=== PATIENT | male | born 1975 | race Caucasian/White ===

== ENCOUNTER 2021-08-25 18:43 | Inpatient (IN) | payer OTHER, SELFPAY ==
--- NOTE | ~2021-08-25 | CT_ITS ---
EXAMINATION: CT HEAD WITHOUT CONTRAST CLINICAL INFORMATION: Symptomatic hypertension COMPARISON: None TECHNIQUE: Contiguous axial imaging was performed from the skull base to vertex without intravenous administration of contrast. This CT examination was performed using dose optimization techniques as appropriate, variously including the following: *Automated exposure control *Adjustment of mA and/or kV according to patient size (this includes techniques or standardized protocols for targeted exams where dose is matched to indication/reason for exam; i.e. extremities or head) *Use of iterative reconstruction technique DLP: 726 mGy-cm FINDINGS: There is no evidence of an extra-axial collection. There is no evidence of intra-axial or extra-axial hemorrhage. The ventricles and extra-axial CSF spaces are appropriate. There is nonspecific periventricular white matter disease. This is somewhat out of proportion for the patient's age. There are bilateral basal ganglia lacunar infarcts. These are of indeterminate age. No mass or mass effect is seen. Review at bone windows is normal. No skull fracture is seen. Visualized paranasal sinuses, mastoid air cells and middle ears are clear. CT/CT head/brain wo con IMPRESSION: Nonspecific periventricular white matter disease somewhat out of proportion for the patient's age. Bilateral basal ganglia lacunar infarcts, indeterminate age.
--- NOTE | ~2021-08-25 | US_ITS ---
EXAMINATION: US ABDOMEN LIMITED CLINICAL INFORMATION: Transaminitis. COMPARISON: Chest CT from yesterday TECHNIQUE: Real-time imaging of the right upper quadrant abdominal viscera. FINDINGS: PANCREAS: Not well visualized due to bowel gas LIVER: Liver echotexture is increased. There is a hypoechoic area adjacent to the gallbladder, characteristic location of focal fatty sparing. There is a 1.2 x 1.4 cm slightly complex cyst in the right lobe of the liver with single thin septation. No other focal liver lesion is seen. There is no biliary duct dilatation. GALLBLADDER: Normal. The gallbladder is physiologically distended without evidence of stones, sludge, polyps, wall thickening or pericholecystic fluid. COMMON BILE DUCT: Normal in caliber measuring 0.4 cm in diameter. RIGHT KIDNEY: There is a 1.3 x 1.1 cm simple cyst in the lateral lower pole. There is a 3 mm echogenic focus in the lower pole questionable for a stone. No hydronephrosis. The kidney measures 10.4 cm in maximum dimension. FREE FLUID: None. US/US abdomen limited IMPRESSION: Echogenic liver probably representing fatty infiltration. 1.2 x 1.4 cm minimally complex cyst in the right lobe of the liver. Normal-appearing gallbladder. Small right renal cyst. Question small right renal stone. Limited visualization of the pancreas.
--- NOTE | ~2021-08-25 | NM_ITS ---
EXAMINATION: PULMONARY PERFUSION STUDY CLINICAL INFORMATION: Atypical chest pain, positive d-dimer, congestive heart failure. COMPARISON: No previous lung scan is available for comparison. A radiograph the chest dated 08/25/2021 is available for comparison. TECHNIQUE: Following the intravenous injection of 4.0 mCi Tc-99m MAA, an 8-view perfusion study was performed using a gamma scintillation camera. FINDINGS: No segmental perfusion defects are present. There is homogeneous distribution of activity bilaterally. There are no focal anatomic appearing perfusion defects present. The cardiomediastinal silhouette is moderately dilated. The chest radiograph dated 08/25/2021 shows dilatation the cardiac silhouette that is well matched to these images and pulmonary edema. NM/NM pul perfusion IMPRESSION: Very low probability of pulmonary embolism. Cardiomegaly.
--- NOTE | ~2021-08-25 | US_ITS ---
EXAMINATION: US VENOUS ULTRASOUND WITH DOPPLER LOWER EXTREMITY, BILATERAL CLINICAL INFORMATION: Elevated d-dimer COMPARISON: None TECHNIQUE: Ultrasound of the deep veins is performed from the hip to the calf with compression sonography and color and pulse Doppler assessment. Spectral analysis with color-flow imaging is performed. FINDINGS: RIGHT: There is normal venous compression and respiratory variation and augmented flow. The visualized common femoral vein, superficial femoral vein, profunda femoral vein, popliteal vein, and the trifurcation region shows no evidence of deep venous thrombosis. There is no significant popliteal fossa cyst. LEFT: There is normal venous compression and respiratory variation and augmented flow. The visualized common femoral vein, superficial femoral vein, profunda femoral vein, popliteal vein, and the trifurcation region shows no evidence of deep venous thrombosis. There is no significant popliteal fossa cyst. US/US venous duplex LE BI IMPRESSION: No DVT demonstrated in the bilateral lower extremity.
--- NOTE | ~2021-08-25 | XR_ITS ---
EXAMINATION: XR CHEST CLINICAL INFORMATION: Chest pain palpitations and tachycardia COMPARISON: None TECHNIQUE: Frontal view of the chest was obtained. FINDINGS: The cardiac silhouette is enlarged. There is pulmonary venous redistribution. There is mixed alveolar and interstitial disease. Findings are most suggestive of CHF/pulmonary edema. There is no pleural effusion or pneumothorax. Bony structures are unremarkable. XR/XR chest 1V IMPRESSION: Enlarged cardiac silhouette and pulmonary edema.
--- NOTE | ~2021-08-25 | US_ITS ---
EXAMINATION: ULTRASOUND RENAL DOPPLER CLINICAL INFORMATION: Rule out renal artery stenosis. COMPARISON: Previous abdominal ultrasound from earlier the same day. TECHNIQUE: Grayscale color and Doppler imaging of the renal arteries including waveform spectral analysis. FINDINGS: The kidneys are normal in contour and symmetric in size. Renal cortical thickness and echogenicity is normal. The right kidney measures 10.4 x 7.1 x 6.4 cm and the left kidney measures 10.7 x 5.4 x 0.4 cm. There is a 1.3 x 1.1 cm cyst in the lateral lower pole. There is a small echogenic density measuring 3 mm in the lower pole questionable for a stone. The left kidney is normal appearing.No renal mass or hydronephrosis. The visualized mid abdominal aorta is normal caliber. Systolic velocity measures 91 cm/s. Right renal artery is patent. Right renal artery peak systolic velocities measure 72, 79 and 57 cm/s proximally, in the midportion and distally. Right renal artery to aorta ratio is 0.9. Resistive indices in the right kidney are normal measuring 0.5-0.6. The right renal vein is patent. The left renal artery is patent. Left renal artery peak systolic velocities are normal measuring 67, 65 and 73 cm/s proximally, in the midportion and distally. Left renal artery to aorta ratio is normal measuring 0.8. Resistive indices in the left kidney are normal measuring 0.5. The left renal vein is patent. US/US renal doppler IMPRESSION: Normal renal Doppler exam. No evidence of renal artery stenosis.
--- NOTE | ~2021-08-25 | CT_ITS ---
EXAMINATION: CT CHEST WITHOUT CONTRAST CLINICAL INFORMATION: Shortness of breath COMPARISON: Chest x-ray from earlier today TECHNIQUE: Multidetector volumetric CT imaging of the chest was done. Axial MIP volume rendering provided. Sagittal and coronal reformatted images were obtained. This CT examination was performed using dose optimization techniques as appropriate, variously including the following: *Automated exposure control *Adjustment of mA and/or kV according to patient size (this includes techniques or standardized protocols for targeted exams where dose is matched to indication/reason for exam; i.e. extremities or head) *Use of iterative reconstruction technique DLP: 462 mGy-cm FINDINGS: LUNGS: There is nearly diffuse interlobular septal thickening bilaterally. There are numerous superimposed nodular foci bilaterally, right lung greater than left and measuring up to nearly 1 cm in size. Focal small region of mixed groundglass and consolidation is present in the anterior right upper lobe. MEDIASTINUM: Visualized thyroid gland is grossly unremarkable. There are multiple scattered prominent lymph nodes including in the paratracheal, prevascular, and subcarinal regions measuring up to 1.4 cm in short axis dimension. Cardiac size appears near the upper limits of normal. Trace pericardial fluid is noted. Coronary artery calcifications are present. PLEURA: Small pleural effusions. No pneumothorax. AXILLA: No lymphadenopathy. UPPER ABDOMEN: Subcentimeter hypodensity in the dome of the liver near the IVC is favored to represent a cyst. OSSEOUS STRUCTURES: Unremarkable. CT/CT chest wo con IMPRESSION: 1. Diffuse interlobular septal thickening bilaterally along with small pleural effusions, suspicious for interstitial pulmonary edema. However, numerous nodular foci are also present bilaterally, raising the possibility of superimposed abnormality such as lymphangitic carcinomatosis. Interval follow-up CT is recommended after improvement of symptoms, such as following diuresis, to assess for persistence of nodularity. 2. Several enlarged mediastinal lymph nodes which could be reactive in the setting of edema or potentially malignant in nature. Attention on follow-up recommended. 3. Coronary artery calcifications. Correlation with cardiac risk factors is recommended.
[2021-08-25 19:04] VITALS: BP 263/177; PULSE 144; RESP 30; TEMP 36.4; O2SAT 90; BMI 30.1
[2021-08-25 19:22] VITALS: BP 256/173; PULSE 141; RESP 22; O2SAT 94
--- NOTE | 2021-08-25 19:27 | ED_ITS ---
HPI - Chest Pain General Chief Complaint: Chest Pain Stated Complaint: chest pains/diff breathing Time Seen by Provider: 08/25/21 19:19 Source: patient and family Mode of arrival: ambulatory Limitations: no limitations History of Present Illness HPI narrative: 46-year-old male with a history of hypertension non compliant with his home medications in greater than 2 months here with reports of 1 week of increasing difficulty breathing, palpitations and high blood pressure at home with chest discomfort. Patient denies any cough, leg swelling, leg pain, fever, headache, vision changes or vomiting. Patient has not received a COVID vaccine Related Data Home Medications Medication Instructions Recorded Confirmed No Known Home Meds 08/25/21 08/25/21 Allergies Allergy/AdvReac Type Severity Reaction Status Date / Time No Known Allergies Allergy Verified 08/25/21 19:10 Review of Systems Review of Systems: Yes all other systems are reviewed and are negative Constitutional: Constitutional: Reports no additional constitutional complaints, Denies body ache(s), Denies chills, Denies fever(s), Denies headache(s) and Denies weakness Eyes: Eyes: Reports no additional eye complaints and Denies change in vision ENT: Reports system reviewed and no additional complaints, except as documented, Denies dizziness, Denies headache(s), Denies nasal congestion, Denies nasal discharge and Denies neck pain Cardiovascular: Cardiovascular: Reports no additional cardiovascular complaints, Reports chest pain, Denies leg edema, Reports palpitations and R eports dyspnea Respiratory: Respiratory: Reports no additional respiratory complaints, Denies cough and Reports dyspnea Gastrointestinal: Gastrointestinal: Reports no additional gastrointestinal complaints, Denies abdominal pain, Denies diarrhea, Denies nausea and Denies vomiting Genitourinary: Genitourinary: Denies urinary incontinence Musculoskeletal: Musculoskeletal: Reports no additional musculoskeletal complaints, Denies back pain, Denies arthralgias, Denies joint swelling, Denies neck pain, Denies numbness and Denies tingling Integumentary/Breasts: Skin/Breast: Reports system reviewed and no additional complaints, except as docu and Denies rash Neurologic: Reports system reviewed and no additional complaints, except as documented, Denies Abnormal speech present, Denies dizziness, Denies headache(s), Denies numbness, Denies tingling and Denies weakness Endocrine: Endocrine: Reports palpitations PMFSH Past Medical History Attestation statement: The following information was validated with the patient. Source: old records reviewed and nursing notes reviewed Medical History HTN (hypertension) Social History Social History Advance Directives: No Advance Directives Information Provided: No Physical Exam Vital Signs: Vital Signs: Last Vital Signs Temp 99.0 F 08/25/21 21:13 Pulse 107 H 08/25/21 21:13 Resp 22 H 08/25/21 21:46 BP 181/124 H 08/25/21 21:46 Pulse Ox 98 08/25/21 21:46 BMI result Body Mass Index 30.1 Const: Other: Tachypneic, mild respiratory distress Diaphoretic General: alert Orientation/consciousness: patient oriented x3 Limitations: no limitations HENMT: Head: Yes normal to inspection Ears: hearing grossly normal bilaterally and TM normal on the right General nose exam: Normal external nose present Face and sinus: Yes normal facial exam Mouth: Normal oral and palatal mucosa present Throat: Yes posterior oropharynx normal Eyes: General: appearance normal, both eyes and all related structures Pupils: Equal, round and reactive pupils present Neck: Neck: Yes normal visual inspection Chest: Chest palpation & inspection: normal inspection of the chest Resp: Other: Tachypnea with a rate of 28. Fine crackles throughout Cardio: Rate: tachycardic (140) Rhythm: regular rhythm Peripheral puls es: Peripheral pulses 2+ throughout GI: Inspection: Yes normal to inspection Palpation (GI): Soft to palpation and nontender Auscultation: normal bowel sounds Back/Spine/Pelvis: Thoracic/Lumbar Spine: thoracic and lumbar spine normal to inspection Skin: General skin exam: no rashes or lesions noted Neuro: General: patient oriented x3, no focal motor deficits and normal sensation to monofilament Cranial nerves: Yes Equal, round and reactive pupils present Cognition (Neuro): normal cognition Speech: No Abnormal speech present Gait exam (Neuro): Normal gait present Motor exam (neuro): 5/5 motor strength present throughout Extrem: General: Yes normal to inspection, Yes no pedal edema and Yes no calf tenderness Course Course Course Narrative: 46-year-old male with a history of hypertension, noncompliant with home medications here with reports of 1 week of progressive shortness of breath, palpitations, high blood pressure at home with chest discomfort. On arrival the patient is noted to be tachycardic with a rate of 140, hypertensive with initial blood pressure 256/173, tachypnea with a rate of 28, room air saturation 90% wit h crackles throughout the lung. Patient seen in conjunction with attending physician Dr. Potter. ?hypertensive crisis w/ new onset CHF Will check labs, EKG, chest x-ray, COVID screen. Patient will be given 20 mg of IV labetalol, 40 mg of IV Lasix and sublingual nitroglycerin. 2029-blood pressure now 192/130, heart rate down to 108, rr 24. Unfortunately the patient's labs hemolyzed and we are still waiting for his chemistries. His initial troponin is 2200. His chest pain is described as discomfort and he has had this throughout the week. Serial EKGs are unchanged in so sinus tachycardia with LVH with flipped T-waves in V6. BNP is elevated. Chest x-ray is consistent with fluid overload. D-dimer is elevated. Anticipate patient will need to be heparinized. Due to symptomatic hypertension will check CT head to rule out ICH prior to initiating heparin. Due to delay in obtaining labs will scan patient's head and defer CTA until labs are returned. 2099-labs show acute kidney injury. Unable to use IV contrast for CTA to renal function. Spoke to Cardiology Dr. Gale. Requesting tox screen. Recommended trending troponin. Likely secondary to uncontrolled hypertension and CHF and not from ACS. However if troponin continues to rise the patient may require heparin IV. Blood pressure 195/130. Will give additional dose of labetalol then re-assess. 2129-Discussed case with Dr Huang. BP now 176/124. Medicine is requesting we discussed the case with ICU due to elevated blood pressure and management of this on the floor. Will discuss with ICU. 2144-discussed patient with Dr. Mora (ICU). As patient has had significant improvement in blood pressure he does not recommend ICU admission and feels current blood pressure is satisfactory. Repeat troponin 1960. 2158-Additional 10mg labetalol IV, nitro paste applied. Dr Huang requesting CT chest w/o contrast d/t renal function. Heparin gtt ordered. Sign out to Dr Myers pending CT chest and admission. MDM - Chest Pain MDM Narrative Medical decision making narrative: hypertensive crisis, congestive heart failure, Nstemi, PE Medical Records Data Attestation: I reviewed the patient's medical records. Lab Data Attestation: I reviewed the patient's lab results. Result diagrams: 08/25/21 19:24 08/25/21 20:16 Labs: Lab Results 08/25/21 08/25/21 08/25/21 Range/Units 19:24 19:24 19:24 WBC 8.2 (4.8-10.8) X10*3/uL RBC 4.26 L (4.60-5.80) X10*6/uL Hgb 12.5 L (14.0-18.0) g/dl Hct 39.9 L (42.0-52.0) % MCV 93.7 (80.0-98.0) fL MCH 29.3 (27.0-33.0) pg MCHC 31.3 (31.0-36.0) g/dl RDW 13.8 (11.0-16.0) % Plt Count 253 (160-400) X10*3/uL MPV 9.5 (9.4-12.4) fL Immature Gran % (Auto) 0.6 H (0.0-0.4) % Neut % (Auto) 68.6 (45-73) % Lymph % (Auto) 18.6 L (20-40) % Nicollet % (Auto) 7.1 (2-11) % Eos % (Auto) 4.2 H (0-4) % Baso % (Auto) 0.9 (0-2) % Lymph # (Auto) 1.5 (1.2-4.9) X10*3/uL Nicollet # (Auto) 0.6 (0.1-1.2) X10*3/uL Eos # (Auto) 0.3 (0.0-0.4) X10*3/uL Baso # (Auto) 0.1 (0.0-0.2) X10*3/uL Abs Immat Gran (auto) 0.05 H (0.00-0.03) X10*3/uL Absolute Neuts (auto) 5.6 (2.0-8.3) x10*3/uL Absolute Nucleated RBC 0.000 (0.0-0.012) X10*3/uL Nucleated RBC % (auto) 0.0 (0.0-0.2) /100WBC D-Dimer High Sensitivty 1013 NG/ML Sodium (135-145) mmol/L Potassium (3.3-5.1) mmol/L Chloride (96-108) mmol/L Carbon Dioxide (22-29) mmol/L Anion Gap (12-20) BUN (9-16) mg/dL Creatinine (0.5-1.4) mg/dL Estim Creat Clear Calc Estimated GFR Random Glucose (60-115) mg/dL Calcium (8.4-10.2) mg/dL Total Bilirubin (0.0-1.0) mg/dL Direct Bilirubin (0.0-0.5) mg/dL AST (5-37) U/L ALT (0-40) U/L Alkaline Phosphatase (39-117) U/L Troponin I High Sens 2200.8 H* (<3.5-35.0) ng/L B-Natriuretic Peptide 1204 H (<100) pg/mL Total Protein (6.5-8.0) g/dL Albumin (3.5-5.0) g/dL Urine Opiates Screen (Not Detect) Urine Fentanyl Screen (Not Detect) Ur Barbiturates Screen (Not Detect) Ur Phencyclidine Scrn (Not Detect) Ur Amphetamines Screen (Not Detect) U Benzodiazepines Scrn (Not Detect) Urine Cocaine Screen (Not Detect) U Marijuana (THC) Screen (Not Detect) COVID-19 (TIMOTHY) (Negative) COVID-19 Clin Com 08/25/21 08/25/21 08/25/21 Range/Units 19:29 20:16 21:15 WBC (4.8-10.8) X10*3/uL RBC (4.60-5.80) X10*6/uL Hgb (14.0-18.0) g/dl Hct (42.0-52.0) % MCV (80.0-98.0) fL MCH (27.0-33.0) pg MCHC (31.0-36.0) g/dl RDW (11.0-16.0) % Plt Count (160-400) X10*3/uL MPV (9.4-12.4) fL Immature Gran % (Auto) (0.0-0.4) % Neut % (Auto) (45-73) % Lymph % (Auto) (20-40) % Nicollet % (Auto) (2-11) % Eos % (Auto) (0-4) % Baso % (Auto) (0-2) % Lymph # (Auto) (1.2-4.9) X10*3/uL Nicollet # (Auto) (0.1-1.2) X10*3/uL Eos # (Auto) (0.0-0.4) X10*3/uL Baso # (Auto) (0.0-0.2) X10*3/uL Abs Immat Gran (auto) (0.00-0.03) X10*3/uL Absolute Neuts (auto) (2.0-8.3) x10*3/uL Absolute Nucleated RBC (0.0-0.012) X10*3/uL Nucleated RBC % (auto) (0.0-0.2) /100WBC D-Dimer High Sensitivty NG/ML Sodium 139 (135-145) mmol/L Potassium 4.8 (3.3-5.1) mmol/L Chloride 108 (96-108) mmol/L Carbon Dioxide 20 L (22-29) mmol/L Anion Gap 16 (12-20) BUN 35 H (9-16) mg/dL Creatinine 2.22 H (0.5-1.4) mg/dL Estim Creat Clear Calc 47.1 Estimated GFR 32 Random Glucose 116 H (60-115) mg/dL Calcium 9.1 (8.4-10.2) mg/dL Total Bilirubin 0.4 (0.0-1.0) mg/dL Direct Bilirubin < 0.2 (0.0-0.5) mg/dL AST 261 H (5-37) U/L ALT 213 H (0-40) U/L Alkaline Phosphatase 151 H (39-117) U/L Troponin I High Sens (<3.5-35.0) ng/L B-Natriuretic Peptide (<100) pg/mL Total Protein 7.1 (6.5-8.0) g/dL Albumin 3.7 (3.5-5.0) g/dL Urine Opiates Screen Not Detected (Not Detect) Urine Fentanyl Screen Not Detected (Not Detect) Ur Barbiturates Screen Not Detected (Not Detect) Ur Phencyclidine Scrn Not Detected (Not Detect) Ur Amphetamines Screen Not Detected (Not Detect) U Benzodiazepines Scrn Not Detected (Not Detect) Urine Cocaine Screen Not Detected (Not Detect) U Marijuana (THC) Screen Not Detected (Not Detect) COVID-19 (TIMOTHY) Negative (Negative) COVID-19 Clin Com See Note 08/25/21 Range/Units 21:20 WBC (4.8-10.8) X10*3/uL RBC (4.60-5.80) X10*6/uL Hgb (14.0-18.0) g/dl Hct (42.0-52.0) % MCV (80.0-98.0) fL MCH (27.0-33.0) pg MCHC (31.0-36.0) g/dl RDW (11.0-16.0) % Plt Count (160-400) X10*3/uL MPV (9.4-12.4) fL Immature Gran % (Auto) (0.0-0.4) % Neut % (Auto) (45-73) % Lymph % (Auto) (20-40) % Nicollet % (Auto) (2-11) % Eos % (Auto) (0-4) % Baso % (Auto) (0-2) % Lymph # (Auto) (1.2-4.9) X10*3/uL Nicollet # (Auto) (0.1-1.2) X10*3/uL Eos # (Auto) (0.0-0.4) X10*3/uL Baso # (Auto) (0.0-0.2) X10*3/uL Abs Immat Gran (auto) (0.00-0.03) X10*3/uL Absolute Neuts (auto) (2.0-8.3) x10*3/uL Absolute Nucleated RBC (0.0-0.012) X10*3/uL Nucleated RBC % (auto) (0.0-0.2) /100WBC D-Dimer High Sensitivty NG/ML Sodium (135-145) mmol/L Potassium (3.3-5.1) mmol/L Chloride (96-108) mmol/L Carbon Dioxide (22-29) mmol/L Anion Gap (12-20) BUN (9-16) mg/dL Creatinine (0.5-1.4) mg/dL Estim Creat Clear Calc Estimated GFR Random Glucose (60-115) mg/dL Calcium (8.4-10.2) mg/dL Total Bilirubin (0.0-1.0) mg/dL Direct Bilirubin (0.0-0.5) mg/dL AST (5-37) U/L ALT (0-40) U/L Alkaline Phosphatase (39-117) U/L Troponin I High Sens 1961.9 H* (<3.5-35.0) ng/L B-Natriuretic Peptide (<100) pg/mL Total Protein (6.5-8.0) g/dL Albumin (3.5-5.0) g/dL Urine Opiates Screen (Not Detect) Urine Fentanyl Screen (Not Detect) Ur Barbiturates Screen (Not Detect) Ur Phencyclidine Scrn (Not Detect) Ur Amphetamines Screen (Not Detect) U Benzodiazepines Scrn (Not Detect) Urine Cocaine Screen (Not Detect) U Marijuana (THC) Screen (Not Detect) COVID-19 (TIMOTHY) (Negative) COVID-19 Clin Com Imaging Data Chest x-ray: Attestation: I personally reviewed and interpreted this imaging study as follows: Radiologist's impression: FINDINGS: The cardiac silhouette is enlarged. There is pulmonary venous redistribution. There is mixed alveolar and interstitial disease. Findings are most suggestive of CHF/pulmonary edema. There is no pleural effusion or pneumothorax. Bony structures are unremarkable. XR/XR chest 1V IMPRESSION: Enlarged cardiac silhouette and pulmonary edema. ? CT scan - head: Attestation: I personally reviewed and interpreted this imaging study as follows: Radiologist's impression: FINDINGS: There is no evidence of an extra-axial collection. There is no evidence of intra-axial or extra-axial hemorrhage. The ventricles and extra-axial CSF spaces are appropriate. There is nonspecific periventricular white matter disease. This is somewhat out of proportion for the patient's age. There are bilateral basal ganglia lacunar infarcts. These are of indeterminate age. No mass or mass effect is seen. Review at bone windows is normal. No skull fracture is seen. Visualized paranasal sinuses, mastoid air cells and middle ears are clear. ? CT/CT head/brain wo con IMPRESSION: Nonspecific periventricular white matter disease somewhat out of proportion for the patient's age. Bilateral basal ganglia lacunar infarcts, indeterminate age. ECG Data ECG #1: Attestation: I personally reviewed and interpreted this ECG as follows: ECG interpretation date: 08/25/21 ECG interpretation time: 19:09 Interpretation: Sinus tachycardia with a rate of 143, normal TN, normal QRS, QTC 546, LVH with depressions in V6 Repeat EKG at 20:08 shows sinus tachycardia with a rate of 109, normal TN, destiny l QRS, QTC 495, LVH with flipped T-waves in V6 Critical Care Time Critical Care Time Critical Care Time: Yes Total Critical Care Time: 120 Attestation: Multiple re-evaluations her blood pressure with IV antihypertensives required, discussion with ICU, discussion with medicine for admission. Discussions family at the bedside. Discharge Plan Discharge Clinical Impression: Atypical chest pain, Acute non-ST elevation myocardial infarction (NSTEMI), CHF (congestive heart failure), Hypertensive emergency Patient Disposition: Admitted As Inpatient
[2021-08-25] MEDS: Furosemide 40 MG/4 ML VIAL IVPUSH (19:29)
[2021-08-25 19:30] LABS: Basophils Absolute Auto 0.1 X10*3/uL (0.0-0.2); Basophils Percent Auto 0.9 % (0-2); Eosinophils Absolute Auto 0.3 X10*3/uL (0.0-0.4); Eosinophils Percent Auto 4.2 % (0-4); Hematocrit 39.9 % (42.0-52.0); Hemoglobin 12.5 g/dl (14.0-18.0); Imm Gran Abs Auto 0.05 X10*3/uL (0.00-0.03); Imm Gran Pct Auto 0.6 % (0.0-0.4); Lymphocytes Absolute Auto 1.5 X10*3/uL (1.2-4.9); Lymphocytes Percent Auto 18.6 % (20-40); MANUAL DIFF FLAG NO; Mean Corpuscular HGB Conc 31.3 g/dl (31.0-36.0); Mean Corpuscular Hemoglobin 29.3 pg (27.0-33.0); Mean Corpuscular Volume 93.7 fL (80.0-98.0); Mean Platelet Volume 9.5 fL (9.4-12.4); Monocytes Absolute Auto 0.6 X10*3/uL (0.1-1.2); Monocytes Percent Auto 7.1 % (2-11); Neutrophils Absolute Auto 5.6 x10*3/uL (2.0-8.3); Neutrophils Percent Auto 68.6 % (45-73); Platelet Count 253 X10*3/uL (160-400); Red Blood Count 4.26 X10*6/uL (4.60-5.80); Red Cell Distribution Width 13.8 % (11.0-16.0); White Blood Count 8.2 X10*3/uL (4.8-10.8)
[2021-08-25] MEDS: Nitroglycerin 0.4 MG TAB.SUBL SUBLINGUAL (19:30)
[2021-08-25] MEDS: Labetalol HCL 100 MG/20 ML VIAL 20 MG IVPUSH ×2 (19:33→21:21)
[2021-08-25 19:41] LABS: D Dimer High Sensitivity 1013 NG/ML
[2021-08-25 19:50] VITALS: BP 192/143; PULSE 108
[2021-08-25 19:57] LABS: COVID-19 Test Negative (Negative); IDNOW Serial# 55D5AD1C
--- NOTE | 2021-08-25 20:04 | ECG_ITS ---
Test Reason : CHEST PAIN/TACHY Blood Pressure : / mmHG Vent. Rate : 143 BPM Atrial Rate : 143 BPM P-R Int : 132 ms QRS Dur : 092 ms QT Int : 354 ms P-R-T Axes : 035 -27 101 degrees QTc Int : 546 ms Sinus tachycardia Possible Left atrial enlargement Left ventricular hypertrophy ( R in aVL , Neil product ) T wave abnormality, consider lateral ischemia Abnormal ECG No previous ECGs available Referred By: Jeannette Solitario Electronically Signed By:POONAM VILCHIS MD
[2021-08-25 20:13] LABS: B Type Natriuretic Peptide 1204 pg/mL (<100)
[2021-08-25] MEDS: Aspirin 81 MG TAB.CHEW 324 MG PO (20:51)
--- NOTE | 2021-08-25 20:55 | PHA.MEDREC ---
Pharmacy Consult ? Medication Reconciliation Pharmacy has completed the medication reconciliation.
[2021-08-25 21:01] LABS: Alanine Aminotransferase 213 U/L (0-40); Albumin Level 3.7 g/dL (3.5-5.0); Alkaline Phosphatase 151 U/L (39-117); Anion Gap 16 (12-20); Aspartate Amino Transferase 261 U/L (5-37); Bilirubin Direct < 0.2 mg/dL (0.0-0.5); Bilirubin Total 0.4 mg/dL (0.0-1.0); Blood Urea Nitrogen 35 mg/dL (9-16); Calcium 9.1 mg/dL (8.4-10.2); Carbon Dioxide 20 mmol/L (22-29); Chloride 108 mmol/L (96-108); Creatinine Clr Calc Pharmacy 47.1; Estimated Glomerular Filt Rate 32; Glucose Random 116 mg/dL (60-115); Potassium 4.8 mmol/L (3.3-5.1); Sodium 139 mmol/L (135-145); Total Protein 7.1 g/dL (6.5-8.0)
[2021-08-25 21:13] VITALS: BP 195/134; PULSE 107; RESP 25; TEMP 37.2; O2SAT 98
[2021-08-25 21:46] VITALS: BP 181/124; RESP 22; O2SAT 98
[2021-08-25 21:48] LABS: Troponin-I High Sensitivity 1961.9 ng/L (<3.5-35.0)
[2021-08-25 21:57] LABS: Amphetamine Screen Urine Not Detected (Not Detect); Barbiturates, Urine Not Detected (Not Detect); Benzodiazepines Screen Urine Not Detected (Not Detect); Cannabinoid Screen Urine Not Detected (Not Detect); Cocaine Screen Urine Not Detected (Not Detect); Fentanyl, urine Not Detected (Not Detect); Opiate Screen Urine Not Detected (Not Detect); Phencyclidine Screen Urine Not Detected (Not Detect)
[2021-08-25 21:59] LABS: INTERNATIONAL NORM RATIO 1.1 (0.9-1.1); Prothrombin Time 12.7 SEC (9.9-13.0)
[2021-08-25 22:02] LABS: Partial Thromboplastin Time 35.4 SEC (24.1-38.0)
[2021-08-25] MEDS: Labetalol HCL 100 MG/20 ML VIAL 10 MG IVPUSH (22:15)
[2021-08-25] MEDS: Heparin Sodium,Porcine 5,000 UNIT/ML VIAL 4000 UNIT IVPUSH (22:16)
[2021-08-25] MEDS: Nitroglycerin 2 % Oint 1 GM Packet 1 INCH TRANSDERMA (22:17)
[2021-08-25 22:48] LABS: Appearance Urine CLEAR; Color Urine STRAW; Glucose Urine UA NEG (NEG); Leukocyte Esterase Urine NEG (NEG); Nitrite Urine NEG (NEG); PH 5.5 (5.0-8.0); Specific Gravity - Urine 1.015 (1.005-1.025); Urine Blood NEG (NEG); Urine Ketones NEG (NEG); Urine Protein TRACE MG/DL (NEG-TRACE)
[2021-08-25 22:54] VITALS: BMI 31.5
--- NOTE | 2021-08-25 23:04 | PM.IMHP ---
History of Present Illness Date of Service: 08/25/21 Chief Complaint: Shortness of breath 46-year-old male with a past medical history of hypertension presented to the hospital with a chief complaint of shortness of breath. Patient reports that he has a history of hypertension and has not been taking his home blood pressure medications for past 2 months as he ran out of them. Mentions that since 1 week he has been having intermittent episodes of shortness of breath, orthopnea. Also complains of dyspnea on exertion and occasional chest discomfort. Denies any chest pain at the time of my interview. Reports today he had severe shortness of breath and subsequently his girlfriend brought him to the hospital for further evaluation. Patient mentioned that he recently went to [place], many of [place], everything by flight about 1-2 hours lights. Denies any long travel. Denies any leg pain. Denies any headaches, numbness tingling or focal weakness. Denies any GI symptoms. Review of all other systems is negative except mentioned above ER course: Per ER team patient on presentation noted to be acutely short of breath; chest x-ray showed possible congestion; on labs noted elevated proBNP, creatinine to 2.2, troponins elevated to 2200; EKG showed T-wave inversions in the lateral leads and LVH; likely strain pattern. Discussed with Dr. Gale from Cardiology-did not remark want any emergency intervention; patient was given heparin drip and admitted to the hospital for further management. ER team also mentioned that patient blood pressure was significantly elevated on presentation 263/177; CT head showed no acute findings; discussed with ICU Dr Mora-suggested admission to the medical floors; patient was given IV labetalol with improvement in blood pressure to 183/127. Also noted to have elevated D-dimer; unable to do CT scan given renal insufficiency. Patient was started on heparin drip. [facility] Medical History HTN (hypertension) Social History Advance Directives: No Advance Directives Information Provided: No Meds Allergies Allergy/AdvReac Type Severity Reaction Status Date / Time No Known Allergies Allergy Verified 08/25/21 19:10 Active Medications: Current Medications Heparin Sodium (Porcine) (Heparin Sodium,Porcine 5,000 Unit/Ml Vial) 4,000 unit 40 unit/kg (3800 unit) IVPUSH PROTOCOL BOLUS PRN PRN Reason: 40 unit/kg - Heparin Protocol Heparin Sodium (Porcine) (Heparin Sodium,Porcine 5,000 Unit/Ml Vial) 8,000 unit 80 unit/kg (7600 unit) IVPUSH PROTOCOL BOLUS PRN PRN Reason: 80 unit/kg - Heparin Protocol Heparin Sodium/Sodium Chloride () 25,000 unit in 250 mls @ 0 mls/hr IVCONT .Q0M SELINA; Protocol Pharmacy Consult (Consult Rx Perform Med Rec) 1 each MISCELLANE ONCE PRN PRN Reason: Consult order Home Medications Medication Instructions Recorded Confirmed Last Taken Type No Known Home Meds 08/25/21 08/25/21 Unknown History Physical Exam Vital Signs and Narrative: Vital Signs: Last Vital Signs Temp 99.0 F 08/25/21 21:13 Pulse 107 H 08/25/21 21:13 Resp 22 H 08/25/21 21:46 BP 181/124 H 08/25/21 21:46 Pulse Ox 98 08/25/21 21:46 BMI result Body Mass Index 31.5 Gen: Appears be in no acute distress. Speaking in full sentences on room air. HEENT: NCAT, Moist mucosa. Pulmonary: Bilateral crackles present CVS: Normal S1-S2 Abdomen: BS+, Soft, Nontender Extremities: Warm well perfused. No pedal edema Neuro: Alert and awake. Grossly nonfocal Results Labs CBC and Chem 7: 08/26/21 05:48 08/26/21 05:48 Labs: Laboratory Results - last 24 hr 08/25/21 08/25/21 08/25/21 19:24 19:24 19:24 MCV 93.7 MCH 29.3 MCHC 31.3 RDW 13.8 Plt Count 253 MPV 9.5 Immature Gran % (Auto) 0.6 H Neut % (Auto) 68.6 Lymph % (Auto) 18.6 L [place] % (Auto) 7.1 Eos % (Auto) 4.2 H Baso % (Auto) 0.9 Lymph # (Auto) 1.5 [place] # (Auto) 0.6 Eos # (Auto) 0.3 Baso # (Auto) 0.1 Abs Immat Gran (auto) 0.05 H Absolute Neuts (auto) 5.6 Absolute Nucleated RBC 0.000 Nucleated RBC % (auto) 0.0 PT 12.7 INR 1.1 APTT 35.4 D-Dimer High Sensitivty 1013 Anion Gap Estim Creat Clear Calc Estimated GFR Random Glucose Calcium Total Bilirubin Direct Bilirubin AST ALT Alkaline Phosphatase B-Natriuretic Peptide 1204 H Total Protein Albumin Urine Color Urine Appearance Urine pH Ur Specific Girard Urine Protein Urine Glucose (UA) Urine Ketones Urine Blood Urine Nitrite Ur Leukocyte Esterase Urine Opiates Screen Urine Fentanyl Screen Ur Barbiturates Screen Ur Phencyclidine Scrn Ur Amphetamines Screen U Benzodiazepines Scrn Urine Cocaine Screen U Marijuana (THC) Screen COVID-19 (TIMOTHY) COVID-19 [employer] 08/25/21 08/25/21 08/25/21 19:29 20:16 21:15 MCV MCH MCHC RDW Plt Count MPV Immature Gran % (Auto) Neut % (Auto) Lymph % (Auto) [place] % (Auto) Eos % (Auto) Baso % (Auto) Lymph # (Auto) [place] # (Auto) Eos # (Auto) Baso # (Auto) Abs Immat Gran (auto) Absolute Neuts (auto) Absolute Nucleated RBC Nucleated RBC % (auto) PT INR APTT D-Dimer High Sensitivty Anion Gap 16 Estim Creat Clear Calc 47.1 Estimated GFR 32 Random Glucose 116 H Calcium 9.1 Total Bilirubin 0.4 Direct Bilirubin < 0.2 AST 261 H ALT 213 H Alkaline Phosphatase 151 H B-Natriuretic Peptide Total Protein 7.1 Albumin 3.7 Urine Color Urine Appearance Urine pH Ur Specific Girard Urine Protein Urine Glucose (UA) Urine Ketones Urine Blood Urine Nitrite Ur Leukocyte Esterase Urine Opiates Screen Not Detected Urine Fentanyl Screen Not Detected Ur Barbiturates Screen Not Detected Ur Phencyclidine Scrn Not Detected Ur Amphetamines Screen Not Detected U Benzodiazepines Scrn Not Detected Urine Cocaine Screen Not Detected U Marijuana (THC) Screen Not Detected COVID-19 (TIMOTHY) Negative COVID-19 [employer] Com See Note 08/25/21 22:28 MCV MCH MCHC RDW Plt Count MPV Immature Gran % (Auto) Neut % (Auto) Lymph % (Auto) [place] % (Auto) Eos % (Auto) Baso % (Auto) Lymph # (Auto) [place] # (Auto) Eos # (Auto) Baso # (Auto) Abs Immat Gran (auto) Absolute Neuts (auto) Absolute Nucleated RBC Nucleated RBC % (auto) PT INR APTT D-Dimer High Sensitivty Anion Gap Estim Creat Clear Calc Estimated GFR Random Glucose Calcium Total Bilirubin Direct Bilirubin AST ALT Alkaline Phosphatase B-Natriuretic Peptide Total Protein Albumin Urine Color STRAW Urine Appearance CLEAR Urine pH 5.5 Ur Specific Girard 1.015 Urine Protein TRACE Urine Glucose (UA) NEG Urine Ketones NEG Urine Blood NEG Urine Nitrite NEG Ur Leukocyte Esterase NEG Urine Opiates Screen Urine Fentanyl Screen Ur Barbiturates Screen Ur Phencyclidine Scrn Ur Amphetamines Screen U Benzodiazepines Scrn Urine Cocaine Screen U Marijuana (THC) Screen COVID-19 (TIMOTHY) COVID-19 Clin Com Imaging Radiologist's Impressions: Impressions Chest X-Ray 08/25/21 19:38 IMPRESSION: Enlarged cardiac silhouette and pulmonary edema. Head CT 08/25/21 20:37 IMPRESSION: Nonspecific periventricular white matter disease somewhat out of proportion for the patient's age. Bilateral basal ganglia lacunar infarcts, indeterminate age. Assessment and Plan (1) Atypical chest pain: Status: Acute (2) Acute non-ST elevation myocardial infarction (NSTEMI): Status: Acute (3) CHF (congestive heart failure): Status: Acute (4) Hypertensive emergency: Status: Acute Plan 46-year-old male with a past medical history of hypertension presented to the hospital with a chief complaint of shortness of breath/dyspnea on exertion/orthopnea/chest discomfort-noted to have following Hypertensive emergency: CT head showed no evidence of hemorrhage. Patient blood pressure on presentation was 263/177-> currently 181/124. Received IV labetalol. Patient BP almost close to her goal for now. Will start the patient on carvedilol from tomorrow morning Labetalol p.r.n. blood pressure greater than 220/110 Patient reports he ran out of his home medications about 2 months ago and has not been taking any blood pressure medications. New onset CHF: Patient complained of orthopnea, shortness of breath, dyspnea on exertion. Noted to have elevated proBNP and congestion on chest x-ray. Will continue IV Lasix Daily weights and I's and O's Echocardiogram Cardiology was notified. NSTEMI: patient currently denies any chest pain. Troponin 2200 followed by 1900s; EKG showed T-wave inversions in the lateral leads-likely strain pattern. On heparin drip Positive D-dimer: Patient on heparin drip. Will obtain venous duplex and V/Q scan. No right heart strain noted on the bedside echo per ER team. Unable to do CT angio given renal insufficiency. ЕКАТЕРИНА: Patient creatinine on presentation was 2.2. Unknown baseline. Monitor renal function while diuresing. Avoid nephrotoxins. 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 Will obtain right upper quadrant ultrasound and acute hepatitis panel as well. 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 Will consult Oncology for further recommendations. Basal ganglion Lacunar Infarct: age indeterminate as noted on CT head. Grossly non focal exam. will obtain TSh, A1c, lipid profile. echo with Bubble study. Neurology follow up. Received ASA 325mg in ER-> will continue 81mg daily. s/w Lipitor 40mg DVT prophylaxis: Patient on heparin drip Code status: Full code Quality Stroke Does the patient have a stroke diagnosis?: No VTE Prior VTE?: No VTE Risk Level:: Medical - moderate - high VTE Device Contraindication: Treatment Not Indicated VTE Drug Contraindication: N/A - Med Ordered
[2021-08-25] MEDS: Heparin Sodium,Porcine/1/2NS 25,000 UNIT/250 ML IV.SOLN 10 UNIT IVCONT (23:31)
[2021-08-25] MEDS: 0.9 % Sodium Chloride Flush 3 ML SYRINGE IVFLUSH (23:34)
[2021-08-26] VITALS (10 sets, daily range): BP systolic 156–188; BP diastolic 96–131; PULSE 93–101; RESP 14–18; TEMP 37.1; O2SAT 98–100
--- NOTE | 2021-08-26 01:16 | PC.NURSE ---
Patient came in hypertensive, Sinus tachy 130-150's, tachypneic. Patient denies chest pain, and dizziness. Patient was desaturating on room air applied 3l nasal cannula came up to 93-94%. Patient ambulates independently, does not use oxygen at home. EKG, iv angio, labs, labatelol, 1 sl nitro, and iv lasix given. Patients troponin 2,200 MD aware. Heparin drip started dry weight 99.6kg. now tele: sinus rythym 90's. Will continue to monitor.
[2021-08-26 06:01] LABS: MANUAL DIFF FLAG NO
[2021-08-26 06:05] LABS: Basophils Absolute Auto 0.1 X10*3/uL (0.0-0.2); Basophils Percent Auto 0.9 % (0-2); Eosinophils Absolute Auto 0.4 X10*3/uL (0.0-0.4); Eosinophils Percent Auto 5.6 % (0-4); Hematocrit 36.5 % (42.0-52.0); Hemoglobin 11.8 g/dl (14.0-18.0); Imm Gran Abs Auto 0.02 X10*3/uL (0.00-0.03); Imm Gran Pct Auto 0.3 % (0.0-0.4); Lymphocytes Absolute Auto 1.5 X10*3/uL (1.2-4.9); Lymphocytes Percent Auto 22.5 % (20-40); Mean Corpuscular HGB Conc 32.3 g/dl (31.0-36.0); Mean Corpuscular Hemoglobin 30.3 pg (27.0-33.0); Mean Corpuscular Volume 93.8 fL (80.0-98.0); Mean Platelet Volume 9.6 fL (9.4-12.4); Monocytes Absolute Auto 0.6 X10*3/uL (0.1-1.2); Monocytes Percent Auto 8.8 % (2-11); Neutrophils Absolute Auto 4.1 x10*3/uL (2.0-8.3); Neutrophils Percent Auto 61.9 % (45-73); Platelet Count 243 X10*3/uL (160-400); Red Blood Count 3.89 X10*6/uL (4.60-5.80); Red Cell Distribution Width 13.7 % (11.0-16.0); White Blood Count 6.6 X10*3/uL (4.8-10.8)
[2021-08-26 06:13] LABS: PTT Heparin Drip 39.5 SEC (53-77.9)
[2021-08-26 06:20] LABS: Anion Gap 14 (12-20); Blood Urea Nitrogen 31 mg/dL (9-16); Calcium 9.2 mg/dL (8.4-10.2); Carbon Dioxide 22 mmol/L (22-29); Chloride 108 mmol/L (96-108); Creatinine Clr Calc Pharmacy 53.1; Estimated Glomerular Filt Rate 36; Glucose Random 103 mg/dL (60-115); Potassium 4.2 mmol/L (3.3-5.1); Sodium 140 mmol/L (135-145)
[2021-08-26] MEDS: Heparin Sodium,Porcine 5,000 UNIT/ML VIAL 4000 UNIT IVPUSH ×3 (06:26→20:51)
--- NOTE | 2021-08-26 06:33 | PC.NURSE ---
PTTHD 39.5, pt medicated with bolus, Heparin infusion increased by 2 units/kg/hr. PTTHD ordered for 1230. BP remains elevated, Hospitalist aware. Per hospitalist to medicate with Coreg and hold Labetolol.
[2021-08-26] MEDS: carvediloL 3.125 MG TABLET PO (06:37)
[2021-08-26 06:40] LABS: Alanine Aminotransferase 162 U/L (0-40); Albumin Level 3.5 g/dL (3.5-5.0); Alkaline Phosphatase 136 U/L (39-117); Aspartate Amino Transferase 108 U/L (5-37); Bilirubin Direct 0.2 mg/dL (0.0-0.5); Bilirubin Total 0.6 mg/dL (0.0-1.0); Magnesium 2.2 mg/dL (1.6-2.6); Total Protein 6.5 g/dL (6.5-8.0)
--- NOTE | 2021-08-26 07:43 | PC.NURSE ---
report given to earl peter
[2021-08-26 07:44] LABS: Estimated Average Glucose 91 mg/dL; Hemoglobin A1c % 4.8 %
[2021-08-26 07:45] LABS: Cholesterol 210 mg/dL; HDL Cholesterol 67 mg/dL; LDL Cholesterol Calculated 126 mg/dl; Triglycerides 85 mg/dL
[2021-08-26 07:48] LABS: HBc Num1 0.05 S/CO (0.00-0.79); Hepatitis B Core Antibody Nonreactive (Nonreactive); ~HepC Num1 0.08 S/CO (0.00-0.79); ~Hepatitis B Surface Antibody NONREACTIVE (Nonreactive); ~Hepatitis C Antibody Nonreactive (Nonreactive)
[2021-08-26] MEDS: Furosemide 40 MG/4 ML VIAL IVPUSH ×2 (07:49→17:07)
[2021-08-26 07:50] LABS: HBsAGNum1 0.15 S/CO (0.00-0.99); Hepatitis B Surface Antigen Negative (Negative)
--- NOTE | 2021-08-26 07:53 | PC.NURSE ---
pt is alert and oriented, skin pwd, respirations even and unlabored, ns on the monitor, denies pain at this time us at bedside getting bilaterally legs us performed pt report drinking alcohol daily anywhere from 3-4 drinks, never had seizures or go through withdrawals when not drinking
[2021-08-26 08:06] LABS: Thyroid Stimulating Hormone 1.04 uIU/mL (0.32-4.0)
--- NOTE | 2021-08-26 09:30 | CA_ITS ---
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 Mildly dilated left ventricle with severe left ventricular hypertrophy with severe LV systolic dysfunction with LVEF of 25 30% with severe diffuse hypokinesis but which regional wall motion abnormality in the inferior inferolateral wall. 2. Moderately dilated left atrium 3. Mild aortic and mild mitral regurgitation 4. Normal calculated RV systolic pressure 5. No pericardial effusion Findings Left Ventricle Mildly increased left ventricular cavity size. There is severely increased left ventricular wall thickness. The left ventricular systolic function is severely decreased. The visually estimated ejection fraction is between 25 30%. There is severe global hypokinesis. Spectral Doppler is indicative of a pseudonormal filling pattern. E/E prime ratio is between 8 and 15 consistent with indeterminate filling pressures. Wall Motion Rest Echo Findings The entire apex, anterior wall, anteroseptal wall, the mid anterolateral, and mid inferolateral segments are hypokinetic. The inferoseptal wall, the basal inferior, mid inferior, basal anterolateral, and basal inferolateral segments are akinetic. Right Ventricle Normal right ventricular cavity size and systolic function. Atria The left atrium is moderately dilated. There is no evidence of interatrial shunt. The right atrium is likely dilated. Aortic Valve Normal aortic valve structure and function. There is no aortic valve stenosis. There is mild aortic valve regurgitation. Mitral Valve There is mild anterior and posterior mitral leaflet thickening. There is mild mitral annular calcification. There is mild mitral valve regurgitation. There is no mitral valve stenosis. Pulmonic Valve The pulmonic valve was not well visualized. Tricuspid Valve Likely normal tricuspid valve structure and function. There is mild tricuspid valve regurgitation. The right ventricular systolic pressure is normal. There is no evidence of pulmonary hypertension. Great Vessels All visible segments of the aorta are normal in size. The pulmonary artery was not well visualized. Venous The inferior vena cava is normal in size and collapses greater than 50% with inspiration. Pericardium/Pleural There is no evidence of pericardial effusion. Prior Study Comparison No prior study available for comparison. Measurements 2D Linear Measurements IVSd: 1.82 0.6-0.9/0.6-1.0 cm LVIDd: 6.00 3.9-5.3/4.2-5.9 cm LVIDd Index: 2.76 2.4-3.2/2.2-3.1 cm/m2 LVIDs: 5.21 2.0-3.6 cm LVPWd: 1.89 0.7-1.1 cm LA Diam: 5.00 2.7-3.8/3.0-4.0 cm LAIDs Index: 2.30 1.5-2.3 cm/m2 LV Mass: 564.25 67-162/88-224 g LV Mass Index: 260.02 43-95/49-115 g/m2 LVOT Diam: 2.20 3.0+(-)1.3 cm 2D Systolic Function EF 4C: 27.20 >55% EF 2C: 30.00 >55% EF BiP: 29.00 >55% Mitral Valve MV Pk E: 0.81 MV PK A: 0.56 MV Decel Time: 171.00 E/A: 1.40 E'Lateral: 7.18 E'Medial: 7.07 E/E' Med: 11.40 E/E' Lat: 11.30 PHT: 50.00 MVA PHT: 4.40 Decel Fallon: 4.72 Aortic Valve AoV Pk Stevie: 1.24 AoV Mn Stevie: 0.99 AoV VTI: 0.21 AoV Pk Grad: 6.00 Aov Mn Grad: 4.00 RYLEY Cont.VTI: 3.09 LVOT LVOT Pk Stevie: 1.09 LVOT Mn Stevie: 0.72 LVOT VTI: 0.17 LVOT Pk Grad: 5.00 LVOT Mn Grad: 2.00 LVOT Diam: 2.20 LVOT Area: 3.80 Diastolic Function MV Pk E: 0.81 MV Pk A: 0.56 E/A: 1.40 E'Medial: 7.07 E/E' Med: 11.40 E' Laterial: 7.18 E/E' Lat: 11.30 Right Ventricle TAPSE (mm): 21.40 TVS' Stevie: 12.60 Tricuspid Valve TR Pk Stevie: 2.43 TR Pk Grad: 24.00 RA Press: 3.00 RVSP: 27.00 Great Vessels Aorta Sinus of Valsalva: 3.25 2.0-3.[address] [place]: 2.67 1.7-3.4 cm Ao Asc: 3.60 2.1-3.4 cm Ao Arch: 3.50 Updated in Other Vendor System with Status of Final Heber Goldberg MD electronically signed on 08/26/2021 2:54:42 PM with status of Final
[2021-08-26] MEDS: carvediloL 3.125 MG TABLET 6.25 MG PO ×2 (09:42→20:55)
[2021-08-26] MEDS: Aspirin Enteric Coated 81 MG TABLET.DR PO (09:42)
--- NOTE | 2021-08-26 09:56 | PC.NURSE ---
Pt A&Ox3, LCA, no complaints of pain at this time, HTN noted, medicated as per AUG orders w/HTN meds. NSR on monitor, ambulates independently, Heparin drip running as per AUG orders. Pt aware to notify us if any bleeding noted to gums or when moving bowels. Call kaiser within reach, will continue to monitor.
--- NOTE | 2021-08-26 10:06 | HO.PM.IMPN ---
Subjective Subjective Date of Service: 08/26/21 Interval History: Seen in f/u for accelerated HTN, pulmonary edema and NSTEMI--Presently without chest pain or SOB, he tells me that he has not taken his blood pressure medication since June. Troponin is markedly high, DDimer high but no PE on CT, CXR show pulmonary edema, with high BNP and Blood pressure has been consistently very high despite doses of IV labetalol Review of Systems SOLOMON leg edema, no chest pain Physical Exam Vital Signs: Vital Signs: Last Vital Signs Temp 99.0 F 08/25/21 21:13 Pulse 98 08/26/21 07:52 Resp 18 08/26/21 07:52 BP 188/127 H 08/26/21 07:52 Pulse Ox 100 08/26/21 06:22 BMI result Body Mass Index 31.5 Const: Other: General: AO X 3, no acute distress Resp: CTA bilateral CVS: S1,S2,RRR. 1+pitting edema GI: +BS, NT, no distention Skin: No rash Neuro: motor grossly intact Psych: appropriate affect Objective Data Active Medications Acetaminophen (Acetaminophen 325 Mg Tablet) 650 mg PO Q6H PRN PRN Reason: Pain, Mild (Pain Scale 1-3) Amlodipine Besylate (Amlodipine Besylate 5 Mg Tablet) 5 mg PO DAILY [facility]; Protocol Aspirin (Aspirin Enteric Coated 81 Mg Tablet.) 81 mg PO DAILY [facility] Last Admin: 08/26/21 09:42 Dose: 81 mg Documented by: ABIGAIL Atorvastatin Calcium (Atorvastatin Calcium 40 Mg Tablet) 40 mg PO BEDTIME [facility] Carvedilol (Carvedilol 3.125 Mg Tablet) 6.25 mg PO BID [facility]; Protocol Last Admin: 08/26/21 09:42 Dose: 6.25 mg Documented by: ABIGAIL Furosemide (Furosemide 40 Mg/4 Ml Vial) 40 mg IVPUSH BIDWM [facility]; Protocol Last Admin: 08/26/21 07:49 Dose: 40 mg Documented by: DARRIAN Heparin Sodium (Porcine) (Heparin Sodium,Porcine 5,000 Unit/Ml Vial) 4,000 unit 40 unit/kg (3800 unit) IVPUSH PROTOCOL BOLUS PRN PRN Reason: 40 unit/kg - Heparin Protocol Last Admin: 08/26/21 06:26 Dose: 4,000 unit Documented by: MARISELA Heparin Sodium (Porcine) (Heparin Sodium,Porcine 5,000 Unit/Ml Vial) 8,000 unit 80 unit/kg (7600 unit) IVPUSH PROTOCOL BOLUS PRN PRN Reason: 80 unit/kg - Heparin Protocol Hydralazine HCl (Hydralazine Hcl 20 Mg/Ml Vial) 10 mg IVPUSH Q6H PRN; Protocol PRN Reason: Sbp > 180 Hydralazine HCl (Hydralazine Hcl 25 Mg Tablet) 25 mg PO TID [facility]; Protocol Heparin Sodium/Sodium Chloride () 25,000 unit in 250 mls @ 0 mls/hr IVCONT .Q0M [facility]; Protocol Last Titration: 08/26/21 06:27 Dose: 12.04 units/kg/hr, 11.99 mls/hr Documented by: MARISELA Cosigned by: AMY Melatonin (Melatonin 3 Mg Tablet) 6 mg PO BEDTIME PRN PRN Reason: Insomnia Morphine Sulfate (Morphine Sulfate 4 Mg/Ml Cartridge) 1 mg IVPUSH Q4H PRN; Protocol PRN Reason: Pain, SOB Nitroglycerin (Nitroglycerin 0.4 Mg Tab.Subl) 0.4 mg SUBLINGUAL Q5M PRN PRN Reason: Chest Pain Nitroglycerin (Nitroglycerin 2 % Oint 1 Gm Packet) 0.5 inch TRANSDERMA RQ6H WHILE AWAKE [facility] Pharmacy Consult (Consult Rx Perform Med Rec) 1 each MISCELLANE ONCE PRN PRN Reason: Consult order Senna (Sennosides 8.6 Mg Tablet) 17.2 mg PO BEDTIME PRN PRN Reason: Constipation Sodium Chloride (0.9 % Sodium Chloride Flush 3 Ml Syringe) 3 ml IVFLUSH QSHIFT [facility] Last Admin: 08/26/21 09:42 Dose: Not Given Documented by: ABIGAIL Non-Admin Reason: IV Running Labs CBC & Chem 7: 08/26/21 05:48 08/26/21 05:48 Labs: Laboratory Results - last 24 hr 08/25/21 08/25/21 08/25/21 19:24 19:24 19:24 MCV 93.7 MCH 29.3 MCHC 31.3 RDW 13.8 Plt Count 253 MPV 9.5 Immature Gran % (Auto) 0.6 H Neut % (Auto) 68.6 Lymph % (Auto) 18.6 L [place] % (Auto) 7.1 Eos % (Auto) 4.2 H Baso % (Auto) 0.9 Lymph # (Auto) 1.5 [place] # (Auto) 0.6 Eos # (Auto) 0.3 Baso # (Auto) 0.1 Abs Immat Gran (auto) 0.05 H Absolute Neuts (auto) 5.6 Absolute Nucleated RBC 0.000 Nucleated RBC % (auto) 0.0 PT 12.7 INR 1.1 APTT 35.4 aPTT Heparin Protocol D-Dimer High Sensitivty 1013 Anion Gap Estim Creat Clear Calc Estimated GFR Random Glucose Estimat Average Glucose Hemoglobin A1c % Calcium Magnesium Total Bilirubin Direct Bilirubin AST ALT Alkaline Phosphatase B-Natriuretic Peptide 1204 H Total Protein Albumin Triglycerides Cholesterol LDL Cholesterol, Calc HDL Cholesterol TSH Urine Color Urine Appearance Urine pH Ur Specific [place] Urine Protein Urine Glucose (UA) Urine Ketones Urine Blood Urine Nitrite Ur Leukocyte Esterase Urine Opiates Screen Urine Fentanyl Screen Ur Barbiturates Screen Ur Phencyclidine Scrn Ur Amphetamines Screen U Benzodiazepines Scrn Urine Cocaine Screen U Marijuana (THC) Screen COVID-19 (TIMOTHY) COVID-19 Clin Com Hep Bs Antigen Hep Bs Antibody Hep B Core Total Ab Hepatitis C Ab (EIA) 08/25/21 08/25/21 08/25/21 19:29 20:16 21:15 MCV MCH MCHC RDW Plt Count MPV Immature Gran % (Auto) Neut % (Auto) Lymph % (Auto) [place] % (Auto) Eos % (Auto) Baso % (Auto) Lymph # (Auto) [place] # (Auto) Eos # (Auto) Baso # (Auto) Abs Immat Gran (auto) Absolute Neuts (auto) Absolute Nucleated RBC Nucleated RBC % (auto) PT INR APTT aPTT Heparin Protocol D-Dimer High Sensitivty Anion Gap 16 Estim Creat Clear Calc 47.1 Estimated GFR 32 Random Glucose 116 H Estimat Average Glucose Hemoglobin A1c % Calcium 9.1 Magnesium Total Bilirubin 0.4 Direct Bilirubin < 0.2 AST 261 H ALT 213 H Alkaline Phosphatase 151 H B-Natriuretic Peptide Total Protein 7.1 Albumin 3.7 Triglycerides Cholesterol LDL Cholesterol, Calc HDL Cholesterol TSH Urine Color Urine Appearance Urine pH Ur Specific [place] Urine Protein Urine Glucose (UA) Urine Ketones Urine Blood Urine Nitrite Ur Leukocyte Esterase Urine Opiates Screen Not Detected Urine Fentanyl Screen Not Detected Ur Barbiturates Screen Not Detected Ur Phencyclidine Scrn Not Detected Ur Amphetamines Screen Not Detected U Benzodiazepines Scrn Not Detected Urine Cocaine Screen Not Detected U Marijuana (THC) Screen Not Detected COVID-19 (TIMOTHY) Negative COVID-19 Clin Com See Note Hep Bs Antigen Hep Bs Antibody Hep B Core Total Ab Hepatitis C Ab (EIA) 08/25/21 08/26/21 08/26/21 22:28 05:48 05:48 MCV 93.8 MCH 30.3 MCHC 32.3 RDW 13.7 Plt Count 243 MPV 9.6 Immature Gran % (Auto) 0.3 Neut % (Auto) 61.9 Lymph % (Auto) 22.5 [place] % (Auto) 8.8 Eos % (Auto) 5.6 H Baso % (Auto) 0.9 Lymph # (Auto) 1.5 [place] # (Auto) 0.6 Eos # (Auto) 0.4 Baso # (Auto) 0.1 Abs Immat Gran (auto) 0.02 Absolute Neuts (auto) 4.1 Absolute Nucleated RBC 0.000 Nucleated RBC % (auto) 0.0 PT INR APTT aPTT Heparin Protocol 39.5 L D-Dimer High Sensitivty Anion Gap Estim Creat Clear Calc Estimated GFR Random Glucose Estimat Average Glucose Hemoglobin A1c % Calcium Magnesium Total Bilirubin Direct Bilirubin AST ALT Alkaline Phosphatase B-Natriuretic Peptide Total Protein Albumin Triglycerides Cholesterol LDL Cholesterol, Calc HDL Cholesterol TSH Urine Color STRAW Urine Appearance CLEAR Urine pH 5.5 Ur Specific [place] 1.015 Urine Protein TRACE Urine Glucose (UA) NEG Urine Ketones NEG Urine Blood NEG Urine Nitrite NEG Ur Leukocyte Esterase NEG Urine Opiates Screen Urine Fentanyl Screen Ur Barbiturates Screen Ur Phencyclidine Scrn Ur Amphetamines Screen U Benzodiazepines Scrn Urine Cocaine Screen U Marijuana (THC) Screen COVID-19 (TIMOTHY) COVID-19 Clin Com Hep Bs Antigen Hep Bs Antibody Hep B Core Total Ab Hepatitis C Ab (EIA) 08/26/21 08/26/21 08/26/21 05:48 05:48 05:48 MCV MCH MCHC RDW Plt Count MPV Immature Gran % (Auto) Neut % (Auto) Lymph % (Auto) [place] % (Auto) Eos % (Auto) Baso % (Auto) Lymph # (Auto) [place] # (Auto) Eos # (Auto) Baso # (Auto) Abs Immat Gran (auto) Absolute Neuts (auto) Absolute Nucleated RBC Nucleated RBC % (auto) PT INR APTT aPTT Heparin Protocol D-Dimer High Sensitivty Anion Gap 14 Estim Creat Clear Calc 53.1 Estimated GFR 36 Random Glucose 103 Estimat Average Glucose Hemoglobin A1c % Calcium 9.2 Magnesium 2.2 Total Bilirubin 0.6 Direct Bilirubin 0.2 AST 108 H ALT 162 H Alkaline Phosphatase 136 H B-Natriuretic Peptide Total Protein 6.5 Albumin 3.5 Triglycerides Cholesterol LDL Cholesterol, Calc HDL Cholesterol TSH Urine Color Urine Appearance Urine pH Ur Specific [place] Urine Protein Urine Glucose (UA) Urine Ketones Urine Blood Urine Nitrite Ur Leukocyte Esterase Urine Opiates Screen Urine Fentanyl Screen Ur Barbiturates Screen Ur Phencyclidine Scrn Ur Amphetamines Screen U Benzodiazepines Scrn Urine Cocaine Screen U Marijuana (THC) Screen COVID-19 (TIMOTHY) COVID-19 Clin Com Hep Bs Antigen Negative Hep Bs Antibody NONREACTIVE Hep B Core Total Ab Nonreactive Hepatitis C Ab (EIA) Nonreactive 08/26/21 08/26/21 05:48 05:48 MCV MCH MCHC RDW Plt Count MPV Immature Gran % (Auto) Neut % (Auto) Lymph % (Auto) [place] % (Auto) Eos % (Auto) Baso % (Auto) Lymph # (Auto) [place] # (Auto) Eos # (Auto) Baso # (Auto) Abs Immat Gran (auto) Absolute Neuts (auto) Absolute Nucleated RBC Nucleated RBC % (auto) PT INR APTT aPTT Heparin Protocol D-Dimer High Sensitivty Anion Gap Estim Creat Clear Calc Estimated GFR Random Glucose Estimat Average Glucose 91 Hemoglobin A1c % 4.8 Calcium Magnesium Total Bilirubin Direct Bilirubin AST ALT Alkaline Phosphatase B-Natriuretic Peptide Total Protein Albumin Triglycerides 85 Cholesterol 210 LDL Cholesterol, Calc 126 HDL Cholesterol 67 TSH 1.04 Urine Color Urine Appearance Urine pH Ur Specific [place] Urine Protein Urine Glucose (UA) Urine Ketones Urine Blood Urine Nitrite Ur Leukocyte Esterase Urine Opiates Screen Urine Fentanyl Screen Ur Barbiturates Screen Ur Phencyclidine Scrn Ur Amphetamines Screen U Benzodiazepines Scrn Urine Cocaine Screen U Marijuana (THC) Screen COVID-19 (TIMOTHY) COVID-19 Clin Com Hep Bs Antigen Hep Bs Antibody Hep B Core Total Ab Hepatitis C Ab (EIA) Assessment and Plan (1) Acute non-ST elevation myocardial infarction (NSTEMI): Status: Acute (2) CHF (congestive heart failure): Status: Acute (3) Atypical chest pain: Status: Acute (4) Hypertensive emergency: Status: Acute Plan 46-year-old male with a past medical history of hypertension and has not been taken meds since June here with SOLOMON, leg edema, orhtopnea and has marked elevated troponin, high BNP, pulmonoary edema on CXR, 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 This is likely cause of his problems. 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 Echo is crucial to established nature of heart failure and management. -IV Lasix, on Beta jalil, might AZIZA/ARB or Aldactone along the way -Cardiology is following NSTEMI: Troponin 2200 followed by 1900s; EKG showed T-wave inversions in the lateral leads-likely strain pattern. He never had chest pain. Again suspect that this is likely related to Hypertension emergency and less likely ischemia, but I could be wrong. For now continue Heparin, BB, ASA, Statin.. If echo shows WMA then might need cath. Positive D-dimer: Negative PE by CT and negative DVT by US ЕКАТЕРИНА: Patient creatinine on presentation was 2.2. Unknown baseline. Monitor renal function while diuresing. Avoid nephrotoxins. 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 Oncology consult Basal ganglion Lacunar Infarct:--Again related to high BP, age indeterminate as noted on CT head. Grossly non focal exam. will obtain TSh, A1c, lipid profile. echo with Bubble study. Neurology follow up. Received ASA 325mg in ER-> will continue 81mg daily. s/w Lipitor 40mg DVT prophylaxis: Patient on heparin drip Code status: Full code Quality Stroke Does the patient have a stroke diagnosis?: No VTE Prior VTE?: No VTE Risk Level:: Medical - moderate - high VTE Device Contraindication: Treatment Not Indicated VTE Drug Contraindication: N/A - Med Ordered
--- NOTE | 2021-08-26 10:14 | P.CONCA_ITS ---
History of Present Illness History of Present Illness Date of Service: 08/26/21 Requesting physician: [facility] Consult reason: congestive heart failure and troponin elevation Chief complaint: acute CHF Narrative: I was consulted to see Brandon in cardiology consultation today for management of acute hypertensive crisis as well as elevated troponins and congestive heart failure. He is a 46-year-old male, has had hypertension for 20 years but did not take it seriously. First time saw her primary care physician last May who then prescribed medications for about a month and was supposed to follow-up. However he did not follow-up and had ran out of his medicine in June. Says for the last 6 months he has been trying to modify his diet with low salt intake however his blood pressure has been elevated. The numbers are not known. However about last 8 days he has been getting gradually increasing shortness of breath including orthopnea. While walking his dog, he ran out of breath and had chest pressure. However yesterday got suddenly short of breath and came to the emergency room. Was noted to have hypertensive emergency with significantly elevated blood pressure which was treated and he was diuresed and noted to be in heart failure. His troponin is also elevated in 2000 range. However there is no clear delta. EKG shows LVH with strain pattern. He was initially evaluated ICU but by the time he was evaluated his symptoms had improved. Was felt that he could be treated on the medical floor. Currently says he is much better and wants to go home. However still appears short of breath with prolonged talking. Blood pressure is still markedly elevated. He is currently not having any chest pressure. No neurologic symptoms. Noted to have creatinine elevation up to 2. He is not aware of his prior creatinine. Denies palpitations, lightheadedness, syncope. No focal neurologic deficits. No leg edema, abdominal distension. Review of Systems Constitutional: Constitutional: Reports no additional constitutional complaints Eyes: Eyes: Reports no additional eye complaints ENT: Reports system reviewed and no additional complaints, except as documented Cardiovascular: Cardiovascular: Reports chest pain with activity, Denies leg edema, Denies lightheadedness, Denies Loss of Consciousness, Denies palpitations, Reports dyspnea on exertion, Reports orthopnea and Reports paroxysmal nocturnal dyspnea Respiratory: Respiratory: Reports no additional respiratory complaints and Reports dyspnea on exertion Gastrointestinal: Gastrointestinal: Reports no additional gastrointestinal complaints Genitourinary: Genitourinary: Reports no additional male genitourinary complaints Musculoskeletal: Musculoskeletal: Reports no additional musculoskeletal complaints Integumentary/Breasts: Skin/Breast: Reports system reviewed and no additional complaints, except as docu Neurologic: Reports system reviewed and no additional complaints, except as documented Psychiatric: Psychiatric: Reports no additional psychiatric complaints Endocrine: Endocrine: Reports no additional endocrine complaints and Denies palpitations Hematologic/Lymphatic: Hematologic/Lymphatic: Reports no additional hematologic/lymphatic complaints Allergic/Immunologic: Allergic/Immunologic: Reports no additional allergic/immunologic complaints [facility] [place] Past Medical History Medical History HTN (hypertension) Social History Social History Patient Tobacco Use Status: Never used Tobacco Use of substances other than those prescribed or required for medical reasons: Yes Substance Use Type: Marijuana Advance Directives: No Advance Directives Information Provided: No Meds Allergies Allergy/AdvReac Type Severity Reaction Status Date / Time No Known Allergies Allergy Verified 08/25/21 19:10 Active Medications: Current Medications Acetaminophen (Acetaminophen 325 Mg Tablet) 650 mg PO Q6H PRN PRN Reason: Pain, Mild (Pain Scale 1-3) Amlodipine Besylate (Amlodipine Besylate 5 Mg Tablet) 5 mg PO DAILY SELINA; Prot ocol Aspirin (Aspirin Enteric Coated 81 Mg Tablet.) 81 mg PO DAILY [facility] Last Admin: 08/26/21 09:42 Dose: 81 mg Documented by: Atorvastatin Calcium (Atorvastatin Calcium 40 Mg Tablet) 40 mg PO BEDTIME SELINA Carvedilol (Carvedilol 3.125 Mg Tablet) 6.25 mg PO BID [facility]; Protocol Last Admin: 08/26/21 09:42 Dose: 6.25 mg Documented by: Furosemide (Furosemide 40 Mg/4 Ml Vial) 40 mg IVPUSH BIDWM SELINA; Protocol Last Admin: 08/26/21 07:49 Dose: 40 mg Documented by: Heparin Sodium (Porcine) (Heparin Sodium,Porcine 5,000 Unit/Ml Vial) 4,000 unit 40 unit/kg (3800 unit) IVPUSH PROTOCOL BOLUS PRN PRN Reason: 40 unit/kg - Heparin Protocol Last Admin: 08/26/21 06:26 Dose: 4,000 unit Documented by: Heparin Sodium (Porcine) (Heparin Sodium,Porcine 5,000 Unit/Ml Vial) 8,000 unit 80 unit/kg (7600 unit) IVPUSH PROTOCOL BOLUS PRN PRN Reason: 80 unit/kg - Heparin Protocol Hydralazine HCl (Hydralazine Hcl 20 Mg/Ml Vial) 10 mg IVPUSH Q6H PRN; Protocol PRN Reason: Sbp > 180 Hydralazine HCl (Hydralazine Hcl 25 Mg Tablet) 25 mg PO TID [facility]; Protocol Heparin Sodium/Sodium Chloride () 25,000 unit in 250 mls @ 0 mls/hr IVCONT .Q0M [facility]; Protocol Last Titration: 08/26/21 06:27 Dose: 12.04 units/kg/hr, 11.99 mls/hr Documented by: Melatonin (Melatonin 3 Mg Tablet) 6 mg PO BEDTIME PRN PRN Reason: Insomnia Morphine Sulfate (Morphine Sulfate 4 Mg/Ml Cartridge) 1 mg IVPUSH Q4H PRN; Protocol PRN Reason: Pain, SOB Nitroglycerin (Nitroglycerin 0.4 Mg Tab.Subl) 0.4 mg SUBLINGUAL Q5M PRN PRN Reason: Chest Pain Nitroglycerin (Nitroglycerin 2 % Oint 1 Gm Packet) 0.5 inch TRANSDERMA RQ6H WHILE AWAKE [facility] Pharmacy Consult (Consult Rx Perform Med Rec) 1 each MISCELLANE ONCE PRN PRN Reason: Consult order Senna (Sennosides 8.6 Mg Tablet) 17.2 mg PO BEDTIME PRN PRN Reason: Constipation Sodium Chloride (0.9 % Sodium Chloride Flush 3 Ml Syringe) 3 ml IVFLUSH QSHIFT [facility] Last Admin: 08/26/21 09:42 Dose: Not Given Documented by: Home Medications Medication Instructions Recorded Confirmed Last Taken Type No Known Home Meds 08/25/21 08/25/21 Unknown History Physical Exam Vital Signs: Vital Signs: Last Vital Signs Temp 99.0 F 08/25/21 21:13 Pulse 98 08/26/21 07:52 Resp 18 08/26/21 07:52 BP 188/127 H 08/26/21 07:52 Pulse Ox 100 08/26/21 06:22 BMI result Body Mass Index 31.5 Const: General: cooperative, comfortable, alert, awake and in distress mild and respiratory Nutritional Appearance: overweight Orientation/consciousne ss: patient oriented x3 Limitations: no limitations HENMT: Head: Yes normocephalic and Yes atraumatic Neck: Neck: Yes trachea midline, Yes supple and Yes JVD Chest: Chest palpation & inspection: normal inspection of the chest Resp: Effort & Inspection: normal respiratory effort Auscultation: rales bilateral at the base Cardio: Jugular venous distension: JVD Palpation: abnormal PMI displaced PMI and heave Rate: regular rate Rhythm: regular rhythm Heart sounds: S1 normal heart sound present, S2 normal heart sound present, no click, no gallops, no murmurs and no rubs Peripheral pulses: Peripheral pulses 2+ throughout GI: Auscultation: normal bowel sounds Skin: General skin exam: no rashes or lesions noted Neuro: General: patient oriented x3 and no focal motor deficits Extrem: General: Yes no clubbing, cyanosis or edema Psych: Appearance: grossly normal Objective Labs and Meds Result diagrams: 08/26/21 05:48 08/26/21 05:48 Lab results: Laboratory Results - last 24 hr 08/25/21 08/25/21 08/25/21 19:24 19:24 19:24 WBC 8.2 RBC 4.26 L Hgb 12.5 L Hct 39.9 L MCV 93.7 MCH 29.3 MCHC 31.3 RDW 13.8 Plt Count 253 MPV 9.5 Immature Gran % (Auto) 0.6 H Neut % (Auto) 68.6 Lymph % (Auto) 18.6 L [place] % (Auto) 7.1 Eos % (Auto) 4.2 H Baso % (Auto) 0.9 Lymph # (Auto) 1.5 [place] # (Auto) 0.6 Eos # (Auto) 0.3 Baso # (Auto) 0.1 Abs Immat Gran (auto) 0.05 H Absolute Neuts (auto) 5.6 Absolute Nucleated RBC 0.000 Nucleated RBC % (auto) 0.0 PT 12.7 INR 1.1 APTT 35.4 aPTT Heparin Protocol D-Dimer High Sensitivty 1013 Sodium Potassium Chloride Carbon Dioxide Anion Gap BUN Creatinine Estim Creat Clear Calc Estimated GFR Random Glucose Estimat Average Glucose Hemoglobin A1c % Calcium Magnesium Total Bilirubin Direct Bilirubin AST ALT Alkaline Phosphatase Troponin I High Sens 2200.8 H* B-Natriuretic Peptide 1204 H Total Protein Albumin Triglycerides Cholesterol LDL Cholesterol, Calc HDL Cholesterol TSH Urine Color Urine Appearance Urine pH Ur Specific [place] Urine Protein Urine Glucose (UA) Urine Ketones Urine Blood Urine Nitrite Ur Leukocyte Esterase Urine Opiates Screen Urine Fentanyl Screen Ur Barbiturates Screen Ur Phencyclidine Scrn Ur Amphetamines Screen U Benzodiazepines Scrn Urine Cocaine Screen U Marijuana (THC) Screen COVID-19 (TIMOTHY) COVID-19 Clin Com Hep Bs Antigen Hep Bs Antibody Hep B Core Total Ab Hepatitis C Ab (EIA) 08/25/21 08/25/21 08/25/21 19:29 20:16 21:15 WBC RBC Hgb Hct MCV MCH MCHC RDW Plt Count MPV Immature Gran % (Auto) Neut % (Auto) Lymph % (Auto) [place] % (Auto) Eos % (Auto) Baso % (Auto) Lymph # (Auto) [place] # (Auto) Eos # (Auto) Baso # (Auto) Abs Immat Gran (auto) Absolute Neuts (auto) Absolute Nucleated RBC Nucleated RBC % (auto) PT INR APTT aPTT Heparin Protocol D-Dimer High Sensitivty Sodium 139 Potassium 4.8 Chloride 108 Carbon Dioxide 20 L Anion Gap 16 BUN 35 H Creatinine 2.22 H Estim Creat Clear Calc 47.1 Estimated GFR 32 Random Glucose 116 H Estimat Average Glucose Hemoglobin A1c % Calcium 9.1 Magnesium Total Bilirubin 0.4 Direct Bilirubin < 0.2 AST 261 H ALT 213 H Alkaline Phosphatase 151 H Troponin I High Sens B-Natriuretic Peptide Total Protein 7.1 Albumin 3.7 Triglycerides Cholesterol LDL Cholesterol, Calc HDL Cholesterol TSH Urine Color Urine Appearance Urine pH Ur Specific [place] Urine Protein Urine Glucose (UA) Urine Ketones Urine Blood Urine Nitrite Ur Leukocyte Esterase Urine Opiates Screen Not Detected Urine Fentanyl Screen Not Detected Ur Barbiturates Screen Not Detected Ur Phencyclidine Scrn Not Detected Ur Amphetamines Screen Not Detected U Benzodiazepines Scrn Not Detected Urine Cocaine Screen Not Detected U Marijuana (THC) Screen Not Detected COVID-19 (TIMOTHY) Negative COVID-19 Clin Com See Note Hep Bs Antigen Hep Bs Antibody Hep B Core Total Ab Hepatitis C Ab (EIA) 08/25/21 08/25/21 08/26/21 21:20 22:28 05:48 WBC RBC Hgb Hct MCV MCH MCHC RDW Plt Count MPV Immature Gran % (Auto) Neut % (Auto) Lymph % (Auto) [place] % (Auto) Eos % (Auto) Baso % (Auto) Lymph # (Auto) [place] # (Auto) Eos # (Auto) Baso # (Auto) Abs Immat Gran (auto) Absolute Neuts (auto) Absolute Nucleated RBC Nucleated RBC % (auto) PT INR APTT aPTT Heparin Protocol 39.5 L D-Dimer High Sensitivty Sodium Potassium Chloride Carbon Dioxide Anion Gap BUN Creatinine Estim Creat Clear Calc Estimated GFR Random Glucose Estimat Average Glucose Hemoglobin A1c % Calcium Magnesium Total Bilirubin Direct Bilirubin AST ALT Alkaline Phosphatase Troponin I High Sens 1961.9 H* B-Natriuretic Peptide Total Protein Albumin Triglycerides Cholesterol LDL Cholesterol, Calc HDL Cholesterol TSH Urine Color STRAW Urine Appearance CLEAR Urine pH 5.5 Ur Specific [place] 1.015 Urine Protein TRACE Urine Glucose (UA) NEG Urine Ketones NEG Urine Blood NEG Urine Nitrite NEG Ur Leukocyte Esterase NEG Urine Opiates Screen Urine Fentanyl Screen Ur Barbiturates Screen Ur Phencyclidine Scrn Ur Amphetamines Screen U Benzodiazepines Scrn Urine Cocaine Screen U Marijuana (THC) Screen COVID-19 (TIMOTHY) COVID-19 Clin Com Hep Bs Antigen Hep Bs Antibody Hep B Core Total Ab Hepatitis C Ab (EIA) 08/26/21 08/26/21 08/26/21 05:48 05:48 05:48 WBC 6.6 RBC 3.89 L Hgb 11.8 L Hct 36.5 L MCV 93.8 MCH 30.3 MCHC 32.3 RDW 13.7 Plt Count 243 MPV 9.6 Immature Gran % (Auto) 0.3 Neut % (Auto) 61.9 Lymph % (Auto) 22.5 [place] % (Auto) 8.8 Eos % (Auto) 5.6 H Baso % (Auto) 0.9 Lymph # (Auto) 1.5 [place] # (Auto) 0.6 Eos # (Auto) 0.4 Baso # (Auto) 0.1 Abs Immat Gran (auto) 0.02 Absolute Neuts (auto) 4.1 Absolute Nucleated RBC 0.000 Nucleated RBC % (auto) 0.0 PT INR APTT aPTT Heparin Protocol D-Dimer High Sensitivty Sodium 140 Potassium 4.2 Chloride 108 Carbon Dioxide 22 Anion Gap 14 BUN 31 H Creatinine 2.01 H Estim Creat Clear Calc 53.1 Estimated GFR 36 Random Glucose 103 Estimat Average Glucose Hemoglobin A1c % Calcium 9.2 Magnesium 2.2 Total Bilirubin 0.6 Direct Bilirubin 0.2 AST 108 H ALT 162 H Alkaline Phosphatase 136 H Troponin I High Sens B-Natriuretic Peptide Total Protein 6.5 Albumin 3.5 Triglycerides Cholesterol LDL Cholesterol, Calc HDL Cholesterol TSH Urine Color Urine Appearance Urine pH Ur Specific [place] Urine Protein Urine Glucose (UA) Urine Ketones Urine Blood Urine Nitrite Ur Leukocyte Esterase Urine Opiates Screen Urine Fentanyl Screen Ur Barbiturates Screen Ur Phencyclidine Scrn Ur Amphetamines Screen U Benzodiazepines Scrn Urine Cocaine Screen U Marijuana (THC) Screen COVID-19 (TIMOTHY) COVID-19 Clin Com Hep Bs Antigen Hep Bs Antibody Hep B Core Total Ab Hepatitis C Ab (EIA) 08/26/21 08/26/21 08/26/21 05:48 05:48 05:48 WBC RBC Hgb Hct MCV MCH MCHC RDW Plt Count MPV Immature Gran % (Auto) Neut % (Auto) Lymph % (Auto) [place] % (Auto) Eos % (Auto) Baso % (Auto) Lymph # (Auto) [place] # (Auto) Eos # (Auto) Baso # (Auto) Abs Immat Gran (auto) Absolute Neuts (auto) Absolute Nucleated RBC Nucleated RBC % (auto) PT INR APTT aPTT Heparin Protocol D-Dimer High Sensitivty Sodium Potassium Chloride Carbon Dioxide Anion Gap BUN Creatinine Estim Creat Clear Calc Estimated GFR Random Glucose Estimat Average Glucose 91 Hemoglobin A1c % 4.8 Calcium Magnesium Total Bilirubin Direct Bilirubin AST ALT Alkaline Phosphatase Troponin I High Sens 2045.0 H* B-Natriuretic Peptide Total Protein Albumin Triglycerides Cholesterol LDL Cholesterol, Calc HDL Cholesterol TSH Urine Color Urine Appearance Urine pH Ur Specific [place] Urine Protein Urine Glucose (UA) Urine Ketones Urine Blood Urine Nitrite Ur Leukocyte Esterase Urine Opiates Screen Urine Fentanyl Screen Ur Barbiturates Screen Ur Phencyclidine Scrn Ur Amphetamines Screen U Benzodiazepines Scrn Urine Cocaine Screen U Marijuana (THC) Screen COVID-19 (TIMOTHY) COVID-19 Clin Com Hep Bs Antigen Negative Hep Bs Antibody NONREACTIVE Hep B Core Total Ab Nonreactive Hepatitis C Ab (EIA) Nonreactive 08/26/21 05:48 WBC RBC Hgb Hct MCV MCH MCHC RDW Plt Count MPV Immature Gran % (Auto) Neut % (Auto) Lymph % (Auto) [place] % (Auto) Eos % (Auto) Baso % (Auto) Lymph # (Auto) [place] # (Auto) Eos # (Auto) Baso # (Auto) Abs Immat Gran (auto) Absolute Neuts (auto) Absolute Nucleated RBC Nucleated RBC % (auto) PT INR APTT aPTT Heparin Protocol D-Dimer High Sensitivty Sodium Potassium Chloride Carbon Dioxide Anion Gap BUN Creatinine Estim Creat Clear Calc Estimated GFR Random Glucose Estimat Average Glucose Hemoglobin A1c % Calcium Magnesium Total Bilirubin Direct Bilirubin AST ALT Alkaline Phosphatase Troponin I High Sens B-Natriuretic Peptide Total Protein Albumin Triglycerides 85 Cholesterol 210 LDL Cholesterol, Calc 126 HDL Cholesterol 67 TSH 1.04 Urine Color Urine Appearance Urine pH Ur Specific [place] Urine Protein Urine Glucose (UA) Urine Ketones Urine Blood Urine Nitrite Ur Leukocyte Esterase Urine Opiates Screen Urine Fentanyl Screen Ur Barbiturates Screen Ur Phencyclidine Scrn Ur Amphetamines Screen U Benzodiazepines Scrn Urine Cocaine Screen U Marijuana (THC) Screen COVID-19 (TIMOTHY) COVID-19 Clin Com Hep Bs Antigen Hep Bs Antibody Hep B Core Total Ab Hepatitis C Ab (EIA) Imaging Radiologist's impression: Impressions Chest X-Ray 08/25/21 19:38 IMPRESSION: Enlarged cardiac silhouette and pulmonary edema. Head CT 08/25/21 20:37 IMPRESSION: Nonspecific periventricular white matter disease somewhat out of proportion for the patient's age. Bilateral basal ganglia lacunar infarcts, indeterminate age. Chest CT 08/25/21 23:33 IMPRESSION: 1. Diffuse interlobular septal thickening bilaterally along with small pleural effusions, suspicious for interstitial pulmonary edema. However, numerous nodular foci are also present bilaterally, raising the possibility of superimposed abnormality such as lymphangitic carcinomatosis. Interval follow-up CT is recommended after improvement of symptoms, such as following diuresis, to assess for persistence of nodularity. 2. Several enlarged mediastinal lymph nodes which could be reactive in the setting of edema or potentially malignant in nature. Attention on follow-up recommended. 3. Coronary artery calcifications. Correlation with cardiac risk factors is recommended. Abdomen Ultrasound 08/26/21 07:38 IMPRESSION: Echogenic liver probably representing fatty infiltration. 1.2 x 1.4 cm minimally complex cyst in the right lobe of the liver. Normal-appearing gallbladder. Small right renal cyst. Question small right renal stone. Limited visualization of the pancreas. Venous Duplex 08/26/21 07:55 IMPRESSION: No DVT demonstrated in the bilateral lower extremity. Assessment and Plan (1) CHF (congestive heart failure): Status: Acute Patient with acute shortness of breath related to congestive heart failure with significantly elevated blood pressure. His congestive heart failure appears to be sudden-onset due to subendocardial strain from marked hypertension leading to pulmonary edema. However presence of underlying severe LV systolic dysfunction cannot be ruled out. Needs an echocardiogram to assess LV systolic and diastoli c function to evaluate for left ventricular hypertrophy which highly likely given longstanding history of hypertension. Discussed with him the presence of end-organ damage and poor prognosis associated with poor control blood pressure in the future. He understands agrees. Continue diuresis with Lasix. Strict intake and output chart needs to be pursued. Heart failure education to be provided. Aggressive control of blood pressure is recommended. Echocardiogram should be done soon. (2) Hypertensive emergency: Status: Acute Patient presents with marked hypertension hypertensive emergency leading to elevated troponins as well as pulmonary edema/heart failure. Clinically doing much better. Needs aggressive control blood pressure. Would recommend starting on nitro paste 1 in q.6 hours, hydralazine 50 mg b.i.d. and Norvasc 5 mg daily. Once his heart failure syndrome has been controlled, will start him on carvedilol therapy. Given his creatinine avoid renin angiotensin aldosterone antagonist for now. Continue to monitor blood pressure closely. Importance of good blood pressure control was discussed. Hypertension management education should be provided to the patient as well. Will obtain echocardiogram. (3) Acute non-ST elevation myocardial infarction (NSTEMI): Status: Acute I do not think patient is having non ST-elevation myocardial infarction as as no clear rise and fall in troponin. Her troponin was significantly elevated again related to subendocardial ischemia related to marked hypertension. Probably has underlying significant hypertensive heart disease either with systolic dysfunction or significant LVH. Echocardiogram to be obtained. However he has noted coronary calcification on the CT scan and underlying coronary artery disease cannot be entirely ruled out. Would require inpatient myocardial perfusion imaging and/or cardiac catheterization based on the echocardiographic finding. Aspirin and statin therapy should be prescribed. IV heparin can be discontinued. Will follow with him closely. Thank you for allowing me to partake in his care Procedures Date of Service Date of Service: 08/26/21
[2021-08-26] MEDS: amLODIPine Besylate 5 MG TABLET PO ×2 (11:57→22:41)
[2021-08-26] MEDS: hydrALAZINE HCl 25 MG TABLET PO ×3 (11:58→20:55)
[2021-08-26 13:07] LABS: PTT Heparin Drip 38.9 SEC (53-77.9)
--- NOTE | 2021-08-26 14:31 | CONS_ITS ---
DATE OF SERVICE: 08/26/2021 REASON FOR CONSULTATION: I was asked to see patient to assist in evaluation and management of patient's hypertensive emergency with renal dysfunction and shortness of breath. HISTORY OF PRESENT ILLNESS: In summary, patient is a 46-year-old white gentleman with a history of hypertension that probably goes back over 20 years, although he has not been on any blood pressure medications up until this past May. He states that he saw a primary care doctor, was placed on 2 blood pressure medications, but stopped them a month ago when they ran out. He has a home blood pressure cuff at home, but he does not check his blood pressure readings. He states he has been feeling unwell with dyspnea on exertion for the past several days. So, we came to the emergency room, was noted to be in pulmonary edema and severe hypertension with systolic blood pressure over 215 diastolic over 140. He states that he started feeling better after they put the oxygen on him and gave him some Lasix. He is being evaluated by Cardiology as his troponins are markedly elevated. The patient is unaware of having had kidney problems in the past other than some kidney stones many years ago, which he says went away after he stopped drinking a lot of Coca-Cola and milk. He is not aware of having chronic kidney disease and on admission his creatinine was just over 2 or 2.2 and now is 2.0 this morning. His chest pain has resolved and his breathing is improved as mentioned. He denies any palpitations, tremors, or flushing episodes. He denies any chronic headaches. He has a family history of hypertension. PAST MEDICAL HISTORY: As mentioned, is notable for a remote history of kidney stones along with hypertension. He is currently on no medications as he stopped them 2 months ago. ALLERGIES: HE HAS NO KNOWN DRUG ALLERGIES. CURRENT MEDICATIONS: Since he came into the hospital, he has been given some IV labetalol. He has been started on Coreg 6.25 twice a day and now he has been started on both Norvasc and hydralazine. He did receive some Lasix as 1 time dose. He has also been on IV heparin. SOCIAL HISTORY: He is a nonsmoker. No cocaine or illicit drug use other than occasional marijuana. FAMILY HISTORY: Notable for hypertension. REVIEW OF SYSTEMS: As noted above. PHYSICAL EXAMINATION: VITAL SIGNS: Blood pressure most recently 188/127. As mentioned, when he first came in, it was 260/170. HEAD: Atraumatic, normocephalic. NECK: Supple. Mucous membranes are moist. LUNGS: Demonstrate decreased breath sounds at the bases. CARDIAC: Regular rate and rhythm without rub. ABDOMEN: Soft, nontender. Good bowel sounds. No abdominal bruits. EXTREMITIES: Show no edema. He had a chest CT, which showed some diffuse septal thickening along with small pleural effusion thought to be consistent with pulmonary edema. He also mentions some mediastinal lymph nodes requiring followup and coronary calcifications were noted. He had abdominal ultrasound, which showed echogenic liver and right renal cyst and a question of a small renal stone. The right kidney was 10.4 cm in size. I do not see mention made the left kidney was looked at. Labs show hemoglobin 11.8, hematocrit 36.5, white blood cell count 6.6, platelet count 243. Sodium 140, potassium 4.2, chloride 108, bicarb 22, BUN 31, creatinine 2.01. There is a previous creatinine from yesterday of 2.2. Troponin was 2045. AST and ALT were 108 and 162 respectively. Urine studies, UA was negative. IMPRESSION: 46-year-old admitted with hypertensive emergency with severe hypertension, renal dysfunction, and what appears to be pulmonary edema and elevated troponins. 1. Hypertensive emergency. This is most likely due to the fact he came off his medications and had a rebound of his blood pressure. Secondary cause for his hypertension such as renal artery stenosis as well as endocrine causes such as a pheochromocytoma and primary hyperaldosteronism need to rule out. He denies taking stimulants, which can sometimes precipitate hypertensive crisis. a. His blood pressure seems to be responding to oral agents and he is overall feeling better with improved breathing and hopefully can be controlled just with oral agents. 2. Severe hypertension, question of secondary cause of hypertension. As mentioned, we will need to do a workup to rule out secondary causes of hypertension. 3. Renal insufficiency. Unclear whether he has a component of chronic kidney disease or whether or not his increased creatinine is simply related to the hypertensive crisis with acute kidney injury. We have no previous creatinines to review. 4. Elevated troponin. Re-evaluated by Cardiology. a. I reviewed with him the fact that he has evidence of target organ damage from his severe hypertension with abnormal chest CT as well as the increased serum creatinine. SUGGESTIONS: At this time include, agree with ongoing increase in blood pressure medications with a goal systolic blood pressure in the 140 to 160 range and diastolic in the 90 to 100 range. Need to check blood pressure in both arms. Given the CT scan did not show any evidence of dissection, it is unlikely this is an issue, but nonetheless we should check blood pressures in both arms. A Doppler of renal arteries to rule out renal artery stenosis. Avoid nephrotoxins. We will check catecholamines and renin and norma ratio as we evaluated for 2nd cause of hypertension. I stressed to the patient on the close followup as an outpatient to control his blood pressure given the severity of his blood pressure on presentation. MD HAIM Bustos/AVELINA / [id number]
[2021-08-26] MEDS: Nitroglycerin 2 % Oint 1 GM Packet 0.5 INCH TRANSDERMA ×2 (14:42→20:53)
--- NOTE | 2021-08-26 14:48 | PM.NEUROCN ---
History of Present Illness Data of Consult Service Date: 08/26/21 Primary Care Provider: Nonstaff Physician STONEY Reason for consult: Stroke 46 years old man who came to hospital with main symptom of shortness of breath. He had underlying hypertension. His initial systolic blood pressure was 265. He was noted to have some cardiac and pulmonary pathology head CT was also done that revealed some findings prompting this consultation. He denied that he had any neurological symptom on admission. Now he was feeling better. Review of Systems Review of Systems: Shortness of breath on admission but no cold or flu-like illness PMFSH Past Medical History Medical History HTN (hypertension) Social History Social History Patient Tobacco Use Status: Never used Tobacco Use of substances other than those prescribed or required for medical reasons: Yes Substance Use Type: Marijuana Advance Directives: No Advance Directives Information Provided: No Meds Allergies Allergy/AdvReac Type Severity Reaction Status Date / Time No Known Allergies Allergy Verified 08/25/21 19:10 Active Medications: Current Medications Acetaminophen (Acetaminophen 325 Mg Tablet) 650 mg PO Q6H PRN PRN Reason: Pain, Mild (Pain Scale 1-3) Amlodipine Besylate (Amlodipine Besylate 5 Mg Tablet) 5 mg PO DAILY [facility]; Protocol Last Admin: 08/26/21 11:57 Dose: 5 mg Documented by: Aspirin (Aspirin Enteric Coated 81 Mg Tablet.) 81 mg PO DAILY [facility] Last Admin: 08/26/21 09:42 Dose: 81 mg Documented by: Atorvastatin Calcium (Atorvastatin Calcium 40 Mg Tablet) 40 mg PO BEDTIME [facility] Carvedilol (Carvedilol 3.125 Mg Tablet) 6.25 mg PO BID [facility]; Protocol Last Admin: 08/26/21 09:42 Dose: 6.25 mg Documented by: Furosemide (Furosemide 40 Mg/4 Ml Vial) 40 mg IVPUSH BIDWM [facility]; Protocol Last Admin: 08/26/21 07:49 Dose: 40 mg Documented by: Heparin Sodium (Porcine) (Heparin Sodium,Porcine 5,000 Unit/Ml Vial) 4,000 unit 40 unit/kg (3800 unit) IVPUSH PROTOCOL BOLUS PRN PRN Reason: 40 unit/kg - Heparin Protocol Last Admin: 08/26/21 13:26 Dose: 4,000 unit Documented by: Heparin Sodium (Porcine) (Heparin Sodium,Porcine 5,000 Unit/Ml Vial) 8,000 unit 80 unit/kg (7600 unit) IVPUSH PROTOCOL BOLUS PRN PRN Reason: 80 unit/kg - Heparin Protocol Hydralazine HCl (Hydralazine Hcl 20 Mg/Ml Vial) 10 mg IVPUSH Q6H PRN; Protocol PRN Reason: Sbp > 180 Hydralazine HCl (Hydralazine Hcl 25 Mg Tablet) 25 mg PO TID [facility]; Protocol Last Admin: 08/26/21 11:58 Dose: 25 mg Documented by: Heparin Sodium/Sodium Chloride () 25,000 unit in 250 mls @ 0 mls/hr IVCONT .Q0M [facility]; Protocol Last Titration: 08/26/21 13:26 Dose: 14.04 units/kg/hr, 13.98 mls/hr Documented by: Melatonin (Melatonin 3 Mg Tablet) 6 mg PO BEDTIME PRN PRN Reason: Insomnia Morphine Sulfate (Morphine Sulfate 4 Mg/Ml Cartridge) 1 mg IVPUSH Q4H PRN; Protocol PRN Reason: Pain, SOB Nitroglycerin (Nitroglycerin 0.4 Mg Tab.Subl) 0.4 mg SUBLINGUAL Q5M PRN PRN Reason: Chest Pain Nitroglycerin (Nitroglycerin 2 % Oint 1 Gm Packet) 0.5 inch TRANSDERMA RQ6H WHILE AWAKE [facility] Last Admin: 08/26/21 14:42 Dose: 0.5 inch Documented by: Pharmacy Consult (Consult Rx Perform Med Rec) 1 each MISCELLANE ONCE PRN PRN Reason: Consult order Senna (Sennosides 8.6 Mg Tablet) 17.2 mg PO BEDTIME PRN PRN Reason: Constipation Sodium Chloride (0.9 % Sodium Chloride Flush 3 Ml Syringe) 3 ml IVFLUSH QSHIFT [facility] Last Admin: 08/26/21 09:42 Dose: Not Given Documented by: Home Medications Medication Instructions Recorded Confirmed Last Taken Type No Known Home Meds 08/25/21 08/25/21 Unknown History Physical Exam Vital Signs: Vital Signs: Last Vital Signs Temp 99.0 F 08/25/21 21:13 Pulse 97 08/26/21 14:42 Resp 18 08/26/21 07:52 BP 185/128 H 08/26/21 14:42 Pulse Ox 100 08/26/21 06:22 BMI result Body Mass Index 31.5 Neuro: Other: Alert and awake with normal spontaneity of speech fluency comprehension and affect. Face was symmetrical. Deep tendon reflexes were trace to absent with flexor plantars. [id number] testing was okay. Speech was normal. Visual childress are full to confrontation. There was no sensory extinction Results Labs CBC & Chem 7: 08/26/21 05:48 08/26/21 05:48 Labs: Short CBC 08/25/21 08/26/21 Range/Units 19:24 05:48 WBC 8.2 6.6 (4.8-10.8) X10*3/uL Hgb 12.5 L 11.8 L (14.0-18.0) g/dl Hct 39.9 L 36.5 L (42.0-52.0) % Plt Count 253 243 (160-400) X10*3/uL BMP 08/25/21 08/26/21 20:16 05:48 Sodium 139 140 Potassium 4.8 4.2 Chloride 108 108 Carbon Dioxide 20 L 22 BUN 35 H 31 H Creatinine 2.22 H 2.01 H Calcium 9.1 9.2 Liver Function 08/25/21 08/26/21 Range/Units 20:16 05:48 Total Bilirubin 0.4 0.6 (0.0-1.0) mg/dL Direct Bilirubin < 0.2 0.2 (0.0-0.5) mg/dL AST 261 H 108 H (5-37) U/L ALT 213 H 162 H (0-40) U/L Alkaline Phosphatase 151 H 136 H (39-117) U/L Albumin 3.7 3.5 (3.5-5.0) g/dL Urine 08/25/21 Range/Units 22:28 Urine Color STRAW Urine Appearance CLEAR Urine pH 5.5 (5.0-8.0) Ur Specific [place] 1.015 (1.005-1.025) Urine Protein TRACE (NEG-TRACE) MG/DL Urine Glucose (UA) NEG (NEG) MG/DL Noncontrast head CT revealed patchy bilateral multi focal hypodense signal abnormalities in white matter. Assessment and Plan (1) Reversible cerebrovascular vasoconstriction syndrome: Status: Acute His head CT reveals significant abnormalities that could be explained based upon severe hypertension and associated usually reversible lesions. He could also have underlying chronic microvascular disease on top of that. I recommend a noncontrast MRI of brain to define it further. Otherwise mainstay of management is blood pressure control but at the same time avoiding hypotension, statin and anti-platelet agents. Procedures Date of Service Date of Service: 08/26/21
--- NOTE | 2021-08-26 15:07 | MHC.CM.PN ---
CM MET WITH PT AND HIS S/O WHO WAS AT BEDSIDE PT LIVES WITH HIS S/O AND STEP-DAUGHTER PT IS INDEPENDENT WITH CARE AND USES NO DME PT HAS NO HOME/COMMUNITY SERVICES THEY REPORT PTS PCP IS DIAMOND SORENSON PT COMPLETED A HCP TODAY NAMING HIS S/O HIS AGENT PT IS NOT VACCINATED AGAINST COVID-19 DCP HOME NO SERVICES W/O TO TRANSPORT
[2021-08-26] MEDS: 0.9 % Sodium Chloride Flush 3 ML SYRINGE IVFLUSH (17:07)
[2021-08-26 19:32] LABS: PTT Heparin Drip 51.9 SEC (53-77.9)
[2021-08-26] MEDS: Heparin Sodium,Porcine/1/2NS 25,000 UNIT/250 ML IV.SOLN 15.98 UNIT IVCONT (20:49)
[2021-08-26] MEDS: Atorvastatin Calcium 40 MG TABLET PO (20:55)
[2021-08-27 00:54] VITALS: PULSE 89; RESP 20
[2021-08-27 02:53] LABS: PTT Heparin Drip 68.5 SEC (53-77.9)
[2021-08-27 04:19] VITALS: BP 154/107; PULSE 92; RESP 18; O2SAT 98
--- NOTE | 2021-08-27 05:29 | PC.NURSE ---
This rn took over patient's care at 1900. Patient is alert and oriented x3, offers no complaints at this time, able to ambulate to bathroom, steady gait. Heparin drip running per emar/protocol. @ 2048, PTT came back 51.9 per protocol increased rate by 2units/kg/hr and a bolus given. Bag changed with secondary rn from ed. @ 0300 PTT 68.5, no change necessary at this time. Next PTT lab draw placed for 0900.
[2021-08-27 06:38] LABS: Anion Gap 13 (12-20); Blood Urea Nitrogen 27 mg/dL (9-16); Calcium 9.2 mg/dL (8.4-10.2); Carbon Dioxide 23 mmol/L (22-29); Chloride 105 mmol/L (96-108); Estimated Glomerular Filt Rate 37; Glucose Random 108 mg/dL (60-115); Potassium 4.1 mmol/L (3.3-5.1); Sodium 137 mmol/L (135-145)
[2021-08-27] MEDS: hydrALAZINE HCl 25 MG TABLET PO (08:11)
[2021-08-27] MEDS: Aspirin Enteric Coated 81 MG TABLET.DR PO (08:11)
[2021-08-27] MEDS: Furosemide 40 MG/4 ML VIAL IVPUSH (08:11)
[2021-08-27] MEDS: amLODIPine Besylate 10 MG TABLET PO (08:12)
[2021-08-27] MEDS: carvediloL 3.125 MG TABLET 6.25 MG PO (08:12)
[2021-08-27] MEDS: Nitroglycerin 2 % Oint 1 GM Packet 0.5 INCH TRANSDERMA (08:12)
[2021-08-27 08:26] VITALS: BP 169/108; PULSE 89; RESP 18; O2SAT 99
--- NOTE | 2021-08-27 09:11 | PM.PNCARD ---
Subjective Subjective Date of Service: 08/27/21 Principal diagnosis: Acute congestive heart failure, NSTEMI Interval history: Patient feeling less short of breath. No chest pain. Blood pressure still remains elevated. Echocardiogram shows severe LV systolic dysfunction with regional wall motion abnormality suggestive ischemic cardiomyopathy. Intake and output chart of poorly maintained. Patient has been getting multiple medications to control his blood pressure. Review of Systems Review of Systems Yes all other systems are reviewed and are negative Physical Exam Vital Signs: Last Vital Signs Temp 98.7 F 08/26/21 21:53 Pulse 89 08/27/21 08:26 Resp 18 08/27/21 08:26 BP 169/108 H 08/27/21 08:26 Pulse Ox 99 08/27/21 08:26 BMI result Body Mass Index 31.5 Const General: cooperative, comfortable, no acute distress, alert and awake Nutritional Appearance: obese Orientation/consciousness: patient oriented x3 Neck Neck: Yes trachea midline, Yes supple and Yes no JVD Resp Effort & Inspection: normal respiratory effort Auscultation: crackles on the left at the base Cardio Jugular venous distension: no JVD Palpation: abnormal PMI displaced PMI Rate: regular rate Rhythm: regular rhythm Heart sounds: S1 normal heart sound present, S2 normal heart sound present, no click, no gallops, no murmurs and no rubs GI Auscultation: normal bowel sounds Skin General skin exam: no rashes or lesions noted Neuro General: patient oriented x3 and no focal motor deficits Extrem General: Yes no clubbing, cyanosis or edema Objective Labs and Meds Result diagrams: 08/26/21 05:48 08/27/21 06:08 Lab results: Laboratory Results - last 24 hr 08/26/21 08/26/21 08/27/21 12:38 19:08 02:39 aPTT Heparin Protocol 38.9 L 51.9 L D 68.5 D Sodium Potassium Chloride Carbon Dioxide Anion Gap BUN Creatinine Estim Creat Clear Calc Estimated GFR Random Glucose Calcium 08/27/21 06:08 aPTT Heparin Protocol Sodium 137 Potassium 4.1 Chloride 105 Carbon Dioxide 23 Anion Gap 13 BUN 27 H Creatinine 1.94 H Estim Creat Clear Calc 55.0 Estimated GFR 37 Random Glucose 108 Calcium 9.2 Imaging Radiologist's impression: Impressions Pulmonary Perfusion Imaging 08/26/21 11:15 IMPRESSION: Very low probability of pulmonary embolism. Cardiomegaly. Renal Ultrasound 08/26/21 12:31 IMPRESSION: Normal renal Doppler exam. No evidence of renal artery stenosis. Progress Note: A&P Assessment and plan (1) Acute systolic heart failure: Status: Acute Assessment and Plan: Patient present with symptoms consistent with acute congestive heart failure/pulmonary edema with hypertensive emergency with elevated troponins. Echocardiogram showing severe LV systolic dysfunction with regional wall motion abnormality with suggestion of underlying significant coronary artery disease. Clinically currently doing much better. Intake and output have not been well maintained. Continue Lasix IV push. Strict intake and output chart needs to be pursued. Will continue to up titrate medications. Increase hydralazine to 50 mg t.i.d., nitro paste 1 in Q 6 hours, amlodipine to 10 mg daily and carvedilol to 12.5 mg b.i.d.. CHF education to be provided. (2) Acute non-ST elevation myocardial infarction (NSTEMI): Status: Acute Assessment and Plan: Acute troponin elevation with symptoms recently of chest pressure with exertion with marked hypertension, causing myocardial ischemia necrosis. Regional wall motion abnormality and echocardiogram is concerning for severe three-vessel coronary artery disease. Suggest an angiogram to further evaluate for the same. Discussed the risks, benefits, alternatives 2nd opinion procedure. Transfer to [facility] for the same. Concern is elevated creatinine with slightly high risk of contrast induced nephropathy. Recommend cardiac catheterization with hemodynamic evaluation. Aggressive control risk factors. Continue IV heparin as well as aspirin high-intensity statin therapy. Continue to aggressively manage elevated blood pressure as above. (3) Uncontrolled hypertension: Status: Acute Assessment and Plan: Treatment as above. Importance of compliance with medication was discussed. Patient be transferred to [facility]. Plan discussed with hospitalist team Fall Risk Details Current Medications: Current Medications Acetaminophen (Acetaminophen 325 Mg Tablet) 650 mg PO Q6H PRN PRN Reason: Pain, Mild (Pain Scale 1-3) Amlodipine Besylate (Amlodipine Besylate 10 Mg Tablet) 10 mg PO DAILY [facility]; Protocol Last Admin: 08/27/21 08:12 Dose: 10 mg Documented by: Aspirin (Aspirin Enteric Coated 81 Mg Tablet.) 81 mg PO DAILY [facility] Last Admin: 08/27/21 08:11 Dose: 81 mg Documented by: Atorvastatin Calcium (Atorvastatin Calcium 40 Mg Tablet) 40 mg PO BEDTIME [facility] Last Admin: 08/26/21 20:55 Dose: 40 mg Documented by: Carvedilol (Carvedilol 3.125 Mg Tablet) 6.25 mg PO BID [facility]; Protocol Last Admin: 08/27/21 08:12 Dose: 6.25 mg Documented by: Furosemide (Furosemide 40 Mg/4 Ml Vial) 40 mg IVPUSH BIDWM [facility]; Protocol Last Admin: 08/27/21 08:11 Dose: 40 mg Documented by: Heparin Sodium (Porcine) (Heparin Sodium,Porcine 5,000 Unit/Ml Vial) 4,000 unit 40 unit/kg (3800 unit) IVPUSH PROTOCOL BOLUS PRN PRN Reason: 40 unit/kg - Heparin Protocol Last Admin: 08/26/21 20:51 Dose: 4,000 unit Documented by: Heparin Sodium (Porcine) (Heparin Sodium,Porcine 5,000 Unit/Ml Vial) 8,000 unit 80 unit/kg (7600 unit) IVPUSH PROTOCOL BOLUS PRN PRN Reason: 80 unit/kg - Heparin Protocol Hydralazine HCl (Hydralazine Hcl 20 Mg/Ml Vial) 10 mg IVPUSH Q6H PRN; Protocol PRN Reason: Sbp > 180 Hydralazine HCl (Hydralazine Hcl 25 Mg Tablet) 25 mg PO TID [facility]; Protocol Last Admin: 08/27/21 08:11 Dose: 25 mg Documented by: Heparin Sodium/Sodium Chloride () 25,000 unit in 250 mls @ 0 mls/hr IVCONT .Q0M [facility]; Protocol Last Titration: 08/27/21 03:00 Dose: 16.04 units/kg/hr, 15.98 mls/hr Documented by: Melatonin (Melatonin 3 Mg Tablet) 6 mg PO BEDTIME PRN PRN Reason: Insomnia Morphine Sulfate (Morphine Sulfate 4 Mg/Ml Cartridge) 1 mg IVPUSH Q4H PRN; Protocol PRN Reason: Pain, SOB Nitroglycerin (Nitroglycerin 0.4 Mg Tab.Subl) 0.4 mg SUBLINGUAL Q5M PRN PRN Reason: Chest Pain Nitroglycerin (Nitroglycerin 2 % Oint 1 Gm Packet) 0.5 inch TRANSDERMA RQ6H WHILE AWAKE [facility] Last Admin: 08/27/21 08:12 Dose: 0.5 inch Documented by: Pharmacy Consult (Consult Rx Perform Med Rec) 1 each MISCELLANE ONCE PRN PRN Reason: Consult order Senna (Sennosides 8.6 Mg Tablet) 17.2 mg PO BEDTIME PRN PRN Reason: Constipation Sodium Chloride (0.9 % Sodium Chloride Flush 3 Ml Syringe) 3 ml IVFLUSH QSHIFT [facility] Last Admin: 08/27/21 08:00 Dose: Not Given Documented by: Time Spent With Patient Time: Total time spent is greater than 50% in coordination of care (as documented) at patient's floor/unit and/or counseling patient: Time with patient: 25 - 35 minutes Progress Note: Quality Stroke Does the patient have a stroke diagnosis?: No Procedures Date of Service Date of Service: 08/27/21
[2021-08-27 09:16] LABS: PTT Heparin Drip 62.8 SEC (53-77.9)
--- NOTE | 2021-08-27 09:18 | P.DS_ITS ---
DS: Providers Provider Date of Service: 08/27/21 Date of admission: 08/25/21 22:58 Primary care physician: Nonstaff Physician Consults: 08/25/21 22:58 Consult to Cardiology Routine Consulting Provider: Nick Gale Reason for consultation: NSTEMI; acute CHF 08/26/21 02:02 Consult to Hematology / Oncology Routine Consulting Provider: Silvestre Rodriguez Reason for consultation: Lymphangitic carcinomatosis. 08/26/21 06:38 Consult to Neurology Routine Consulting Provider: [facility] Reason for consultation: basal ganglion lacunar infarct; age indeterminate. 08/26/21 10:23 Consult to Nephrology Routine Consulting Provider: Chema Celeste Reason for consultation: Екатерина Has provider been notified: Yes DS: Diagnosis Discharge Diagnosis (1) Acute systolic heart failure: Status: Acute (2) Acute non-ST elevation myocardial infarction (NSTEMI): Status: Acute (3) Uncontrolled hypertension: Status: Acute DS: Summary Hospital Course Hospital Course: 46-year-old male with a past medical history of hypertension? and has not been taken meds? since June here with SOLOMON, leg edema,? 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 and maked high BP, clinical presentation consistent with Hypertension Emergency. Hospital course: Patient admitted for hypertension emergency, new onset CHF, NSTEMI: Started on IV heparin drip, also blood pressure medication adjusted and IV Lasix started subsequently patient seems to be slightly improving-going to [facility] for further workup. Uncontrolled htn: Started on Norvasc, Coreg, hydralazine- blood pressure is improving, still fluctuating [id number]/100-110 range what is it. Continue amlodipine, Coreg, hydralazine adjusted to 75 mg t.i.d., currently asymptomatic, may need further blood pressure medication adjustment if needed . ЕКАТЕРИНА: Creatinine on admission was 2.2 trending down to 1.94, consider nephrology evaluation in [facility]. Monitor renal function and electrolyte closely. Mild transaminitis: Thought to be related to congestive hepatopathy and us: Echogenic liver probably representing fatty infiltration. 1.2 x 1.4 cm minimally complex cyst in the right lobe of the liver.?: LFTs are slowly improving, monitor closely , consider GI evaluation. Basal ganglion Lacunar Infarct:?head CT reveals significant abnormalities that could be explained based upon severe hypertension and associated usually reversible lesions, seen by Neurology: Recommended to continue antiplatelet and statin, MRI can be done in [facility]. no neuro deficiets, Consider neurology follow-up . 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 CT chest showed findings conc erning for lymphangitic carcinomatosis. Consider Oncology consult in [facility].follow up with pulmonary outpatiently for further workup. Positive D-dimer:? Negative PE by CT and negative DVT by US. Above management discussed with the patient in detail length patient and his in detailed length-they understand and in agreement with the above plan, time spent 50 minutes and 50% time spent on counseling. Significant findings: As above. Procedures performed: None. Treatment and response: As above. Complications: None. Time Spent with Patient Time attestation: Total time spent providing and/or coordinating discharge services: Discharge coordination time: Greater than 30 minutes Quality: Stroke Does the patient have a stroke diagnosis?: Yes Reason for No Anti-thrombotic at DC: N/A - Med Ordered Reason for No Anticoagulant at DC: N/A - Med Ordered Reason Not Initiating IV-Tpa: N/A - Med Ordered Reason for No Anti-thrombotic by Day Two: N/A - Med Ordered Reason for No Statin at DC: N/A - Med Ordered Physical Exam Vital Signs: Vital Signs: Last Vital Signs Temp 98.7 F 08/26/21 21:53 Pulse 89 08/27/21 08:26 Resp 18 08/27/21 08:26 BP 169/108 H 08/27/21 08:26 Pulse Ox 99 08/27/21 08:26 BMI result Body Mass Index 31.5 General: AO X 3, no acute distress Resp:? CTA bilateral, no rales or wheezing CVS: S1,S2,RRR. 1+pitting edema GI: +BS, NT, no distention Skin: No rash, no edema or cyanosis. Neuro:?aox3, moves all ext , sensations intact. Psych: appropriate affect DS: Data Data Completed and Pending Labs on day of discharge: Laboratory Results - last 24 hr 08/26/21 08/26/21 08/27/21 12:38 19:08 02:39 aPTT Heparin Protocol 38.9 L 51.9 L D 68.5 D Sodium Potassium Chloride Carbon Dioxide Anion Gap BUN Creatinine Estim Creat Clear Calc Estimated GFR Random Glucose Calcium 08/27/21 08/27/21 06:08 08:49 aPTT Heparin Protocol 62.8 Sodium 137 Potassium 4.1 Chloride 105 Carbon Dioxide 23 Anion Gap 13 BUN 27 H Creatinine 1.94 H Estim Creat Clear Calc 55.0 Estimated GFR 37 Random Glucose 108 Calcium 9.2 Additional Comments Additional comments: US/US renal doppler IMPRESSION: Normal renal Doppler exam. No evidence of renal artery stenosis.? NM/NM pul perfusion IMPRESSION: Very low probability of pulmonary embolism. Cardiomegaly. US/US venous duplex LE BI IMPRESSION: No DVT demonstrated in the bilateral lower extremity. ?US/US abdomen limited IMPRESSION: Echogenic liver probably representing fatty infiltration. 1.2 x 1.4 cm minimally complex cyst in the right lobe of the liver. Normal-appearing gallbladder. Small right renal cyst. Question small right renal stone. Limited visualization of the pancreas. ?CT/CT chest wo con IMPRESSION: 1.? Diffuse interlobular septal thickening bilaterally along with small pleural effusions, suspicious for interstitial pulmonary edema. However, numerous nodular foci are also present bilaterally, raising the possibility of superimposed abnormality such as lymphangitic carcinomatosis. Interval follow-up CT is recommended after improvement of symptoms, such as following diuresis, to assess for persistence of nodularity. 2.? Several enlarged mediastinal lymph nodes which could be reactive in the setting of edema or potentially malignant in nature. Attention on follow-up recommended. 3.? Coronary artery calcifications. Correlation with cardiac risk factors is recommended. CT/CT head/brain wo con IMPRESSION: Nonspecific periventricular white matter disease somewhat out of proportion for the patient's age. Bilateral basal ganglia lacunar infarcts, indeterminate age. XR/XR chest 1V IMPRESSION: Enlarged cardiac silhouette and pulmonary edema. echo: Conclusions: - 1. Mildly dilated left ventricle with severe left ventricular? hypertrophy with severe LV systolic dysfunction with LVEF of 25? 30% with severe diffuse hypokinesis but which regional wall? ? ? motion abnormality in the inferior inferolateral wall. ? 2. Moderately dilated left atrium? 3. Mild aortic and mild mitral regurgitation ? 4. Normal calculated RV systolic pressure? 5.? No pericardial effusion? ? ? Discharge Plan Discharge Patient Disposition: Xfer Acute [facility] Discharge Diagnosis: Uncontrolled hypertension, pulmonary edema, chf Referrals: [facility] [Other] - 1 Week Chip Phoenix MD [Physician] - 1 Week (fu outpatient) Yash Almonte [Primary Care Provider] - 1 Week Silvestre Rodriguez MD [Physician] - 1 Week (fu ) Chema Celeste MD [Physician] - 1 Week Discharge Medications: New heparin(porcine) in 0.45% NaCl 25,000 unit/250 mL Parenteral Solution 25,000 unit continuous IV infusion .Q0M Qty: 250 0RF Rx Instructions: continue current rate , fu pt/ptt/inr atorvastatin 40 mg Tablet 40 mg PO BEDTIME Qty: 30 0RF hydralazine 25 mg Tablet 25 mg PO TID Qty: 1 0RF Protocol: Hold for SBP< HOLD for SBP < : 90 carvedilol 3.125 mg Tablet 6.25 mg PO BID Qty: 30 0RF Protocol: Hold for SBP/HR < HOLD for SBP < : 90 HOLD for HR < : 60 amlodipine 10 mg Tablet 10 mg PO DAILY Qty: 30 0RF Protocol: Hold for SBP< HOLD for SBP < : 90 nitroglycerin [Nitrostat] 0.4 mg Tablet, Sublingual 0.4 mg sublingual Q5M PRN (Reason: Chest Pain) Qty: 1 0RF Nitro-Bid 2 % Ointment 0.5 inch transdermal RQ6H WHILE AWAKE Qty: 30 0RF acetaminophen 325 mg Tablet 650 mg PO Q6H PRN (Reason: Pain, Mild (Pain Scale 1-3)) Qty: 10 0RF aspirin 81 mg Tablet,Delayed Release (Dr/Ec) 81 mg PO DAILY Qty: 1 0RF morphine 4 mg/mL Syringe 1 mg IVPUSH Q4H PRN (Reason: Pain, SOB) Qty: 1 0RF Protocol: Hold for RR < HOLD and contact provider for RR < (bpm): 12 furosemide 10 mg/mL Solution 40 mg IVPUSH BIDWM Qty: 40 0RF Protocol: Hold for SBP< HOLD for SBP < : 90 sennosides [Senna Lax] 8.6 mg Tablet 17.2 mg PO BEDTIME PRN (Reason: Constipation) Qty: 1 0RF melatonin 3 mg Tablet 6 mg PO BEDTIME PRN (Reason: Insomnia) Qty: 1 0RF hydralazine 25 mg Tablet 75 mg PO TID Qty: 1 0RF Protocol: Hold for SBP< HOLD for SBP < : 90 Discharge Orders: Discharge Order (Routine); Ordered 08/27/21 Ordered By: Adarsh Alvarenga Diet: advance to usual diet, low fat, low cholesterol and low salt diet Activity on Discharge: As tolerated Stand Alone Forms: Patient Portal Discharge page Care Plan Goals: Patient admitted for hypertension emergency, new onset CHF, NSTEMI: Started on IV heparin drip, also blood pressure medication adjusted and IV Lasix started subsequently patient seems to be slightly improving-going to [facility] for further workup. ЕКАТЕРИНА: Creatinine on admission was 2.2 trending down to 1.94, consider nephrology evaluation in [facility]. Monitor renal function and electrolyte closely. Mild transaminitis: Thought to be related to congestive hepatopathy and us: Echogenic liver probably representing fatty infiltration. 1.2 x 1.4 cm minimally complex cyst in the right lobe of the liver.?: LFTs are slowly improving, monitor closely , if needed consider GI evaluation. Basal ganglion Lacunar Infarct:?head CT reveals significant abnormalities that could be explained based upon severe hypertension and associated usually reversible lesions, seen by Neurology: Recommended to continue antiplatelet and statin, MRI can be done in [facility]. Consider neurology follow-up there. 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 CT chest showed findings concerning for lymphangitic carcinomatosis. Consider Oncology consult in [facility]. moniter cbc , bmp anf lft's as above. Health Concerns: As above. Plan of Treatment: As above. Assessment: As above.
--- NOTE | 2021-08-27 11:44 | PC.NURSE ---
Assumed care of pt at 0700, A&Ox3, no complaints of pain, NSR on monitor, remains HTN, is aware, medicated as per [facility] orders for HTN. Heparin drip running at 16.04u/kg/hr at this time, no change from 6 hours prior, now qday PTT's due to being in therapeutic range x 2. Plan for transfer to [facility] for cardiac cath at some point today or tomorrow AM. [facility] reach. Will continue to monito.
[2021-08-27 12:53] VITALS: BP 158/127; PULSE 96; RESP 19; O2SAT 99
[2021-08-27] MEDS: Heparin Sodium,Porcine/1/2NS 25,000 UNIT/250 ML IV.SOLN 15.98 UNIT IVCONT (13:16)
--- NOTE | 2021-08-27 13:34 | PC.NURSE ---
Heparin drip bag changed, no change to rate. Plan for transport to [facility], reached out to Lydia, case filler for update on this plan. Pt remains A&Ox3, no bleeding noted. Will continue to monitor.
--- NOTE | 2021-08-27 15:20 | PC.NURSE ---
pt accepted [facility] 7 room 7 nurse- nurse [phone]
[2021-08-27] MEDS: Nitroglycerin 2 % Oint 1 GM Packet 1 INCH TRANSDERMA (15:30)
[2021-08-27] MEDS: hydrALAZINE HCl 20 MG/ML VIAL 10 MG IVPUSH (15:31)
[2021-08-27 15:40] VITALS: BP 170/112; PULSE 98; RESP 18; O2SAT 98
--- NOTE | 2021-08-27 19:40 | PM.PNNEP ---
Subjective Subjective Date of Service: 08/27/21 Principal diagnosis: Acute congestive heart failure, NSTEMI Interval history: Seen and examined, events noted Physical Exam Vital Signs: Vital Signs: Last Vital Signs Temp 98.7 F 08/26/21 21:53 Pulse 98 08/27/21 15:40 Resp 18 08/27/21 15:40 BP 170/112 H 08/27/21 15:40 Pulse Ox 98 08/27/21 15:40 BMI result Body Mass Index 31.5 Objective Data Labs CBC & Chem 7: 08/26/21 05:48 08/27/21 06:08 Labs: Laboratory Results - last 24 hr 08/26/21 08/27/21 08/27/21 19:08 02:39 06:08 aPTT Heparin Protocol 51.9 L D 68.5 D Sodium 137 Potassium 4.1 Chloride 105 Carbon Dioxide 23 Anion Gap 13 BUN 27 H Creatinine 1.94 H Estim Creat Clear Calc 55.0 Estimated GFR 37 Random Glucose 108 Calcium 9.2 08/27/21 08:49 aPTT Heparin Protocol 62.8 Sodium Potassium Chloride Carbon Dioxide Anion Gap BUN Creatinine Estim Creat Clear Calc Estimated GFR Random Glucose Calcium Procedures Date of Service Date of Service: 08/27/21 Assessment & Plan Assessment and plan (1) Uncontrolled hypertension: Status: Acute (2) Hypertensive emergency: Status: Acute Plan 1. HTN emergency: evid ofTOD with CHF, Heart Strain and ЕКАТЕРИНА BP improving but remains elevated despite 3 BP meds TAS r/o by doppler; pheo and primary hyperaldo being r/o 2. CHF: resolved 3. ЕКАТЕРИНА on ? CKD: SCr slt decr and suspect compoent of acute severe HTN renal injury--remaijs to be seen to what extent he has CKD REC: incr BP meds and track renal func; 2ry causes for HTN w/u in progress Ok to go ahead with CCath with pre/post IVF Time Spent With Patient Time: Total time spent is greater than 50% in coordination of care (as documented) at patient's floor/unit and/or counseling patient: Progress Note: Quality Stroke Does the patient have a stroke diagnosis?: Yes Reason for No Anti-thrombotic by Day Two: N/A - Med Ordered
[2021-08-28 08:36] LABS: Hepatitis A Antibody IgM 0.19 Index (0-0.79); ~Hepatitis A Antibody IgM Nonreactive (Nonreactive)
[2021-09-03 15:31] LABS: Aldosterone/Renin Ratio 2.4 Ratio (0.9-28.9); Plasma Renin Activity 2.55 ng/mL/h (0.25-5.82)
[2021-09-06 13:51] LABS: Catecholamine Frac, Total 1065 pg/mL
== END 2021-08-27 18:00 | disposition short-term general hospital (02) | DRG 194 ==
LOC: HO.ED 20:51 → HO.EDOVER 23:22
PROVIDERS: Internal Medicine; Internal Medicine Nephrology; Nurse Practitioner Family; Admitting Provider Hospitalist; Emergency Provider Internal Medicine; PCP Internal Medicine; Visit Provider Internal Medicine
DX: I13.0 Hypertensive heart and chronic kidney disease with heart failure and stage 1 through stage 4 chronic kidney disease, or unspecified chronic kidney disease (principal); I21.4 Non-ST elevation (NSTEMI) myocardial infarction; C80.0 Disseminated malignant neoplasm, unspecified; I67.841 Reversible cerebrovascular vasoconstriction syndrome; I25.5 Ischemic cardiomyopathy; N18.9 Chronic kidney disease, unspecified; I50.21 Acute systolic (congestive) heart failure; I16.1 Hypertensive emergency; Z20.822 Contact with and (suspected) exposure to COVID-19; Z91.14 Patient's other noncompliance with medication regimen; Z79.82 Long term (current) use of aspirin; Z79.899 Other long term (current) drug therapy
CPT/HCPCS: 36415; 70450; 71045; 71250; 76705; 78580; 80048; 80061; 80076; 80307; 81003; 82088; 82384; 83036; 83735; 83880; 84443; 84484; 85025; 85379; 85610; 85730; 86704; 86706; 86709; 86803; 87340; 87635; 93005; 93306; 93970; 93975; 99285; A9540; J1940

== ENCOUNTER → 2021-09-17 14:58 | Outpatient (BNVA) | payer OTHER, SELFPAY | PROVIDERS: PCP Internal Medicine; Referring Provider Internal Medicine; Visit Provider Nurse Practitioner Family | DX: Z09 Encounter for follow-up examination after completed treatment for conditions other than malignant neoplasm (principal); I21.4 Non-ST elevation (NSTEMI) myocardial infarction; I13.0 Hypertensive heart and chronic kidney disease with heart failure and stage 1 through stage 4 chronic kidney disease, or unspecified chronic kidney disease; N18.9 Chronic kidney disease, unspecified; I50.9 Heart failure, unspecified; I42.9 Cardiomyopathy, unspecified; R77.8 Other specified abnormalities of plasma proteins | CPT/HCPCS: 99212 ==

== ENCOUNTER 2021-11-05 | Outpatient (REF) | payer OTHER, SELFPAY ==
--- NOTE | ~2021-11-05 | CT_ITS ---
EXAMINATION: CT CHEST WITHOUT CONTRAST CLINICAL INFORMATION: Localize enlarged lymph nodes. COMPARISON: 08/25/2021 TECHNIQUE: Multidetector volumetric CT imaging of the chest was done. Axial MIP volume rendering provided. Sagittal and coronal reformatted images were obtained. This CT examination was performed using dose optimization techniques as appropriate, variously including the following: *Automated exposure control *Adjustment of mA and/or kV according to patient size (this includes techniques or standardized protocols for targeted exams where dose is matched to indication/reason for exam; i.e. extremities or head) *Use of iterative reconstruction technique DLP: 506 mGy-cm FINDINGS: LUNGS: Central airways are patent. No confluent parenchymal disease. No significant bronchial wall thickening seen. No bronchiectasis. There has been resolution of previous interstitial and interlobular septal thickening, with nodular densities likely related to pulmonary edema. No confluent parenchymal disease identified. There are scattered bilateral sub-4 mm densities present. There are some scattered calcified granulomas seen. There is a 4 mm density seen within the right upper lobe on image 156 of 651 in series #5. Within the right lower lobe on image 329 of 651, there is a noncalcified subpleural density measuring 4 mm in diameter. MEDIASTINUM: Visualized thyroid gland appears unremarkable. Heart normal size. Coronary artery calcifications present. No pericardial effusion. The distal aortic arch measures 4 cm in diameter distal to the takeoff of the left subclavian artery. This tapers down to approximately 2.8 cm in diameter at the level of the main pulmonary artery bifurcation. No ascending thoracic aortic aneurysm is seen. There is improvement in the mediastinal lymphadenopathy that was present on prior study of August 25, 2021. No hilar lymphadenopathy detected. PLEURA: There has been resolution in the bilateral pleural effusions that were present on study of 08/25/2021. AXILLA: No lymphadenopathy. UPPER ABDOMEN: There is fatty infiltration of the liver. No hepatic mass or intrahepatic bile duct dilatation identified. No adrenal gland lesions. There are some renal low-density lesions likely related to cysts. OSSEOUS STRUCTURES: No suspicious destructive bony lesions identified. There is calcific tendinitis of the left shoulder. CT/CT chest wo con IMPRESSION: Resolution of previously noted interstitial and airspace disease, which was likely related to pulmonary edema. Resolution of bilateral pleural effusions. Improvement in mediastinal lymphadenopathy. Old granulomatous disease. Fatty infiltration of the liver. 4 mm densities within the right lung. According to the UPDATED 2017 Fleischner Society recommendations, the advised follow-up imaging for solid nodules < 6 mm is: LOW RISK PATIENT: No routine follow-up. HIGH RISK PATIENT: Optional CT at 12 months.
== END 2021-11-05 00:01 ==
LOC: HO.CT
PROVIDERS: PCP Internal Medicine; Visit Provider Internal Medicine
DX: R59.0 Localized enlarged lymph nodes (principal); I50.20 Unspecified systolic (congestive) heart failure
CPT/HCPCS: 71250

== ENCOUNTER 2022-01-11 08:55 | Outpatient (REF) | payer OTHER, SELFPAY ==
[2022-01-11 10:28] LABS: Creatinine Urine 218.04 mg/dL; Total Protein Urine Random 52 mg/dL (<12)
[2022-01-11 10:46] LABS: Anion Gap 11 (12-20); Blood Urea Nitrogen 24 mg/dL (9-16); Calcium 8.7 mg/dL (8.4-10.2); Carbon Dioxide 22 mmol/L (22-29); Chloride 108 mmol/L (96-108); Estimated Glomerular Filt Rate 42; Potassium 4.4 mmol/L (3.3-5.1); Sodium 137 mmol/L (135-145)
== END 2022-01-11 08:56 | disposition home or self-care (01) ==
LOC: HO.LAB 08:55
PROVIDERS: PCP Internal Medicine; Visit Provider Internal Medicine Nephrology
DX: I12.9 Hypertensive chronic kidney disease with stage 1 through stage 4 chronic kidney disease, or unspecified chronic kidney disease (principal); N18.32 Chronic kidney disease, stage 3b
CPT/HCPCS: 36415; 80051; 82310; 82565; 84156; 84520

== ENCOUNTER 2022-02-13 14:53 | Outpatient (REF) | payer OTHER, SELFPAY | END 2022-02-13 14:54 | disposition home or self-care (01) | LOC: HO.RESP 14:53 | PROVIDERS: PCP Internal Medicine; Visit Provider Internal Medicine | DX: Z13.89 Encounter for screening for other disorder (principal) ==

== ENCOUNTER → 2022-12-24 09:55 | Outpatient (BNVA) | payer OTHER, SELFPAY | PROVIDERS: Visit Provider Internal Medicine Cardiovascular Disease | DX: I11.0 Hypertensive heart disease with heart failure (principal); I50.20 Unspecified systolic (congestive) heart failure; I42.9 Cardiomyopathy, unspecified; I25.10 Atherosclerotic heart disease of native coronary artery without angina pectoris; I21.4 Non-ST elevation (NSTEMI) myocardial infarction; Z98.890 Other specified postprocedural states | CPT/HCPCS: 93005; 99212 ==

== ENCOUNTER 2023-01-13 09:09 | Outpatient (REF) | payer OTHER, SELFPAY ==
[2023-01-13 11:00] LABS: Anion Gap 10 (12-20); Blood Urea Nitrogen 26 mg/dL (9-16); Calcium 9.2 mg/dL (8.4-10.2); Carbon Dioxide 22 mmol/L (22-29); Chloride 110 mmol/L (96-108); Estimated Glomerular Filt Rate 40; Potassium 4.1 mmol/L (3.3-5.1); Sodium 138 mmol/L (135-145)
== END 2023-01-13 09:10 | disposition home or self-care (01) ==
LOC: HO.LAB 09:09
PROVIDERS: PCP Internal Medicine; Visit Provider Internal Medicine Nephrology
DX: I12.9 Hypertensive chronic kidney disease with stage 1 through stage 4 chronic kidney disease, or unspecified chronic kidney disease (principal); N18.32 Chronic kidney disease, stage 3b
CPT/HCPCS: 36415; 80051; 82310; 82565; 84520

== ENCOUNTER → 2023-01-27 09:25 | Outpatient (BNVA) | payer OTHER, SELFPAY | PROVIDERS: PCP Internal Medicine; Referring Provider Internal Medicine; Visit Provider Nurse Practitioner Family ==

== ENCOUNTER → 2023-02-03 07:51 | Outpatient (REF) | payer OTHER, SELFPAY ==
--- NOTE | 2023-02-03 07:54 | CA_ITS ---
Transthoracic Echocardiogram Patient (Last, First, Middle): Brandon Phillips M Gender: Male Date of : 1975 Age: 48 Procedure Date: 02/03/2023 Procedure Type: Transthoracic Echocardiogram Location: OP Height: 177.8 cm Weight: 90.72 kg BSA: 2.09 m2 Heart Rate: bpm BP: 180 / 110 mmHg Pbx Operator: TO Referring MD: Heber Goldberg MD Aircraft Delivery Checker: Heber Goldberg MD Symptoms: I50.20 - Unspecified systolic (congestive) heart failure Study Quality: Adequate ECG Rhythm: Sinus Conclusions: - 1. Low normal LV ejection fraction of 50-55% with diffuse and mildly increased LV wall thickness with moderately increased asymmetric septal hypertrophy. There is impaired relaxation filling pattern 2. Mildly dilated left atrium 3. Mild aortic regurgitation 4. Mildly dilated ascending aorta 5. No gross pericardial effusion Findings Left Ventricle Normal left ventricular cavity size. There is mildly increased left ventricular wall thickness. The left ventricular systolic function is low normal. The visually estimated ejection fraction is between 50-55%. Spectral Doppler is indicative of an impaired relaxation filling pattern. E/E prime ratio is between 8 and 15 consistent with indeterminate filling pressures. There is moderate septal asymmetric hypertrophy. Peak GLS is 13.3%, which is moderately reduced with relative apical sparing. Consider infiltrative disorder such as amyloidosis. Right Ventricle Normal right ventricular cavity size and systolic function. Atria The left atrium is mildly dilated. There is lipomatous hypertrophy of the interatrial septum. There is no evidence of interatrial shunt. The right atrium is normal in size. Aortic Valve There is mild calcification of the aortic valve. There is no aortic valve stenosis. There is mild aortic valve regurgitation. Mitral Valve There is mild anterior and posterior mitral leaflet thickening. There is trace mitral valve regurgitation. There is no mitral valve stenosis. Pulmonic Valve The pulmonic valve is likely normal. There is trace pulmonic valve regurgitation. Tricuspid Valve Normal tricuspid valve structure. There is trace tricuspid valve regurgitation. The right ventricular systolic pressure is normal. The right ventricular systolic pressure is 12 mmHg. Normal right atrial pressure. There is no evidence of pulmonary hypertension. Great Vessels The pulmonary artery was not well visualized. There is mild dilatation of the ascending aorta measuring 4.00 cm. Venous The inferior vena cava is normal in size and collapses greater than 50% with inspiration. Pericardium/Pleural There is no evidence of pericardial effusion. Measurements 2D Linear Measurements IVSd: 1.83 0.6-0.9/0.6-1.0 cm LVIDd: 5.25 3.9-5.3/4.2-5.9 cm LVIDd Index: 2.51 2.4-3.2/2.2-3.1 cm/m2 LVIDs: 3.89 2.0-3.6 cm LVPWd: 1.16 0.7-1.1 cm LA Diam: 4.00 2.7-3.8/3.0-4.0 cm LAIDs Index: 1.91 1.5-2.3 cm/m2 LV Mass: 431.36 67-162/88-224 g LV Mass Index: 206.39 43-95/49-115 g/m2 LVOT Diam: 2.40 3.0+(-)1.3 cm 2D Systolic Function EF 4C: 46.40 >55% EF 2C: 58.70 >55% EF BiP: 52.80 >55% Mitral Valve MV Pk E: 0.44 MV PK A: 0.50 MV Decel Time: 142.00 E/A: 0.90 E'Lateral: 7.94 E'Medial: 4.68 E/E' Med: 9.30 E/E' Lat: 5.50 PHT: 49.00 MVA PHT: 4.49 Decel [place]: 2.72 Aortic Valve AoV Pk Stevie: 1.52 AoV Mn Stevie: 1.05 AoV VTI: 0.28 AoV Pk Grad: 9.00 Aov Mn Grad: 5.00 RYLEY Cont.VTI: 3.54 LVOT LVOT Pk Stevie: 1.12 LVOT Mn Stevie: 0.70 LVOT VTI: 0.22 LVOT Pk Grad: 5.00 LVOT Mn Grad: 2.00 LVOT Diam: 2.40 LVOT Area: 4.52 Diastolic Function MV Pk E: 0.44 MV Pk A: 0.50 E/A: 0.90 E'Medial: 4.68 E/E' Med: 9.30 E' Laterial: 7.94 E/E' Lat: 5.50 Right Ventricle TAPSE (mm): 24.40 TVS' Stevie: 12.50 Tricuspid Valve TR Pk Stevie: 1.52 TR Pk Grad: 9.00 RA Press: 3.00 RVSP: 12.00 Great Vessels Aorta Sinus of Valsalva: 3.50 2.0-3.[address] [place]: 2.74 1.7-3.4 cm Ao Asc: 4.00 2.1-3.4 cm Ao Arch: 4.30 Updated in Other Vendor System with Status of Final Heber Goldberg MD electronically signed on 02/04/2023 2:26:35 PM with status of Final
== END ==
LOC: HO.CARD 07:51
PROVIDERS: PCP Internal Medicine; Visit Provider Internal Medicine Cardiovascular Disease
DX: I50.20 Unspecified systolic (congestive) heart failure (principal); I42.9 Cardiomyopathy, unspecified
CPT/HCPCS: 93306

== ENCOUNTER → 2023-02-03 07:54 | Outpatient (BNV) | payer OTHER, SELFPAY | PROVIDERS: PCP Internal Medicine; Visit Provider Internal Medicine Cardiovascular Disease | DX: I35.1 Nonrheumatic aortic (valve) insufficiency (principal) | CPT/HCPCS: 93306 ==

== ENCOUNTER → 2023-02-18 10:25 | Outpatient (REF) | payer OTHER, SELFPAY ==
--- NOTE | ~2023-02-18 | NM_ITS ---
EXAMINATION: TC-PYP CARDIAC STUDY CLINICAL INFORMATION: Evaluation for cardiac amyloidosis. 48 years old Male with diastolic heart failure COMPARISON None available. TECHNIQUE: 25 mCi of Tc-99m pyrophosphate was injected intravenously. Planar images of the chest were obtained in the anterior and left lateral views at 3 [address] SPECT-CT images of the chest were also obtained. Total DLP 77 mGy-cm. FINDINGS: 1. Image Quality: Adequate 2. Semi-quantitative visual scoring of the cardiac uptake is performed as follows: 0 = absent cardiac uptake and intense bone uptake 3. H-CL Ratio if Applicable: 1.01 4. Ancillary Finds: Coronary calcification noted NM/NM TC PYP cardiac amyloidosis IMPRESSION: 1. No uptake in the myocardium suggestive of absence of ATTR type cardiac amyloidosis 2. Please note that the Tc-99m PYP is more sensitive in detecting transthyretin-related cardiac amyloidosis than that of light-chain cardiac amyloidosis.
== END ==
LOC: HO.NUCMED 10:25
PROVIDERS: PCP Internal Medicine; Visit Provider Internal Medicine Cardiovascular Disease
DX: I50.30 Unspecified diastolic (congestive) heart failure (principal); I42.9 Cardiomyopathy, unspecified
CPT/HCPCS: 78803; A9538

== ENCOUNTER → 2023-02-18 10:26 | Outpatient (BNV) | payer OTHER, SELFPAY | PROVIDERS: PCP Internal Medicine; Visit Provider Internal Medicine Cardiovascular Disease | DX: I50.20 Unspecified systolic (congestive) heart failure (principal) | CPT/HCPCS: 78803 ==

== ENCOUNTER 2023-03-02 09:33 | Outpatient (AMB) | payer OTHER, SELFPAY ==
[2023-03-02 09:36] VITALS: BP 142/102; PULSE 87; BMI 28.5
--- NOTE | 2023-03-02 09:36 | MHC.OFFVIS ---
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 Accompanied by: Spouse Allergies No Known Allergies Allergy (Verified 03/02/23 09:41) Medication List - Last Reconciled 03/02/23 by DELMY Sequeira acetaminophen 650 mg (2 x 325 mg) PO Q6H PRN aspirin 81 mg PO DAILY 90 days atorvastatin 80 mg PO DAILY carvedilol 25 mg PO BID 90 days hydralazine 75 mg See Protocol PO BID isosorbide mononitrate ER 90 mg (3 x 30 mg) PO DAILY 90 days multivitamin 1 tab PO DAILY nitroglycerin (Nitrostat) 0.4 mg sublingual Q5M PRN 3 months HPI f/up echo HPI Details Brandon is a 48-year-old male with past medical history of hypertension, alcohol use, chronic kidney disease, heart failure with reduced EF, who was admitted August 2021 with heart failure. He was then seen in cardiology follow-up 09/17/2021 and did not present again for follow-up until 12/24/2022. His prior known EF was 25-30%. An echocardiogram was ordered and he now presents for follow-up. Today he presents with his significant other. She tells me that right along he has not been taking his medications as directed. She lays them out for him but he does not take any of the morning medications. He only has been taking meds in the evening. He tells me that he just forgets. This has been going on for many months. He says when he was taking all the meds he was scheduled to he was having issues with low blood pressures and feeling lightheaded. At the moment he is taking carvedilol 50 mg once a day and hydralazine 75 mg once a day. He is not taking isosorbide, aspirin, atorvastatin. He says he generally feels okay. No chest discomfort at rest or with activity. He denies shortness of breath with normal ADLs. He does no routine exercise. No PND, orthopnea or edema. No presyncope, syncope, falls. PFSH Medical History (Updated 03/02/23 @ 13:06 by Annie Munoz NP-C) CAD (coronary artery disease) Elevated troponin Uncontrolled hypertension Acute systolic heart failure CHF (congestive heart failure) Acute non-ST elevation myocardial infarction (NSTEMI) HTN (hypertension) Surgical History S/P cardiac catheterization Social History Patient Tobacco Use Status: Never used Tobacco Substance Use Type: Marijuana service: No Current occupational status: employed Review of Systems Const All systems reviewed & are unremarkable except as noted in HPI and below ENT Denies dizziness Card Denies chest pain, Denies chest pain at rest, Denies chest pain with activity, Denies rapid heart rate, Denies pedal edema, Denies edema, Denies leg edema, Denies lightheadedness, Denies palpitations, Denies dyspnea, Denies dyspnea on exertion and Denies orthopnea Resp Denies cough, Denies dyspnea and Denies dyspnea on exertion GI Denies hematochezia and Denies change in stool character Musc Denies abnormal gait, Denies limited range of motion, Denies muscle cramps, Denies muscle weakness, Denies numbness, Denies radiating pain into limb, Denies stiffness and Denies tingling Neuro Denies abnormal gait, Denies dizziness, Denies numbness and Denies tingling Endo Denies palpitations Physical Exam Vital Signs: Last Vital Signs Pulse 87 03/02/23 09:36 BP 142/102 H 03/02/23 09:36 BMI result Body Mass Index 28.5 Const General: cooperative, healthy appearing, comfortable and no acute distress Orientation/consciousness: patient oriented x3 Neck Neck: Yes normal visual inspection Resp Effort & Inspection: normal respiratory effort Auscultation: clear to auscultation bilaterally, no crackles, no rales, no rhonchi and no wheezes Cardio Jugular venous distension: no JVD Rate: regular rate Rhythm: regular rhythm Heart sounds: S1 normal heart sound present, S2 normal heart sound present, no gallops, no murmurs and no rubs Neuro General: patient oriented x3 Extrem General: Yes normal to inspection, No no pedal edema and No calf tenderness Psych Appearance: grossly normal Mental Status: mental status grossly normal Speech and movement: Normal speech and movement present Assessment & Plan Assessment & Plan (1) Cardiomyopathy: Code(s): I42.9 - Cardiomyopathy, unspecified Qualifiers: Cardiomyopathy type: other Qualified Code(s): I42.8 - Other cardiomyopathies Plan: History of uncontrolled hypertension. [facility] [place] 08/2021 hypertensive emergency. Noted to have elevated troponins, elevated creatinine, elevated BNP. Chest x-ray showed enlarged heart, pulmonary edema. Echocardiogram showed EF 25-30%, diffuse hypokinesis, wall motion abnormality in the inferior lateral wall. His blood pressure was managed medically with addition of antihypertensives. He was treated for acute systolic heart failure. He was treated for possible NSTEMI with heparin drip and transferred to [facility] for cardiac catheterization. His cardiomyopathy was felt to be related to uncontrolled hypertension. His antihypertensives included amlodipine, carvedilol, hydralazine, isosorbide. He did not present for follow up between 09/17/21 - 12/23/22. An echocardiogram was ordered on last visit for re-evaluation of EF. Echocardiogram done 02/03/2023 showed EF 50-55%, moderate asymmetric septal hypertrophy, mild MR. Today he presents with his significant other who tells me that he does not take his medications as directed. At this moment he is only taking carvedilol and hydralazine once daily. He is not taking amlodipine, isosorbide, aspirin, atorvastatin. Blood pressure is somewhat elevated today at 142/102. Spoke with him about med compliance and reviewed recent echo results. Will have him restart on b.i.d. med use. Will change carvedilol to 25 mg b.i.d., hydralazine to 50 mg b.i.d., isosorbide to 60 mg b.i.d.. Routine home blood pressure checks will be done and he has been instructed to call if systolic reading is less than 100. Signs and symptoms of heart failure reviewed. The importance of good blood pressure control reviewed with him. He has evidence of organ damage which is most likely related to uncontrolled hypertension. Discuss this with him. Reviewed low-salt diet, activity as tolerated. Will plan to call him for check of home blood pressures in 2 weeks. Cardiology office visit in 3 months, sooner if needed. (2) Heart failure with reduced ejection fraction: Code(s): I50.20 - Unspecified systolic (congestive) heart failure Plan: On examination today as no clinical signs of decompensated heart failure. EF has improved to low normal. Strict med compliance reviewed. Will continue use of carvedilol, hydralazine and isosorbide for neurohormonal modulation. He is not on alison/arbs due to chronic kidney disease (3) CKD (chronic kidney disease): Code(s): N18.9 - Chronic kidney disease, unspecified Qualifiers: Chronic kidney disease stage: unspecified stage Qualified Code(s): N18.9 - Chronic kidney disease, unspecified Plan: To be followed by Nephrology (4) HTN (hypertension): Code(s): I10 - Essential (primary) hypertension Qualifiers: Hypertension type: primary hypertension Qualified Code(s): I10 - Essential (primary) hypertension Plan: As above (5) Acute non-ST elevation myocardial infarction (NSTEMI): Code(s): I21.4 - Non-ST elevation (NSTEMI) myocardial infarction Plan: During spring 2021 hospital admission. No reports of anginal sounding symptoms. Will have him restart on aspirin and atorvastatin which he has not been taking in several months. (6) S/P cardiac catheterization: Comment: 08/28/2021, left main mild distal disease, LAD 1st diagonal proximal 80% stenosis, LLUVIA 3 flow noted, large caliber LAD with no obstructive plaque left circumflex 2nd OM 65% stenosis, RCA large caliber minimal luminal irregularities, ramus mild diffuse disease. This degree of stenosis does not explain his cardiomyopathy. Code(s): Z98.890 - Other specified postprocedural states Coding Level of Care Code Est Pt Level 4 (11163) Diagnoses Other cardiomyopathy I42.8 Cardiomyopathy type: other Heart failure with reduced ejection fraction I50.20 Chronic kidney disease, unspecified CKD stage N18.9 Chronic kidney disease stage: unspecified stage Primary hypertension I10 Hypertension type: primary hypertension Acute non-ST elevation myocardial infarction (NSTEMI) I21.4 S/P cardiac catheterization Z98.890 Time Spent (min) 26
== END 2023-03-02 10:09 | disposition home or self-care (01) ==
PROVIDERS: PCP Internal Medicine; Visit Provider Nurse Practitioner Family
DX: I42.8 Other cardiomyopathies (principal); I13.0 Hypertensive heart and chronic kidney disease with heart failure and stage 1 through stage 4 chronic kidney disease, or unspecified chronic kidney disease; I50.20 Unspecified systolic (congestive) heart failure; N18.9 Chronic kidney disease, unspecified; I21.4 Non-ST elevation (NSTEMI) myocardial infarction
CPT/HCPCS: 99214

== ENCOUNTER → 2023-03-02 09:33 | Outpatient (BNVA) | payer OTHER, SELFPAY | PROVIDERS: PCP Internal Medicine; Visit Provider Nurse Practitioner Family | DX: I42.8 Other cardiomyopathies (principal); I13.0 Hypertensive heart and chronic kidney disease with heart failure and stage 1 through stage 4 chronic kidney disease, or unspecified chronic kidney disease; N18.9 Chronic kidney disease, unspecified; I50.20 Unspecified systolic (congestive) heart failure; I25.2 Old myocardial infarction; Z79.899 Other long term (current) drug therapy | CPT/HCPCS: 99212 ==

== ENCOUNTER → 2023-04-06 09:55 | Outpatient (BNVA) | payer OTHER, SELFPAY | PROVIDERS: PCP Internal Medicine; Visit Provider Nurse Practitioner Family | DX: Z01.30 Encounter for examination of blood pressure without abnormal findings (principal) | CPT/HCPCS: 99211 ==

== ENCOUNTER → 2023-05-08 09:55 | Outpatient (BNVA) | payer OTHER, SELFPAY | PROVIDERS: PCP Internal Medicine; Visit Provider Nurse Practitioner Family | DX: Z01.30 Encounter for examination of blood pressure without abnormal findings (principal) | CPT/HCPCS: 99211 ==

== ENCOUNTER 2023-05-13 10:23 | Outpatient (AMB) | payer OTHER, SELFPAY ==
--- NOTE | 2023-05-13 10:30 | HO.NEPHOV ---
HPI HPI Comments History of Present Illness Details Brandon was seen in the office in follow-up of his chronic kidney disease and hypertension. He has a baseline serum creatinine between 1.8 to 1.9. His blood pressure control has been suboptimal and his medications has been adjusted by his Cardiology physicians. He occasionally forgets to take them. He is currently on isosorbide 60 mg daily, carvedilol as well as hydralazine. He had been forgetting to take some of his medications in the past but lately had been extremely compliant with. He is trying to be compliant with low-sodium diet. He does not have any chest pain, shortness for, pedal edema, proximal nocturnal dyspnea, orthopnea or urinary symptoms. His weight has been stable. He does not have any headache, visual disturbances or orthostatic symptoms. He is concerned about his labile blood pressure. He avoids nonsteroidal anti-inflammatory medications. He is going through personal life stressors. [facility] Medical History (Updated 05/15/23 @ 20:25 by Bunny Godoy MD) Uncontrolled hypertension CAD (coronary artery disease) Elevated troponin Acute systolic heart failure CHF (congestive heart failure) Acute non-ST elevation myocardial infarction (NSTEMI) HTN (hypertension) Surgical History S/P cardiac catheterization Patient Tobacco Use Status: Never used Tobacco Substance Use Type: Marijuana service: No Current occupational status: employed Vital Signs 05/13/23 10:31 Height 5 ft 10 in Weight 196 lb 8 oz BMI 28.2 BP 160/110 H Blood Pressure Location Lt brachial Position Sitting Pulse 87 Pulse Source Pulse Oximeter Pulse Oximetry (%) 98 Oxygen Delivery Method Room Air Physical Exam Vital Signs: Last Vital Signs Pulse 87 05/13/23 10:31 BP 160/110 H 05/13/23 10:31 Pulse Ox 98 05/13/23 10:31 Oxygen Delivery Method Room Air 05/13/23 10:31 BMI result Body Mass Index 28.2 Const General: comfortable and no acute distress Orientation/consciousness: patient oriented x3 HEENT Head: Yes normocephalic Mouth: Normal oral and palatal mucosa present Eyes EOM: EOMs intact bilaterally Neck Neck: Yes supple Resp Auscultation: clear to auscultation bilaterally Cardio Jugular venous distension: no JVD Rate: regular rate GI Palpation (GI): Soft to palpation Auscultation: normal bowel sounds General: Yes no CVA tenderness Back/Spine/Pelvis Back: no CVA tenderness Skin General skin exam: no rashes or lesions noted Neuro General: patient oriented x3 and moves all extremities Extrem General: Yes no pedal edema Assessment & Plan Assessment & Plan (1) Uncontrolled hypertension: Code(s): I10 - Essential (primary) hypertension (2) CKD (chronic kidney disease) stage 3, GFR 30-59 ml/min: Code(s): N18.30 - Chronic kidney disease, stage 3 unspecified Qualifiers: Chronic kidney disease stage 3 subtype: stage 3a (GFR 45-59) Qualified Code(s): N18.31 - Chronic kidney disease, stage 3a Plan Mr Phillips answered CKD stage 3 with baseline serum creatinine between 1.8 to 1.9. His CKD is most likely due to vascular disease. He has history of from coronary artery disease and cardiomyopathy. His volume status is optimal. His blood pressure control is suboptimal. I have increased his hydralazine to 75 mg twice daily. I have asked him to closely monitor his blood pressure at home. I am going to increase isosorbide to 60 mg twice daily and hydralazine to 100 mg twice daily at the next visit. He should continue to be on a low-sodium diet. He should avoid nonsteroidal anti-inflammatory medications. At the next visit I plan to do a Doppler of his renal arteries. He will be a candidate for [facility]. All questions were answered. Follow-up of blood work was ordered and follow-up appointment was given. Time spent for retrieval of data, patient encounter and documentation 27 minutes. Orders: Orders Electrolytes 05/13/23 I10 - Essential (primary) hypertension, N18.30 - Chronic kidney disease, stage 3 unspecified Blood Urea Nitrogen 05/13/23 I10 - Essential (primary) hypertension, N18.30 - Chronic kidney disease, stage 3 unspecified Creatinine 05/13/23 I10 - Essential (primary) hypertension, N18.30 - Chronic kidney disease, stage 3 unspecified Calcium 05/13/23 I10 - Essential (primary) hypertension, N18.30 - Chronic kidney disease, stage 3 unspecified Protein Creatinine Ratio, Ur 05/13/23 I10 - Essential (primary) hypertension, N18.30 - Chronic kidney disease, stage 3 unspecified Coding Level of Care Code Est Pt Level 4 (72813) Diagnoses Uncontrolled hypertension I10 Stage 3a chronic kidney disease N18.31 Chronic kidney disease stage 3 subtype: stage 3a (GFR 45-59)
[2023-05-13 10:31] VITALS: BP 160/110; PULSE 87; O2SAT 98; BMI 28.2
== END 2023-05-13 11:26 | disposition home or self-care (01) ==
PROVIDERS: PCP Internal Medicine; Visit Provider Internal Medicine Nephrology
DX: I12.9 Hypertensive chronic kidney disease with stage 1 through stage 4 chronic kidney disease, or unspecified chronic kidney disease (principal); N18.31 Chronic kidney disease, stage 3a
CPT/HCPCS: 99214

== ENCOUNTER → 2023-05-13 10:23 | Outpatient (BNVA) | payer OTHER, SELFPAY | PROVIDERS: PCP Internal Medicine; Visit Provider Internal Medicine Nephrology | DX: I13.0 Hypertensive heart and chronic kidney disease with heart failure and stage 1 through stage 4 chronic kidney disease, or unspecified chronic kidney disease (principal); I50.21 Acute systolic (congestive) heart failure; I25.10 Atherosclerotic heart disease of native coronary artery without angina pectoris; I42.9 Cardiomyopathy, unspecified; N18.31 Chronic kidney disease, stage 3a | CPT/HCPCS: 99212 ==

== ENCOUNTER 2023-05-25 10:38 | Outpatient (REF) | payer OTHER, SELFPAY ==
[2023-05-25 12:11] LABS: Anion Gap 15 (12-20); Blood Urea Nitrogen 35 mg/dL (9-16); Calcium 8.8 mg/dL (8.4-10.2); Carbon Dioxide 19 mmol/L (22-29); Chloride 111 mmol/L (96-108); Estimated Glomerular Filt Rate 41; Potassium 3.7 mmol/L (3.3-5.1); Sodium 141 mmol/L (135-145)
[2023-05-25 13:10] LABS: Creatinine Urine 111.56 mg/dL; Protein/Creatinine Ratio, Ur 0.35 (<0.2); Total Protein Urine Random 39 mg/dL (<12)
== END 2023-05-25 10:39 | disposition home or self-care (01) ==
LOC: HO.LAB 10:38
PROVIDERS: PCP Internal Medicine; Visit Provider Internal Medicine Nephrology
DX: I12.9 Hypertensive chronic kidney disease with stage 1 through stage 4 chronic kidney disease, or unspecified chronic kidney disease (principal); N18.30 Chronic kidney disease, stage 3 unspecified
CPT/HCPCS: 36415; 80051; 82310; 82565; 82570; 84156; 84520

== ENCOUNTER 2023-05-29 10:11 | Outpatient (AMB) | payer OTHER, SELFPAY ==
[2023-05-29 10:21] VITALS: BP 100/70; PULSE 93; BMI 29.0
--- NOTE | 2023-05-29 10:21 | HO.NEPHOV ---
HPI HPI Comments History of Present Illness Details Brandon was seen in the office in follow-up of his chronic kidney disease and hypertension. He has a baseline serum creatinine between 1.8 to 1.9. His blood pressure control is better now after adjustment of medications. He occasionally forgets to take them. He is currently on isosorbide 60 mg daily, carvedilol as well as hydralazine. He is trying to be compliant with low-sodium diet. He does not have any chest pain, shortness for, pedal edema, proximal nocturnal dyspnea, orthopnea or urinary symptoms. His weight has been stable. He does not have any headache, visual disturbances or orthostatic symptoms. He avoids nonsteroidal anti-inflammatory medications. He is going through personal life stressors [facility] Medical History Uncontrolled hypertension CAD (coronary artery disease) Elevated troponin Acute systolic heart failure CHF (congestive heart failure) Acute non-ST elevation myocardial infarction (NSTEMI) HTN (hypertension) Surgical History S/P cardiac catheterization Social History Patient Tobacco Use Status: Never used Tobacco Substance Use Type: Marijuana service: No Current occupational status: employed Vital Signs 05/29/23 10:21 Height 5 ft 10 in Weight 202 lb BMI 29.0 BP 100/70 Blood Pressure Location Rt brachial Position Sitting Pulse 93 Pulse Source Pulse Oximeter Physical Exam Vital Signs: Last Vital Signs Pulse 93 05/29/23 10:21 BP 100/70 05/29/23 10:21 BMI result Body Mass Index 29.0 Const General: comfortable and no acute distress Orientation/consciousness: patient oriented x3 HEENT Head: Yes normocephalic Mouth: Normal oral and palatal mucosa present Eyes EOM: EOMs intact bilaterally Neck Neck: Yes supple Resp Auscultation: clear to auscultation bilaterally Cardio Jugular venous distension: no JVD Rate: regular rate GI Palpation (GI): Soft to palpation Auscultation: normal bowel sounds General: Yes no CVA tenderness Back/Spine/Pelvis Back: no CVA tenderness Skin General skin exam: no rashes or lesions noted Neuro General: patient oriented x3 and moves all extremities Extrem General: Yes no pedal edema Assessment & Plan Assessment & Plan (1) CKD (chronic kidney disease) stage 3, GFR 30-59 ml/min: Code(s): N18.30 - Chronic kidney disease, stage 3 unspecified Qualifiers: Chronic kidney disease stage 3 subtype: stage 3a (GFR 45-59) Qualified Code(s): N18.31 - Chronic kidney disease, stage 3a (2) HTN (hypertension): Code(s): I10 - Essential (primary) hypertension Qualifiers: Hypertension type: primary hypertension Qualified Code(s): I10 - Essential (primary) hypertension Plan Mr Phillips answered CKD stage 3 with baseline serum creatinine between 1.8 to 1.9. His CKD is most likely due to vascular disease. He has history of from coronary artery disease and cardiomyopathy. His volume status is optimal. His blood pressure control is better controlled on current medications. I have asked him to closely monitor his blood pressure at home. He should continue to be on a low-sodium diet. He should avoid nonsteroidal anti-inflammatory medications. At the next visit I plan to do a Doppler of his renal arteries. He will be a candidate for [facility]. All questions were answered. Follow-up of blood work was ordered and follow-up appointment was given. Orders: Orders Creatinine 05/29/23 N18.30 - Chronic kidney disease, stage 3 unspecified Blood Urea Nitrogen 05/29/23 N18.30 - Chronic kidney disease, stage 3 unspecified Electrolytes 05/29/23 N18.30 - Chronic kidney disease, stage 3 unspecified Medications: Changed From hydralazine 75 mg (1.5 x 50 mg) PO BID 90 days 270 tabs 3RF To hydralazine 100 mg PO BID 180 tabs 3RF 90 days From carvedilol 25 mg PO BID 90 days 180 tabs 3RF To carvedilol 37.5 mg (1.5 x 25 mg) PO BID 270 tabs 3RF 90 days Coding Level of Care Code Est Pt Level 3 (79509) Diagnoses Stage 3a chronic kidney disease N18.31 Chronic kidney disease stage 3 subtype: stage 3a (GFR 45-59) Primary hypertension I10 Hypertension type: primary hypertension Results Reviewed Nephrology Results: Sodium 141 mmol/L (135-145) 05/25/23 Potassium 3.7 mmol/L (3.3-5.1) 05/25/23 Chloride 111 mmol/L (96-108) H 05/25/23 Carbon Dioxide 19 mmol/L (22-29) L 05/25/23 BUN 35 mg/dL (9-16) H 05/25/23 Creatinine 1.78 mg/dL (0.5-1.4) H 05/25/23 Calcium 8.8 mg/dL (8.4-10.2) 05/25/23 Urine Creatinine 111.56 mg/dL 05/25/23 Protein/Creatinin Ratio 0.35 (<0.2) H 05/25/23
== END 2023-05-29 10:52 | disposition home or self-care (01) ==
PROVIDERS: PCP Internal Medicine; Referring Provider Internal Medicine; Visit Provider Internal Medicine Nephrology
DX: N18.31 Chronic kidney disease, stage 3a (principal); I10 Essential (primary) hypertension
CPT/HCPCS: 99213

== ENCOUNTER → 2023-05-29 10:11 | Outpatient (BNVA) | payer OTHER, SELFPAY | PROVIDERS: PCP Internal Medicine; Visit Provider Internal Medicine Nephrology | DX: I12.9 Hypertensive chronic kidney disease with stage 1 through stage 4 chronic kidney disease, or unspecified chronic kidney disease (principal); N18.31 Chronic kidney disease, stage 3a | CPT/HCPCS: 99212 ==

== ENCOUNTER 2023-06-04 08:58 | Outpatient (AMB) | payer OTHER, SELFPAY ==
[2023-06-04 09:00] VITALS: BP 120/82; PULSE 80; BMI 29.4
--- NOTE | 2023-06-04 09:00 | MHC.OFFVIS ---
Intake Vital Signs 06/04/23 09:00 Height 5 ft 10 in Weight 204 lb 9.423 oz BMI 29.4 BP 120/82 Blood Pressure Location Lt brachial Position Sitting Pulse 80 Pulse Source Pulse Oximeter Intake Visit Reasons: 3 month fu Allergies No Known Allergies Allergy (Verified 06/04/23 09:02) Medication List - Last Reconciled 06/04/23 by Annie Munoz NP-C acetaminophen 650 mg (2 x 325 mg) PO Q6H PRN aspirin 81 mg PO DAILY 90 days atorvastatin 80 mg PO DAILY carvedilol 37.5 mg (1.5 x 25 mg) PO BID 90 days finasteride 5 mg PO DAILY hydralazine 100 mg PO BID 90 days isosorbide mononitrate ER 60 mg PO DAILY multivitamin 1 tab PO DAILY nitroglycerin (Nitrostat) 0.4 mg sublingual Q5M PRN 3 months omega 6-xho-hyp-fish oil 1,000 mg (120 mg-180 mg) (Fish Oil) 1 cap PO DAILY HPI 3 month fu HPI Details Brandon is a 48-year-old male with past medical history of hypertension, alcohol use, chronic kidney disease, heart failure with reduced EF, who was admitted August 2021 with heart failure, EF 25-30%. He was then seen in cardiology follow-up 09/17/2021 and did not present again for follow-up until 12/24/2022. On last visit he did report med noncompliance, only taking meds once daily. His medications were adjusted and need for strict compliance reviewed. He has since followed with Nephrology and now presents for follow-up. Today he reports he has been doing much better overall. He is taking his medications as directed. He is feeling well with no concerning symptoms. No chest pains, shortness of breath, palpitations, edema. He has good activity tolerance. is present. [facility] Medical History Uncontrolled hypertension CAD (coronary artery disease) Elevated troponin Acute systolic heart failure CHF (congestive heart failure) Acute non-ST elevation myocardial infarction (NSTEMI) HTN (hypertension) Surgical History S/P cardiac catheterization Social History Patient Tobacco Use Status: Never used Tobacco Substance Use Type: Marijuana service: No Current occupational status: employed Review of Systems Const All systems reviewed & are unremarkable except as noted in HPI and below ENT Denies dizziness Card Denies chest pain, Denies chest pain at rest, Denies chest pain with activity, Denies rapid heart rate, Denies pedal edema, Denies edema, Denies leg edema, Denies lightheadedness, Denies palpitations, Denies dyspnea, Denies dyspnea on exertion and Denies orthopnea Resp Denies cough, Denies dyspnea and Denies dyspnea on exertion GI Denies hematochezia and Denies change in stool character Musc Denies abnormal gait, Denies limited range of motion, Denies muscle cramps, Denies muscle weakness, Denies numbness, Denies radiating pain into limb, Denies stiffness and Denies tingling Neuro Denies abnormal gait, Denies dizziness, Denies numbness and Denies tingling Endo Denies palpitations Physical Exam Vital Signs: Last Vital Signs Pulse 80 06/04/23 09:00 BP 120/82 06/04/23 09:00 BMI result Body Mass Index 29.4 Const General: cooperative, healthy appearing, comfortable and no acute distress Orientation/consciousness: patient oriented x3 Neck Neck: Yes normal visual inspection Resp Effort & Inspection: normal respiratory effort Auscultation: clear to auscultation bilaterally, no crackles, no rales, no rhonchi and no wheezes Cardio Jugular venous distension: no JVD Rate: regular rate Rhythm: regular rhythm Heart sounds: S1 normal heart sound present, S2 normal heart sound present, no murmurs and no rubs Neuro General: patient oriented x3 Extrem General: Yes normal to inspection, No no pedal edema and No calf tenderness Psych Appearance: grossly normal Mental Status: mental status grossly normal Speech and movement: Normal speech and movement present Assessment & Plan Assessment & Plan (1) Cardiomyopathy: Code(s): I42.9 - Cardiomyopathy, unspecified Qualifiers: Cardiomyopathy type: other Qualified Code(s): I42.8 - Other cardiomyopathies Plan: History of uncontrolled hypertension. [facility] [place] admission 08/2021 hypertensive emergency. Noted to have elevated troponins, elevated creatinine, elevated BNP. Chest x-ray showed enlarged heart, pulmonary edema. Echocardiogram showed EF 25-30%, diffuse hypokinesis, wall motion abnormality in the inferior lateral wall. His blood pressure was managed medically with addition of antihypertensives. He was treated for acute systolic heart failure. He was treated for possible NSTEMI with heparin drip and transferred to [facility] for cardiac catheterization showing nonobstructive disease. His cardiomyopathy was felt to be related to uncontrolled hypertension. He did not present for follow up between 09/17/21 - 12/23/22. Echocardiogram done 02/03/2023 showed EF 50-55%, moderate asymmetric septal hypertrophy, mild MR. On last visit he reported taking meds only once daily. His medicine regimen was adjusted and strict compliance a b.i.d. med taking was reviewed. He is following with Nephrology as well for his hypertension. Since last visit here his med doses have been increased. Today he reports feeling very well with no concerning symptoms. His blood pressure is well controlled. Signs and symptoms of heart failure reviewed. The need for ongoing good blood pressure control reviewed with him. Continue carvedilol, hydralazine, isosorbide. He is not on Benjamin or Arb due to chronic kidney disease. He does follow with Nephrology still. Reviewed low-salt diet, activity as tolerated. Will check limited echo prior to his next visit. Cardiology follow-up in 6 months, sooner if needed. (2) Heart failure with reduced ejection fraction: Code(s): I50.20 - Unspecified systolic (congestive) heart failure Plan: On examination today as no clinical signs of decompensated heart failure. EF has improved to low normal. Strict med compliance reviewed. Will continue use of carvedilol, hydralazine and isosorbide for neurohormonal modulation. He is not on benjamin/arbs due to chronic kidney disease (3) CKD (chronic kidney disease): Code(s): N18.9 - Chronic kidney disease, unspecified Qualifiers: Chronic kidney disease stage: unspecified stage Qualified Code(s): N18.9 - Chronic kidney disease, unspecified Plan: To be followed by Nephrology (4) HTN (hypertension): Code(s): I10 - Essential (primary) hypertension Qualifiers: Hypertension type: primary hypertension Qualified Code(s): I10 - Essential (primary) hypertension Plan: As above (5) Acute non-ST elevation myocardial infarction (NSTEMI): Code(s): I21.4 - Non-ST elevation (NSTEMI) myocardial infarction Plan: During spring 2021 hospital admission. Cardiac catheterization with moderate branch vessel CAD. No reports of anginal sounding symptoms. Continue on aspirin and atorvastatin with ideal LDL goal less than 70. (6) S/P cardiac catheterization: Comment: 08/28/2021, left main mild distal disease, LAD 1st diagonal proximal 80% stenosis, LLUVIA 3 flow noted, large caliber LAD with no obstructive plaque left circumflex 2nd OM 65% stenosis, RCA large caliber minimal luminal irregularities, ramus mild diffuse disease. This degree of stenosis does not explain his cardiomyopathy. Code(s): Z98.890 - Other specified postprocedural states Plan Time spent with chart review, documentation, interview and assessment Orders: Orders CA echo limited 11/23/23 I42.9 - Cardiomyopathy, unspecified Coding Level of Care Code Est Pt Level 4 (00475) Diagnoses Other cardiomyopathy I42.8 Cardiomyopathy type: other Heart failure with reduced ejection fraction I50.20 Chronic kidney disease, unspecified CKD stage N18.9 Chronic kidney disease stage: unspecified stage Primary hypertension I10 Hypertension type: primary hypertension Acute non-ST elevation myocardial infarction (NSTEMI) I21.4 S/P cardiac catheterization Z98.890 Time Spent (min) 28
== END 2023-06-04 09:18 | disposition home or self-care (01) ==
PROVIDERS: PCP Internal Medicine; Visit Provider Nurse Practitioner Family
DX: I42.8 Other cardiomyopathies (principal); I50.20 Unspecified systolic (congestive) heart failure; I12.9 Hypertensive chronic kidney disease with stage 1 through stage 4 chronic kidney disease, or unspecified chronic kidney disease; N18.9 Chronic kidney disease, unspecified; I21.4 Non-ST elevation (NSTEMI) myocardial infarction; Z98.890 Other specified postprocedural states
CPT/HCPCS: 99214

== ENCOUNTER → 2023-06-04 08:58 | Outpatient (BNVA) | payer OTHER, SELFPAY | PROVIDERS: PCP Internal Medicine; Visit Provider Nurse Practitioner Family | DX: I42.8 Other cardiomyopathies (principal); I13.0 Hypertensive heart and chronic kidney disease with heart failure and stage 1 through stage 4 chronic kidney disease, or unspecified chronic kidney disease; N18.9 Chronic kidney disease, unspecified; I50.20 Unspecified systolic (congestive) heart failure; I25.2 Old myocardial infarction; Z98.890 Other specified postprocedural states | CPT/HCPCS: 99212 ==

== ENCOUNTER 2023-08-27 11:02 | Outpatient (REF) | payer OTHER, SELFPAY ==
[2023-08-27 12:32] LABS: Anion Gap 15 (12-20); Blood Urea Nitrogen 28 mg/dL (9-16); Carbon Dioxide 24 mmol/L (22-29); Chloride 107 mmol/L (96-108); Estimated Glomerular Filt Rate 46; Potassium 4.1 mmol/L (3.3-5.1); Sodium 142 mmol/L (135-145)
== END 2023-08-27 11:03 | disposition home or self-care (01) ==
LOC: HO.LAB 11:02
PROVIDERS: PCP Internal Medicine; Visit Provider Internal Medicine Nephrology
DX: N18.30 Chronic kidney disease, stage 3 unspecified (principal)
CPT/HCPCS: 36415; 80051; 82565; 84520

== ENCOUNTER 2023-09-02 10:21 | Outpatient (AMB) | payer OTHER, SELFPAY ==
[2023-09-02 10:28] VITALS: BP 104/72; PULSE 90; O2SAT 96; BMI 30.5
--- NOTE | 2023-09-02 10:28 | HO.NEPHOV ---
HPI HPI Comments History of Present Illness Details Brandon was seen in the office in follow-up of his chronic kidney disease and hypertension. He has a baseline serum creatinine between 1.8 to 1.9. His blood pressure control is better now after adjustment of medications. He occasionally forgets to take them. He is currently on isosorbide 60 mg daily, carvedilol as well as hydralazine. He is trying to be compliant with low-sodium diet. He does not have any chest pain, shortness for, pedal edema, proximal nocturnal dyspnea, orthopnea or urinary symptoms. His weight has been stable. He does not have any headache, visual disturbances or orthostatic symptoms. He avoids nonsteroidal anti-inflammatory medications. [facility] Medical History Uncontrolled hypertension CAD (coronary artery disease) Elevated troponin Acute systolic heart failure CHF (congestive heart failure) Acute non-ST elevation myocardial infarction (NSTEMI) HTN (hypertension) Surgical History S/P cardiac catheterization Social History Patient Tobacco Use Status: Never used Tobacco Substance Use Type: Marijuana service: No Current occupational status: employed Vital Signs 09/02/23 10:28 Height 5 ft 10 in Weight 212 lb 8 oz BMI 30.5 BP 104/72 Blood Pressure Location Lt brachial Position Sitting Pulse 90 Pulse Source Pulse Oximeter Pulse Oximetry (%) 96 Oxygen Delivery Method Room Air Physical Exam Vital Signs: Last Vital Signs Pulse 90 09/02/23 10:28 BP 104/72 09/02/23 10:28 Pulse Ox 96 09/02/23 10:28 Oxygen Delivery Method Room Air 09/02/23 10:28 BMI result Body Mass Index 30.5 Const General: comfortable and no acute distress Orientation/consciousness: patient oriented x3 HEENT Head: Yes normocephalic Mouth: Normal oral and palatal mucosa present Eyes EOM: EOMs intact bilaterally Neck Neck: Yes supple Resp Auscultation: clear to auscultation bilaterally Cardio Jugular venous distension: no JVD Rate: regular rate GI Palpation (GI): Soft to palpation Auscultation: normal bowel sounds General: Yes no CVA tenderness Back/Spine/Pelvis Back: no CVA tenderness Skin General skin exam: no rashes or lesions noted Neuro General: patient oriented x3 and moves all extremities Extrem General: Yes no pedal edema Assessment & Plan Assessment & Plan (1) CKD (chronic kidney disease) stage 3, GFR 30-59 ml/min: Code(s): N18.30 - Chronic kidney disease, stage 3 unspecified Qualifiers: Chronic kidney disease stage 3 subtype: stage 3a (GFR 45-59) Qualified Code(s): N18.31 - Chronic kidney disease, stage 3a (2) HTN (hypertension): Code(s): I10 - Essential (primary) hypertension Qualifiers: Hypertension type: primary hypertension Qualified Code(s): I10 - Essential (primary) hypertension Plan Mr Phillips answered CKD stage 3 with baseline serum creatinine between 1.8 to 1.9. His CKD is most likely due to vascular disease. He has history of from coronary artery disease and cardiomyopathy. His volume status is optimal. His blood pressure control is better controlled on current medications. I have asked him to closely monitor his blood pressure at home. He should continue to be on a low-sodium diet. He should avoid nonsteroidal anti-inflammatory medications. He will be a candidate for [facility]. All questions were answered. Follow-up of blood work was ordered and follow-up appointment was given. Orders: Orders Electrolytes Today I10 - Essential (primary) hypertension, N18.30 - Chronic kidney disease, stage 3 unspecified Creatinine Today I10 - Essential (primary) hypertension, N18.30 - Chronic kidney disease, stage 3 unspecified Blood Urea Nitrogen Today I10 - Essential (primary) hypertension, N18.30 - Chronic kidney disease, stage 3 unspecified Calcium Today I10 - Essential (primary) hypertension, N18.30 - Chronic kidney disease, stage 3 unspecified Coding Level of Care Code Est Pt Level 4 (13446) Diagnoses Stage 3a chronic kidney disease N18.31 Chronic kidney disease stage 3 subtype: stage 3a (GFR 45-59) Primary hypertension I10 Hypertension type: primary hypertension Results Reviewed Nephrology Results: Sodium 142 mmol/L (135-145) 08/27/23 Potassium 4.1 mmol/L (3.3-5.1) 08/27/23 Chloride 107 mmol/L (96-108) 08/27/23 Carbon Dioxide 24 mmol/L (22-29) 08/27/23 BUN 28 mg/dL (9-16) H 08/27/23 Creatinine 1.61 mg/dL (0.5-1.4) H 08/27/23 Calcium 8.8 mg/dL (8.4-10.2) 05/25/23 Urine Creatinine 111.56 mg/dL 05/25/23 Protein/Creatinin Ratio 0.35 (<0.2) H 05/25/23
== END 2023-09-02 10:54 | disposition home or self-care (01) ==
PROVIDERS: PCP Internal Medicine; Visit Provider Internal Medicine Nephrology
DX: N18.31 Chronic kidney disease, stage 3a (principal); I10 Essential (primary) hypertension
CPT/HCPCS: 99214

== ENCOUNTER → 2023-09-02 10:21 | Outpatient (BNVA) | payer OTHER, SELFPAY | PROVIDERS: PCP Internal Medicine; Visit Provider Internal Medicine Nephrology | DX: I12.9 Hypertensive chronic kidney disease with stage 1 through stage 4 chronic kidney disease, or unspecified chronic kidney disease (principal); N18.31 Chronic kidney disease, stage 3a; Z79.899 Other long term (current) drug therapy | CPT/HCPCS: 99212 ==

== ENCOUNTER → 2023-11-17 08:45 | Outpatient (REF) | payer OTHER, SELFPAY ==
--- NOTE | 2023-11-17 08:48 | CA_ITS ---
Transthoracic Echocardiogram Patient (Last, First, Middle): Brandon Phillips M Gender: Male Date of : 1975 Age: 48 Procedure Date: 11/17/2023 Procedure Type: Transthoracic Echocardiogram Location: OP Height: 177.8 cm Weight: 96.16 kg BSA: 2.14 m2 Heart Rate: 72 bpm BP: 128 / 82 mmHg Rest Room Attendant: SB Referring MD: Annie Munoz STONE BELT SANDERIngrid Symptoms: I42.9 - Cardiomyopathy, unspecified Study Quality: Adequate/limited ordered to eval LVEF ECG Rhythm: Sinus Conclusions: - The left ventricular systolic function is normal. The calculated ejection fraction is 70% by biplane method. - There is severe septal asymmetric hypertrophy(1.9cm). - The basal inferolateral segment is hypokinetic. Findings Left Ventricle Normal left ventricular cavity size. There is mildly increased left ventricular wall thickness. The left ventricular systolic function is normal. The calculated ejection fraction is 70% by biplane method. There is severe septal asymmetric hypertrophy. Diminished peak GLS at -10%. Wall Motion Rest Echo Findings The basal inferolateral segment is hypokinetic. Right Ventricle Moderately increased right ventricular cavity size. There is normal right ventricular systolic function. Venous The inferior vena cava is normal in size. Prior Study Comparison No significant change compared to prior study dated: 02/03/2023. (images reviewed). Measurements 2D Linear Measurements IVSd: 1.92 0.6-0.9/0.6-1.0 cm LVIDd: 4.58 3.9-5.3/4.2-5.9 cm LVIDd Index: 2.14 2.4-3.2/2.2-3.1 cm/m2 LVIDs: 3.38 2.0-3.6 cm LVPWd: 1.67 0.7-1.1 cm LV Mass: 467.24 67-162/88-224 g LV Mass Index: 218.34 43-95/49-115 g/m2 LVOT Diam: 2.40 3.0+(-)1.3 cm 2D Systolic Function EF 4C: 67.30 >55% EF 2C: 72.70 >55% EF BiP: 70.20 >55% Mitral Valve MV Pk E: 0.50 MV PK A: 0.62 MV Decel Time: 279.00 E/A: 0.80 E'Lateral: 5.66 E'Medial: 3.81 E/E' Med: 13.10 E/E' Lat: 8.90 PHT: 82.00 MVA PHT: 2.68 Decel Wise: 1.79 LVOT LVOT Pk Stevie: 1.13 LVOT Mn Stevie: 0.80 LVOT VTI: 0.23 LVOT Pk Grad: 5.00 LVOT Mn Grad: 3.00 LVOT Diam: 2.40 LVOT Area: 4.52 Diastolic Function MV Pk E: 0.50 MV Pk A: 0.62 E/A: 0.80 E'Medial: 3.81 E/E' Med: 13.10 E' Laterial: 5.66 E/E' Lat: 8.90 Tricuspid Valve RA Press: 3.00 Updated in Other Vendor System with Status of Final Duane Doty MD electronically signed on 11/17/2023 12:35:25 PM with status of Final
== END ==
LOC: HO.CARD 08:45
PROVIDERS: PCP Internal Medicine; Visit Provider Nurse Practitioner Family
DX: I42.9 Cardiomyopathy, unspecified (principal)
CPT/HCPCS: 93308; 93356

== ENCOUNTER → 2023-11-17 08:48 | Outpatient (BNV) | payer OTHER, SELFPAY | PROVIDERS: PCP Internal Medicine; Visit Provider Internal Medicine | DX: I42.2 Other hypertrophic cardiomyopathy (principal) | CPT/HCPCS: 93308; 93356 ==

== ENCOUNTER 2023-12-04 08:54 | Outpatient (AMB) | payer OTHER, SELFPAY ==
[2023-12-04 08:55] VITALS: BP 140/78; PULSE 79; BMI 29.7
--- NOTE | 2023-12-04 08:55 | MHC.OFFVIS ---
Vital Signs 12/04/23 08:55 Height 5 ft 10 in Weight 207 lb 3.752 oz BMI 29.7 BP 140/78 H Blood Pressure Location Lt brachial Position Sitting Pulse 79 Pulse Source Monitor Intake Visit Reasons: 6 month follow up Allergies No Known Allergies Allergy (Verified 09/02/23 10:30) Medication List - Last Reconciled 12/07/23 by Annie Munoz PIPING SUPERVISOR-C acetaminophen 650 mg (2 x 325 mg) PO Q6H PRN amlodipine 5 mg PO DAILY aspirin 81 mg PO DAILY 90 days atorvastatin 80 mg PO DAILY carvedilol 37.5 mg (1.5 x 25 mg) PO BID 90 days empagliflozin (Jardiance) 10 mg PO DAILY finasteride 5 mg PO DAILY hydralazine 100 mg PO BID 90 days isosorbide mononitrate ER 60 mg PO DAILY multivitamin 1 tab PO DAILY nitroglycerin (Nitrostat) 0.4 mg sublingual Q5M PRN 3 months omega 1-jtu-yma-fish oil 1,000 mg (120 mg-180 mg) (Fish Oil) 1 cap PO DAILY HPI HPI 6 month follow up: Details: Brandon is a 48-year-old male with past medical history of hypertension, alcohol use, chronic kidney disease, heart failure with reduced EF, who was admitted August 2021 with heart failure, EF 25-30%. He was then seen in cardiology follow-up 09/17/2021 and did not present again for follow-up until 12/24/2022. On follow up he did report med noncompliance, only taking meds once daily. His medications were adjusted and need for strict compliance reviewed. He has since followed with Nephrology and now presents for follow-up. Today he reports he has been doing generally well since his last visit in May. He denies any concerning symptoms. No chest discomfort at rest or with activity, no shortness of breath, PND, orthopnea or edema. No palpitations, lightheadedness, presyncope, syncope, falls. Taking meds as directed. is present. [facility] Medical History Uncontrolled hypertension CAD (coronary artery disease) Elevated troponin Acute systolic heart failure CHF (congestive heart failure) Acute non-ST elevation myocardial infarction (NSTEMI) HTN (hypertension) Surgical History S/P cardiac catheterization Social History Patient Tobacco Use Status: Never used Tobacco Substance Use Type: Marijuana service: No Current occupational status: employed Review of Systems Const All systems reviewed & are unremarkable except as noted in HPI and below Denies weakness ENT Denies dizziness Card Denies chest pain, Denies chest pain with activity, Denies syncope, Denies rapid heart rate, Denies pedal edema, Denies edema, Denies leg edema, Denies lightheadedness, Denies palpitations, Denies dyspnea, Denies dyspnea on exertion and Denies orthopnea Resp Denies cough, Denies dyspnea and Denies dyspnea on exertion GI Denies hematochezia and Denies change in stool character Musc Denies abnormal gait, Denies muscle cramps, Denies muscle weakness, Denies numbness, Denies radiating pain into limb and Denies tingling Neuro Denies abnormal gait, Denies dizziness, Denies syncope, Denies numbness, Denies tingling and Denies weakness Endo Denies palpitations Physical Exam Vital Signs: Last Vital Signs Pulse 79 12/04/23 08:55 BP 140/78 H 12/04/23 08:55 BMI result Body Mass Index 29.7 Const General: cooperative, healthy appearing, comfortable and no acute distress Orientation/consciousness: patient oriented x3 Neck Neck: Yes normal visual inspection Resp Effort & Inspection: normal respiratory effort Auscultation: clear to auscultation bilaterally, no crackles, no rales, no rhonchi and no wheezes Cardio Jugular venous distension: no JVD Rate: regular rate Rhythm: regular rhythm Heart sounds: S1 normal heart sound present, S2 normal heart sound present, no murmurs and no rubs Neuro General: patient oriented x3 Extrem General: Yes normal to inspection, No no pedal edema and No calf tenderness Psych Appearance: grossly normal Mental Status: mental status grossly normal Speech and movement: Normal speech and movement present Office Procedures EKG Details: Today, read by me, normal sinus rhythm, left axis deviation, moderate voltage criteria for LVH, nonspecific T-wave abnormality, rate 79. [id number], Complete Assessment & Plan Assessment & Plan (1) Cardiomyopathy: Code(s): I42.9 - Cardiomyopathy, unspecified Category: Medical Qualifiers: Cardiomyopathy type: other Qualified Code(s): I42.8 - Other cardiomyopathies Plan: History of uncontrolled hypertension. [facility] [place] 08/2021 hypertensive emergency. Noted to have elevated troponins, elevated creatinine, elevated BNP. Chest x-ray showed enlarged heart, pulmonary edema. Echocardiogram showed EF 25-30%, diffuse hypokinesis, wall motion abnormality in the inferior lateral wall. His blood pressure was managed medically with addition of antihypertensives. He was treated for acute systolic heart failure. He was treated for possible NSTEMI with heparin drip and transferred to [facility] for cardiac catheterization showing nonobstructive disease. His cardiomyopathy was felt to be related to uncontrolled hypertension. He did not present for follow up between 09/17/21 - 12/23/22. Echocardiogram done 02/03/2023 showed EF 50-55%, moderate asymmetric septal hypertrophy, mild MR. On follow-up he reported taking meds only once daily. His medicine regimen was adjusted and strict compliance with b.i.d. med taking was reviewed. He has been following with Nephrology as well for his hypertension. Today he reports feeling very well with no concerning symptoms. His blood pressure is mildly elevated. Limited echocardiogram done 11/17/2023 shows EF 70%, severe septal asymmetric hypertrophy, basal inferior segments hypokinetic. Will add amlodipine 5 mg daily to further assist with blood pressure control. Signs and symptoms of heart failure reviewed. The need for ongoing good blood pressure control reviewed with him. Continue carvedilol, hydralazine, isosorbide. He is not on Benjamin or Arb due to chronic kidney disease. Reviewed low-salt diet, activity as tolerated. Cardiology follow-up in 6 months, sooner if needed. (2) Heart failure with reduced ejection fraction: Code(s): I50.20 - Unspecified systolic (congestive) heart failure Category: Medical Plan: On examination today as no clinical signs of decompensated heart failure. EF has improved to normal. Strict med compliance reviewed. Will continue use of carvedilol, hydralazine and isosorbide for neurohormonal modulation. He is not on benjamin/arbs due to chronic kidney disease (3) CKD (chronic kidney disease): Code(s): N18.9 - Chronic kidney disease, unspecified Category: Medical Qualifiers: Chronic kidney disease stage: unspecified stage Qualified Code(s): N18.9 - Chronic kidney disease, unspecified Plan: To be followed by Nephrology (4) HTN (hypertension): Code(s): I10 - Essential (primary) hypertension Category: Medical Qualifiers: Hypertension type: primary hypertension Qualified Code(s): I10 - Essential (primary) hypertension Plan: As above (5) Acute non-ST elevation myocardial infarction (NSTEMI): Code(s): I21.4 - Non-ST elevation (NSTEMI) myocardial infarction Category: Medical Plan: During spring 2021 hospital admission. Cardiac catheterization with moderate branch vessel CAD. No reports of anginal sounding symptoms. Continue on aspirin and atorvastatin with ideal LDL goal less than 70. (6) S/P cardiac catheterization: Comment: 08/28/2021, left main mild distal disease, LAD 1st diagonal proximal 80% stenosis, LLUVIA 3 flow noted, large caliber LAD with no obstructive plaque left circumflex 2nd OM 65% stenosis, RCA large caliber minimal luminal irregularities, ramus mild diffuse disease. This degree of stenosis does not explain his cardiomyopathy. Code(s): Z98.890 - Other specified postprocedural states Category: Surgical Plan Time spent with chart review, documentation, interview and assessment Medications: New amlodipine 5 mg PO DAILY 30 tabs 5RF Coding Level of Care Code Est Pt Level 4 (63047) Diagnoses Other cardiomyopathy I42.8 Cardiomyopathy type: other Heart failure with reduced ejection fraction I50.20 Chronic kidney disease, unspecified CKD stage N18.9 Chronic kidney disease stage: unspecified stage Primary hypertension I10 Hypertension type: primary hypertension Acute non-ST elevation myocardial infarction (NSTEMI) I21.4 S/P cardiac catheterization Z98.890 CPT Codes EKG - CPT: [id number], Complete ([id number]) Time Spent (min) 28
== END 2023-12-04 09:56 | disposition home or self-care (01) ==
PROVIDERS: PCP Internal Medicine; Referring Provider Internal Medicine; Visit Provider Nurse Practitioner Family
DX: I42.9 Cardiomyopathy, unspecified (principal)
CPT/HCPCS: 93010; 99214

== ENCOUNTER → 2023-12-04 08:54 | Outpatient (BNVA) | payer OTHER, SELFPAY | PROVIDERS: PCP Internal Medicine; Visit Provider Nurse Practitioner Family | DX: I42.8 Other cardiomyopathies (principal); I13.0 Hypertensive heart and chronic kidney disease with heart failure and stage 1 through stage 4 chronic kidney disease, or unspecified chronic kidney disease; I50.20 Unspecified systolic (congestive) heart failure; N18.9 Chronic kidney disease, unspecified; I25.2 Old myocardial infarction; Z79.82 Long term (current) use of aspirin | CPT/HCPCS: 93005; 99212 ==

== ENCOUNTER 2024-01-05 10:09 | Outpatient (REF) | payer OTHER, SELFPAY ==
[2024-01-05 11:31] LABS: Anion Gap 12 (12-20); Blood Urea Nitrogen 24 mg/dL (9-16); Calcium 9.3 mg/dL (8.4-10.2); Carbon Dioxide 21 mmol/L (22-29); Chloride 111 mmol/L (96-108); Estimated Glomerular Filt Rate 42; Potassium 3.9 mmol/L (3.3-5.1); Sodium 140 mmol/L (135-145)
== END 2024-01-05 10:10 | disposition home or self-care (01) ==
LOC: HO.LAB 10:09
PROVIDERS: PCP Internal Medicine; Visit Provider Internal Medicine Nephrology
DX: I12.9 Hypertensive chronic kidney disease with stage 1 through stage 4 chronic kidney disease, or unspecified chronic kidney disease (principal); N18.30 Chronic kidney disease, stage 3 unspecified
CPT/HCPCS: 36415; 80051; 82310; 82565; 84520

== ENCOUNTER 2024-01-06 15:17 | Outpatient (AMB) | payer OTHER, SELFPAY ==
[2024-01-06 15:21] VITALS: BP 140/100; PULSE 92; O2SAT 95
--- NOTE | 2024-01-06 15:21 | HO.NEPHOV ---
Vital Signs 01/06/24 15:21 Height 5 ft 10 in Weight 209 lb BMI 30.0 BP 140/100 H Blood Pressure Location Lt brachial Position Sitting Pulse 92 Pulse Source Pulse Oximeter Pulse Oximetry (%) 95 Oxygen Delivery Method Room Air Intake Visit Reasons: CKD/ 4 MO FU/ Conf Instrumentation Supervisor Required: No Accompanied by: Spouse Allergies No Known Allergies Allergy (Verified 01/06/24 15:23) HPI Comments Details: Brandon was seen in the office in follow-up of his chronic kidney disease and hypertension. He has a baseline serum creatinine between 1.8 to 1.9. His blood pressure control is better now after adjustment of medications. He occasionally forgets to take them ( has not taken today). He is currently on isosorbide 60 mg daily, carvedilol as well as hydralazine. He is trying to be compliant with low-sodium diet. He does not have any chest pain, shortness for, pedal edema, proximal nocturnal dyspnea, orthopnea or urinary symptoms. His weight has been stable. He does not have any headache, visual disturbances or orthostatic symptoms. He avoids nonsteroidal anti-inflammatory medications. [facility] Medical History Uncontrolled hypertension CAD (coronary artery disease) Elevated troponin Acute systolic heart failure CHF (congestive heart failure) Acute non-ST elevation myocardial infarction (NSTEMI) HTN (hypertension) Surgical History S/P cardiac catheterization Social History Patient Tobacco Use Status: Never used Tobacco Substance Use Type: Marijuana service: No Current occupational status: employed Physical Exam Vital Signs: Last Vital Signs Pulse 92 01/06/24 15:21 BP 148/110 H 01/06/24 15:21 Pulse Ox 95 01/06/24 15:21 Oxygen Delivery Method Room Air 01/06/24 15:21 BMI result Body Mass Index 30.0 Const General: comfortable and no acute distress Orientation/consciousness: patient oriented x3 HEENT Head: Yes normocephalic Mouth: Normal oral and palatal mucosa present Eyes EOM: EOMs intact bilaterally Neck Neck: Yes supple Resp Auscultation: clear to auscultation bilaterally Cardio Jugular venous distension: no JVD Rate: regular rate GI Palpation (GI): Soft to palpation Auscultation: normal bowel sounds General: Yes no CVA tenderness Back/Spine/Pelvis Back: no CVA tenderness Skin General skin exam: no rashes or lesions noted Neuro General: patient oriented x3 and moves all extremities Extrem General: Yes no pedal edema Results Reviewed Nephrology Results: Sodium 140 mmol/L (135-145) 01/05/24 Potassium 3.9 mmol/L (3.3-5.1) 01/05/24 Chloride 111 mmol/L (96-108) H 01/05/24 Carbon Dioxide 21 mmol/L (22-29) L 01/05/24 BUN 24 mg/dL (9-16) H 01/05/24 Creatinine 1.72 mg/dL (0.5-1.4) H 01/05/24 Calcium 9.3 mg/dL (8.4-10.2) 01/05/24 Urine Creatinine 111.56 mg/dL 05/25/23 Protein/Creatinin Ratio 0.35 (<0.2) H 05/25/23 Assessment & Plan Assessment & Plan (1) CKD (chronic kidney disease) stage 3, GFR 30-59 ml/min: Code(s): N18.30 - Chronic kidney disease, stage 3 unspecified Category: Medical Qualifiers: Chronic kidney disease stage 3 subtype: stage 3a (GFR 45-59) Qualified Code(s): N18.31 - Chronic kidney disease, stage 3a (2) Uncontrolled hypertension: Code(s): I10 - Essential (primary) hypertension Category: Medical Plan Mr Phillips answered CKD stage 3 with baseline serum creatinine between 1.8 to 1.9. His CKD is most likely due to vascular disease. He has history of from coronary artery disease and cardiomyopathy. His volume status is optimal. His blood pressure control is better controlled on current medications ( at home). I have asked him to closely monitor his blood pressure at home. He should continue to be on a low-sodium diet. He should avoid nonsteroidal anti-inflammatory medications. He is on Jardiance now. All questions were answered. Follow-up of blood work was ordered and follow-up appointment was given. Orders: Orders Blood Urea Nitrogen Today I10 - Essential (primary) hypertension, N18.31 - Chronic kidney disease, stage 3a Creatinine Today I10 - Essential (primary) hypertension, N18.31 - Chronic kidney disease, stage 3a Electrolytes Today I10 - Essential (primary) hypertension, N18.31 - Chronic kidney disease, stage 3a Coding Level of Care Code Est Pt Level 4 (29963) Diagnoses Stage 3a chronic kidney disease N18.31 Chronic kidney disease stage 3 subtype: stage 3a (GFR 45-59) Uncontrolled hypertension I10
== END 2024-01-06 15:46 | disposition home or self-care (01) ==
PROVIDERS: PCP Internal Medicine; Referring Provider Internal Medicine; Visit Provider Internal Medicine Nephrology
DX: N18.31 Chronic kidney disease, stage 3a (principal); I10 Essential (primary) hypertension
CPT/HCPCS: 99214

== ENCOUNTER → 2024-01-06 15:17 | Outpatient (BNVA) | payer OTHER, SELFPAY | PROVIDERS: PCP Internal Medicine; Visit Provider Internal Medicine Nephrology | DX: I12.9 Hypertensive chronic kidney disease with stage 1 through stage 4 chronic kidney disease, or unspecified chronic kidney disease (principal); N18.31 Chronic kidney disease, stage 3a; Z79.899 Other long term (current) drug therapy | CPT/HCPCS: 99212 ==

== ENCOUNTER 2024-02-11 19:13 | Emergency (ER) | payer OTHER, SELFPAY ==
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
[2024-02-11 19:21] VITALS: BP 161/111; PULSE 98; RESP 18; TEMP 36.6; O2SAT 97; BMI 30.1
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
--- NOTE | 2024-02-11 19:35 | ECG_ITS ---
Test Reason : RT LEG PAIN TRAUMA FALL Blood Pressure : / mmHG Vent. Rate : 090 BPM Atrial Rate : 090 BPM P-R Int : 182 ms QRS Dur : 104 ms QT Int : 378 ms P-R-T Axes : 021 -44 084 degrees QTc Int : 462 ms Normal sinus rhythm Left axis deviation Moderate voltage criteria for LVH, may be normal variant ( R in aVL , Neil product ) Septal infarct , age undetermined Abnormal ECG When compared with ECG of 25-AUG-2021 19:09, Vent. rate has decreased BY 53 BPM T wave inversion less evident in Lateral leads QRS axis Shifted left Referred By: Lorri Chinchilla Electronically Signed By:JOHN BURGER
[2024-02-11 21:17] VITALS: BP 175/109; PULSE 93; RESP 18; TEMP 36.8; O2SAT 98
[2024-02-11] MEDS: oxyCODONE HCl Immed Release 5 MG TABLET PO (21:27)
--- NOTE | 2024-02-11 21:29 | PC.NURSE ---
Pt medicated for pain with Oxycodone. Pt awaiting plan of care. Pt requesting PM medications including: Atorvastatin 80 mg Hydralazine 100 mg Carvedilol 37.5 mg Finasteride 5 mg Amlodipine 5 mg VS at this time, awaiting XRay results.
[2024-02-11 22:39] VITALS: BP 160/100
[2024-02-11] MEDS: amLODIPine Besylate 5 MG TABLET PO (22:39)
[2024-02-11 22:40] VITALS: BP 160/100; PULSE 87
[2024-02-11] MEDS: Atorvastatin Calcium 80 MG TABLET PO (22:40)
[2024-02-11] MEDS: carvediloL 12.5 MG TABLET 37.5 MG PO (22:40)
[2024-02-11] MEDS: hydrALAZINE HCl 50 MG TABLET 100 MG PO (22:40)
[2024-02-11] MEDS: Diphth,Pertus(ACell),Tet Adult 0.5 ML SYRINGE IM (23:38)
[2024-02-12 00:21] VITALS: BP 0/0; BP 157/98; PULSE 0; PULSE 87; RESP 0; RESP 18; TEMP -17.7; TEMP 0; O2SAT 0; O2SAT 97
--- NOTE | 2024-02-12 00:27 | PC.NURSE ---
Knee immobilizer and crutches applied by certified neurodiagnostic technologist after wound cleansing.
[2024-02-12] MEDS: Ondansetron ODT 4 MG TAB.RAPDIS TRANSLINGU (01:25)
[2024-02-12] MEDS: Amoxicillin/Potassium Clav 875 MG TABLET PO (01:25)
--- OUTSIDE RECORDS SUMMARY | 2024-02-14 00:02 | XMS_ITS | Continuity of Care Document ---
Author Organization [facility] Address [address] [place] [address]- Care Team Providers Care Gameplay Engineer Name Role Phone Kalia EDGAR, Mario Mott Primary Care Physician [place] [facility] [place]/22 [facility] [address] [place] [id number]- Allergies, Adverse Reactions, Alerts No Known Medication Allergies Medications aspirin 81 mg oral delayed release tablet 81 mg, By Mouth, Daily, # 30 tablet, Refills 0, Tot. Refills 0, Maintenance, 08/29/21 12:09:00 EST,Route to Pharmacy Electronically, [facility], Partial fill upon patient request if the prescription is for a schedule II opioid drug., 17... Start Date: 08/29/21 Status: Ordered atorvastatin 80 mg oral tablet 1 tablet = 80 mg, By Mouth, Daily, # 30 tablet, 0 Refills, Maintenance, 08/29/21 12:09:00 EST, Tablet, [facility] 3, Partial fill upon patient request if the prescription is for a schedule II opioid drug., 178, cm, 08/29/21 3:11:00 EST, He... Start Date: 08/29/21 Status: Ordered carvedilol 25 mg oral tablet 50 mg, 2, tablet, By Mouth, 2 times a day, # 360 tablet, Refills 3, Tot. Refills 3, Maintenance, 07/11/22 14:10:00 EST, [id number] Partial fill upon patientrequest if the prescription is for a schedule II op... Start Date: 07/11/22 Status: Ordered Centrum Men's 1 tablet, By Mouth, Daily, 0 Refills, Maintenance, 05/27/22 11:31:00 EST, Partial fill upon patientrequest if the prescription is for a schedule II opioid drug. Start Date: 05/27/22 Status: Ordered folic acid 1 mg oral tablet 1, tablet, By Mouth, Daily, # 90 tablet, Refills 0, Tot. Refills 0, Maintenance, 06/17/22 16:41:00 EST, Route to Pharmacy Electronically, [facility]/pharmacy #[id number], 178, cm, 05/28/22 14:57:00 EST, Height, 90.9, kg, 05/27/22 18:12:00 EST, Dry Weight Start Date: 06/17/22 Status: Ordered hydrALAZINE 25 mg oral tablet See Instructions, TAKE 3 TABLETS BY MOUTH 2 TIMES A DAY, # 810 tablet, Refills 1, Maintenance, 07/03/22 15:04:00 EST, Instructions Replace Required Details, Route to Pharmacy Electronically, [id number], 178, cm, 05/28/22 14:57:00 EST, Height, 90.... Start Date: 07/03/22 Status: Ordered isosorbide mononitrate 30 mg oral tablet, extended release 90 mg, 3, tablet, By Mouth, Daily, # 270 tablet, Refills 3, Tot. Refills 3, Maintenance, 10/22/21 8:48:00 EDT, Route to Pharmacy Electronically, [facility]/pharmacy #[id number], Partial fill upon patient request if the prescription is for a schedule II opioid drug... Start Date: 10/22/21 Status: Ordered Nitrostat 0.4 mg sublingual tablet 1 tablet = 0.4 mg, Sublingual, Every 5 minutes, PRN Chest Pain, not to exceed 3 doses/15 min--if pain persists, seek medical attention, 0 Refills, Maintenance, 05/27/22 11:31:00 EST, Partial fill upon patient request if the prescription is for a sched... Start Date: 05/27/22 Status: Ordered Vitamin B1 100 mg oral tablet 100 mg, 1, tablet, By Mouth, Daily, # 30 tablet, Refills 0, Tot. Refills 0, Maintenance, 06/17/22 16:41:00 EST, Route to Pharmacy Electronically, [facility]/pharmacy #[id number], Partial fill upon patient requestif the prescription is for a schedule II opioid nahum... 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 HFrEF (heart failure with reduced ejection fraction) Confirmed Active Hypertension Confirmed Active Ischemic cardiomyopathy Confirmed Active Elevated LFTs Confirmed Active NSTEMI (non-ST elevated myocardial infarction) Confirmed Active Pain of finger of left hand Confirmed Active Proteinuria Confirmed Active Scrotal mass Confirmed Active Fatty liver Confirmed Active Vertigo Confirmed Active 1Problem added by Discern Expert Social History Social History Type Response Smoking Status Never (less than 100 in lifetime); Other: chewing tabacco quit 8.5 years ago; entered on: 09/27/21 Sex Patient Care team information Care Team Personnel Name: Kalia EDGAR, Mario Mott Position: [facility] Primary Care Physician Member Role: PCP Address: Address: [address] [place] [address] [address] [place] [address]- Name: Magalie Jesus RN Position: [facility] OB RN Member Role: Primary Care Nurse Name: Tanmay Iraheta MD Position: [facility] Renal MD Member Role: Lifetime Consulting Physician Address: Address: [address] [place] [address] [address] [facility] [place] [address]- Care Team Related Persons Name: ROSALIO SANTOS Address: home [address] [place] [address]
--- OUTSIDE RECORDS SUMMARY | 2024-02-14 00:02 | XMS_ITS | Continuity of Care Document ---
Author Organization [facility] ter Address [address] [place] [id number]- Care Team Providers Care Patient Access Registrar Name Role Phone Kalia EDGAR, Mario Mott Primary Care Physician Encounter [facility] [place] Date(s): 07/16/22 - 07/17/[address] [address]- Discharge Disposition: A-D/C AMA Attending Physician: Callie Glaser MD Admitting Physician: Anjel Moon MD Referring Physician: Not on Staff, Referring MD Allergies, Adverse Reactions, Alerts No Known Medication Allergies Medications aspirin 81 mg oral delayed release tablet 81 mg, By Mouth, Daily, # 30 tablet, Refills 0, Tot. Refills 0, Maintenance, 08/29/21 12:09:00 EST,Route to Pharmacy Electronically, [facility] 3, Partial fill upon patient request if the prescription is for a schedule II opioid drug., 17... Start Date: 08/29/21 Status: Ordered atorvastatin 80 mg oral tablet 1 tablet = 80 mg, By Mouth, Daily, # 30 tablet, 0 Refills, Maintenance, 08/29/21 12:09:00 EST, Tablet, [facility], Partial fill upon patient request if the prescription is for a schedule II opioid drug., 178, cm, 08/29/21 3:11:00 EST, He... Start Date: 08/29/21 Status: Ordered carvedilol 25 mg oral tablet 50 mg, 2, tablet, By Mouth, 2 times a day, # 360 tablet, Refills 3, Tot. Refills 3, Maintenance, 07/11/22 14:10:00 EST, Route to Pharmacy Electronically, [facility]/pharmacy #[id number], Partial fill upon patientrequest if the prescription is for a schedule II op... Start Date: 07/11/22 Status: Ordered carvedilol 25 mg oral tablet 50 mg, Tablet, By Mouth, 07/17/22 9:00:00 EST Start Date: 07/17/22 Stop Date: 07/17/22 Status: Completed Centrum Men's 1 tablet, By Mouth, Daily, 0 Refills, Maintenance, 05/27/22 11:31:00 EST, Partial fill upon patientrequest if the prescription is for a schedule II opioid drug. Start Date: 05/27/22 Status: Ordered folic acid 1 mg oral tablet 1, tablet, By Mouth, Daily, # 90 tablet, Refills 0, Tot. Refills 0, Maintenance, 06/17/22 16:41:00 EST, Route to Pharmacy Electronically, [facility]/pharmacy #[id number], 178, cm, 05/28/22 14:57:00 EST, Height, 90.9, kg, 05/27/22 18:12:00 EST, Dry Weight Start Date: 06/17/22 Status: Ordered hydrALAZINE 25 mg oral tablet 75 mg, Tablet, By Mouth, 07/17/22 9:00:00 EST Start Date: 07/17/22 Stop Date: 07/17/22 Status: Completed hydrALAZINE 25 mg oral tablet See Instructions, TAKE 3 TABLETS BY MOUTH 2 TIMES A DAY, # 810 tablet, Refills 1, Maintenance, 07/03/22 15:04:00 EST, Instructions Replace Required Details, Route to Pharmacy Electronically, [id number], 178, cm, 05/28/22 14:57:00 EST, Height, 90.... Start Date: 07/03/22 Status: Ordered isosorbide mononitrate 30 mg oral tablet, extended release 90 mg, 3, tablet, By Mouth, Daily, # 270 tablet, Refills 3, Tot. Refills 3, Maintenance, 10/22/21 8:48:00 EDT, Route to Pharmacy Electronically, [facility]/pharmacy #[id number], Partial fill upon patient [...] 06/17/22 16:41:00 EST, Route to Pharmacy Electronically, [facility]/pharmacy #[id number], Partial fill upon patient requestif the prescription [...] Confirmed Active 1Problem added by Discern Expert Vital Signs Most recent to oldest [Reference Range]: 1 2 3 Height 179 cm (07/17/22 9:30 AM) 179 cm (07/16/22 11:41 AM) 179 cm (07/16/22 11:41 AM) Oxygen Saturation [94-100 %] 100 % (07/17/22 7:44 AM) 100 % (07/17/22 5:53 AM) 98 % (07/17/22 3:29 AM) Pulse Rate [55-90 bpm] 85 bpm (07/17/22 8:04 AM) 96 bpm *H* (07/17/22 7:44 AM) 81 bpm (07/17/22 5:53 AM) Blood Pressure [90-138/55-84 mm Hg] 185/114mm Hg *H* (07/17/22 8:04 AM) 185/114mm Hg *H* (07/17/22 8:04 AM) 179/120mm Hg *H* (07/17/22 7:44 AM) Respiratory Rate [16-30 br/min] 23 br/min (07/17/22 7:44 AM) 20 br/min (07/17/22 5:53 AM) 20 br/min (07/17/22 3:29 AM) Temperature [96.8-100.4 DegF] 99.1 DegF (07/17/22 7:44 AM) 98.5 DegF (07/17/22 5:53 AM) 98.7 DegF (07/16/22 11:22 PM) Mode of Delivery (Oxygen) Room air (07/17/22 7:44 AM) Room air (07/17/22 5:53 AM) Room air (07/17/22 3:29 AM) Blood pressure sites Arm, right (07/17/22 7:44 AM) Arm, right (07/17/22 5:53 AM) Arm, right (07/17/22 3:29 AM) Temperature Route Oral (07/17/22 7:44 AM) Oral (07/17/22 5:53 AM) Oral (07/16/22 11:22 PM) Dry Weight 91 kg (07/17/22 9:30 AM) 91 kg (07/16/22 11:41 AM) 91 kg (07/16/22 11:41 AM) Dry Weight Obtained Via Patient/family s tated (07/16/22 9:51 AM) Social History Social History Type Response Smoking Status Never (less than 100 in lifetime); Other: chewing tabacco quit 8.5 years ago; entered on: 09/27/21 Sex Admission evaluation note * Leandro Mandujano: PERFORM Event Display: Admission Note Authored Date: [id number] Patient: ??DIANA ANDREWS ? Age:??47 Years?Sex:??Male?:??1975?? Chief Complaint/Reason for Consultation Epistaxis History of Present Illness 47-year-old male with history of hypertension, CAD,??past AR x2,??alcohol use??presents with??epistaxis.?? He tells me about a week ago??he started having intermittent??mild nosebleeds.?? He denies any trauma.?? 3 days ago??the bleeding became more severe.?? He finally presented to the urgent care today.?? He was treated with a nasal packing??in the left nare.?? He was found to be hypertensive??200/100??so he was sent to the emergency department.?? The packing was removed and the bleeding??did not recur.?? He admitted??to missing doses of his hype antihypertensives.?? His antihypertensives were resumed??with good effect.?? His hemoglobin was found to be 7.8, baseline??14. ??He complained of some??dizziness??upon standing.?? A blood transfusion was ordered. ??And he was admitted for further management.?? Of note,??he also has been drinking??more heavily??with the recent ??of his father.?? He does not endorse any withdrawal symptoms currently. Review of Systems CONSTITUTIONAL: ??Denies any fever, chills, changes to weight or fatigue. EYES: Denies any changes to vision, burning or diplopia. HEENT: See HPI CV: Denies any CP, orthopnea, PND, edema, palpitations. PULM: Denies any SOB, wheezing, cough or production of phlegm. ABD: Denies any abdominal pain, N/V/D, heartburn, PRBPR, melena, or changes to bowel habits. : Denies any changes to frequency. ??Denies dysuria, urgency, straining, hematuria, incontinence.? MS: Denies any joint or muscle pain, falls or changes to gait. NEURO: Denies any weakness, numbness, changes to speech confusion or memory loss. SKIN: Denies any rashes or lesions. ?? PSYCH: Denies any depression or anxiety. SIGECAPS negative. FUNCTIONAL: At baseline the patient is able to??ambulate independently Objective Vital Signs?? Temperature: 98.2 DegF (07/16/22 12:41:00) Temperature Route: Oral (07/16/22 11:41:00) Pulse Rate:??94 bpm??High (07/16/22 14:10:00) Respiratory Rate: 18 br/min (07/16/22 14:10:00) Systolic Blood Pressure: 131 mm Hg (07/16/22 14:10:00) Diastolic Blood Pressure: 74 mm Hg (07/16/22 14:10:00) Blood pressure sites: Arm, left (07/16/22 11:41:00) Blood pressure sites: Arm, right (07/16/22 11:41:00) Mean Arterial Pressure: 142 mm Hg (07/16/22 11:41:00) Mean Arterial Pressure: 144 mm Hg (07/16/22 11:41:00) Pulse Pressure: 69 mm Hg (07/16/22 11:41:00) Pulse Pressure: 67 mm Hg (07/16/22 11:41:00) Oxygen Saturation: 100 % (07/16/22 14:10:00) Mode of Delivery (Oxygen): Room air (07/16/22 14:10:00) Early Warning Score: 0 (07/16/22 14:40:48) ? Physical Exam General:??47 year old??male??lies in bed comfortably in no acute distress HEENT: No active bleeding noted from the left nare Card: RRR no murmur, non displaced PMI, no JVD, 2+ radial pulse B/L Resp: CTA B/L, no wheezing, rales, ronchi Abdomen: soft and non tender, bowel sounds WNL Extremities: no pitted edema B/L lower extremities Skin: Without rashes or lesions, good turgor Hem/Lymph: without bruising or lymphadenopathy Psych: appropriate affect Neuro: A&OX3, no focal motor deficits Assessment/Plan 47-year-old male with history of hypertension, CAD,??past AR x2,??alcohol use??presents with??epistaxis.? Epistaxis (R04.0):??A nasal packing was placed at urgent care.??It was removed from his left nares in the emergency department??and bleeding??has not recurred.??Hemoglobin was found to be 7.8, baseline 14.??He was dizzy upon standing, thus??a unit of blood has been ordered for symptomatic anemia ?? Plan Use Afrin??and apply pressure??as needed for nosebleed Transfuse 1 unit Repeat??CBC ?? Hypertensive urgency (I16.0):??Systolic was in the 200s on presentation.??He has been missing doses??of his antihypertensives. His medications were resumed with good effect ?? Plan Continue hydralazine, carvedilol, isosorbide ?? Alcohol use (Z72.89):??He has been drinking more??since his father??recently . He is not in active withdrawal??and has no history of withdrawals. ?? Plan Social work consult Thiamine, folate, multivitamin, pyridoxine ?? CAD (coronary artery disease) (I25.10):??Per patient he has a history of 2 MIs in the past.??No chest pain currently.?Troponin elevated, likely in the setting of??severe anemia ?? Plan Hold aspirin in setting of bleed Continue carvedilol, isosorbide, atorvastatin ?? VTE Prophylaxis:??Pneumoboots, holding chemoprophylaxis in setting of bleed ?VTE Prophylaxis Assessment:??VTE Prophylaxis Ordered ?? Code Status:??Full code ?Order Code Status:??Code Status Ordered ?? Ongoing Medical Necessity:??Symptomatic anemia ?? Discharge Planning:??Home when ready ? Histories Allergies Allergies ?(Active and Proposed Allergies Only) No Known Medication Allergies? (Severity: Unknown severity, Onset: Unknown) ? 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 Past Surgical History No surgery history documented. ? Social History Alcohol Details:??Use: Current. ??Frequency: Daily. ??Type: Vodka. Employment/School Details:??Status: Unemployed. Exercise Details:??Self assessment: Good condition. Home/Environment Details:??Living situation: Home/Independent. ??Lives with: Children, Significant other. Nutrition/Health Details:??Diet: Regular. Sexual Details:??Sexually involved in last 6 months: Yes. Substance Abuse Details:??Use: Current. ??Type: Marijuana. ??Other: Daily, Blunts [place]lty (Cigar Mixture). Tobacco Details:??Use: Never (less than 100 in lifetime). ??Other: chewing tabacco quit 8.5 years ago. Electronic Cigarette/Vaping Details:??Electronic Cigarette Use: Never. ? Family History Father: Diabetes mellitus type 2; Stroke Sister: Stroke ? Medications Home Medications Aspirin (aspirin 81 mg oral delayed release tablet)?81?Milligram?By Mouth?Daily Atorvastatin (atorvastatin 80 mg oral tablet)?1?tab(s)?80?Milligram?By Mouth?Daily Carvedilol (carvedilol 25 mg oral tablet)?50?Milligram?2?tablet?By Mouth?2 times a day Folic Acid (folic acid 1 mg oral tablet)?1?tablet?By Mouth?Daily hydrALAZINE (hydrALAZINE 25 mg oral tablet)?See Instructions?TAKE 3 TABLETS BY MOUTH 2 TIMES A DAY Isosorbide Mononitrate (isosorbide mononitrate 30 mg oral tablet, extended release)?90?Milligram?3?tablet?By Mouth?Daily Multivitamin With Minerals (Centrum Men's)?1?tab(s)?By Mouth?Daily Nitroglycerin (Nitrostat 0.4 mg sublingual tablet)?1?tab(s)?0.4?Milligram?Sublingual?Every 5 minutes?as needed?Chest Pain?not to exceed 3 doses/15 min--if pain persists, seek medical attention Thiamine (Vitamin B1 100 mg oral tablet)?100?Milligram?1?tablet?By Mouth?Daily ? Results Recent Labs BLOOD BANK Blood Type A Positive ()?? 07/16/2022 13:17 Antibody Screen Negative ()?? 07/16/2022 13:17 RBC Unit ID [id number] ()?? 07/16/2022 14:55 RBC Available XM ()?? 07/16/2022 14:55 ?? BLOOD COUNT & DIFF WBC 7.3 k/mm3 ()?? 07/16/2022 10:54 RBC 2.54 m/mm3 (Low)?? 07/16/2022 10:54 Hgb 7.8 Gm/dL (Low)?? 07/16/2022 10:54 Hct 24.0 % (Low)?? 07/16/2022 10:54 MCV 94.5 femtoliters (High)?? 07/16/2022 10:54 MCH 30.7 pg ()?? 07/16/2022 10:54 MCHC 32.5 g/dL (Low)?? 07/16/2022 10:54 Platelet Count 239 k/mm3 ()?? 07/16/2022 10:54 RDW-SD 48.0 femtoliters (High)?? 07/16/2022 10:54 MPV 9.5 femtoliters ()?? 07/16/2022 10:54 Nucleated RBC (Automated) 0.0 #/100 WBC'S ()?? 07/16/2022 10:54 Abs. NRBC 0.0 k/mm3 ()?? 07/16/2022 10:54 Abs. Neut 5.0 k/mm3 ()?? 07/16/2022 10:54 Abs. Lymph 1.2 k/mm3 ()?? 07/16/2022 10:54 Abs. Sequoyah 0.9 k/mm3 ()?? 07/16/2022 10:54 Abs. Eo 0.1 k/mm3 ()?? 07/16/2022 10:54 Abs. Baso 0.1 k/mm3 ()?? 07/16/2022 10:54 Neut % 68.6 % ()?? 07/16/2022 10:54 Lymph % 15.7 % ()?? 07/16/2022 10:54 Sequoyah % 12.3 % (High)?? 07/16/2022 10:54 Eos % 1.9 % ()?? 07/16/2022 10:54 Baso % 1.2 % ()?? 07/16/2022 10:54 Imm Gran 0.3 % ()?? 07/16/2022 10:54 Abs. Imm Gran 0.0 k/mm3 ()?? 07/16/2022 10:54 ?? CARDIAC High Sensitivity Troponin (HSTnT) 157 ng/L (Critical)?? 07/16/2022 10:54 ?? CHEM GENERAL Sodium 140 mmol/L ()?? 07/16/2022 10:54 Potassium 4.5 mmol/L ()?? 07/16/2022 10:54 Chloride 107 mmol/L ()?? 07/16/2022 10:54 Bicarbonate Level 23 mmol/L ()?? 07/16/2022 10:54 Anion Gap 10 ()?? 07/16/2022 10:54 Glucose Level 119 mg/dL (High)?? 07/16/2022 10:54 BUN 48 mg/dL (High)?? 07/16/2022 10:54 Creatinine-Blood 1.7 mg/dL (High)?? 07/16/2022 10:54 Estimated GFR Creatinine 51 ML/MIN/1.73 M2 ()?? 07/16/2022 10:54 Calcium 8.9 mg/dL ()?? 07/16/2022 10:54 Alkaline Phosphatase 54 units/L ()?? 07/16/2022 10:54 Lipase 38 units/L ()?? 07/16/2022 10:54 AST (SGOT) 32 units/L ()?? 07/16/2022 10:54 ALT (SGPT) 28 units/L ()?? 07/16/2022 10:54 Bilirubin, Total 0.6 mg/dL ()?? 07/16/2022 10:54 ?? HEME OTHER Hold Blue Top SPECIMEN DISCARDED AFTER 4 HOURS. ()?? 07/16/2022 10:54 ? Hospital Progress note * Elio Dhaliwal: PERFORM Event Display: Progress Note Hospital Authored Date: Patient: ??DIANA ANDREWS ? Age:??47 Years?Sex:??Male?:??1975?? paged by nursing at 0150 that pt is having another episode of epistaxis pouring bright red blood. assessed patient at bedside, patient is sitting upright in bed w head tilted forward and nose clampon. removed nose clamp, mild dripping of bright red blood. had patient blow nose to dislodge clots,2 sprays of oxymetazoline in b/l nares, placed clamp back on and had pt keep head tilted forward. will reassess in 30 minutes * Elio Dhaliwal: PERFORM Event Display: Progress Note Hospital Authored Date: removed clamp at 0250, no sign of active epistaxis at this time. informed pt to avoid irritating orblowing his nose. if there is another episode of perfuse active bleeding, will place rhino rocket. Note * Alfredito EDGAR, Callie Alvarado: PERFORM Event Display: Discharge/Transfer Note Hospital Authored Date: Patient: ??DIANA ANDREWS ? Age:??47 Years?Sex:??Male?:??1975?? Patient Information Discharge Location: [facility] Primary Care Physician: Kalia EDGAR, Mario Mott Admit Date/Time: 07/16/22 13:21 Discharge Date:??07/17/2022 17:42 Discharge Disposition Discharge Disposition:?AMA Discharge Diagnosis Alcohol use (Z72.89) CAD (coronary artery disease) (I25.10) Epistaxis (R04.0) Hypertensive urgency (I16.0) Symptomatic anemia (D64.9) ?? Hospital Course 47-year-old male with history of hypertension, CAD, past AR x2, alcohol use presents with epistaxis. ?? Epistaxis (R04.0): A nasal packing was placed at urgent care. It was removed from his left nares inthe emergency department and bleeding has not recurred. Hemoglobin was found to be 7.8, baseline 14. He was dizzy upon standing, thus a unit of blood has been ordered for symptomatic anemia ??Use Afrin and apply pressure as needed for nosebleed ??Transfuse 1 unit ??Repeat CBC ? Hypertensive urgency (I16.0): Systolic was in the 200s on presentation. He has been missing doses of his antihypertensives. His medications were resumed with good effect ??Continue hydralazine, carvedilol, isosorbide ? Alcohol use (Z72.89): He has been drinking more since his father recently . He is not in activewithdrawal and has no history of withdrawals. ??Social work consult ??Thiamine, folate, multivitamin, pyridoxine ? CAD (coronary artery disease) (I25.10): Per patient he has a history of 2 MIs in the past. No chestpain currently. Troponin elevated, likely in the setting of severe anemia ??Hold aspirin in setting of bleed ??Continue carvedilol, isosorbide, atorvastatin ?? PATIENT LEFT AMA ?? Home Health Face to Face ^[facility] Results Discharge Labs BLOOD BANK Blood Type A Positive ()?? 07/16/2022 13:17 Antibody Screen Negative ()?? 07/16/2022 13:17 RBC Unit ID [id number] ()?? 07/16/2022 14:55 RBC Available PT ()?? 07/16/2022 14:55 ?? BLOOD COUNT & DIFF WBC 6.2 k/mm3 ()?? 07/17/2022 05:23 RBC 2.47 m/mm3 (Low)?? 07/17/2022 05:23 Hgb 7.4 Gm/dL (Low)?? 07/17/2022 05:23 Hct 22.5 % (Low)?? 07/17/2022 05:23 MCV 91.1 femtoliters ()?? 07/17/2022 05:23 MCH 30.0 pg ()?? 07/17/2022 05:23 MCHC 32.9 g/dL (Low)?? 07/17/2022 05:23 Platelet Count 205 k/mm3 ()?? 07/17/2022 05:23 RDW-SD 49.1 femtoliters (High)?? 07/17/2022 05:23 MPV 10.0 femtoliters ()?? 07/17/2022 05:23 Nucleated RBC (Automated) 0.0 #/100 WBC'S ()?? 07/17/2022 05:23 Abs. NRBC 0.0 k/mm3 ()?? 07/17/2022 05:23 Abs. Neut 5.0 k/mm3 ()?? 07/16/2022 10:54 Abs. Lymph 1.2 k/mm3 ()?? 07/16/2022 10:54 Abs. Sequoyah 0.9 k/mm3 ()?? 07/16/2022 10:54 Abs. Eo 0.1 k/mm3 ()?? 07/16/2022 10:54 Abs. Baso 0.1 k/mm3 ()?? 07/16/2022 10:54 Neut % 68.6 % ()?? 07/16/2022 10:54 Lymph % 15.7 % ()?? 07/16/2022 10:54 Sequoyah % 12.3 % (High)?? 07/16/2022 10:54 Eos % 1.9 % ()?? 07/16/2022 10:54 Baso % 1.2 % ()?? 07/16/2022 10:54 Imm Gran 0.3 % ()?? 07/16/2022 10:54 Abs. Imm Gran 0.0 k/mm3 ()?? 07/16/2022 10:54 ?? CARDIAC High Sensitivity Troponin (HSTnT) 151 ng/L (Critical)?? 07/16/2022 20:12 ? CHEM GENERAL Sodium 139 mmol/L ()?? 07/17/2022 05:23 Potassium 4.1 mmol/L ()?? 07/17/2022 05:23 Chloride 109 mmol/L (High)?? 07/17/2022 05:23 Bicarbonate Level 19 mmol/L (Low)?? 07/17/2022 05:23 Anion Gap 11 ()?? 07/17/2022 05:23 Glucose Level 119 mg/dL (High)?? 07/16/2022 10:54 BUN 41 mg/dL (High)?? 07/17/2022 05:23 Creatinine-Blood 1.7 mg/dL (High)?? 07/17/2022 05:23 Estimated GFR Creatinine 50 ML/MIN/1.73 M2 ()?? 07/17/2022 05:23 Calcium 8.9 mg/dL ()?? 07/16/2022 10:54 Alkaline Phosphatase 54 units/L ()?? 07/16/2022 10:54 Lipase 38 units/L ()?? 07/16/2022 10:54 AST (SGOT) 32 units/L ()?? 07/16/2022 10:54 ALT (SGPT) 28 units/L ()?? 07/16/2022 10:54 Bilirubin, Total 0.6 mg/dL ()?? 07/16/2022 10:54 ? HEME OTHER Hold Blue Top SPECIMEN DISCARDED AFTER 4 HOURS. ()?? 07/16/2022 10:54 ? Test Name Test Result Date/TimeWBC 6.2 k/mm3 07/17/2022 05:23 EST Hgb 7.4 Gm/dL (Low) 07/17/2022 05:23 EST Hct 22.5 % (Low) 07/17/2022 05:23 EST Platelet Count 205 k/mm3 07/17/2022 05:23 EST Sodium 139 mmol/L 07/17/2022 05:23 EST Potassium 4.1 mmol/L 07/17/2022 05:23 EST Chloride 109 mmol/L (High) 07/17/2022 05:23 EST Bicarbonate Level 19 mmol/L (Low) 07/17/2022 05:23 EST Anion Gap 11 07/17/2022 05:23 EST BUN 41 mg/dL (High) 07/17/2022 05:23 EST Creatinine-Blood 1.7 mg/dL (High) 07/17/2022 05:23 EST Estimated GFR Creatinine 50 ML/MIN/1.73 M2 07/17/2022 05:23 EST _ minutes spent on discharge Patient Care team information Care Team Personnel Name: Kalia EDGAR, Mario Mott Position: [facility] Primary Care Physician Member Role: PCP Address: Address: [address] [place] [address]- [place] Name: Magalie Jesus RN Position: [facility] OB RN Member Role: Primary Care Nurse Name: Myrtle EDGAR, Tanmay Position: [facility] Renal MD Member Role: Lifetime Consulting Physician Address: Address: [address] [place] [address] [address] [facility] [place] [address]- [place] Name: Zelalem COREAS Attending Position: [facility] ED Medicine MD Name: Jada Navarro RN Position: [facility] ED RN W/OE and Tasks Member Role: Patient Care Provider Name: Sasha Bowden Position: [facility] ED TA [facility] Member Role: [employer] Care Team Related Persons Name: ROSALIO SANTOS Address: home [address] [place] [address]
--- OUTSIDE RECORDS SUMMARY | 2024-02-14 00:03 | XMS_ITS | Continuity of Care Document ---
Author Organization [facility] ter Address [address] [place] [id number]- Care Team Providers Care Charge Aide Name Role Phone Chery EDGAR, Osiel Veliz Primary Care Physician [phone] Encounter [facility] Date(s): 09/10/21 - 09/13/[address] [id number] Encounter Diagnosis Chest pain(Final) - 09/10/21 Hypertension(Discharge Diagnosis) - 09/10/21 Discharge Disposition: A-D/C Home Attending Physician: Lizette Moore MD Admitting Physician: Lawrence Alvarenga MD Referring Physician: Not on Staff, Referring MD Allergies, Adverse Reactions, Alerts No Known Medication Allergies Medications amLODIPine 5 mg oral tablet 5 mg, Tablet, By Mouth, 09/13/21 9:00:00 EDT Start Date: 09/13/21 Stop Date: 09/13/21 Status: Completed amLODIPine 5 mg oral tablet 5 mg, 1, tablet, By Mouth, Daily, # 30 tablet, Refills 0, Tot. Refills 0, Maintenance, 09/13/21 10:03:00 EDT, Route to Pharmacy Electronically, [facility], Partial fill upon patient request if the prescription is for a schedule II opioid... Start Date: 09/13/21 Status: Ordered aspirin 81 mg oral delayed release tablet 81 mg, By Mouth, Daily, # 30 tablet, Refills 0, Tot. Refills 0, Maintenance, 08/29/21 12:09:00 EST,Route to Pharmacy Electronically, [facility], Partial fill upon patient request if the prescription is for a schedule II opioid drug., 17... Start Date: 08/29/21 Status: Ordered atorvastatin 80 mg oral tablet 1 tablet = 80 mg, By Mouth, Daily, # 30 tablet, 0 Refills, Maintenance, 08/29/21 12:09:00 EST, Tablet, [facility], Partial fill upon patient request if the prescription is for a schedule II opioid drug., 178, cm, 08/29/21 3:11:00 EST, He... Start Date: 08/29/21 Status: Ordered carvedilol 25 mg oral tablet 25 mg, Tablet, By Mouth, 09/13/21 9:00:00 EDT Start Date: 09/13/21 Stop Date: 09/13/21 Status: Completed Coreg 25 mg oral tablet 25 mg, 1, tablet, By Mouth, 2 times a day, # 60 tablet, Refills 0, Tot. Refills 0, Maintenance, 09/04/21 12:25:00 EDT, [id number] Partial fill upon patient request if the prescription is for a schedule II opi... Start Date: 09/04/21 Status: Ordered folic acid 1 mg oral tablet 1 mg, 1, tablet, By Mouth, Daily, # 30 tablet, Refills 0, Tot. Refills 0, Maintenance, 08/29/21 12:10:00 EST, Route to Pharmacy Electronically, [facility], Partial fill upon patient request if the prescription is for a schedule II opioid... Start Date: 08/29/21 Status: Ordered hydrALAZINE 25 mg oral tablet 75 mg, Tablet, By Mouth, 09/13/21 9:00:00 EDT Start Date: 09/13/21 Stop Date: 09/13/21 Status: Completed hydrALAZINE 25 mg oral tablet 75 mg, 3, tablet, By Mouth, 3 times a day, # 270 tablet, Refills 0, Tot. Refills 0, Maintenance, 09/13/21 10:03:00 EDT, Route to Pharmacy Electronically, [facility], Partial fill upon patient request if the prescription is for a schedule... Start Date: 09/13/21 Status: Ordered isosorbide mononitrate 30 mg oral tablet, extended release 90 mg, 3, tablet, By Mouth, Daily, # 90 tablet, Refills 0, Tot. Refills 0, Maintenance, 09/13/21 10:03:00 EDT, Route to Pharmacy Electronically, [facility], Partial fill upon patient request if the prescription is for a schedule II opioi... Start Date: 09/13/21 Status: Ordered thiamine 100 mg oral tablet 100 mg, 1, tablet, By Mouth, Daily, Refills 0, Maintenance, 09/04/21 12:10:00 EDT, Partial fill upon patient request if the prescription is for a schedule II opioid drug. Start Date: 09/04/21 Status: Ordered Problem List Condition Effective Dates Status Health Status Inform ant Abnormal renal function(Confirmed) Active Alcoholism(Confirmed) Active Kidney disease, chronic, sta ge III (GFR 30-59 ml/min)(Confirmed) Active Hypertension(Confirmed) Active Ischemic cardiomyopathy(Confirmed) Active Elevated LFTs(Confirmed) Active NSTEMI (non-ST elevated myoc ardial infarction)(Confirmed) Active Obese class I(Confirmed) Active Pain of finger of left hand(Confirmed) Active Diagnosis Diagnosis Type Effective Dates Health Status Cl inical Service Informant Hypertension Discharge Diagnosis 09/10/21 Non-Specified Results Radiology Reports * Exam Date Time Procedure Performing Provider Status 09/10/21 7:28 AM Chest 2 Views Frontal and Lat Jose , Gloria; Auth (Verified) Notes: (Chest 2 Views Frontal and Lat) Reason For Exam: Chest Pain;Other: RESULT: Chest 2 Views Frontal and Lat Chest 2 Views Frontal and Lat Hx of Present Illness: Pt reporting woke up approximately 2 hours MEDICAL DIR increased SOB,: I had a a mld heart attack 2 weeks ago, this feels the same. Denies Fevers, chills n v d, denies anticoagulation; Reason: Other:; Chest Pain; Clinical Question(s): Other: COMPARISON: None. FINDINGS: LINES AND TUBES: None. LUNGS AND PLEURA: Diffuse interstitial prominence. No pleural effusion. No pneumothorax. HEART, MEDIASTINUM AND DEEDEE: Heart is normal in size. Normal upper mediastinal and hilar contour. BONES AND SOFT TISSUES: No acute abnormality. IMPRESSION: Suspected mild interstitial pulmonary edema. WSN: [id number] Ordering Physician: Earnest Laura Dictated By: Kristian Purcell MD Dictated Date/Time: 09/10/21 7:59 am Reviewed By: Kristian Purcell MD Signed By: Kristian Purcell MD Signed Date/Time: 09/10/21 7:59 am Transcribed By: ABEL Transcribed Date/Time: 09/10/21 7:55 am Vital Signs Most recent to oldest [Reference Range]: 1 2 3 4 5 Height 177.8 cm (09/13/21 8:23 AM) 177.8 cm (09/13/21 2:28 AM) 177.8 cm (09/12/21 7:55 PM) Weight 93.2 kg (09/13/21 6:39 AM) 92.7 kg (09/12/21 6:41 AM) 98.2 kg (09/10/21 5:39 PM) Oxygen Saturation [94-100 %] 94 % (09/13/21 12:00 PM) 95 % (09/13/21 8:23 AM) 96 % (09/13/21 2:28 AM) Pulse Rate [55-90 bpm] 88 bpm (09/13/21 12:00 PM) 88 bpm (09/13/21 8:23 AM) 88 bpm (09/13/21 8:15 AM) Body Mass Index [18.5-24.99] 31.06 *>HHI* (09/10/21 5:39 PM) Blood Pressure [90-138/55-84 mm Hg] 128/71mm Hg (09/13/21 12:00 PM) 146/108mm Hg *H* (09/13/21 8:23 AM) 146/108mm Hg *H* (09/13/21 8:15 AM) 146/108mm Hg *H* (09/13/21 8:15 AM) 146/108mm Hg *H* (09/13/21 8:15 AM) Respiratory Rate [16-30 br/min] 16 br/min (09/13/21 12:00 PM) 18 br/min (09/13/21 8:23 AM) 16 br/min (09/13/21 2:28 AM) Temperature [96.8-100.4 DegF] 97.9 DegF (09/13/21 12:00 PM) 98.4 DegF (09/13/21 8:23 AM) 99.1 DegF (09/13/21 2:28 AM) Mode of Delivery (Oxygen) Room air (09/13/21 12:00 PM) Room air (09/13/21 8:23 AM) Room air (09/13/21 2:28 AM) Blood pressure sites Arm, right (09/13/21 12:00 PM) Arm, left (09/13/21 8:23 AM) Arm, left (09/13/21 2:28 AM) Temperature Route Oral (09/13/21 12:00 PM) Oral (09/13/21 8:23 AM) Temporal (09/13/21 2:28 AM) Dry Weight 98.2 kg (09/10/21 5:39 PM) Weight Obtained Via Bed scale (09/13/21 6:39 AM) Bed scale (09/12/21 6:41 AM) Social History Social History Type Response Smoking Status Never (less than 100 in lifetime) entered on: 03/18/21 Sex
--- OUTSIDE RECORDS SUMMARY | 2024-02-14 00:03 | XMS_ITS | Continuity of Care Document ---
Author Organization [facility] an[facility] Care Address [address] [place] [address]- Care Team Providers Care Natural Resource Economist Name Role Phone Kalia EDGAR, Mario Mott Primary Care Physician [phone] En[place] [facility] [id number] Date(s): 10/10/22 - 11/09/22 [facility] [address] [place] [address] Attending Physician: Lesly Strauss Admitting Physician: Admtr, Lesly Referring Physician: Admtr, Ar8 Allergies, Adverse Reactions, Alerts No Known Medication Allergies Medications aspirin 81 mg oral delayed release tablet 81 mg, By Mouth, Daily, # 90 tablet, Refills 1, Tot. Refills 1, Maintenance, 09/22/22 11:13:00 EDT,Route to Pharmacy Electronically, [facility][id number], Partial fill upon patient request if the prescription is for a schedule II opioid drug., 178, cm,... Start Date: 09/22/22 Status: Ordered atorvastatin 80 mg oral tablet 1 tablet = 80 mg, By Mouth, Daily, # 30 tablet, 0 Refills, Maintenance, 08/29/21 12:09:00 EST, Tablet, [facility], Partial fill upon patient request if the prescription is for a schedule II opioid drug., 178, cm, 08/29/21 3:11:00 EST, He... Start Date: 08/29/21 Status: Ordered carvedilol 25 mg oral tablet 50 mg, 2, tablet, By Mouth, 2 times a day, # 360 tablet, Refills 3, Tot. Refills 3, Maintenance, 07/11/22 14:10:00 EST, Route to Pharmacy Electronically, [facility]/pharmacy #[id number], Partial fill upon patientrequest if the prescription [...] 06/17/22 16:41:00 EST, Route to Pharmacy Electronically, [facility]/pharmacy #[id number], 178, cm, 05/28/22 14:57:00 EST, Height, 90.9, kg, 05/27/22 18:12:00 EST, Dry Weight Start Date: 06/17/22 Status: Ordered hydrALAZINE 25 mg oral tablet See Instructions, TAKE 3 TABLETS BY MOUTH 2 TIMES A DAY, # 810 tablet, Refills 1, Maintenance, 07/03/22 15:04:00 EST, Instructions Replace Required Details, Route to Pharmacy Electronically, [id number], 178, cm, 05/28/22 14:57:00 EST, Height, 90.... Start Date: 07/03/22 Status: Ordered isosorbide mononitrate 30 mg oral tablet, extended release 90 mg, 3, tablet, By Mouth, Daily, # 270 tablet, Refills 3, Tot. Refills 3, Maintenance, 10/22/21 8:48:00 EDT, Route to Pharmacy Electronically, [facility] #[id number], Partial fill upon patient request if [...] 06/17/22 16:41:00 EST, Route to Pharmacy Electronically, [facility] #[id number], Partial fill upon patient requestif the prescription is for a schedule II opioid nahum... 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 HFrEF (heart failure with reduced ejection fraction) Confirmed Active Hypertension Confirmed Active Ischemic cardiomyopathy Confirmed Active Elevated LFTs Confirmed Active NSTEMI (non-ST elevated myocardial infarction) Confirmed Active Pain of finger of left hand Confirmed Active Priapism Confirmed Active Proteinuria Confirmed Active Scrotal mass Confirmed Active Fatty liver Confirmed Active Vertigo Confirmed Active 1Problem added by Discern Expert Social History Social History Type Response Smoking Status Never (less than 100 in lifetime); Other: chewing tabacco quit 8.5 years ago; entered on: 09/27/21 Sex Patient Care team information Care Team Personnel Name: Kalia EDGAR, Mario Mott Position: [facility] Primary Care Physician Member Role: PCP Address: Address: [address] [place] [address]- Name: Magalie Jesus RN Position: [facility] OB RN Member Role: Primary Care Nurse Name: Tanmay Iraheta MD Position: [facility] Renal MD Member Role: Lifetime Consulting Physician Address: Address: [address] [facility], [place] [address]- Care Team Related Persons Name: ROSALIO SANTOS Address: home [address] [place] [address]
--- OUTSIDE RECORDS SUMMARY | 2024-02-14 00:03 | XMS_ITS | Continuity of Care Document ---
Author Organization [facility] an[facility] Address [address] [place] [address]- Care Team Providers Care Manufacturing Millwright Name Role Phone Kalia EDGAR, Mario Mott Primary Care Physician [phone] Encounter [facility] Date(s): 10/10/22 - 01/24/23 [facility] [address] [place] [address] Discharge Disposition: A-D/C Home Attending Physician: Lashawn Marmolejo MD Admitting Physician: Lashawn Marmolejo MD Referring Physician: Mario Motta MD Allergies, Adverse Reactions, Alerts No Known Medication Allergies Medications aspirin 81 mg oral delayed release tablet 81 mg, By Mouth, Daily, # 90 tablet, Refills 1, Tot. Refills 1, Maintenance, 09/22/22 11:13:00 EDT,Route to Pharmacy Electronically, [facility] #[id number], Partial fill upon patient request if the prescription is for a schedule II opioid drug., 178, cm,... Start Date: 09/22/22 Status: Ordered atorvastatin 80 mg oral tablet 1 tablet = 80 mg, By Mouth, Daily, # 30 tablet, 0 Refills, Maintenance, 08/29/21 12:09:00 EST, Tablet, [facility], Partial fill upon patient request if the prescription is for a schedule II opioid drug., 178, cm, 08/29/21 3:11:00 EST, He... Start Date: 08/29/21 Status: Ordered carvedilol 25 mg oral tablet 50 mg, 2, tablet, By Mouth, 2 times a day, # 360 tablet, Refills 3, Tot. Refills 3, Maintenance, 07/11/22 14:10:00 EST, Route to Pharmacy Electronically, [facility][id number], Partial fill upon patientrequest if the [...] 06/17/22 16:41:00 EST, Route to Pharmacy Electronically, [facility][id number], 178, cm, 05/28/22 14:57:00 EST, Height, 90.9, kg, 05/27/22 18:12:00 EST, Dry Weight Start Date: 06/17/22 Status: Ordered hydrALAZINE 25 mg oral tablet See Instructions, TAKE 3 TABLETS BY MOUTH 2 TIMES A DAY, # 810 tablet, Refills 1, Maintenance, 07/03/22 15:04:00 EST, Instructions Replace Required Details, Route to Pharmacy Electronically, [id number], 178, cm, 05/28/22 14:57:00 EST, Height, 90.... Start Date: 07/03/22 Status: Ordered isosorbide mononitrate 30 mg oral tablet, extended release 90 mg, 3, tablet, By Mouth, Daily, # 270 tablet, Refills 3, Tot. Refills 3, Maintenance, 10/22/21 8:48:00 EDT, Route to Pharmacy Electronically, [facility]/pharmacy #[id number], Partial fill upon patient request if [...] 06/17/22 16:41:00 EST, Route to Pharmacy Electronically, [facility][id number], Partial fill upon patient requestif the prescription is for a schedule II opioid nahum... Start Date: 06/17/22 Status: Ordered Problem List Condition Confirmation Course Effective Dates Status H ealth Status Informant Abnormal renal function Confirmed Active Alcoholism Confirmed Active Anemia Confirmed Active Chronic kidney disease Confirmed Active Kidney disease, chronic, stage III (GFR 30-59 ml/min) Confirmed Active CAD in [place] artery Confirmed Active COVID-19 1 Confirmed 05/28/22 [...] Personnel Name: Kalia EDGAR, Mario Mott Position: [facility] Physician - Primary Care Member Role: PCP Address: Address: [address] [place] [address]- Name: Magalie Jesus RN Position: [facility] OB RN Member Role: Primary Care Nurse Name: Tanmay Iraheta MD Position: [facility] Renal MD Member Role: Lifetime Consulting Physician Address: Address: [address] [facility], [place] [address]- Care Team Related Persons Name: ROSALIO SANTOS Address: home [address] [place] [address]
--- OUTSIDE RECORDS SUMMARY | 2024-02-14 00:03 | XMS_ITS | Continuity of Care Document ---
Author Organization [facility] ter Address [address] [place] [address]- Care Team Providers Care Rand Butter Name Role Phone Chery EDGAR, Osiel Veliz Primary Care Physician Encounter [facility] Date(s): 08/27/21 - 08/29/[address] [address] Discharge Disposition: A-D/C Home Attending Physician: Charbel Garvin MD Admitting Physician: Lawrence Alvarenga MD Referring Physician: Lawrence Alvarenga MD Allergies, Adverse Reactions, Alerts No Known Medication Allergies Medications aspirin 81 mg oral delayed release tablet 81 mg, By Mouth, Daily, # 30 tablet, Refills 0, Tot. Refills 0, Maintenance, 08/29/21 12:09:00 EST,Route to Pharmacy Electronically, [facility], Partial fill upon patient request if the prescription is for a schedule II opioid drug., 17... Start Date: 08/29/21 Status: Ordered atorvastatin 80 mg oral tablet 1 tablet = 80 mg, By Mouth, Daily, # 30 tablet, 0 Refills, Maintenance, 08/29/21 12:09:00 EST, Tablet, [facility], Partial fill upon patient request if the prescription is for a schedule II opioid drug., 178, cm, 08/29/21 3:11:00 EST, He... Start Date: 08/29/21 Status: Ordered Coreg 12.5 mg oral tablet 12.5 mg, Tablet, By Mouth, 08/29/21 9:00:00 EST Start Date: 08/29/21 Stop Date: 08/29/21 Status: Completed Coreg 12.5 mg oral tablet 12.5 mg, 1, tablet, By Mouth, 2 times a day, # 60 tablet, Refills 0, Tot. Refills 0, Maintenance, 08/29/21 12:09:00 EST, Route to Pharmacy Electronically, [facility], Partial fill upon patient request if the prescription is for a schedul... Start Date: 08/29/21 Status: Ordered folic acid 1 mg oral tablet 1 mg, 1, tablet, By Mouth, Daily, # 30 tablet, Refills 0, Tot. Refills 0, Maintenance, 08/29/21 12:10:00 EST, Route to Pharmacy Electronically, [facility], Partial fill upon patient request if the prescription is for a schedule II opioid... Start Date: 08/29/21 Status: Ordered hydrALAZINE 25 mg oral tablet 50 mg, Tablet, By Mouth, 08/29/21 9:00:00 EST Start Date: 08/29/21 Stop Date: 08/29/21 Status: Completed hydrALAZINE 25 mg oral tablet 25 mg, 1, tablet, By Mouth, 3 times a day, # 90 tablet, Refills 0, Tot. Refills 0, Maintenance, 08/29/21 12:22:00 EST, Route to Pharmacy Electronically, [facility], Partial fill upon patient request if the prescription is for a schedule... Start Date: 08/29/21 Status: Ordered isosorbide mononitrate 30 mg oral tablet, extended release 1 tablet = 30 mg, By Mouth, Daily, # 30 tablet, 0 Refills, Maintenance, 08/29/21 12:10:00 EST, ER Tablet, [facility], Partial fill upon patient request if the prescription is for a schedule II opioid drug., 178, cm, 08/29/21 3:11:00 EST,... Start Date: 08/29/21 Status: Ordered thiamine 100 mg oral tablet 100 mg, 1, tablet, By Mouth, Daily, # 30 tablet, Refills 0, Tot. Refills 0, Acute 08/30/21 12:10:00EST, 08/29/21 12:10:00 EST, Route to Pharmacy Electronically, [facility], Partial fill upon patient request if the prescription is for a... Start Date: 08/29/21 Stop Date: 08/30/21 Status: Ordered Problem List Condition Effective Dates Status Health Status Inform ant Abnormal renal function(Confirmed) Active Alcoholism(Confirmed) Active Hypertension(Confirmed) Active Elevated LFTs(Confirmed) Active NSTEMI (non-ST elevated myoc ardial infarction)(Confirmed) Active Pain of finger of left hand(Confirmed) Active Vital Signs Most recent to oldest [Reference Range]: 1 2 3 Height 178 cm (08/29/21 3:11 AM) 178 cm (08/28/21 11:45 PM) 178 cm (08/28/21 8:24 PM) Weight 97.2 kg (08/27/21 10:54 PM) 97.2 kg (08/27/21 5:09 PM) Oxygen Saturation [94-100 %] 97 % (08/29/21 9:00 AM) 98 % (08/29/21 8:00 AM) 96 % (08/29/21 3:11 AM) Pulse Rate [55-90 bpm] 90 bpm (08/29/21 9:00 AM) 88 bpm (08/29/21 8:08 AM) 91 bpm *H* (08/29/21 3:11 AM) Blood Pressure [90-138/55-84 mm Hg] 141/91mm Hg *H* (08/29/21 9:00 AM) 153/118mm Hg *H* (08/29/21 8:08 AM) 153/118mm Hg *H* (08/29/21 8:07 AM) Respiratory Rate [16-30 br/min] 18 br/min (08/29/21 8:00 AM) 20 br/min (08/29/21 3:11 AM) 20 br/min (08/28/21 8:24 PM) Temperature [96.8-100.4 DegF] 98.1 DegF (08/29/21 8:00 AM) 97.8 DegF (08/29/21 3:11 AM) 97.8 DegF (08/28/21 8:24 PM) Mode of Delivery (Oxygen) Room air (08/29/21 9:00 AM) Room air (08/29/21 8:00 AM) Room air (08/29/21 3:11 AM) Blood pressure sites Arm, right (08/29/21 9:00 AM) Arm, right (08/29/21 8:00 AM) Arm, left (08/29/21 3:11 AM) Temperature Route Temporal (08/29/21 8:00 AM) Temporal (08/29/21 3:11 AM) Temporal (08/28/21 8:24 PM) Dry Weight 95.45 kg (08/27/21 5:09 PM) Weight Obtained Via Bed scale (08/27/21 5:09 PM) Dry Weight Obtained Via Patient/family s tated (08/27/21 5:09 PM) Social History Social History Type Response Smoking Status Never (less than 100 in lifetime) entered on: 03/18/21 Sex
--- OUTSIDE RECORDS SUMMARY | 2024-02-14 00:03 | XMS_ITS | Continuity of Care Document ---
Author Organization [facility] ter Address [address] [place] [id number]- Care Team Providers Care Pharmacy Customer Care Specialist Name Role Phone Kalia EDGAR, Mario Mott Primary Care Physician Encounter [facility] Date(s): 08/26/22 - 08/26/[address] [address]- Encounter Diagnosis Syncope(Final) - 08/26/22 Discharge Disposition: A-D/C Home Attending Physician: Sergei Fairchild MD Admitting Physician: Sergei Fairchild MD Referring Physician: Not on Staff, Referring MD Allergies, Adverse Reactions, Alerts No Known Medication Allergies Medications aspirin 81 mg oral delayed release tablet 81 mg, By Mouth, Daily, # 30 tablet, Refills 0, Tot. Refills 0, Maintenance, 08/29/21 12:09:00 EST,Route to Pharmacy Electronically, [facility], Partial fill upon patient request if the prescription is for a schedule II opioid drug., 17... Start Date: 08/29/21 Status: Ordered atorvastatin 80 mg oral tablet 1 tablet = 80 mg, By Mouth, Daily, # 30 tablet, 0 Refills, Maintenance, 08/29/21 12:09:00 EST, Tablet, [facility], Partial fill upon patient request if the prescription is for a schedule II opioid drug., 178, cm, 08/29/21 3:11:00 EST, He... Start Date: 08/29/21 Status: Ordered carvedilol 25 mg oral tablet 50 mg, 2, tablet, By Mouth, 2 times a day, # 360 tablet, Refills 3, Tot. Refills 3, Maintenance, 07/11/22 14:10:00 EST, Route to Pharmacy Electronically, [facility]/pharmacy #[id number], Partial fill upon patientrequest if the [...] 06/17/22 16:41:00 EST, Route to Pharmacy Electronically, [facility]/pharmacy #[id number], 178, cm, 05/28/22 14:57:00 EST, Height, 90.9, kg, 05/27/22 18:12:00 EST, Dry Weight Start Date: 06/17/22 Status: Ordered hydrALAZINE 25 mg oral tablet See Instructions, TAKE 3 TABLETS BY MOUTH 2 TIMES A DAY, # 810 tablet, Refills 1, Maintenance, 07/03/22 15:04:00 EST, Instructions Replace Required Details, Route to Pharmacy Electronically, [id number], 178, cm, 05/28/22 14:57:00 EST, Height, 90.... Start Date: 07/03/22 Status: Ordered isosorbide mononitrate 30 mg oral tablet, extended release 90 mg, 3, tablet, By Mouth, Daily, # 270 tablet, Refills 3, Tot. Refills 3, Maintenance, 10/22/21 8:48:00 EDT, Route to Pharmacy Electronically, [facility]/pharmacy #[id number], Partial fill upon patient request [...] 06/17/22 16:41:00 EST, Route to Pharmacy Electronically, [facility]/pharmacy #[id number], Partial fill upon patient requestif the prescription is for a schedule II opioid nahum... 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 HFrEF (heart failure with reduced ejection fraction) Confirmed Active Hypertension Confirmed Active Ischemic cardiomyopathy Confirmed Active Elevated LFTs Confirmed Active NSTEMI (non-ST elevated myocardial infarction) Confirmed Active Obese class I Confirmed Active Pain of finger of left hand Confirmed Active Priapism Confirmed Active Proteinuria Confirmed Active Scrotal mass Confirmed Active Fatty liver Confirmed Active Vertigo Confirmed Active 1Problem added by Discern Expert Vital Signs Most recent to oldest [Reference Range]: 1 2 3 Oxygen Saturation [94-100 %] 96 % (08/26/22 2:21 PM) 95 % (08/26/22 11:44 AM) 94 % (08/26/22 11:36 AM) Pulse Rate [55-90 bpm] 75 bpm (08/26/22 2:21 PM) 79 bpm (08/26/22 11:44 AM) 73 bpm (08/26/22 11:36 AM) Blood Pressure [90-138/55-84 mm Hg] 155/101mm Hg *H* (08/26/22 2:21 PM) 116/68mm Hg (08/26/22 11:44 AM) 111/56mm Hg (08/26/22 11:36 AM) Respiratory Rate [16-30 br/min] 20 br/min (08/26/22 2:21 PM) 21 br/min (08/26/22 11:44 AM) 19 br/min (08/26/22 11:36 AM) Temperature [96.8-100.4 DegF] 97.9 DegF (08/26/22 2:21 PM) 97.4 DegF (08/26/22 9:51 AM) Mode of Delivery (Oxygen) Room air (08/26/22 2:21 PM) Room air (08/26/22 11:44 AM) Room air (08/26/22 11:36 AM) Blood pressure sites Arm, left (08/26/22 2:21 PM) Arm, left (08/26/22 11:44 AM) Arm, left (08/26/22 9:51 AM) Temperature Route Oral (08/26/22 2:21 PM) Oral (08/26/22 9:51 AM) Social History Social History Type Response Smoking Status Never (less than 100 in lifetime); Other: chewing tabacco quit 8.5 years ago; entered on: 09/27/21 Sex EKG study * Event Display: ECG 12-Lead Authored Date: [id number] Please click on pdf link to open report * Event Display: ECG 12-Lead Authored Date: [id number] Ventricular Rate: 71 BPM Atrial Rate: 71 BPM P-R Interval: 146 ms QRS Duration: 90 ms Q-T Interval: 502 ms QTC Calculation(Bazett): 545 ms P Conyers: 40 degrees R Conyers: -29 degrees T Conyers: 19 degrees Normal sinus rhythm Moderate voltage criteria for LVH, may be normal variant ( R in aVL , [place] product ) Nonspecific ST abnormality Prolonged QT Abnormal ECG Confirmed by KIARRA ATWOOD ([id number]) on 08/26/2022 11:27:31 AM [place]: KIARRA ATWOOD Note * Cherelle EDGAR, Tenzin: PERFORM Event Display: Patient Education Leaflets Authored Date: [id number] Orthostatic Low Blood Pressure (Hypotension) ?? [id number] Orthostatic Low Blood Pressure (Hypotension) A blood pressure reading is made up of 2 numbers that are measured in millimeters of mercury (mmHg). There is a top number over a bottom number. The top number is the systolic pressure. The bottom number is the diastolic pressure. A normal blood pressure is a systolic pressure less than 120 mmHg over a diastolic pressure less than 80 mmHg.??Low blood pressure or hypotension is generally defined as a systolic blood pressure less than 90 mmHg. However, any drop in blood pressure greater than 40 mmHg from your normal baseline may be considered low blood pressure for you. Generally, the lower theblood pressure you have the better. However, it becomes a problem when it becomes too low and causes symptoms. Orthostatic hypotension??is a type of low blood pressure that occurs only when you change position from lying or sitting to standing. Any drop in systolic pressure of 20 mmHg or diastolic pressure of10 mm Hg when standing is significant. This drop in blood pressure can cause dizziness, lightheadedness, or fainting. Orthostatic hypotension is most commonly related to low blood volume or an abnormal neurological reflex. It's also more common as we age. However, it can be a sign of an underlying illness that may need further tests. Some medicines can cause orthostatic hypotension. These include: ??? High blood pressure medicines ??? Water pills (diuretics) ??? Some heart medicines ??? Some antidepressants ??? Pain, anxiety, sedative, and sleep medicines Other causes include: ??? Dehydration from vomiting, diarrhea, or not getting enough fluids ??? Severe infection ??? Highfever ??? Blood loss, such as bleeding from the stomach or intestines ??? Neurological diseases that affect the autonomic nervous system Treatment will depend on what is causing your low blood pressure. Home care Follow these guidelines when caring for yourself at home: ??? Rest until your symptoms get better. ??? Change positions slowly from lying to standing.??When getting out of bed, sit on the side of thebed with your legs down for at least 30 seconds before standing. This gives your body time to adjust to the position change. ??? Follow the treatment plan described by your healthcare provider. ?? Follow-up care Follow up with your healthcare provider, or as advised. ?? When to get medical advice Call your healthcare provider right away if any of these occur: ??? Mild dizziness or lightheadedness ??? Small amount of black or red color, or blood, in your stools or vomit ??? Diarrhea or vomiting that doesn???t go away ??? Not being able to eat or drink ??? Fever of 100.4??F (38??C) or higher, or as advised by your provider ??? Burning feeling when you pee??? Bad-smelling pee Call 911 Call 911, or get immediate medical care at the nearest emergency room if any of these occur: ??? Fainting; or severe dizziness or lightheadedness ??? Large amount of black or red color, or blood, in your stools or vomit ??? Abnormal chest pain or trouble breathing ?? Last Reviewed Date: 2021 ?? [employer]. All rights reserved. This information is not intended as a substitute for professional medical care. Always follow your healthcare professional's instructions. ?? * Tenzin Villarreal MD: PERFORM Event Display: Patient Education Leaflets Authored Date: [id number] Fainting: Vagal Reaction ?? [id number] Fainting: Vagal Reaction Fainting (syncope) is a temporary loss of consciousness. It???s also called passing out. It occurs when blood flow to the brain is reduced. Your healthcare provider believes that your fainting was because of a vagal reaction. This is usually not a sign of serious disease. A vagal reaction causes your pulse to slow down or the blood vessels to expand. This causes your blood pressure to fall. Less blood to your brain if you are standing or sitting. That results in dizziness, near-fainting, or fainting. Lying down and raising (elevating) your feet often stops the reaction. Fainting can occur during sudden fear, severe pain, emotional stress, overexertion, overheating. Hunger, nausea or vomiting, prolonged standing, or standing up after sitting or lying for a long time can also cause it. Home care Follow these steps when caring for yourself at home: ??? Get plenty of rest. Go back to your normalactivities as soon as you are feeling back to normal. ??? Stay hydrated and avoid skipping meals. ??? If you feel lightheaded or dizzy, lie down right away and elevate your legs. ?? Follow-up care Follow up with your healthcare provider, or as advised. Call 911 Call 911 if any of the following occur: ??? Another fainting spell that???s not explained by the common causes listed above ??? Pain in your chest, arm, neck, jaw, back, or abdomen ??? Shortness of breath ??? Severe headache or seizure ??? Your heart beats very rapidly, very slowly, or irregularly (palpitations) ?? Last Reviewed Date: 2021 ?? [employer]. All rights reserved. This information is not intended as a substitute for professional medical care. Always follow your healthcare professional's instructions. ?? Patient Care team information Care Team Personnel Name: Mario Motta MD Position: [facility] Primary Care Physician Member Role: PCP Address: Address: [address] [employer] [facility] [employer] [facility] [employer], [place] [address]- [place] Name: Magalie Jesus RN Position: [facility] OB RN Member Role: Primary Care Nurse Name: Tanmay Iraheta MD Position: [facility] Renal MD Member Role: [employer] Consulting Physician Address: Address: [address] [facility], [place] [address]- [place] Name: Tenzin Villarreal MD Position: [facility] Resident Member Role: ED Resident Address: Address: [address] [place] [address] [place] [address]- [place] Name: Jennifer Victoria Position: [facility] ED RN W/OE and Tasks Member Role: Patient Care Provider Name: Yana Kenny RN Position: [facility] ED RN W/OE and Tasks Member Role: Patient Care Provider Name: Marisel Galicia Position: [facility] ED TA [facility] Member Role: Air Crew Member Name: Sergei Fairchild MD Position: [facility] ED Medicine MD Member Role: Admitting Physician Address: Address: [address] [place] [address] [place] [address]- Care Team Related Persons Name: ROSALIO SANTOS Address: home [address] [place] [address]
--- OUTSIDE RECORDS SUMMARY | 2024-02-14 00:03 | XMS_ITS | Continuity of Care Document ---
Author Organization [facility] ter Address [address] [place] [address]- Care Team Providers Care Service Delivery Management Consultant Name Role Phone Kalia EDGAR, Mario Mott Primary Care Physician [phone] Encounter [facility] Date(s): 01/13/24 - 01/13/[address] [address] Discharge Disposition: A-D/C Home Attending Physician: Viry Benítez MD Admitting Physician: Viry Benítez MD Referring Physician: Viry Benítez MD Allergies, Adverse Reactions, Alerts No Known Allergies Immunizations Given and Recorded Vaccine Date Status Refusal Reason tetanus/diphtheria/pertussis, acel(Tdap) 03/02/23 Given pneumococcal 20-valent conjugate vaccine 03/02/23 Given Medications amLODIPine 5 mg oral tablet 5 mg, 1, tablet, By Mouth, Daily, Maintenance, 01/05/24 13:02:00 EDT Start Date: 01/05/24 Status: Ordered Aspirin Low Dose 81 mg oral delayed release tablet 1 tablet, By Mouth, Daily, # 90 tablet, 1 Refills, Maintenance, 09/22/23 19:39:00 EDT, [facility] STORE [id number], 177, cm, 06/26/23 9:16:00 EST, Height, 90, kg, 11/30/22 13:27:00 EDT, Dry Weight Start Date: 09/22/23 Status: Ordered atorvastatin 80 mg oral tablet 1 tablet = 80 mg, By Mouth, Daily, # 30 tablet, 0 Refills, Maintenance, 08/29/21 12:09:00 EST, Tablet, [facility], Partial fill upon patient request if the prescription is for a schedule II opioid drug., 178, cm, 08/29/21 3:11:00 EST, He... Start Date: 08/29/21 Status: Ordered carvedilol 25 mg oral tablet 1.5 tablets, By Mouth, 2 times a day, Refills 0, Maintenance, 06/26/23 9:15:00 EST Start Date: 06/26/23 Status: Ordered Centrum Men's 1 tablet, By Mouth, Daily, 0 Refills, Maintenance, 05/27/22 11:31:00 EST Start Date: 05/27/22 Status: Ordered finasteride 5 mg oral tablet 1 tablet = 5 mg, By Mouth, Daily, 0 Refills, Maintenance, 06/26/23 9:16:00 EST, Tablet Start Date: 06/26/23 Status: Ordered Fish Oil = 1,200 mg, By Mouth, Daily, 0 Refills, Maintenance, 06/26/23 9:15:00 EST Start Date: 06/26/23 Status: Ordered hydrALAZINE 100 mg oral tablet 1 tablet = 100 mg, By Mouth, 2 times a day, 0 Refills, Maintenance, 06/26/23 9:14:00 EST, Tablet Start Date: 06/26/23 Status: Ordered Jardiance 10 mg oral tablet 1 tablet = 10 mg, By Mouth, Daily in AM, # 30 tablet, 2 Refills, Maintenance, 10/23/23 16:36:00 EDT, Tablet, [facility]/pharmacy #[id number], Partial fill upon patient request if the prescription is for a schedule II opioid drug., 177, cm, 10/23/23 15:51:00 EDT, H... Start Date: 10/23/23 Status: Ordered Nitrostat 0.4 mg sublingual tablet 1 tablet = 0.4 mg, Sublingual, Every 5 minutes, PRN Chest Pain, not to exceed 3 doses/15 min--if pain persists, seek medical attention, 0 Refills, Maintenance, 05/27/22 11:31:00 EST Start Date: 05/27/22 Status: Ordered oxyCODONE 5 mg oral tablet 5 mg, 1, tablet, By Mouth, Every 6 hours, PRN, # 7 tablet, Refills 0, Tot. Refills 0, Acute 01/15/24 13:30:00 EDT, as needed for pain, 01/13/24 13:16:00 EDT, Route to Pharmacy Electronically, [facility]/pharmacy #[id number], Partial fill upon patient request if th... Start Date: 01/13/24 Stop Date: 01/15/24 Status: Ordered Problem List Condition Confirmation Course Effective Dates Status H ealth Status Informant Abnormal renal function Confirmed Active Alcoholism Confirmed Active Anemia Confirmed Active Chronic kidney disease Confirmed Active Kidney disease, chronic, stage III (GFR 30-59 ml/min) Confirmed Active CAD in [place] artery Confirmed Active COVID-19 1 Confirmed 05/28/22 [...] oldest [Reference Range]: 1 2 3 Height 177.8 cm (01/13/24 12:58 PM) 177.8 cm (01/05/24 1:27 PM) Weight 94.4 kg (01/13/24 12:58 PM) 95.4 kg (01/05/24 1:27 PM) Oxygen Saturation [94-100 %] 96 % (01/13/24 3:15 PM) 98 % (01/13/24 3:00 PM) 96 % (01/13/24 2:45 PM) Pulse Rate [55-90 bpm] 67 bpm (01/13/24 12:58 PM) Body Mass Index [18.5-24.99 kg/m2] 29.86 kg/m2 *H* (01/13/24 12:58 PM) 30.18 kg/m2 *>HHI* (01/05/24 1:27 PM) Blood Pressure [90-138/55-84 mm Hg] 169/122mm Hg *H* (01/13/24 3:15 PM) 156/108mm Hg *H* (01/13/24 3:00 PM) 154/111mm Hg *H* (01/13/24 2:45 PM) Respiratory Rate [16-30 br/min] 16 br/min (01/13/24 3:15 PM) 13 br/min *L* (01/13/24 3:00 PM) 17 br/min (01/13/24 2:45 PM) Temperature [96.8-100.4 DegF] 98 DegF (01/13/24 3:15 PM) 98.7 DegF (01/13/24 2:30 PM) 97.3 DegF (01/13/24 12:58 PM) Liters per Minute 5 L/min (01/13/24 2:30 PM) Mode of Delivery (Oxygen) Room air (01/13/24 3:15 PM) Room air (01/13/24 3:00 PM) Room air (01/13/24 3:00 PM) Blood pressure sites Arm, left (01/13/24 2:30 PM) Arm, left (01/13/24 12:58 PM) Temperature Route Temporal (01/13/24 3:15 PM) Temporal (01/13/24 2:30 PM) Temporal (01/13/24 12:58 PM) Dry Weight 94.4 kg (01/13/24 12:58 PM) 95.4 kg (01/05/24 1:27 PM) Weight Obtained Via Standing scale (01/13/24 12:58 PM) Patient/family stated (01/05/24 1:27 PM) Dry Weight Obtained Via Standing scale (01/13/24 12:58 PM) Patient/family stated (01/05/24 1:27 PM) Social History Social History Type Response Smoking Status Never (less than 100 in lifetime); Other: chewing tabacco quit 8.5 years ago; entered on: 09/27/21 Sex History and physical note * Viry Benítez MD: PERFORM Event Display: History and Physical Hospital Authored Date: [id number] CHIEF COMPLAINT: Right elbow soft tissue mass HISTORY OF PRESENT ILLNESS: The patient is a 48 year-old male with soft tissue mass over his right elbow. PAST MEDICAL HISTORY: HTN, cholesterol, anemia, kidney stones, [place] PAST SURGICAL HISTORY: None listed MEDICATIONS: See List. ALLERGIES: NKDA SOCIAL HISTORY: Denies tobacco use, reports marijuana use FAMILY HISTORY: Noncontributory. REVIEW OF SYSTEMS: Denies fevers, chills, unexplained weight loss or gain, night sweats, chest pain, shortness of breath, palpitations, nausea or vomiting. Has otherwise been healthy. PHYSICAL EXAMINATION: General: Pleasant, communicative and answering questions appropriately. HEENT: Head is normocephalic and atraumatic. Heart: Normal.RRR Chest: Lungs are normal. CTA Respirations were unlabored. Abdomen: Benign. Neurologic: Gait is normal. Extremities: per GROUND DEFENCE OFFICER evaluation: Full elbow range of motion, palpable and visible soft tissue mass ASSESSMENT: Elbow soft tissue mass indicated for excisional biopsy of mass PLAN: Surgical consents have been obtained reflecting discussion of risks, benefits and alternatives of the proposed procedures. Risks discussed include but are not limited to: infection, bleeding, damage to normal tissues, need for future surgeries. Benefits are found to outweigh the risks and appropriate preoperative consents have been obtained. The patient will be seen next on the date of surgery. * Event Display: History and Physical Hospital Authored Date: * Event Display: History and Physical Hospital Authored Date: [id number] Note * Elvi Ferraro RN: PERFORM Event Display: Discharge/Transfer Note Hospital Authored Date: [id number] Nursing Discharge Note Entered On: 01/13/2024 15:40 EDT Performed On: 01/13/2024 15:40 EDT by Elvi Ferraro RN Nursing Discharge Note 2 Discharge Time : 01/13/2024 15:37 EDT Discharge Level of Care at Discharge : Home/Senior Living/Foster Care Patient Left Unit Via : Wheelchair Patient Accompanied Off Unit with : Significant other DC Instructions Provided & Signed by Pt : Yes Patient Understands D/C Instructions : Yes Patient Instructions Discharge Signed : Yes Did Pt have Specialty Bed or Wound Vac : No Elvi Ferraro RN - 01/13/2024 15:40 EDT * Elvi Ferraro RN: PERFORM Event Display: Patient Education/Instruction Authored Date: [id number] Surgery Adult Discharge Instructions [address] [address] Name: DIANA ANDREWS : 1975?? Visit: 01/13/2024 11:01?? Current Date: 01/13/2024 15:18 ?? Account: [id number]?? Surgery Discharge Instructions We would like to thank you for allowing us to assist you with your healthcare needs. The following includes patient education materials and information regarding your injury/illness. Our entire staffstrives to provide an excellent experience for our patients and their families. PLEASE ENSURE YOU FOLLOW-UP PER THE INSTRUCTIONS BELOW! ?? YOUR OPINION IS IMPORTANT TO US! Please complete the survey you may receive by mail or email. Your feedback will be used to make improvements to the healthcare experiences of our patients and their families. Surveys are administered by [employer] ?? If further treatment with your primary care physician or another doctor is recommended, it is important for you to keep the appointment. Call your primary care physician or return to the Emergency Department immediately if your condition worsens, fails to improve, or new symptoms develop. If you need to find a doctor, you can call [facility] Link for a referral at [phone] or toll free at [phone] ([phone]) or log in to [email or web address] ?? [facility], in keeping with [facility] guidance, no longer requires face masks for staff, patientsor visitors in most situations. Similiar to time spent indoors at other locations, there is the chance that you were exposed to repiratory viruses during your time with us (such as flu or COVID-19). If you develop symptoms concerning for a viral respiratory infection, please seek testing (and treatment if indicated) from your medical provider or home test kit. ?? You can view and manage your care through the patient portal or by using a health care oneil of your choosing. [employer] is a website that allows you to securely view your medical information including your hospital discharge summary, office visit summaries, medications and follow-up visits. You can also request appointments, renew medications, and request access to your medical information using a health care oneil of your choosing, or just ask a question. You are entitled to know the individuals who participated in your treatment. This information is available within your medical record and will be provided upon your request. You can enroll at [email or web address] or register d uring your next office visit. You have been discharged from [facility], Patient Care Unit: [facility]??. If you have any questions regarding these instructions after you leave, please call us and we will be happy to assist you. [facility] Your Care Team Attending Physician Viry Benítez MD?? Discharging Providers Viry Benítez MD Reason for Admission MASS OF UPPER LIMB CSC DS Primary Care Provider Mario Motta MD? Advance Directive Health Care Proxy on File Yes - Health Care Proxy What to do next Instructions From Your Doctor ?? Orders?? evaluation by surgeon, ??01/13/24 13:18:00 EDT?? Prescriptions??, ??01/13/24 13:18:00 EDT?? Instructions from your Care Team FOLLOW POSTOP INSTRUCTIONS Scheduled Follow-Up Appointments Thursday 3:10 PM EDT ?? With: Mario Motta MD Where: [address] [address]- Status: Pending You Need to Schedule the Following Appointments Follow Up with??Viry Benítez When:??Within 1 to 2 weeks Where: [address] [place] [address] [address] [facility] [place] [address] [facility] (1) Follow Up with??Mario Motta When:??In 0 days Discharge Medications DIANA ANDREWS JR :1975 Visit Date:01/13/2024 Medications: Please continue your medications until treatment is completed or stopped by your provider. You may resume your daily prescription medications. Discuss any questions related to medications with your provider. What How Much When Instructions Next Dose New Oxycodone (oxyCODONE 5 mg oral tablet) 1 tab(s) Oral Every 6 hours as needed for as needed for pain Pickup at [facility]/pharmacy #[id number] Unchanged Amlodipine (amLODIPine 5 mg oral tablet) 1 tab(s) Oral Daily Unchanged Aspirin (Aspirin Low Dose 81 mg oral delayed release tablet) 1 tab(s) Oral Daily Unchanged Atorvastatin (atorvastatin 80 mg oral tablet) 1 tab(s) Oral Daily Unchanged Carvedilol (carvedilol 25 mg oral tablet) 1.5 tablets Oral Twice a day Unchanged empagliflozin (Jardiance 10 mg oral tablet) 1 tab(s) Oral Daily in the morning Unchanged Finasteride (finasteride 5 mg oral tablet) 1 tab(s) Oral Daily Unchanged hydrALAZINE (hydrALAZINE 100 mg oral tablet) 1 tab(s) Oral Twice a day Unchanged Multivitamin With Minerals (Centrum Men's) 1 tab(s) Oral Daily Unchanged Nitroglycerin (Nitrostat 0.4 mg sublingual tablet) 1 tab(s) Sublingual Every 5 minutes as needed for Chest Pain not to exceed 3 doses/ 15 min--if pain persists, seek medical attention ?? Unchanged [place]-3 Polyunsaturated Fatty Acids (Fish Oil) 1,200 Milligram Oral Daily Pharmacy Information [facility]/pharmacy #[id number]: [address] [place], [place] [id number] [phone] Allergies (NKA means No Known Allergies) NKA Education Materials Below is the list of Educational Leaflet Providered with your Discharge Instructions. [id number] Patient Education - Surgery Medical Daystay Surgical Overnight Discharge Instructions?? Valuables and Belongings I fully understand and agree that [facility] accepts no responsibility for all my personal property including clothing, toilet articles, radios, jewelry, dentures, hearing aids, rings, money, or any other property that is in my possession or is brought to me after admission. I understand certain valuables may be placed in a hospital safe for a short period of time. I understand that the hospital is not liable for loss or damage due to accident, fire, or other natural occurrence while said property is in the safe. I accept full responsibility for any personal property that I keep with me, and will not hold the hospital responsible in case of loss or disappearance. I acknowledge that i have been encouraged to send valuables and belongings home. ?? Disposition of Belongings: Other: under stretcher ?? Other Discharge Information ? Pulmonary Rehab Status?? Pulmonary Rehab Discharge Status?? Respiratory Rate:??13 br/min??Low ? Common Emergency Awareness Tips IS IT A STROKE? Act FAST and Check for these signs: FACE Does the face look uneven? ARM Does one arm drift down? SPEECH Does their speech sound strange? TIME Call at any sign of stroke ?? Heart Attack Signs Chest discomfort: Most heart attacks involve discomfort in the center of the chest and lasts more than a few minutes, or goes away and comes back. It can feel like uncomfortable pressure, squeezing, fullness or pain. Discomfort in upper body: Symptoms can include pain or discomfort in one or both arms, back, neck, jaw or stomach. Shortness of breath: With or without discomfort. Other signs: Breaking out in a cold sweat, nausea, or lightheaded. Remember, MINUTES DO MATTER. If you experience any of these heart attack warning signs, call to get immediate medical attention! ?? Smoking can increase your chances of developing chronic health problems and can cause harmful effects to other family members in your house. If you smoke, you are strongly encouraged to quit. Please call [facility] [email or web address] Link at [phone] or [phone] ([phone]) or log in to [email or web address] for referrals to smoking cessation programs. ?? The National Suicide Prevention Hotline is available 12/01 if you or someone you know needs to find a reason to keep living. By calling 2-111-833-[employer] (7406) you'll be connected to a skilled, trained counselor at a crisis center in your area. SURGERY DISCHARGE INSTRUCTIONS SIGNATURE PAGE DIANA ANDREWS JR Location:[facility] Registration Date and Time:01/13/2024 11:01 EDT Primary Care Physician: Kalia EDGAR, Mario Mott, Attending Physician: Viry Benítez MD, I DIANA ANDREWS JR, have received the above patient education materials/instructions and have verbalized understanding. If ambulance or transport services are being used I further acknowledge being given a choice of service. ?? If you need to contact me, please call me at this number: . Patient/Paperhanger Supervisor Name: Patient/Paperhanger Supervisor Signature: Relationship to Patient: Witness Name/Signature: Date: * Elvi Ferraro RN: PERFORM, SIGN, VERIFY Event Display: Patient Education Handout Authored Date: [id number] * Elvi Ferraro RN: PERFORM Event Display: Patient Education Leaflets Authored Date: [id number] Surgery Medical Daystay Surgical Overnight Discharge Instructions ?? 295 Medical Daystay/Surgical Overnight Discharge Instructions ? Since your coordination and judgment may be altered by medication and/or anesthesia, a responsible adult must drive you home from the hospital. ? If you have received medication for pain or sedation while under our care, you should not drive, operate machinery, drink alcohol, or sign any legal documents for 24 hours.?? You should have someone with you at home tonight. ? Remain at home the day of discharge.?? You may be up and about unless otherwise instructed by your physician. ? You may resume your daily prescription medication schedule.?? Any depressant medication should be avoided for 24 hours unless otherwise instructed by your surgeon or anesthesiologist. ? Call your physician for a follow-up appointment.? If you experience unusual or severe pain not relied by your pain medication, excessive bleedingor drainage, persistent nausea and vomiting, excessive swelling or redness, foul odor from incisionsite or fever over 100.6F, you need to call your physician. ? A follow-up phone call by a nurse will be made the day after your procedure.?? If you have stayed with us over night, you will not be receiving a follow-up phone call. ? Nausea and vomiting are a common side effect of prescription pain medication.?? We recommend that pills are not taken on an empty stomach.?? While taking any prescription pain medication you should not drive or drink alcohol. ? Patient Care team information Care Team Personnel Name: Kalia EDGAR, Mario Mott Position: [facility] Physician - Primary Care Member Role: PCP Address: Address: [address] [place] [address]- [place] Name: Magalie Jesus RN Position: [facility] OB RN Member Role: Primary Care Nurse Name: Tanmay Iraheta MD Position: [facility] Renal Member Role: Lifetime Consulting Physician Address: Address: [address] [facility] [place] [address]- [place] Care Team Related Persons Name: ROSALIO SANTOS Address: home [address] [place] [address]
--- OUTSIDE RECORDS SUMMARY | 2024-02-14 00:03 | XMS_ITS | Continuity of Care Document ---
Author Organization [facility] Adult Address [address] [place] [address]- Care Team Providers Care Bar Turner Name Role Phone Kalia EDGAR, Mario Mott Primary Care Physician [phone] Encounter [facility] Date(s): 06/25/22 - 07/25/22 [facility] [address] [place] [address]- Allergies, Adverse Reactions, Alerts No Known Medication Allergies Medications aspirin 81 mg oral delayed release tablet 81 mg, By Mouth, Daily, # 30 tablet, Refills 0, Tot. Refills 0, Maintenance, 08/29/21 12:09:00 EST,Route to Pharmacy Electronically, [facility] 3, Partial fill upon patient request if the prescription is for a schedule II opioid drug., 17... Start Date: 08/29/21 Status: Ordered atorvastatin 80 mg oral tablet 1 tablet = 80 mg, By Mouth, Daily, # 30 tablet, 0 Refills, Maintenance, 08/29/21 12:09:00 EST, Tablet, [facility] 3, Partial fill upon patient request if the prescription is for a schedule II opioid drug., 178, cm, 08/29/21 3:11:00 EST, He... Start Date: 08/29/21 Status: Ordered carvedilol 25 mg oral tablet 50 mg, 2, tablet, By Mouth, 2 times a day, # 360 tablet, Refills 3, Tot. Refills 3, Maintenance, 07/11/22 14:10:00 EST, [id number] Partial fill upon patientrequest if the prescription [...] 06/17/22 16:41:00 EST, Route to Pharmacy Electronically, [facility]/pharmacy #[id number], 178, cm, 05/28/22 14:57:00 EST, Height, 90.9, kg, 05/27/22 18:12:00 EST, Dry Weight Start Date: 06/17/22 Status: Ordered hydrALAZINE 25 mg oral tablet See Instructions, TAKE 3 TABLETS BY MOUTH 2 TIMES A DAY, # 810 tablet, Refills 1, Maintenance, 07/03/22 15:04:00 EST, Instructions Replace Required Details, Route to Pharmacy Electronically, [facility] STORE [id number], 178, cm, 05/28/22 14:57:00 EST, Height, 90.... Start Date: 07/03/22 Status: Ordered isosorbide mononitrate 30 mg oral tablet, extended release 90 mg, 3, tablet, By Mouth, Daily, # 270 tablet, Refills 3, Tot. Refills 3, Maintenance, 10/22/21 8:48:00 EDT, Route to Pharmacy Electronically, [facility]/pharmacy #[id number], Partial fill upon patient request [...] 06/17/22 16:41:00 EST, Route to Pharmacy Electronically, [facility]/pharmacy #[id number], Partial fill upon patient requestif the prescription is for a schedule II opioid nahum... Start Date: 06/17/22 Status: Ordered Problem List Condition Confirmation Course Effective Dates Status H ealth Status Informant Abnormal renal function Confirmed Active Alcoholism Confirmed Active Anemia Confirmed Active Chronic kidney disease Confirmed Active Kidney disease, chronic, stage III (GFR 30-59 ml/min) Confirmed Active CAD in [place] artery Confirmed Active COVID-19 1 Confirmed 05/28/22 [...] Personnel Name: Kalia EDGAR, Mario Mott Position: [facility] Primary Care Physician Member Role: PCP Address: Address: [address] [place] [address] [address] [place] [address]- Name: Magalie Jesus RN Position: [facility] OB RN Member Role: Primary Care Nurse Name: Tanmay Iraheta MD Position: [facility] Renal MD Member Role: Lifetime Consulting Physician Address: Address: [address] [place] [address] [address] [facility] [place] [address]- Care Team Related Persons Name: ROSALIO SANTOS Address: home [address] [place] [address]
--- OUTSIDE RECORDS SUMMARY | 2024-02-14 00:03 | XMS_ITS | Continuity of Care Document ---
Author Organization [facility] ter Address [address] [place] [id number] Care Team Providers Care Appointment Specialist Name Role Phone Kalia EDGAR, Mario Mott Primary Care Physician Encounter [facility] Date(s): 05/27/22 - 05/28/[address] [id number] Encounter Diagnosis Hypertension(Discharge Diagnosis) - 05/27/22 Discharge Disposition: A-D/C Home Attending Physician: Luigi Wilson MD Admitting Physician: Adan Penaloza MD Referring Physician: Not on Staff, Referring MD Allergies, Adverse Reactions, Alerts No Known Medication Allergies Medications aspirin 81 mg oral delayed release tablet 81 mg, By Mouth, Daily, # 30 tablet, Refills 0, Tot. Refills 0, Maintenance, 08/29/21 12:09:00 EST,Route to Pharmacy Electronically, [facility] 3, Partial fill upon patient request if the prescription is for a schedule II opioid drug., 17... Start Date: 08/29/21 Status: Ordered atorvastatin 80 mg oral tablet 1 tablet = 80 mg, By Mouth, Daily, # 30 tablet, 0 Refills, Maintenance, 08/29/21 12:09:00 EST, Tablet, [facility], Partial fill upon patient request if the prescription is for a schedule II opioid drug., 178, cm, 08/29/21 3:11:00 EST, He... Start Date: 08/29/21 Status: Ordered Centrum Men's 1 tablet, By Mouth, Daily, 0 Refills, Maintenance, 05/27/22 11:31:00 EST, Partial fill upon patientrequest if the prescription is for a schedule II opioid drug. Start Date: 05/27/22 Status: Ordered Coreg 12.5 mg oral tablet 37.5 mg, Tablet, By Mouth, 05/28/22 9:00:00 EST Start Date: 05/28/22 Stop Date: 05/28/22 Status: Completed Coreg 25 mg oral tablet 37.5 mg, 1.5, tablet, By Mouth, 2 times a day, new dose, # 270 tablet, Refills 3, Tot. Refills 3, Maintenance, 09/27/21 15:23:00 EDT, Route to Pharmacy Electronically, [facility]/pharmacy #[id number], Partial fill upon patient request if the prescription is for a... Start Date: 09/27/21 Status: Ordered folic acid 1 mg oral tablet 1, tablet, By Mouth, Daily, # 90 tablet, Refills 1, Tot. Refills 1, Maintenance, 04/20/22 22:37:00 EDT, Route to Pharmacy Electronically, [facility]/pharmacy #[id number], 177.5, cm, 03/28/22 15:52:00 EDT, Height,98.2, kg, 09/10/21 17:39:00 EDT, Dry Weight Start Date: 04/20/22 Status: Ordered hydrALAZINE 25 mg oral tablet 75 mg, Tablet, By Mouth, 05/28/22 15:00:00 EST Start Date: 05/28/22 Stop Date: 05/28/22 Status: Completed hydrALAZINE 25 mg oral tablet 75 mg, 3, tablet, By Mouth, 3 times a day, # 270 tablet, Refills 3, Tot. Refills 3, Maintenance, 10/22/21 8:48:00 EDT, Route to Pharmacy Electronically, [facility]/pharmacy #[id number], Partial fill upon patient request if the prescription is for a schedule II opi... Start Date: 10/22/21 Status: Ordered isosorbide mononitrate 30 mg oral tablet, extended release 90 mg, 3, tablet, By Mouth, Daily, # 270 tablet, Refills 3, Tot. Refills 3, Maintenance, 10/22/21 8:48:00 EDT, Route to Pharmacy Electronically, [facility]/pharmacy #[id number], Partial fill upon [...] tablet, By Mouth, Daily, Refills 0, Maintenance, 05/27/22 11:30:00 EST, Partial fill upon patient request if the prescription is for a schedule II opioid drug. Start Date: 05/27/22 Status: Ordered Zinc-220 220 mg oral capsule 1 capsule = 220 mg, By Mouth, Daily, 0 Refills, Maintenance, 05/27/22 11:31:00 EST, Partial fill upon patient request if the prescription is for a schedule II opioid drug. Start Date: 05/27/22 Status: Ordered Problem List Condition Confirmation Course Effective Dates Status H ealth Status Informant Abnormal renal function Confirmed Active Alcoholism Confirmed Active Anemia Confirmed Active Chronic kidney disease Confirmed Active Kidney disease, chronic, stage III (GFR 30-59 ml/min) Confirmed Active CAD in [place] artery Confirmed Active COVID-19 1 Confirmed 05/28/22 [...] mass Confirmed Active Fatty liver Confirmed Active 1Problem added by Discern Expert Diagnosis Diagnosis Type Effective Dates Health Status Cl inical Service Informant Hypertension Discharge Diagnosis 05/27/22 Non-Specified Results Radiology Reports * Exam Date Time Procedure Performing Provider Status 05/26/22 8:12 PM Chest 2 Views Frontal and Lat Neil Messina; Auth (Verified) Notes: (Chest 2 Views Frontal and Lat) Reason For Exam: Chest Pain;Other: RESULT: Chest 2 Views Frontal and Lat Chest 2 Views Frontal and Lat Hx of Present Illness: Pt sts last Thursday he was at a restaurant w partner and had an episode of syncope. Was transported to [facility] and found to be very hypotensive. When he felt better signed himself out. Has name serious health problems. Was told he had an elevated; Reason: Other:; Chest Pain; Clinical Question(s): Other: COMPARISON: 09/10/2021 FINDINGS: LINES AND TUBES: None. LUNGS AND PLEURA: Clear lungs. Normal pulmonary vascularity. No pleural effusion. No pneumothorax. HEART, MEDIASTINUM AND DEEDEE: Heart is normal in size. Normal mediastinal and hilar contour. BONES AND SOFT TISSUES: No acute abnormality. IMPRESSION: No acute abnormality. WSN: [id number] Ordering Physician: Dipesh Freedman Dictated By: Berry Ramirez MD Dictated Date/Time: 05/26/22 8:20 pm Reviewed By: Berry Ramirez MD Signed By: Berry Ramirez MD Signed Date/Time: 05/26/22 8:20 pm Transcribed By: ABEL Transcribed Date/Time: 05/26/22 8:20 pm Vital Signs Most recent to oldest [Reference Range]: 1 2 3 Height 178 cm (05/28/22 2:57 PM) 178 cm (05/28/22 8:26 AM) 178 cm (05/28/22 4:33 AM) Weight 90.9 kg (05/27/22 5:41 PM) Oxygen Saturation [94-100 %] 98 % (05/28/22 2:57 PM) 97 % (05/28/22 12:00 PM) 98 % (05/28/22 8:26 AM) Pulse Rate [55-90 bpm] 101 bpm *H* (05/28/22 2:57 PM) 93 bpm *H* (05/28/22 12:00 PM) 97 bpm *H* (05/28/22 9:46 AM) Body Mass Index [18.5-24.99 kg/m2] 28.69 kg/m2 *H* (05/27/22 5:41 PM) Blood Pressure [90-138/55-84 mm Hg] 129/85mm Hg (05/28/22 3:54 PM) 129/85mm Hg (05/28/22 2:57 PM) 133/90mm Hg (05/28/22 12:00 PM) Respiratory Rate [16-30 br/min] 19 br/min (05/28/22 2:57 PM) 17 br/min (05/28/22 12:00 PM) 19 br/min (05/28/22 8:26 AM) Temperature [96.8-100.4 DegF] 98.7 DegF (05/28/22 2:57 PM) 98.6 DegF (05/28/22 12:00 PM) 98.2 DegF (05/28/22 8:26 AM) Mode of Delivery (Oxygen) Room air (05/28/22 2:57 PM) Room air (05/28/22 12:00 PM) Room air (05/28/22 8:26 AM) Blood pressure sites Arm, right (05/28/22 2:57 PM) Arm, right (05/28/22 12:00 PM) Arm, left (05/28/22 8:26 AM) Temperature Route Oral (05/28/22 2:57 PM) Oral (05/28/22 12:00 PM) Oral (05/28/22 8:26 AM) Dry Weight 90.9 kg (05/27/22 5:41 PM) Weight Obtained Via UTO (05/26/22 7:12 PM) Dry Weight Obtained Via UTO (05/26/22 7:12 PM) Social History Social History Type Response Smoking Status Never (less than 100 in lifetime); Other: chewing tabacco quit 8.5 years ago; entered on: 09/27/21 Sex Admission evaluation note * Red EDGAR, Anjel Alas: PERFORM, MODIFY, MODIFY, MODIFY Event Display: Admission Note Authored Date: Patient: ??DIANA ANDREWS ? Age:??47 Years?Sex:??Male?:??1975?? Chief Complaint/Reason for Consultation Referred to the ED by his PCP for follow-up of an NSTEMI he suffered about a week prior. History of Present Illness 47-year-old gentleman with past medical history of coronary artery disease, hypertension,??alcoholism, priapism,??status post LA x2??who lives in the [place], [place]??and is had gone to the??holiday??in [place]??with his girlfriend??for holiday.?? About a week back??the patient states that he was??standing up from sitting position??as a??he was dizzy??and he??fell to the ground.?? He lost his consciousness??and the patient was brought to??hospital in [place] in [place].?? He was apparently??hypotensive??with??acute renal failure??and non-STEMI.?? The patient had??left??[facility] AGAINST MEDICAL ADVICE.?? He said that??he had??LA in August??2021.?? He denies having any chest pain or shortness of breath??or dizziness now.?? Blood pressures are very high??214/149??mmHg.?? Highly specific??troponins??were 91, 90.?? proBNP was??640.?? The patient is being admitted to [facility] for further evaluation and treatment. ? 1.? Acute coronary syndrome: Patient has history of coronary artery disease Patient had??2 MIs in the past And recently he went to [place]??for holiday with his girlfriend Patient said??that??while he was trying to stand up??from sitting position,??he felt dizzy Troponins??are elevated 91, 90 We will continue with aspirin ? 2.? Alcohol excess: Patient??has history of alcohol??excess I have counseled the patient regarding the potential??receiving side effects of??increased alcohol intake We will monitor the patient on CIWA scale Multivitamin, thiamine, folic acid I have ordered??social media job titles consult ? 3.? Hypertensive??urgency: Apparently patient had syncope?? Patient??states that he passed out??and had a fall Denies head injury Apparently blood pressure was very low??at that time ? 4.? DVT prophylaxis: Subcu heparin Diet:??Cardiac diet CODE STATUS: Full code ? I have discussed the above plan with the patient at bedside??and he is in agreement Objective ? Vital Signs?? Temperature: 98.8 DegF (05/27/22 08:57:00) Temperature Route: Oral (05/27/22 08:57:00) Pulse Rate:??103 bpm??High (05/27/22 08:57:00) Respiratory Rate: 18 br/min (05/27/22 08:57:00) Systolic Blood Pressure: 122 mm Hg (05/27/22 08:57:00) Diastolic Blood Pressure:??89 mm Hg??High (05/27/22 08:57:00) Blood pressure sites: Arm, left (05/27/22 08:57:00) Mean Arterial Pressure: 118 mm Hg (05/27/22 08:05:00) Pulse Pressure: 33 mm Hg (05/27/22 08:57:00) Oxygen Saturation: 97 % (05/27/22 08:57:00) Mode of Delivery (Oxygen): Room air (05/27/22 08:57:00) Early Warning Score: 1 (05/27/22 09:00:12) ? Intake/Output? No Data Available ?? Precautions No Precautions documented.? Mobility & Ambulation Level Mobility & Ambulation Level?? No qualifying data available. ? Physical Exam General: Alert Mental Status: Oriented to person, place and time. Head: Normocephalic. Neck: Supple Respiratory: Clear to auscultation and percussion. No wheezing, rales or rhonchi. Cardiovascular: Heart sounds normal. No thrills. Regular rate and rhythm, no murmurs, rubs or gallops. Gastrointestinal: Abdomen soft, non-tender, non-distended. Normal bowel sounds.?? Neurologic: Cranial nerves II-XII grossly intact. No focal neurological deficits. Sensation intact bilaterally. Skin: No rashes or lesions.?? Musculoskeletal: No cyanosis Assessment/Plan Diagnoses Accelerated hypertension ??(I10) Alcohol use disorder, severe, dependence ??(F10.20) HFrEF (heart failure with reduced ejection fraction) ??(I50.20) Hypertension ??(I10) ?? Assessment:??47-year-old gentleman with past medical history of coronary artery disease, hypertension, alcoholism, priapism, status post LA x2 who lives in the [place], [place] and is had gone to the holiday in [place] with his girlfriend for holiday. About a week back the patient states that he was standing up from sitting position as a he was dizzy and he fell to the ground. He lost his consciousness and the patient was brought to hospital in [place] in [place]. He was apparently hypotensive with acute renal failure and non- STEMI. The patient had left [facility] AGAINST MEDICAL ADVICE. He said that he had LA in August 2021. He denies having any chest pain or shortness of breath or dizziness now. Blood pressures are very high 214/149 mmHg. Highly specific troponins were 91,90. proBNP was 640. The patient is being admitted to [facility] for further evaluation and treatment. ? 1. Acute coronary syndrome: Patient has history of coronary artery disease Patient had 2 MIs in the past And recently he went to [place] for holiday with his girlfriend Patient said that while he was trying to stand up from sitting position, he felt dizzy Troponins are elevated 91, 90 We will continue with aspirin We will consult??cardiology team??for further evaluation ? 2. Alcohol excess: Patient has history of alcohol excess I have counseled the patient regarding the potential receiving side effects of increased alcohol intake We will monitor the patient on CIWA scale Multivitamin, thiamine, folic acid I have ordered social media job titles consult ? 3. Hypertensive urgency: Blood pressure was as high as 214/149 mmHg Apparently patient had syncope Patient states that he passed out and had a fall Denies head injury Apparently blood pressure was very low at that time ? 4.? DVT prophylaxis: Subcu heparin Diet: Cardiac diet CODE STATUS: Full code ? I have discussed the above plan with the patient at bedside and he is in agreement ?? Discharge Planning:? Histories Allergies Allergies ?(Active and Proposed Allergies Only) No Known Medication Allergies? (Severity: Unknown severity, Onset: Unknown) ? 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 Past Surgical History No surgery history [...] Electronic Cigarette/Vaping Details:??Electronic Cigarette Use: Never. ? Psychosocial History ? Family History Father: Diabetes mellitus type 2; Stroke Sister: Stroke ? Medications Home Medications Amlodipine (amLODIPine 5 mg oral tablet)?1?tab(s)?By Mouth?Daily Aspirin (aspirin 81 mg oral delayed release tablet)?81?Milligram?By Mouth?Daily Atorvastatin (atorvastatin 80 mg oral tablet)?1?tab(s)?80?Milligram?By Mouth?Daily Carvedilol (Coreg 25 mg oral tablet)?37.5?Milligram?1.5?tablet?By Mouth?2 times aday?new dose Folic Acid (folic acid 1 mg oral tablet)?1?tablet?By Mouth?Daily hydrALAZINE (hydrALAZINE 25 mg oral tablet)?75?Milligram?3?tablet?By Mouth?3 times a day Isosorbide Mononitrate (isosorbide mononitrate 30 mg oral tablet, extended release)?90?Milligram?3?tablet?By Mouth?Daily Multivitamin With Minerals (Centrum Men's)?1?tab(s)?By Mouth?Daily Nitroglycerin (Nitrostat 0.4 mg sublingual tablet)?1?tab(s)?0.4?Milligram?Sublingual?Every 5 minutes?as needed?Chest Pain?not to exceed 3 doses/15 min--if pain persists, seek medical attention Thiamine (Vitamin B1 100 mg oral tablet)?100?Milligram?1?tablet?By Mouth?Daily Zinc Sulfate (Zinc-220 220 mg oral capsule)?1?capsule?220?Milligram?By Mouth?Daily ? Inpatient Medications Medications (32) Active SCHEDULED: (13) Aspirin 81 mg EC Tablet (aspirin 81 mg oral delayed release tablet) ??81 mg, By Mouth, Daily Carvedilol 12.5 mg Tablet (Coreg 12.5 mg oral tablet) ??37.5 mg, By Mouth, 2 times a day Chlordiazepoxide 25 mg Capsule (Librium Capsule) ??50 mg, By Mouth, Every 6 hours Folic Acid 1 mg Tablet (folic acid 1 mg oral tablet) ??1 mg, By Mouth, Daily Heparin 5000 units/mL Inj (1 mL) (Heparin Inj) ??5,000 units 1 mL, Subcutaneous Injection, 3 times a day hydrALAZINE 25 mg Tablet (hydrALAZINE 25 mg oral tablet) ??75 mg, By Mouth, 3 times a day Isosorbide Mononitrate 30 mg ER Tablet (Imdur 30 mg oral tablet, extended release) ??90 mg, By Mouth, Daily Multivitamin Tablet ??1 tablet, By Mouth, Daily NaCl 0.9% Flush 3ml (NaCL 0.9% Flush) ??3 mL, IV Push, Every 8 hours NaCl 0.9% Flush 3ml (NaCL 0.9% Flush) ??3 mL, IV Push, Every 8 hours Pyridoxine 50 mg Tablet (Pyridoxine Tablet) ??50 mg, By Mouth, Daily Thiamine 100 mg Tablet (Thiamine Tablet) ??100 mg, By Mouth, 2 times a day Zinc Sulfate 220 mg Capsule (zinc sulfate 220 mg oral capsule) ??220 mg, By Mouth, Daily CONTINUOUS: (0) PRN: (19) Acetaminophen 325 mg Tablet (Acetaminophen Tablet) ??650 mg, By Mouth, Every 4 hours Dextromethorphan-Guaifenesin 20 mg-200 mg/10 mL Liqu UD (Robitussin DM Liquid) ??10 mL, By Mouth, Every 4 hours Dextromethorphan-Guaifenesin 20 mg-200 mg/10 mL Liqu UD (Robitussin DM Liquid) ??10 mL, By Mouth, Every 4 hours Lorazepam 1 mg Tablet (Ativan Tablet) ??1 mg, By Mouth, Every 2 hours Lorazepam 2 mg Inj Syringe (Ativan Inj) ??1 mg, IV Push Slowly, Every 2 hours Lorazepam 2 mg Inj Syringe (Ativan Inj) ??2 mg, IV Push Slowly, Every 2 hours Lorazepam 2 mg Inj Syringe (Ativan Inj) ??2 mg, IV Push Slowly, Every hour Lorazepam 2 mg Tablet (Ativan Tablet) ??2 mg, By Mouth, Every 2 hours Lorazepam 2 mg Tablet (Ativan Tablet) ??2 mg, By Mouth, Every hour Melatonin 3 mg Tablet (Melatonin Tablet) ??3 mg, By Mouth, Daily at bedtime NaCl 0.9% Flush 3ml (NaCL 0.9% Flush) ??3 mL, IV Push, Every 8 hours NaCl 0.9% Flush 3ml (NaCL 0.9% Flush) ??3 mL, IV Push, Every 8 hours Nitroglycerin 0.4 mg Sublingual Tablet (Nitroglycerin 0.4mg Sublingual Tablet) ??0.4 mg, Sublingual, Every 5 minutes Polyethylene Glycol 17 Gm Powder (MiraLax Powder) ??17 Gm 1 pack/packet, By Mouth, Daily Polyethylene Glycol 17 Gm Powder (MiraLax Powder) ??17 Gm 1 pack/packet, By Mouth, Daily Senna 8.6 mg / Docusate 50 mg tablet (Docusate/Senna Tablet) ??1 tablet, By Mouth, 2 times a day Senna 8.6 mg / Docusate 50 mg tablet (Docusate/Senna Tablet) ??1 tablet, By Mouth, 2 times a day Simethicone 80 mg Chewable Tablet (Simethicone Tablet) ??80 mg, Chew, 3 times a day Simethicone 80 mg Chewable Tablet (Simethicone Tablet) ??80 mg, Chew, 3 times a day ? Results Recent Labs BLOOD COUNT & DIFF WBC 6.6 k/mm3 ()?? 05/26/2022 20:01 RBC 4.71 m/mm3 ()?? 05/26/2022 20:01 Hgb 14.1 Gm/dL ()?? 05/26/2022 20:01 Hct 44.2 % ()?? 05/26/2022 20:01 MCV 93.8 femtoliters ()?? 05/26/2022 20:01 MCH 29.9 pg ()?? 05/26/2022 20:01 MCHC 31.9 g/dL (Low)?? 05/26/2022 20:01 Platelet Count 228 k/mm3 ()?? 05/26/2022 20:01 RDW-SD 46.7 femtoliters ()?? 05/26/2022 20:01 MPV 9.5 femtoliters ()?? 05/26/2022 20:01 Nucleated RBC (Automated) 0.0 #/100 WBC'S ()?? 05/26/2022 20:01 Abs. NRBC 0.0 k/mm3 ()?? 05/26/2022 20:01 Abs. Neut 4.6 k/mm3 ()?? 05/26/2022 20:01 Abs. Lymph 1.5 k/mm3 ()?? 05/26/2022 20:01 Abs. Carter 0.4 k/mm3 ()?? 05/26/2022 20:01 Abs. Eo 0.0 k/mm3 ()?? 05/26/2022 20:01 Abs. Baso 0.1 k/mm3 ()?? 05/26/2022 20:01 Neut % 69.6 % ()?? 05/26/2022 20:01 Lymph % 22.7 % ()?? 05/26/2022 20:01 Carter % 6.1 % ()?? 05/26/2022 20:01 Eos % 0.5 % ()?? 05/26/2022 20:01 Baso % 0.8 % ()?? 05/26/2022 20:01 Imm Gran 0.3 % ()?? 05/26/2022 20:01 Abs. Imm Gran 0.0 k/mm3 ()?? 05/26/2022 20:01 ?? CARDIAC Nt-Probnp 640 pg/mL (High)?? 05/26/2022 20:01 High Sensitivity Troponin (HSTnT) 90 ng/L (Critical)?? 05/26/2022 22:04 ?? CHEM GENERAL Sodium 137 mmol/L ()?? 05/26/2022 20:01 Potassium 4.4 mmol/L ()?? 05/26/2022 20:01 Chloride 100 mmol/L ()?? 05/26/2022 20:01 Bicarbonate Level 13 mmol/L (Low)?? 05/26/2022 20:01 Anion Gap 24 (High)?? 05/26/2022 20:01 Glucose Level 54 mg/dL (Low)?? 05/26/2022 20:01 BUN 28 mg/dL (High)?? 05/26/2022 20:01 Creatinine-Blood 2.0 mg/dL (High)?? 05/26/2022 20:01 Estimated GFR Creatinine 40 ML/MIN/1.73 M2 ()?? 05/26/2022 20:01 Calcium 9.9 mg/dL ()?? 05/26/2022 20:01 ?? HEME OTHER Hold Blue Top SPECIMEN DISCARDED AFTER 4 HOURS. ()?? 05/26/2022 20:01 ?? TOXICOLOGY/TDM Ethanol, Serum or Plasma NONE DETECTED mg/dL ()?? 05/27/2022 02:43 ?? VIROLOGY COVID-19 by RT-PCR POSITIVE (Abnormal)?? 05/27/2022 06:17 ? * Milena EDGAR, Christofer Alvarado: PERFORM Event Display: Admission Note Authored Date: Patient: ??DIANA ANDREWS ? Age:??47 Years?Sex:??Male?:??1975?? Chief Complaint/Reason for Consultation Referred to the ED by his PCP for follow-up of an NSTEMI he suffered about a week prior. History of Present Illness 47-year-old man with a history of alcohol use disorder and a longstanding history of uncontrolled hypertension, HFrEF (35-40%), NSTEMI x2 (in August 2021 and a week prior to this presentation) and cardiomyopathy presents to the emergency department from home at the recommendation of his PCP for follow-up of a suspected NSTEMI a week prior to this presentation. ?? Patient reports poor adherence to his antihypertensive medications and a week prior to this presentation was at [place] when he became suddenly poorly responsive.?? He was seen at [facility] in [place] where as per patient he was diagnosed with an NSTEMI.?? He denies having a cardiac catheterization or stress test but has since tried to be more compliant with his antihypertensivemedications.?? Prior to coming to the emergency department today he denies fever, chills, headache,dizziness, chest pain, shortness of breath, abdominal pain or diarrhea. ?? Review of his documentation in [facility] show that he has recently had a cardiac cath which showed nonobstructive coronary disease.?? His last echocardiogram was in August 2021 and revealed moderate MR, moderate global hypokinesis, and severe LVH.?? In the past, he has not been tolerant to Entresto and due to CKD stage III he was not started on AZIZA/ARB's but rather started on Imdur/hydralazine/Coreg. ?? On presenting to the emergency department, he was afebrile and tachycardic with a heart rate between 100-140 bpm.?? He also had a markedly elevated blood pressure of 203/135 and the remainder of his vitals were stable and within normal limits.?? His blood work revealed an elevated but flat troponin level of 91 = >90, an EGFR of 40 (at baseline) and an anion gap metabolic acidosis with a bicarb of 13 and an anion gap of 24.?? Patient was started back on his home dose of Imdur, hydralazine and Coreg and admitted to telemetry for further management. Review of Systems As per HPI, remainder of review of systems negative. Objective Vital Signs?? Temperature: 98.5 DegF (05/27/22 02:00:00) Temperature Route: Oral (05/27/22 02:00:00) Pulse Rate:??107 bpm??High (05/27/22 02:33:00) Respiratory Rate: 17 br/min (05/27/22 02:33:00) Systolic Blood Pressure:??214 mm Hg??High (05/27/22 02:33:00) Diastolic Blood Pressure:??149 mm Hg??High (05/27/22 02:33:00) Blood pressure sites: Arm, left (05/27/22 02:33:00) Mean Arterial Pressure: 171 mm Hg (05/27/22 02:33:00) Pulse Pressure: 65 mm Hg (05/27/22 02:33:00) Oxygen Saturation: 98 % (05/27/22 02:33:00) Mode of Delivery (Oxygen): Room air (05/27/22 02:33:00) ? Physical Exam GEN: comfortable, no distress, look as stated age HEENT: atraumatic, normocephalic, FROM, EOMI, moist mucous membranes, no palpable lymphadenopathy CVS: first and second heart sounds appreciated, no added murmurs, regular rhythm LUNGS: good air entry bilaterally, no crackles or wheezing appreciated ABDOMEN: soft, non tender, no palpable organomegaly, bowel sounds present and normoactive, non tender, ??no rebound or guarding EXTREMETIES: no weakness, no edema NEURO: alert and oriented x 3, speech clear and coherent, gait not assessed at this time, CN II - XII intact at this time. MOOD: appropriate for clinical encounter. Assessment/Plan Assessment:??47-year-old man with a history of alcohol use disorder and a longstanding history of uncontrolled hypertension, HFrEF (35-40%), NSTEMI x2 (in August 2021 and a week prior to this presentation) and cardiomyopathy presents to the emergency department from home at the recommendation of [facility] for follow-up of a suspected NSTEMI a week prior to this presentation. ?? Accelerated hypertension (I10):?? Likely due to poor medication adherence Continue home dose of Imdur, hydralazine and Coreg Intolerant to Entresto Low-sodium diet Consider??nephrology consult in the morning ?? Alcohol use disorder, severe, dependence (F10.20):?? 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 HFrEF (heart failure with reduced ejection fraction) (I50.20):?? Complicated by ischemic cardiomyopathy:? ??Alcoholic cardiomyopathy Obtain??records from??[facility] in [place] Presentation not suggestive of acute decompensation Continue home dose of??Coreg Consider cardiology evaluation in the morning ?? CKD stage IIIb Chronic condition Renal function currently at baseline Nephrology on board Avoid nephrotoxic agents Continue to monitor renal function ?? VTE Prophylaxis:??SCD boots ?VTE Prophylaxis Assessment:??VTE Prophylaxis Ordered ?? Code Status:??Full code ?Order Code Status:??Code Status Ordered ?? Tobacco Use Treatment:??Non-smoker ?? Discharge Planning:??Anticipated length of stay >2 midnights ? Histories Allergies Allergies ?(Active and Proposed Allergies Only) No Known Medication Allergies? (Severity: Unknown severity, Onset: Unknown) ? 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 Past Surgical History No surgery history [...] Stroke Sister: Stroke ? Medications Home Medications Amlodipine (amLODIPine 5 mg oral tablet)?1?tab(s)?By Mouth?Daily Aspirin (aspirin 81 mg oral delayed release tablet)?81?Milligram?By Mouth?Daily Atorvastatin (atorvastatin 80 mg oral tablet)?1?tab(s)?80?Milligram?By Mouth?Daily Carvedilol (Coreg 25 mg oral tablet)?37.5?Milligram?1.5?tablet?By Mouth?2 times aday?new dose Folic Acid (folic acid 1 mg oral tablet)?1?tablet?By Mouth?Daily hydrALAZINE (hydrALAZINE 25 mg oral tablet)?75?Milligram?3?tablet?By Mouth?3 times a day Isosorbide Mononitrate (isosorbide mononitrate 30 mg oral tablet, extended release)?90?Milligram?3?tablet?By Mouth?Daily ? Results Abnormal Labs ?? BLOOD COUNT & DIFF ??Abs. Imm Gran ??0.0 k/mm3 () ??05/26/2022 20:01 ??Abs. NRBC ??0.0 k/mm3 () ??05/26/2022 20:01 ??Imm Gran ??0.3 % () ??05/26/2022 20:01 ??MCHC ??31.9 g/dL (Low) ??05/26/2022 20:01 ??Nucleated RBC (Automated) ??0.0 #/100 WBC'S () ??05/26/2022 20:01 ??RDW-SD ??46.7 femtoliters () ??05/26/2022 20:01 ? CARDIAC ??High Sensitivity Troponin (HSTnT) ??90 ng/L (Critical) ??05/26/2022 22:04 ??Nt-Probnp ??640 pg/mL (High) ??05/26/2022 20:01 ? CHEM GENERAL ??Anion Gap ??24 (High) ??05/26/2022 20:01 ??BUN ??28 mg/dL (High) ??05/26/2022 20:01 ??Bicarbonate Level ??13 mmol/L (Low) ??05/26/2022 20:01 ??Creatinine-Blood ??2.0 mg/dL (High) ??05/26/2022 20:01 ??Estimated GFR Creatinine ??40 ML/MIN/1.73 M2 () ??05/26/2022 20:01 ??Glucose Level ??54 mg/dL (Low) ??05/26/2022 20:01 ? HEME OTHER ??Hold Blue Top ??SPECIMEN DISCARDED AFTER 4 HOURS. () ??05/26/2022 20:01 ? TOXICOLOGY/TDM ??Ethanol, Serum or Plasma ??NONE DETECTED mg/dL () ??05/27/2022 02:43 ? Note: Critical results are displayed in red. ? EKG study * Event Display: EKG Authored Date: * Event Display: ECG 12-Lead Authored Date: Please click on pdf link to open report * Event Display: ECG 12-Lead Authored Date: Ventricular Rate: 105 BPM Atrial Rate: 105 BPM P-R Interval: 148 ms QRS Duration: 94 ms Q-T Interval: 372 ms QTC Calculation(Bazett): 491 ms P [place]: 50 degrees R [place]: -35 degrees T [place]: 120 degrees Sinus tachycardia Left axis deviation Voltage criteria for left ventricular hypertrophy ST and T wave abnormality, consider lateral ischemia Abnormal ECG When compared with ECG of 06-MAY-2022 05:38, T wave inversion now evident in Lateral leads Confirmed by JAIRO MORNEO DO ([id number]) on 05/28/2022 3:12:36 PM Reading: JAIRO MORENO DO Note * Event Display: Cardiac Rhythm Strips Authored Date: * Erika Stein RN: PERFORM Event Display: Discharge/Transfer Note Hospital Authored Date: Nursing Discharge Note Entered On: 05/28/2022 17:43 EST Performed On: 05/28/2022 17:40 EST by Erika Stein RN Nursing Discharge Note 2 Discharge Time : 05/28/2022 17:40 EST Discharge Level of Care at Discharge : Home/Senior Care/Foster Care Patient Left Unit Via : Ambulatory Patient Accompanied Off Unit with : Other: Self DC Instructions Provided & Signed by Pt : Yes Patient Understands D/C Instructions : Yes Verbalized Understanding of D/C Plan By : Patient Patient Instructions Discharge Signed : Yes Did Pt have Specialty Bed or Wound Vac : No Erika Stein RN - 05/28/2022 17:42 EST * Viv Lerma DO: MODIFY, MODIFY, PERFORM Event Display: Discharge/Transfer Note Hospital Authored Date: Patient: ??DIANA ANDREWS ? Age:??47 Years?Sex:??Male?:??1975?? Patient Information Discharge Location: W4 Primary Care Physician: Mario Motta MD Admit Date/Time: 05/27/22 04:42 Discharge Disposition Discharge Disposition: Home: No Services Discharge Diagnosis Hypertensive urgency (I16.0) Hypertension (I10) Elevated troponin NSTEMI - type II Alcohol use disorder, severe, dependence (F10.20) COVID (U07.1) HFrEF (heart failure with reduced ejection fraction) (I50.20) ? _ Discharge Medications Aspirin (aspirin 81 mg oral delayed release tablet)?81?Milligram?By Mouth?Daily Atorvastatin (atorvastatin 80 mg oral tablet)?1?tab(s)?80?Milligram?By Mouth?Daily Carvedilol (Coreg 25 mg oral tablet)?37.5?Milligram?1.5?tablet?By Mouth?2 times aday?new dose Folic Acid (folic acid 1 mg oral tablet)?1?tablet?By Mouth?Daily hydrALAZINE (hydrALAZINE 25 mg oral tablet)?75?Milligram?3?tablet?By Mouth?3 times a day Isosorbide Mononitrate (isosorbide mononitrate 30 mg oral tablet, extended release)?90?Milligram?3?tablet?By Mouth?Daily Multivitamin With Minerals (Centrum Men's)?1?tab(s)?By Mouth?Daily Nitroglycerin (Nitrostat 0.4 mg sublingual tablet)?1?tab(s)?0.4?Milligram?Sublingual?Every 5 minutes?as needed?Chest Pain?not to exceed 3 doses/15 min--if pain persists, seek medical attention Thiamine (Vitamin B1 100 mg oral tablet)?100?Milligram?1?tablet?By Mouth?Daily Zinc Sulfate (Zinc-220 220 mg oral capsule)?1?capsule?220?Milligram?By Mouth?Daily ?? Medications Started None Medications Discontinued Amlodipine 5mg qd Doses Changed None PCP Follow-Up/Heads-Up Pt hospitalized and found to be hypertensive with SBPs into the 200s (pt had not been taking any ofhis BP meds after hypotensive episode on 05/19 in [place]) and troponins stable in the 90s with EKG non-ischemic. Blood pressure meds were resumed and BPs controlled after adjustments made above. Please f/u pt regarding BP control (which will also hopefully control his CKD). Future Appointments Thursday 1:30 PM EST ?? With: Kalia EDGAR, Mario Mott Where: [address] [place] [address]- Hospital Course 47-year-old man with a history of alcohol use disorder and a longstanding history of uncontrolled hypertension, HFrEF (35-40%), NSTEMI x2 (in August 2021 and a week prior to this presentation) and cardiomyopathy presents to the emergency department from home at the recommendation of his PCP for follow-up of a suspected NSTEMI a week prior to this presentation (had left AMA from a hospital in [place]). Pt was found to be hypertensive 203/135. His blood work revealed an elevated but flat troponin levelof 91 = >90, an EGFR of 40 (at baseline). Cardiology was consulted who believed this stable troponin, EKG with non-ischemic changes likely was secondary to hypertensive urgency. Pt was admitted for management of blood pressure, pt had been seen previously in [place] for hypotension/syncope likely dueto abruptly starting all of his anti- hypertensives. He was also incidentally tested positive for COVID on 05/27/22. On day of discharge, patient is hemodynamically stable and blood pressures controlled. ?? Hospital Course by Problem List Elevated troponin Hypertensive urgency Hx of CAD Patient reports he had passed out 05/19, swaying and girlfriend lowered him to the floor while in [place], found to have hypotension in the hospital. Pt had not been taking his anti-hypertensives and thenresumed all of them prior to this episode. Then after leaving AMA, stopped taking any anti-hypertensive. Represented to hospital at PCP recommendation, found to have Blood pressure was as high as 214/149 mmHg Troponins 91, 90, 93, 94, EKG non ischemic August/2021 admitted to [facility] for hypertensive emergency, elevated troponins, acute systolic heartfailure, ЕКАТЕРИНА underwent cardiac cath revealing nonobstructive disease w. branch vessel disease to medically manage. Echo 08/2021: LVEF moderately reduced, 35 to 40%. Moderate global hypokinesis left ventricle. Grade 2 moderate diastolic dysfunction. Left atrium severely dilated. Trace to mild aortic regurgitation. Mild to moderate mitral regurgitation. Cardiac meds: Aspirin 81 mg daily, Atorvastatin 80, Amlodipine 5 daily, carvedilol 37.5 twice daily, hydralazine 75 mg 3 times daily, Imdur 90 mg daily Has outpatient food and beverage controller: Dr. Pagan ?? Recommendations - Continue home aspirin, carvedilol 37.5 mg BID, hydralazine 75 mg TID, Imdur 90 qd - Stopped amlodipine 5 mg, can consider adding back on if still hypertensive outpatient. On day of discharge SBPs WNL. - Cards consulted: likely myocardial injury from HTN urgency (no CP, non- ischemic EKG, flat troponins). Presyncopal episode unlikely arrhytmogenic, [facility] due to abrupt initiation of anti-HTN regimen. - Risk factors: Pt reports tested for diabetes earlier this year and negative, Lipid panel within normal limits ? Alcohol use disorder Patient has history of alcohol excess Pt counseled the patient regarding the potential receiving side effects of increased alcohol intake ?? recommendations: - Encourage alcohol cessation - Continue home multivitamin, folate? COVID positive Positive 05/27, pt reports asymptomatic and unvaccinated Denies cough, fever, chills,??nasal congestion. No??O2 requirement ?? Recommendations: - Isolate for 5 days total ? CKD Cr baseline ~2 (variable throughout last year,1.8-2.3). On admission 2.0 Est GFR - 40 -> CKD3b Likely in setting of uncontrolled HTN Has outpatient food and beverage controller: Dr. Godoy ?? Recommendations: - Work to control blood pressure - F/U outpatient ? Objective Vital Signs?? Temperature: 98.2 DegF (05/28/22 08:26:00) Temperature Route: Oral (05/28/22 08:26:00) Pulse Rate:??97 bpm??High (05/28/22 09:46:00) Respiratory Rate: 19 br/min (05/28/22 08:26:00) Systolic Blood Pressure:??140 mm Hg??High (05/28/22 09:46:00) Systolic Blood Pressure:??140 mm Hg??High (05/28/22 09:46:00) Diastolic Blood Pressure:??95 mm Hg??High (05/28/22 09:46:00) Diastolic Blood Pressure:??95 mm Hg??High (05/28/22 09:46:00) Blood pressure sites: Arm, left (05/28/22 08:26:00) Mean Arterial Pressure: 116 mm Hg (05/28/22 08:26:00) Pulse Pressure: 31 mm Hg (05/28/22 08:26:00) Oxygen Saturation: 98 % (05/28/22 08:26:00) Mode of Delivery (Oxygen): Room air (05/28/22 08:26:00) Early Warning Score: 0 (05/28/22 09:47:54) ? . Physical Exam General: Appears well. In no??acute distress Neuro: CN II-XII grossly intact. No focal neurologic deficit appreciated. HEENT: normocephalic, non-traumatic, sclera non-injected, pupils equal and reactive to light.?? CV:?? Normal S1 & S2. No murmurs, rubs, or gallops. Pulm: Clear??to auscultation bilaterally??without wheezes, rales, or ronchi GI: Non-distended with normoactive bowel sounds in all 4 quadrants.??No masses, hepatomegaly or splenomegaly detected. No tenderness to palpation,??rebound, guarding or referred pain.?? Vasc: no edema, peripheral pulses 2+ bilaterally Psych: alert, orientedx4, normal affect, ??responds appropriately to questions Consultants Cardiology- Dr. Alvarenga & Dr. Doty Patient Education Titles Coronavirus Disease 2019 (COVID-19): Caring for Yourself or Others?? Coronavirus Disease 2019 (COVID-19): Overview?? Follow-Up Appointments Added Follow Up ?Time Frame ?Comments Kalia EDGAR, Mario Mott?2 months?Please follow-up with your PCP to have your blood pressure monitored and to discuss your recent hospitalizations. Patient Instructions You were hospitalized due to your high blood pressure and concern for a heart attack. Based on testing, it appears your heart was under stress due to your high blood pressures and it does not appear that you had a heart attack. You also incidentally tested positive for COVID. We made the following medication changes to your regimen: - Please STOP amlodipine 5mg daily. ?? Please continue w. home carvedilol?? 37.5 mg 2x/day, hydralazine 75 mg 3x/day, and Imdur 90 mg a day and follow up with your primary care to monitor your blood pressures. Results Discharge Labs BLOOD COUNT & DIFF WBC 6.6 k/mm3 ()?? 05/26/2022 20:01 RBC 4.71 m/mm3 ()?? 05/26/2022 20:01 Hgb 14.1 Gm/dL ()?? 05/26/2022 20:01 Hct 44.2 % ()?? 05/26/2022 20:01 MCV 93.8 femtoliters ()?? 05/26/2022 20:01 MCH 29.9 pg ()?? 05/26/2022 20:01 MCHC 31.9 g/dL (Low)?? 05/26/2022 20:01 Platelet Count 228 k/mm3 ()?? 05/26/2022 20:01 RDW-SD 46.7 femtoliters ()?? 05/26/2022 20:01 MPV 9.5 femtoliters ()?? 05/26/2022 20:01 Nucleated RBC (Automated) 0.0 #/100 WBC'S ()?? 05/26/2022 20:01 Abs. NRBC 0.0 k/mm3 ()?? 05/26/2022 20:01 Abs. Neut 4.6 k/mm3 ()?? 05/26/2022 20:01 Abs. Lymph 1.5 k/mm3 ()?? 05/26/2022 20:01 Abs. Carter 0.4 k/mm3 ()?? 05/26/2022 20:01 Abs. Eo 0.0 k/mm3 ()?? 05/26/2022 20:01 Abs. Baso 0.1 k/mm3 ()?? 05/26/2022 20:01 Neut % 69.6 % ()?? 05/26/2022 20:01 Lymph % 22.7 % ()?? 05/26/2022 20:01 Carter % 6.1 % ()?? 05/26/2022 20:01 Eos % 0.5 % ()?? 05/26/2022 20:01 Baso % 0.8 % ()?? 05/26/2022 20:01 Imm Gran 0.3 % ()?? 05/26/2022 20:01 Abs. Imm Gran 0.0 k/mm3 ()?? 05/26/2022 20:01 ?? CARDIAC Nt-Probnp 640 pg/mL (High)?? 05/26/2022 20:01 High Sensitivity Troponin (HSTnT) 94 ng/L (Critical)?? 05/27/2022 18:06 ?? CHEM GENERAL Sodium 137 mmol/L ()?? 05/26/2022 20:01 Potassium 4.4 mmol/L ()?? 05/26/2022 20:01 Chloride 100 mmol/L ()?? 05/26/2022 20:01 Bicarbonate Level 13 mmol/L (Low)?? 05/26/2022 20:01 Anion Gap 24 (High)?? 05/26/2022 20:01 Glucose Level 54 mg/dL (Low)?? 05/26/2022 20:01 BUN 28 mg/dL (High)?? 05/26/2022 20:01 Creatinine-Blood 2.0 mg/dL (High)?? 05/26/2022 20:01 Estimated GFR Creatinine 40 ML/MIN/1.73 M2 ()?? 05/26/2022 20:01 Calcium 9.9 mg/dL ()?? 05/26/2022 20:01 ?? HEME OTHER Hold Blue Top SPECIMEN DISCARDED AFTER 4 HOURS. ()?? 05/26/2022 20:01 ? LIPID STUDIES Cholesterol 153 mg/dL ()?? 05/28/2022 02:32 Triglycerides 131 mg/dL ()?? 05/28/2022 02:32 HDL Cholesterol 67 mg/dL ()?? 05/28/2022 02:32 LDL Cholesterol 60 mg/dL ()?? 05/28/2022 02:32 Non HDL Cholesterol 86 mg/dL ()?? 05/28/2022 02:32 ? TOXICOLOGY/TDM Ethanol, Serum or Plasma NONE DETECTED mg/dL ()?? 05/27/2022 02:43 ? VIROLOGY COVID-19 by RT-PCR POSITIVE (Abnormal)?? 05/27/2022 06:17 ? Imaging(s) ?Chest 2 Views Frontal and Lat ?? 05/26/2022 20:12??by Berry Ramirez MD ? No acute abnormality. ? 30??minutes spent on discharge ?? Pt seen??and discussed with attending physician??Dr. Wilson ?? Viv Lerma D.O. Internal medicine PGY2 #[id number] or [employer] ?? * Steve EDGAR, Luigi Mott: PERFORM Event Display: Discharge/Transfer Note Hospital Authored Date: Attending Attestation:??I have seen and evaluated this patient. ??I have discussed the case and itsmanagement with the resident and agree with the findings and plan as documented in the resident???snote. This patient was seen today by me at??1305. ?? This note reflects information of which I was aware up until 1700 today. ? Patient was feeling great. ??He completely assumes all responsibility??for what he calls his stupidactions??and skipping his medications and cutting back on his medications.?? He knows that he deliberately??led to??significant blood pressure elevations and feeling so lousy and actually??passing out. ?? He acknowledges these mistakes and plans to stick to the proper regimen??very closely and to follow-up closely with his primary care doctor. ?? COVID standpoint he is doing great and really has minimal if any symptoms. ?? From an alcohol standpoint he does plan to cut back substantially??is not interested in any services or follow-up at this time but will certainly take it up??with his primary care doctor over time asappropriate. ?? He is definitely feeling ready to go home today. ?? We had some initial concerns because there is been a lot of??variation in his??blood pressure medications of late.?? Yesterday??it appears that he got extra doses of his blood pressure medications but thankfully he has had no adverse outcome or effects. ??He has had no side effects he is had no sign ificant hypotension. ?? Its not entirely clear what exactly he will need to be on when he goes home thus we have pretty much continued everything he usually is on except we have held the amlodipine for the moment. ?? He will need close outpatient follow-up for the blood pressures and further discussions with his??primary care doctor about how to manage his blood pressure best going forward. ? Patient appeared well on exam no apparent distress awake alert oriented fully cooperative conversant.?? Vital signs are stable and is afebrile. Lungs clear to auscultation heart exam S1-S2 normal See other details above. ?? The only new laboratory studies today were cholesterol profile which was excellent. ?? Assessment plan: As noted this patient is doing great from a COVID standpoint.?? No hypoxia. ?? He has plans regarding the alcohol use disorder.?? His hypertensive urgency is resolved and his blood pressures are doing well.?? Follow-up as noted above.?? Therefore is stable and ready for discharge today. ?? Please see above for the rest of the details of our assessments and plans. * Delmi Roman: PERFORM Event Display: Patient Education/Instruction Authored Date: Inpatient Adult Discharge Instructions [address] [id number] Name: DIANA ANDREWS : 1975 Visit: 05/27/2022 04:42:00 Current Date: 05/28/2022 17:20 Account: [id number] Inpatient Adult Discharge Instructions We would like to thank [...] and their families. Surveys are administered by [employer] ?? If further treatment with your primary care physician or another doctor is recommended, it is important for you to keep the appointment. Call your primary care physician or return to the Emergency Department immediately if your condition worsens, fails to improve, or new symptoms develop. If you need to find a doctor, you can call [facility] [employer] for a referral at [phone] or toll free at [phone]) or log in to [email or web address] ?? You can view and manage your care through the patient portal or by using a health care oneil of your choosing. [employer] is a website that allows you to securely view your medical information including your hospital discharge summary, office visit summaries, medications and follow-up visits. You can also request appointments, renew medications, and request access to your medical information using a health care oneil of your choosing, or just ask a question. You can enroll at [email or web address] or register during your next office visit. You have been discharged from [facility], Patient Care Unit: W4. If you have any questions regarding these instructions after you leave, please call us and we will be happy to assist you. [facility] Your Care Team Attending Physician Steve EDGAR, Luigi Mott Consulting Providers Soren EDGAR, Duane Discharging Providers Viv Lerma DO Reason for Admission Referred to the ED by his PCP for follow-up of an NSTEMI he suffered about a week prior. Your Diagnosis Hypertension Accelerated hypertension Alcohol use disorder, severe, dependence HFrEF (heart failure with reduced ejection fraction) Hypertensive urgency Hypertensive urgency COVID Tests Performed Below is a partial list of the tests performed during your hospitalization. You may have had other tests and procedures not included in this list. Please discuss all test results with your provider. Alcohol Level B Type Natriuretic Peptide Basic Metabolic Panel CBC w/ Differential COVID-19 (Novel Coronavirus), Rapid PCR Hgb A1C (Monitoring) High??Sensitivity??Troponin T Hold Blue Top Tube Lipid Panel Troponin T, High Sensitivity XR Chest 2 Views Frontal and Lat Primary Care Provider Mario Motta MD Advance Directive Health Care Proxy on File Yes - Health Care Proxy No qualifying data available. Discharge Vitals Temperature: 98.7 DegF Height: 178 cm Pulse Rate:??101 bpm??High Weight: 90.9 kg Respiratory Rate: 19 br/min Body Mass Index:??28.69 kg/m2??High Systolic Blood Pressure: 129 mm Hg Body surface area: 2.12 Diastolic Blood Pressure:??85 mm Hg??High ?? Oxygen Saturation: 98 % ?? Studies Pending All tests and labs ordered during this hospital stay have been completed unless listed below. Please discuss all pending results with your provider listed above in these instructions. ?? No incomplete studies found What to do next Instructions From Your Doctor You were hospitalized due to your high blood pressure and concern for a heart attack. Based on testing, it appears your heart was under stress due to your high blood pressures and it does not appear that you had a heart attack. You also incidentally tested positive for COVID. We made the following medication changes to your regimen: - Please STOP amlodipine 5mg daily. ?? Please continue w. home carvedilol?? 37.5 mg 2x/day, hydralazine 75 mg 3x/day, and Imdur 90 mg a day and follow up with your primary care to monitor your blood pressures. Discharge Orders Scheduled Follow-Up Appointments Thursday 1:30 PM EST ?? With: Mario Motta MD Where: [place] [address] [address]- You Need to Schedule the Following Appointments Follow Up with??Mario Motta MD When??Within 2 months Why: Please follow-up with your PCP to have your blood pressure monitored and to discuss your recent hospitalizations. Where: ?? Discharge Medications DIANA ANDREWS :1975 Visit Date:05/27/2022 Medications: Please continue your medications until treatment is completed or stopped by your provider. Medications not listed below should be discontinued. Discuss any questions related to medications with your provider. What How Much When Why Instructions Next Dose Unchanged Aspirin (aspirin 81 mg oral delayed releasetablet) 81 Milligram Oral Daily 12/8 morning Unchanged Atorvastatin (atorvastatin 80 mg oral tablet) 1 tab(s) Oral Daily 12/8 morning Unchanged Carvedilol (Coreg 25 mg oral tablet) 1.5 tab(s) Oral Twice a day Hypertension new dose ?? 12 8pm Unchanged Folic Acid (folic acid 1 mg oral tablet) 1 tab(s) Oral Daily 12/8 morning Unchanged hydrALAZINE (hydrALAZINE 25 mg oral tablet) 3 tab(s) Oral 3 times a day 12 8pm Unchanged Isosorbide Mononitrate (isosorbide mononitrate 30 mg oral tablet, extended release) 3 tab(s) Oral Daily 12/8 morning Unchanged Multivitamin With Minerals (Centrum Men's) 1 tab(s) Oral Daily 12/8 morning Unchanged Nitroglycerin (Nitrostat 0.4 mg sublingual tablet) 1 tab(s) Sublingual Every 5 minutes as needed for Chest Pain not to exceed 3 doses/ 15 min--if pain persists, seek medical attention ?? Unchanged Thiamine (Vitamin B1 100 mg oral tablet) 1 tab(s) Oral Daily 12/8 morning Unchanged Zinc Sulfate (Zinc-220 220 mg oral capsule) 1 capsule Oral Daily 12/8 morning ?? What How Much When Comments Stop Taking Amlodipine (amLODIPine 5 mg oral tablet) 1 tab(s) Oral Daily Test Results Below is a partial list of the most recent Laboratory test results done prior to this discharge. You may have had other tests and procedures not included in this list. Please discuss all test resultswith your provider. Alcohol Level (05/27/2022) ???Ethanol, Serum or Plasma - NONE DETECTED B Type Natriuretic Peptide (05/26/2022) ???Nt-Probnp - 640 pg/mL Basic Metabolic Panel (05/26/2022) ???Sodium - 137 mmol/L???Potassium - 4.4 mmol/L???Chloride - 100 mmol/L???Bicarbonate Level - 13 mmol/L???Anion Gap - 24???Glucose Level - 54 mg/dL???BUN - 28 mg/dL???Creatinine-Blood - 2.0 mg/dL???Estimated GFR Creatinine - 40 ML/MIN/1.73 M2???Calcium - 9.9 mg/dL CBC w/ Differential (05/26/2022) ???WBC - 6.6 k/mm3???RBC - 4.71 m/mm3???Hgb - 14.1 Gm/dL???Hct - 44.2 %???MCV - 93.8 femtoliters???MCH - 29.9 pg???MCHC - 31.9 g/dL???Platelet Count - 228 k/mm3???RDW-SD - 46.7 femtoliters???MPV - 9.5 femtoliters???Nucleated RBC (Automated) - 0.0 #/100 WBC'S???Abs. NRBC - 0.0 k/mm3???Abs. Neut - 4.6 k/mm3???Abs. Lymph - 1.5 k/mm3???Abs. Carter - 0.4 k/mm3???Abs. Eo - 0.0 k/mm3???Abs. Baso - 0.1 k/mm3???Neut % - 69.6 %???Lymph % - 22.7 %???Carter % - 6.1 %???Eos % - 0.5 %???Baso % - 0.8 %???Imm Gran- 0.3 %???Abs. Imm Gran - 0.0 k/mm3 COVID-19 (Novel Coronavirus), Rapid PCR (05/27/2022) ???COVID-19 by RT-PCR - POSITIVE Hgb A1C (Monitoring) (05/28/2022) ???Hemoglobin A1C (Monitoring) - 5.2 % High??Sensitivity??Troponin T (05/26/2022) ???High Sensitivity Troponin (HSTnT) - 90 ng/L Hold Blue Top Tube (05/26/2022) ???Hold Blue Top - SPECIMEN DISCARDED AFTER 4 HOURS. Lipid Panel (05/28/2022) ???Cholesterol - 153 mg/dL???Triglycerides - 131 mg/dL???HDL Cholesterol - 67 mg/dL???LDL Cholesterol - 60 mg/dL???Non HDL Cholesterol - 86 mg/dL Troponin T, High Sensitivity (05/27/2022) ???High Sensitivity Troponin (HSTnT) - 94 ng/L Allergies (NKA means No Known Allergies) No Known Medication Allergies Problems Active Problems??(18) Abnormal renal function?? Alcoholism?? Anemia?? CAD in [place] artery?? Chronic kidney disease?? COVID-19?? Effusion of olecranon bursa?? Elevated LFTs?? Fatty liver?? HFrEF (heart failure with reduced ejection fraction)?? Hypertension?? Ischemic cardiomyopathy?? Kidney disease, chronic, stage III (GFR 30-59 ml/min)?? NSTEMI (non-ST elevated myocardial infarction)?? Pain of finger of left hand?? Proteinuria?? Scrotal mass?? 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 Education Materials Below is the list of Educational Leaflet Providered with your Discharge Instructions. How to Take Your Blood Pressure at Home?? Coronavirus Disease 2019 (COVID-19): Caring for Yourself or Others?? Coronavirus Disease 2019 (COVID-19): Overview?? Valuables and Belongings I fully understand and agree that [facility] accepts no responsibility for all my personal [...] to send valuables and belongings home. ?? Review of Valuable and Belonging List: With patient, With witness Date for Pt to Sign Valuables/Belongings: 05/27/22 18:09:00 ?? Other Discharge Information ? Pulmonary Rehab Status?? Pulmonary Rehab Discharge Status?? Respiratory Rate: 19 br/min ? Common Emergency Awareness Tips IS IT [...] are strongly encouraged to quit. Please call [facility] [employer] Link at [phone] or [phone] ([phone]) or log in to [email or web address] for referrals to smoking cessation programs. ?? The National Suicide Prevention Hotline is available 12/01 if you or someone you know needs to find a reason to keep living. By calling 4-445-267-Quaero (5483) you'll be connected to a skilled, trained counselor at a crisis center in your area. INPATIENT DISCHARGE INSTRUCTIONS SIGNATURE ROBERTO CARLOS DIANA ANDREWS Location:[facility] Registration Date and Time:05/27/2022 04:42 EST Primary Care Physician: Kalia EDGAR, Mario Mott, Elzbieta DIANA ANDREWS, have received the above patient education materials/instructions and have verbalized understanding. If ambulance or transport services are being used I further acknowledge being givena choice of service. ?? If you need to contact me, please call me at this number: . Patient/Harness Brusher Name: Patient/Harness Brusher Signature: Relationship to Patient: Witness Name/Signature: Date: * Viv Lerma DO: PERFORM Event Display: Patient Education Leaflets Authored Date: [id number] How to Take Your Blood Pressure at Home ?? How to Take Your Blood Pressure at Home - Video Watch this video to learn the Do's and Dont's of taking your blood pressure at home properly. To view the video go to this web address: [email or web address] Or, scan this QR code with your smart phone ?? [employer] ?? * Viv Lerma DO: PERFORM Event Display: Patient Education Leaflets Authored Date: [id number] Coronavirus Disease 2019 (COVID-19): Caring for Yourself or Others ?? [id number] Coronavirus Disease 2019 (COVID-19): Caring for Yourself or Others If you or a household member test positive for COVID-19 or have symptoms like fever, cough, fatigue, loss of taste or smell, follow these guidelines for preventing spread of the virus and managing symptoms. This is regardless of your vaccination status. If you have symptoms or have been diagnosed with COVID-19 If you have symptoms of COVID-19 or you test positive (even without symptoms): ??? Stay home at least 5 days and isolate in your home. Separate from others as much as possible. You are most likely infectious during these first 5 days. Day 0 is the first day you tested or first had symptoms. Day 1 is the first full day after your symptoms started or following your positive test. See the CDC's websi te for current, detailed information about staying home. Follow your local area's instructions on testing and staying home. ??? Stay away from work, school, and public places. Limit physical contact with family members. Limit visitors. Don't kiss anyone or share eating or drinking utensils. Clean surfaces you touch with disinfectant. This is to help prevent the virus from spreading. ??? Wear a high quality, well-fitting mask if you must be around others at home or in public. Don't go places where you are unable to wear a mask. ??? Don't travel. ??? Tell the healthcare staff about recent travel. This includes local travel on public transport. Staff may need to find other people you have beenin contact with. ??? Take steps to improve airflow at home. For example, open windows to improve airflow, change filters in your air conditioning unit, and turn your thermostat to on instead of auto to improve airflow and filtration. For more tips, see the CDC website. ??? Don't share personal items such as eating or drinking utensils and linens or food. ??? If you need to cough or sneeze, doit into a tissue. Then throw the tissue into the trash. If you don't have tissues, cough or sneeze into the bend of your elbow. ??? Wash your hands often. ??? Follow all instructions from your healthcare provider. Call your healthcare provider???s office before going. They can prepare and give you instructions. This will help prevent the virus from spreading. ??? If you need to go to a hospital or clinic, expect that the healthcare staff will wear protective equipment such as masks, gowns, gloves, and eye protection. You may be advised to wait in or enter through a separate area. This is to prevent the possible virus from spreading. ??? Follow all instructions the healthcare staff gives you. ?? Self-care at home?? Protection You can protect yourself and others from getting COVID-19 or from getting very sick from it if you: ??? Vaccinate. Several vaccines and booster shots are available to prevent COVID-19 or reduce its severity. These vaccines reduce how severe the illness will be if you get the virus. No vaccine is ever 100% effective in preventing any illness, but the COVID-19 vaccines work well and are safe. Vaccines and boosters are available for people as young as 6 months. Expert groups, including ACOG and CDC, advise or people to be vaccinated. Talk with your healthcare provider about which COVID-19 vaccine is best for you and your family. ??? Practice good handwashing. ??? Know your area's community transmission level and what to do if you've been exposed. Stay home if you have suspected or confirmed COVID-19. ??? Keep your distance when possible from a person who is sick or has tested positive for COVID-19. ??? Get tested if needed. ??? Wear a well-fitted mask as advised. See the CDC's mask website. ??? Improve airflow indoors and move indoor activities outside. ??? Call your healthcare provider for treatment if you have COVID-19 and are at high risk of getting very sick. Treatment Current treatment is mainly aimed at helping your body while it fights the virus. This is known as supportive care. If you have confirmed COVID-19, talk with your healthcare provider. You may qualifyfor certain medicines approved by the FDA to prevent severe COVID-19 infection. For severe COVID-19, you may need to stay in the hospital. Supportive care includes: ??? Getting rest. This helps your body fight the illness. ??? Staying hydrated. Drinking liquids isthe best way to prevent dehydration. Try to drink 6 to 8 glasses of liquids every day, or as advised by your provider. Also check with your provider about which fluids are best for you. Don't drink fluids that contain caffeine or alcohol. ??? Taking mrae-fjq-iqhikvt (OTC) pain medicine. These are used to help ease pain and reduce fever. Follow your healthcare provider's instructions for which OTCmedicine to use. If you've been treated for suspected or confirmed COVID-19, follow all of your healthcare team's instructions. You may also get instructions on position changes to help your breathing, such as lying on your belly (prone positioning). If you were treated at a hospital and discharged, you may be senthome with a pulse oximeter. This is a small electronic device that you clip on your fingertip. It measures the amount of oxygen in your body. Follow your healthcare team's instructions on its use, how they will be in touch with you, and let you know when to call them. If you test positive for COVID-19 and are more likely to get very sick, treatments are available that can reduce your chances of a hospital stay and . For example, if you are at higher risk of inflammation caused by the COVID-19 virus, your provider may prescribe steroids or other anti-inflammatory medicines. The FDA has approved certain antivirals and monoclonal antibodies to treat COVID-19. Antivirals stop the SARS-CoV-2 virus from spreading in the body. Monoclonal antibodies help the immune system fight the virus. These treatments are for people who are more likely to get very sick from COVID-19.Talk with your healthcare provider to learn more. Follow your provider's specific instructions. ?? Home care for a sick person? Follow all instructions from healthcare staff. ??? Wash your hands often. ??? Wear protective clothing as advised. Wear a mask when caring for someone with COVID-19.??? Make sure the sick person wears a mask. If they can't wear a mask, don't stay in the same room with the person. If you must be in the same room, wear a face mask. When wearing a mask, make sure that it covers both the nose and mouth. ??? Keep track of the sick person???s symptoms. ??? Clean home surfaces often with disinfectant. This includes phones, kitchen counters, fridge door handle, bathroom surfaces, and others. ??? Don???t let anyone share household items with the sick person. This includes eating and drinking tools, towels, sheets, or blankets. ??? Clean fabrics and laundry thoroughly. ??? Keep other people and pets away from the sick person. ?? When you can stop isolation You can end isolation based on how serious your COVID-19 symptoms were. If you had a positive COVID-19 test but had no symptoms, you can end isolation after day 5. Day 0 was the first day you tested.?? If you had COVID-19 symptoms, you may end isolation after day 5 if: ? You are fever-free for 24 hours without using fever-reducing medicines such as acetaminophen, and ??? Your symptoms such as cough or trouble breathing are better ?? If you have moderate or severe COVID-19, your instructions on when to stop isolation are different.Moderate COVID-19 means you had shortness of breath or difficulty breathing. Severe COVID-19 means you were in the hospital. If you have a weak immune system and COVID-19, you also will be advised toisolate longer. Some conditions and treatments can cause a weak immune system. These include cancertreatment, bone marrow or organ transplants, and conditions such as HIV or other immune system disorders. If you have moderate or severe COVID-19 or if you have a weak immune system and COVID-19, youwill need to isolate through day 10. Day 0 is the first day you tested or had symptoms. If you had s evere COVID-19 or have a weak immune system, talk with your provider before you end isolation. See the CDC's isolation guidance. CDC mask guidance after isolation Follow the CDC's guidance on when to remove your mask after having COVID-19. After you end isolation when you are feeling better, wear your mask: ??? Through day 10, or ??? Sooner with testing. If you have 2 negative COVID-19 antigen tests taken48 hours apart, you may remove your mask sooner than day 10. For COVID-19 prevention, follow the CDC's guidance and your local community's instructions on face masks. ??? Follow the CDC's guidance and your local community's instructions on face masks. Everyoneages 2 years and older should correctly wear a well-fitting mask indoors in public in areas where the COVID-19 Community Level is high, even if you are fully vaccinated. ??? Wear a mask with the bestfit, protection, and comfort for you. ??? You may choose to wear a mask that offers greater protection in certain situations, such as when you are with people at higher risk for severe illness, or ifyou are at higher risk for severe illness. ??? See the CDC's mask guidance. ?? When to call your healthcare provider Call your healthcare provider right away if a sick person has any of these: ??? Trouble breathing ??? Pain or pressure in chest If a sick person has any of these, call 911: ??? Trouble breathing that gets worse ??? Pain or pressure in chest that gets worse ??? Blue tint to lips or face ??? Fast or irregular heartbeat ??? Confusion or trouble waking ??? Fainting or loss of consciousness ??? Coughing up blood ?? Date last modified: 01/31/2022 ?? Last Reviewed Date: 2021 ?? [id number] The [employer]. All rights reserved. This information is not intended as a substitute for professional medical care. Always follow your healthcare professional's instructions. ?? * Viv Lerma DO: PERFORM Event Display: Patient Education Leaflets Authored Date: [id number] Coronavirus Disease 2019 (COVID-19): Overview ?? [id number] Coronavirus Disease 2019 (COVID-19): Overview Coronavirus disease 2019 (COVID-19) is an illness that infects the lungs. It's caused by a type of coronavirus. The virus is called SARS-CoV-2. There are many types of coronaviruses. They are a common cause of colds and bronchitis. They can cause a lung infection called pneumonia. Symptoms can range from mild to severe. Some people have no symptoms. These types of viruses are also found in some animals. Viruses change (mutate) all the time. The changes lead to different forms of a virus. These are called variants. COVID-19 variants may spread more easily from person to person. They may cause milder symptoms. Or they may cause more severe symptoms.?? The virus spreads and infects people easily. It can infect a person more easily if they are not immune to it. The virus most often spreads through droplets of fluid that a person coughs or sneezes into the air. In some cases, you can get it from touching a surface with the virus on it and then touching your eyes, nose, or mouth. To help prevent spreading the infection, wash your hands often, or use an alcohol-based hand agile test lead. To learn more For the latest from the CDC: ? Go to the [facility] website ??? Call 228-CCP-BTRL ([phone]) ? What are the symptoms of COVID-19? Some people have no symptoms. Some have mild symptoms. Others may have severe symptoms. This variesfrom person to person. Symptoms may start 2 to 14 days after contact with the virus. They can include: ??? Fever ??? Chills ??? Coughing ??? Trouble breathing or feeling short of breath ??? Sore throat ??? Stuffy or runny nose ??? Headache ??? Body aches ??? Tiredness ??? Nausea, vomiting, diarrhea, or belly pain ??? New loss of sense of smell or taste Check your symptoms with the [facility]???s Coronavirus Self-Income Tax Expert. ?? What are possible complications of COVID-19? The virus can cause an infection in the lungs. This is called pneumonia. This can lead to in some cases. Experts are still learning more about COVID-19 problems. Problems may include: ??? Low blood pressure ??? Kidney failure ??? Inflammation of the brain or heart ??? Rashes Some people are at higher risk for problems. This includes: ??? Older adults ??? People with heart or lung disease ??? People with diabetes or kidney disease ??? People with health conditions that limit the immune system ??? People who take medicines that limit the immune system Rarely, a child may have a severe complication. This is called multisystem inflammatory syndrome inchildren (MIS-C). MIS-C seems to be like Kawasaki disease. This is a rare illness. It causes swelling of blood vessels and body organs. MIS can also happen in adults. But this is less common. ? How is COVID-19 diagnosed? Your healthcare provider will ask: ??? What symptoms you have ??? Where you live ??? If you???ve traveled recently ??? If you???ve hadcontact with sick people ??? If you are vaccinated against COVID-19 ??? If you have had COVID-19 Know your testing options with the CDC's COVID-19 Viral Testing Tool. You may have 1 of these testsfor COVID-19: ??? Viral (molecular) test. You may also hear this called a PCR or RT-PCR test. Viral tests are very accurate. A viral test looks for the genetic material (RNA) of the SARS-CoV-2 virus. There are a few ways to do this. A swab may be wiped inside your nose or throat. Or a long swab may be put into your nose down to the back of your throat. Or a sample of your saliva may be taken. Your test results may be back in 45 minutes to a few hours. This depends on the type of test. Some tests must be sentto a lab. These can take several days for the results. You can now get test kits to use at home. Some of these need a prescription. Follow the instructions in the kit closely if you use a home kit. Some kits show results quickly at home. Others must be sent to a lab for the results. ??? Antigen test. This can find proteins from the SARS-CoV-2 virus. A swab may be wiped inside your nose or throat.Or a long swab may be put into your nose down to the back of your throat. Some results are back within 15 to 60 minutes. This depends on the type of test. Positive results are very accurate. But false positive results can happen. And the results can be negative even in people with COVID-19. Antigen tests are more likely to miss a COVID-19 infection than a viral (molecular) test. You may need to have a viral test if your antigen test is negative but you have symptoms of COVID-19. ??? Breath test. This rapid test is not widely available at this time. It finds SARS-CoV-2 infection in the breath.The test is done at providers' offices, hospitals, and mobile testing sites. You may have other tests if your provider thinks or confirms that you have COVID-19. These tests may include: ??? Antibody blood test. This type of test can show if you had the virus in the past. It shows antibodies for the virus in the blood. The accuracy of these tests varies. And they are not available everywhere. An antibody test may not show if you have an infection right now. This is because it can take up to a few weeks for your body to make antibodies. None of the antibody tests can yet be used to tell if a person is immune to the virus. ??? Sputum culture. If you have a wet cough, you may be asked to cough up a bit of mucus (sputum) from your lungs. This is tested for the virus. It may be tested for pneumonia. ??? Imaging tests. You may have a chest X-ray or CT scan. Can you get COVID-19 again? Yes, you can get COVID-19 more than once. You may not have immunity. You could have lost the immunity. Or you may get COVID-19 from a different strain (variant) of the virus that you are not immune to. But the COVID-19 vaccine helps lower the risk for COVID-19. ?? Vaccines for COVID-19 The FDA and CDC advise vaccines to help prevent COVID-19. The vaccines can also make the illness less severe. It can keep you from needing to go to the hospital.?? And it can prevent the spread of the virus to others. No vaccine is 100% effective at preventing an illness. But getting a vaccine is important. COVID-19 vaccines are available for people as young as 6 months old. or people can have the vaccine. Vaccines are given as a primary series.Boosters are given later tohelp with protection. The vaccines are given as a shot (injection) into the muscle. Ask your healthcare provider which vaccine is best for you and your family. There is a 1- dose vaccine from [employer] (J[employer]) for people ages 18 and older. Or a 2-dose vaccine from Novavax for people ages 12 and older. Two-dose Pfizer and Moderna vaccines are for people as young as 6 months old. They are given in se veral doses a few weeks apart. People with a weak immune system may have other advice. Talk with your healthcare provider about which vaccine is best for you and your family. COVID-19 vaccine booster shots People age 5 or older can get a COVID-19 booster shot. It's given a few months after their primary series. Boosters can help with protection against COVID-19 that may have decreased over time. Booster advice varies by vaccine, age, health, and COVID-19 variants. Talk with your provider aboutyour risk and when to get a booster. ?? How is COVID-19 treated? The best treatments right now are those to help your body while it fights the virus. This is calledsupportive care. It includes: ??? Rest.This helps your body fight the illness. ??? Fluids. Try to drink 6 to 8 glasses of fluids every day. Ask your provider which drinks are best for you. Don't have drinks with caffeine or alcohol. ??? Ldzd-lfi-xghaysh (OTC) medicine. These are used to help ease pain and reduce fever. Ask yourprovider which OTC medicine is safe for you to use. Talk with your provider if you have confirmed COVID-19. You may qualify for medicines approved by the FDA to prevent severe COVID-19 infection. You may need to stay in the hospital for severe illness. Your care may include: ??? IV fluids. These are given through a vein. This helps to replace fluids in your body. ??? Oxygen. You may be given extra oxygen. Or you may be put on a breathing machine (ventilator). This is done so you get enough oxygen in your body. ??? Prone positioning. Your healthcare team may regularly turn you on your stomach. This is called prone positioning. It helps increase the amount of oxygen you get to your lungs.Follow their instructions on position changes while you're in the hospital and at home. ??? Antivirals and monoclonal antibodies. The FDA has approved certain antivirals and monoclonal antibodies to treat COVID-19. These treatments are for people who are more likely to get very sick. These treatments are not available for everyone. Talk with your healthcare provider to learn more. o Antivirals stop the SARS-CoV-2 virus from spreading in the body. o Monoclonal antibodies help the immune system fight the virus. ? Steroids or other anti-inflammatory medicines. These are used to lessen the in flammation that some people with COVID-19 have. Inflammation can lead to more trouble breathing. Itcan cause other complications or . ??? COVID-19 convalescent plasma. Plasma is the liquid partof blood. People who had COVID-19 may be asked to donate plasma. This is called COVID-19 convalescent plasma. The plasma may have antibodies. These can help fight COVID-19 in people who are very ill with it. Check with your provider to see if this is an option in your area. ?? Are you at risk for COVID-19? You are at risk for COVID-19 if any of these apply to you: ??? You live in or traveled to an area with cases of COVID-19 ??? You had close contact (within 6 feet) with someone who had COVID-19 COVID-19 may be spread by people who don't show symptoms. Date last modified: 02/27/2022 ?? Last Reviewed Date: 2021 ?? [id number] The [employer]. All rights reserved. This information is not intended as a substitute for professional medical care. Always follow your healthcare professional's instructions. ?? * BHSPowerscribe , CIS S: TRANSCRIBE Berry Ramirez MD: VERIFY Event Display: Result: Authored Date: Chest 2 Views Frontal and Lat Hx of Present Illness: Pt sts last Thursday he was at a restaurant w partner and had an episode of syncope. Was transported to [facility] and found to be very hypotensive. When he felt better signed himself out. Has name serious health problems. Was told he had an elevated; Reason: Other:; Chest Pain; Clinical Question(s): Other: COMPARISON: 09/10/2021 FINDINGS: LINES AND TUBES: None. LUNGS AND PLEURA: Clear lungs. Normal pulmonary vascularity. No pleural effusion. No pneumothorax. HEART, MEDIASTINUM AND DEEDEE: Heart is normal in size. Normal mediastinal and hilar contour. BONES AND SOFT TISSUES: No acute abnormality. IMPRESSION: No acute abnormality. WSN: [id number] Ordering Physician: Dipesh Freedman Dictated By: Berry Ramirez MD Dictated Date/Time: 05/26/22 8:20 pm Reviewed By: Berry Ramirez MD Signed By: Berry Ramirez MD Signed Date/Time: 05/26/22 8:20 pm Transcribed By: ABEL Transcribed Date/Time: 05/26/22 8:20 pm Hospital Progress note * Jessica Washington RN: PERFORM, SIGN, VERIFY Event Display: Progress Note Hospital Authored Date: [id number] Patient: DIANA ANDREWS Age: 47 years Sex: Male : 1975 Associated Diagnoses: None Author: Jessica Washington RN Findings Problem Related to Alteration in Cardiac Function (new) : Alteration in Cardiac Function/new 05/28/2022 4:00 EST Alteration in Cardiac Status Related to ACS Goals & Outcomes, Cardiac Status Pt will resume/maintain adequate cardiac output, Pt will resume/maintain adequate hemodynamic status, Pt will resume/maintain adequate respiratory function, Pt will resume/maintain intact neuro function, Pt will maintain adequate GI/ function appropriate for pt, Pt will maintain adequate nutrition status, Pt/caregiver will state understanding of diagnosis, Pt/caregiver will state strategies to reduce risk factors Cardiac Interventions Implemented Assess/monitor cardiac status, Assess/monitor neuro status, Assess/monitor respiratory status, Assess for chest pain, document characteristics, Monitor for anxiety, shortness of breath, diaphoresis BH Goals/Interventions, Cardiac Yes Cardiac, Problem Start 05/27/2022 17:57 Reviewed Plan with, Cardiac Status Patient Patient Progression, Cardiac Status Patient progressing according to plan . Evaluation Care assumed at 1900. Pt A&Ox4. VSS. Pt denies any pain or discomfort. Pt denies chest pain, SOB, dizziness, n/v. Meds administered per orders. Pt on CIWA, scoring 0. Pt independent in room, tolerating activity well. Pt currently sleeping in bed with call kaiser within reach, safety measures in place. Please see CIS for full assessment . * Eloisa Pruett RN: PERFORM, SIGN, VERIFY Event Display: Progress Note Hospital Authored Date: Patient: DIANA ANDREWS Age: 47 years Sex: Male : 1975 Associated Diagnoses: None Author: Eloisa Pruett RN Findings Problem Related to Alteration in Cardiac Function (new) : Alteration in Cardiac Function/new 05/27/2022 17:00 EST Alteration in Cardiac Status Related to ACS Goals & Outcomes, Cardiac Status Pt will resume/maintain adequate cardiac output, Pt will resume/maintain adequate hemodynamic status, Pt will resume/maintain adequate respiratory function, Pt will resume/maintain intact neuro function, Pt will maintain adequate GI/ function appropriate for pt, Pt will maintain adequate nutrition status, Pt/caregiver will state understanding of diagnosis, Pt/caregiver will state strategies to reduce risk factors Cardiac Interventions Implemented Assess/monitor cardiac status, Assess/monitor neuro status, Assess/monitor respiratory status, Assess for tolerance of IV infusions; verify rate & dose, Call/Report variances in ECG to provider Goals/Interventions, Cardiac Yes Cardiac, Problem Start 05/27/2022 17:57 Reviewed Plan with, Cardiac Status Patient Patient Progression, Cardiac Status Plan Initiation . Evaluation Patient admitted to the unit from ED. Alert and oriented x4, independent with ambulation. No complaints of pain, SOB or discomfort. Continent of bowel and bladder. NSR on tele and no complaints of any chest pain or n/v at this time. He scored a 1 on CIWA, no visible signs of withdrawal. High sensitivity trop was critical at 93. Resting in bed, see CIS for full assessment.. Patient Care team information Care Team Personnel Name: Kalia EDGAR, Mario Mott Position: [facility] Primary Care Physician Member Role: PCP Address: Address: [address] [place] [address] [address] [place] [address]- [place] Name: Magalie Jesus RN Position: [facility] OB RN Member Role: Primary Care Nurse Name: Tanmay Iraheta MD Position: [facility] Renal MD Member Role: [employer] Consulting Physician Address: Address: [address] [place] [address] [address] [facility], [place] [address]- Name: *Zelalem BAEZ Attending Position: [facility] ED Medicine MD Name: Kiesha Glynn Position: [facility] ED TA [facility] Member Role: Intelligence Agent Name: Linda Rivas Position: [facility] ED RN W/OE and Tasks Member Role: Patient Care Provider Name: Tonie Brasher Position: [facility] ED RN W/OE and Tasks Member Role: Patient Care Provider Care Team Related Persons Name: ROSALIO SANTOS Address: [address] [address]
== END 2024-02-12 00:21 | disposition home or self-care (01) ==
PROVIDERS: Emergency Provider Emergency Medicine; PCP Internal Medicine
DX: S82.141A Displaced bicondylar fracture of right tibia, initial encounter for closed fracture (principal); S82.831A Other fracture of upper and lower end of right fibula, initial encounter for closed fracture; S50.311A Abrasion of right elbow, initial encounter; V86.56XA Driver of dirt bike or motor/cross bike injured in nontraffic accident, initial encounter; Y93.89 Activity, other specified; Y92.414 Local residential or business street as the place of occurrence of the external cause; Y99.9 Unspecified external cause status; Z23 Encounter for immunization
CPT/HCPCS: 73080; 73552; 73562; 73590; 90471; 90715; 93005; 99284

== ENCOUNTER 2024-02-15 10:29 | Outpatient (AMB) | payer OTHER, SELFPAY ==
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
== END 2024-02-15 11:52 | disposition home or self-care (01) ==
PROVIDERS: PCP Internal Medicine; Visit Provider Physician Assistant
DX: S82.141A Displaced bicondylar fracture of right tibia, initial encounter for closed fracture (principal); S50.311A Abrasion of right elbow, initial encounter
CPT/HCPCS: 99204

== ENCOUNTER → 2024-02-15 10:29 | Outpatient (BNVA) | payer OTHER, SELFPAY | PROVIDERS: PCP Internal Medicine; Visit Provider Physician Assistant | DX: S82.141A Displaced bicondylar fracture of right tibia, initial encounter for closed fracture (principal); S50.311A Abrasion of right elbow, initial encounter | CPT/HCPCS: 99202 ==

== ENCOUNTER 2024-02-16 16:40 | Outpatient (REF) | payer OTHER, SELFPAY ==
--- NOTE | ~2024-02-16 | CT_ITS ---
EXAMINATION: CT KNEE WITHOUT CONTRAST, RIGHT CLINICAL INFORMATION: Displaced bicondylar fracture right tibia. COMPARISON: X-ray 02/11/2024 TECHNIQUE: Axial imaging. Sagittal and coronal reconstructions. This CT examination was performed using dose optimization techniques as appropriate, variously including the following: *Automated exposure control *Adjustment of mA and/or kV according to patient size (this includes techniques or standardized protocols for targeted exams where dose is matched to indication/reason for exam; i.e. extremities or head) *Use of iterative reconstruction technique DLP: 158 mGy-cm FINDINGS: Acute, markedly comminuted fracture of the lateral tibial plateau, involving the epiphysis and metaphysis. There is a intra-articular extension. This is associated displacement, including prominent displaced osseous fragments laterally and posteriorly. Multiple comminuted fracture planes extend to the articular surface, with articular surface disruption, and articular surface bone depression. There is bony depression by approximately 1.2 cm. Comminuted fracture planes extend to the central tibia, with intra-articular extension into the region of the tibial spines. Acute, comminuted displaced intra-articular fracture of the proximal fibular head and neck. No acute fractures identified of the femur or patella. Moderate-large lipohemarthrosis. There is edema in the soft tissues and muscles around the fractures. The quadriceps and patellar tendon are grossly intact. Prominent subcutaneous edema and soft tissue swelling.. CT/CT knee RT wo IV con IMPRESSION: 1. Acute, markedly comminuted displaced, depressed intra-articular fracture of the lateral tibial plateau involving the epiphysis and metaphysis. Comminuted fracture planes extend into the central tibial and involve the tibial spines. 2. Acute, comminuted displaced intra-articular fracture of the proximal fibular head and neck. 3. Moderate-large lipohemarthrosis. Electronically signed by: Sheng Gilbert MD 02/16/2024 06:19 PM EDT RP
== END 2024-02-16 16:41 | disposition home or self-care (01) ==
LOC: HO.CT 16:40
PROVIDERS: PCP Internal Medicine; Visit Provider Physician Assistant
DX: S82.141A Displaced bicondylar fracture of right tibia, initial encounter for closed fracture (principal)
CPT/HCPCS: 73700

== ENCOUNTER 2024-02-23 13:13 | Day surgery (SDC) | payer OTHER, SELFPAY ==
--- NOTE | 2024-02-18 12:51 | HO.ANESPROP2 ---
Documented by User: Radha Samuels NP 02/18/24 12:54 HPI - Anesthesia Eval Consult details Narrative: 49yo M for Right Tibial [place] ORIF Cardiac optimized: Can proceed with low to intermediate cardiac risk. He has nonobstructive CAD. His last echo showed normalization of EF. His blood pressure is still not optimally controlled. Amlodipine added last visit, he did see Nephrology on 01/06/2024 and blood pressure at that visit 140/100. He had no med changes at that time. At this time I will increase his amlodipine up to 10 mg daily. He should continue his antihypertensives without interruption prior to his surgery. Jardiance should be held for 3 days prior to his surgery. Aspirin can be held as needed. Call/consult Cardiology if needed. Anesthesia Pre-Procedure Meds Is the patient on any of the following meds?: SGLT2 Inhib PMFSH Active Problems Active Problems: All Active Problems Tibial plateau fracture, right (Acute) Uncontrolled hypertension (Acute) CKD (chronic kidney disease) stage 3, GFR 30-59 ml/min (Acute) HTN (hypertension) (Acute) CAD (coronary artery disease) (Acute) Heart failure with reduced ejection fraction (Acute) Cardiomyopathy (Acute) Hospital discharge follow-up (Acute) CKD (chronic kidney disease) (Acute) Reversible cerebrovascular vasoconstriction syndrome (Acute) Atypical chest pain (Acute) Hypertensive emergency (Acute) Past Medical History Medical History Uncontrolled hypertension CAD (coronary artery disease) Elevated troponin Acute systolic heart failure CHF (congestive heart failure) Acute non-ST elevation myocardial infarction (NSTEMI) HTN (hypertension) Surgical History Surgical History Hx of removal of cyst S/P cardiac catheterization Social History Social History Are you a primary day care home provider to a significant other at home: No Do you presently have visiting nurse or other home services: No Patient Tobacco Use Status: Never used Tobacco Use of substances other than those prescribed or required for medical reasons: Yes Substance Use Type: Marijuana Substance Use Frequency: Daily Have you been hit, kicked, punched, or otherwise hurt by someone within the past year? 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 Allergies Allergy/AdvReac Type Severity Reaction Status Date / Time No Known Allergies Allergy Verified 02/23/24 07:44 Home Medications ?Medication ?Instructions ?Recorded ?Confirmed ?Last Taken ?Type multivitamin 1 tab PO DAILY 12/24/22 02/23/24 02/22/24 History finasteride 5 mg tablet 5 mg PO DAILY 05/13/23 02/23/24 02/22/24 History omega 9-crp-fij-fish oil 1,000 mg 1 cap PO DAILY 05/13/23 02/23/24 02/19/24 History (120 mg-180 mg) capsule (Fish Oil) empagliflozin 10 mg tablet 10 mg PO DAILY 12/04/23 02/23/24 02/19/24 History (Jardiance) Exam Pertinent Lab Results Pertinent Lab Results: Laboratory Tests 08/26/21 01/05/24 05:48 10:20 WBC 6.6 Hgb 11.8 L Hct 36.5 L Plt Count 243 Sodium 140 Potassium 3.9 Chloride 111 H Carbon Dioxide 21 L BUN 24 H Creatinine 1.72 H Narrative Narrative: EKG 01/2024 Vent. Rate : 090 BPM Atrial Rate : 090 BPM P-R Int : 182 ms QRS Dur : 104 ms QT Int : 378 ms P-R-T Axes : 021 -44 084 degrees QTc Int : 462 ms Normal sinus rhythm Left axis deviation Moderate voltage criteria for LVH, may be normal variant ( R in aVL , [place] product ) Septal infarct , age undetermined Abnormal ECG When compared with ECG of 25-AUG-2021 19:09, Vent. rate has decreased BY 53 BPM T wave inversion less evident in Lateral leads QRS axis Shifted left ECHO 10/2023 Conclusions: - The left ventricular systolic function is normal. The calculated ejection fraction is 70% by biplane method. - There is severe septal asymmetric hypertrophy(1.9cm). - The basal inferolateral segment is hypokinetic. Assessment and Plan Assessment Anesthesia Assessment: Chart Reviewed Documented by User: Stefany Forman MD 02/23/24 10:33 PMFSH Past Medical History Medical History Uncontrolled hypertension CAD (coronary artery disease) Elevated troponin Acute systolic heart failure CHF (congestive heart failure) Acute non-ST elevation myocardial infarction (NSTEMI) HTN (hypertension) Family History Family history of problems with anesthesia: No Surgical History Surgical History Hx of removal of cyst S/P cardiac catheterization History of Problems with Anesthesia: No Social History Social History Are you a primary day care home provider to a significant other at home: No Do you presently have visiting nurse or other home services: No Patient Tobacco Use Status: Never used Tobacco Use of substances other than those prescribed or required for medical reasons: Yes Substance Use Type: Marijuana Substance Use Frequency: Daily Have you been hit, kicked, punched, or otherwise hurt by someone within the past year? 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 Allergies Allergy/AdvReac Type Severity Reaction Status Date / Time No Known Allergies Allergy Verified 02/23/24 07:44 Home Medications ?Medication ?Instructions ?Recorded ?Confirmed ?Last Taken ?Type multivitamin 1 tab PO DAILY 12/24/22 02/23/24 02/22/24 History finasteride 5 mg tablet 5 mg PO DAILY 05/13/23 02/23/24 02/22/24 History omega 3-bpq-egg-fish oil 1,000 mg 1 cap PO DAILY 05/13/23 02/23/24 02/19/24 History (120 mg-180 mg) capsule (Fish Oil) empagliflozin 10 mg tablet 10 mg PO DAILY 12/04/23 02/23/24 02/19/24 History (Jardiance) Exam Airway Mallampati Class: III TM Dist: <=3cm Neck ROM: Limited Heart: rrr Lungs: cta Assessment and Plan Assessment Anesthesia Assessment: Anesthesia Plan Discussed Final Anesthetic Review Family History of Problems with Anesthesia: No History of Problems with Anesthesia: No NPO: Yes ASA Class: III Final Preanesthetic Review: No Changes in Pt Med Stat, Meds/Allgs Chart Reviewed, Consent Obtained/Reviewed and Anes Risks/Benef Reviewed Patient Risk: Intermediate Anesthetic Plan Anesthetic Plan: GA Disposition: Standard PACU
[2024-02-23] VITALS (13 sets, daily range): BP systolic 144–172; BP diastolic 70–113; PULSE 76–109; RESP 15–20; TEMP 36.3–37.3; O2SAT 92–98; BMI 31.7; BMI 34.5
[2024-02-23] MEDS: Lactated Ringers 1,000 ML 100 ML IVCONT ×2 (09:19→17:16)
--- NOTE | 2024-02-23 09:41 | MHC.SHP ---
Pre-Procedural Eval Section A - 24 Hr Update-Section A only Date of Service: 02/23/24 The patient is an INPATIENT: No Changes since office visit: No Cold of Flu in the past 2 weeks, No New Medical Problems, No Changes in Medication and No Patient answered all questions The patient has been examined within 24 hours of the surgical procedure. The History & Physical has been completed within 30 days and I have reviewed it.: Yes Section B - Complete if H&P > 30 days Chief Complaint: Unspecified fracture of upper end of unspecified Allergies: Allergies Allergy/AdvReac Type Severity Reaction Status Date / Time No Known Allergies Allergy Verified 02/23/24 07:44 Plan I have reviewed the history and physical and performed a pertinent physical examination on my patient. No changes have occurred unless specified. Time Spent With Patient Time: Total time managing care of this patient today ____ minutes.
[2024-02-23] MEDS: fentaNYL citrate/PF 100 MCG/2 ML VIAL 25 MCG IVPUSH ×2 (13:35→13:46)
--- NOTE | 2024-02-23 14:28 | PM.OP ---
Brief Operative Note Date of Service: 02/23/24 Pre-op diagnosis: Right tibial plateau fracture Post-op diagnosis: same Procedure: Right Tibial ORIF Implants: Zohreh lateral locking plate and 10 cc Hydroset Surgeon: Benny Dixon MD Anesthesia: GETA and local Was an Tunnel Kiln Firer used for this Procedure?: Yes Tunnel Kiln Firer: Nura Walsh Estimated blood loss (mL): 50 Tourniquet time (min): 100 IV fluids (mL): 1,500 Pathology: none sent Condition: stable Disposition: PACU
--- NOTE | 2024-02-23 15:10 | HO.PM.IMCN ---
History of Present Illness Data of Consult Service Date: 02/23/24 Requesting physician: Nura Walsh Primary Care Provider: Mario Motta MD [facility] Reason for consult: medical management 49 year old male with history of HTN, CKD stage III, CAD h/o NSTEMI, CM, and CHF admitted to orthopedic surgery for tibial plateau fracture with consult placed to hospitalist service for medical management. Patient underwent cardiac catheterization 08/2021 but no stents placed. He reports doing well overall and has no complaints at this time. No lightheadedness, n/v, sob, chest pain. He remains on 3L O2 post op but does not use home O2. He reports smoking marijuana but no illicit drugs, alcohol, or cigarettes. Review of Systems Review of Systems: Yes all other systems are reviewed and are negative [facility] Medical History Uncontrolled hypertension CAD (coronary artery disease) Elevated troponin Acute systolic heart failure CHF (congestive heart failure) Acute non-ST elevation myocardial infarction (NSTEMI) HTN (hypertension) Surgical History Hx of removal of cyst S/P cardiac catheterization Social History Household Members: Spouse Household Members Other:: girlfriend Housing: Other Housing Other:: mobile home Are you a primary rn care manager to a significant other at home: No Do you presently have visiting nurse or other home services: No Patient Tobacco Use Status: Never used Tobacco Smoked in Last 30 Days: No e-Cigarette/Vaping Use: Never Used Patient Interested in Nicotine Replacement: No Patient Given Instructions on How to Stop Smoking: No Second Hand Smoke Exposure: No Use of substances other than those prescribed or required for medical reasons: Yes Substance Use Type: Marijuana Substance Use Frequency: Daily Last Used Substance: Days (ago) Currently Displaying Signs/Symptoms of Drug Intoxication Withdrawal: No Any prior treatment program specific to substance use: No Have you been hit, kicked, punched, or otherwise hurt by someone within the past year? 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 Meds Allergies Allergy/AdvReac Type Severity Reaction Status Date / Time No Known Allergies Allergy Verified 02/23/24 07:44 Active Medications: Current Medications Acetaminophen (Acetaminophen 325 Mg Tablet) 650 mg PO Q6H PRN PRN Reason: Pain, Mild (Pain Scale 1-3), fever or headache Albuterol/Ipratropium (Albuterol/Iprat 2.5/0.5mg 3 Ml Ampul.Neb) 3 ml INHALE ONCE PRN PRN Reason: Bronchospasm/wheezing Stop: 02/23/24 19:21 Aspirin (Aspirin 325 Mg Tablet) 325 mg PO BID [facility] Celecoxib (Celecoxib 200 Mg Capsule) 200 mg PO BID [facility] Fentanyl (Fentanyl Citrate/Pf 100 Mcg/2 Ml Vial) 25 mcg IVPUSH Q5M PRN PRN Reason: Pain, Moderate to Severe (Pain Scale 4-10) Stop: 02/23/24 19:20 Last Admin: 02/23/24 13:46 Dose: 25 mcg Hydromorphone HCl (Hydromorphone Hcl 0.5 Mg/0.5 Ml Syringe) 0.25 mg IVPUSH Q5M PRN PRN Reason: Pain, Severe (Pain Scale 7-10) Stop: 02/23/24 19:20 Hydromorphone HCl (Hydromorphone Hcl 0.5 Mg/0.5 Ml Syringe) 0.25 mg IVPUSH Q4H PRN; Protocol PRN Reason: Pain, Severe (Pain Scale 7-10) Lactated Ringer's (Lr) 1,000 mls @ 100 mls/hr IVCONT .Q10H SELINA Stop: 02/24/24 13:12 Cefazolin Sodium/Dextrose (Ancef) 2 gm in 50 mls @ 100 mls/hr IV POSTOP ONE Stop: 02/23/24 17:29 Ondansetron HCl (Ondansetron Hcl 4 Mg/2 Ml Vial) 4 mg IVPUSH ONCE PRN PRN Reason: Nausea and Vomiting Stop: 02/23/24 19:21 Ondansetron HCl (Ondansetron Hcl 4 Mg/2 Ml Vial) 4 mg IVPUSH Q8H PRN PRN Reason: Nausea and Vomiting Oxycodone HCl (Oxycodone Hcl Immed Release 5 Mg Tablet) 5 mg PO ONCE PRN PRN Reason: Pain, Moderate(Pain Scale 4-6) if no IV Access Stop: 02/23/24 19:21 Oxycodone HCl (Oxycodone Hcl Immed Release 5 Mg Tablet) 10 mg PO Q4H PRN PRN Reason: Pain, Moderate(Pain Scale 4-6) Oxycodone HCl (Oxycodone Hcl Er 10 Mg Tab.Er.12h) 10 mg PO BID SELINA Senna (Sennosides 8.6 Mg Tablet) 17.2 mg PO BEDTIME SELINA Sodium Chloride (0.9 % Sodium Chloride Flush 3 Ml Syringe) 3 ml IVFLUSH QSHIFT SELINA Home Medications ?Medication ?Instructions ?Recorded ?Confirmed ?Last Taken ?Type multivitamin 1 tab PO DAILY 12/24/22 02/23/24 02/22/24 History finasteride 5 mg tablet 5 mg PO DAILY 05/13/23 02/23/24 02/22/24 History omega 9-uba-uai-fish oil 1,000 mg 1 cap PO DAILY 05/13/23 02/23/24 02/19/24 History (120 mg-180 mg) capsule (Fish Oil) empagliflozin 10 mg tablet 10 mg PO DAILY 12/04/23 02/23/24 02/19/24 History (Jardiance) Physical Exam Vital Signs and Narrative: Vital Signs: Last Vital Signs Temp 97.4 F 02/23/24 14:06 Pulse 79 02/23/24 14:06 Resp 18 02/23/24 14:06 BP 147/102 H 02/23/24 14:06 Pulse Ox 95 02/23/24 14:06 O2 Del Method Nasal Cannula 02/23/24 14:06 O2 Flow Rate 2 02/23/24 14:06 BMI result Body Mass Index 31.7 Constitutional - Awake and Alert, No apparent distress Eyes - PERRLA, EOMI Cardiovascular - S1S2, RRR, No edema Respiratory - Normal lung expansion, Normal respiratory effort, No respiratory distress, CTA bilaterally Gastrointestinal - NT / ND; +BS; No rebound or guarding Extremities - no calf tenderness bilaterally, no swelling Skin - Warm/Dry Neurological - Alert & oriented x3 Psychological - Appropriate affect Assessment and Plan (1) Tibial plateau fracture, right: Status: Acute Plan 49 year old male with history of HTN, CKD stage III, CAD h/o NSTEMI, CM, and CHF admitted to orthopedic surgery for tibial plateau fracture with consult placed to hospitalist service for medical management. #Tibial plateau fracture -plan per ortho surgery -wean supplemental O2 as tolerated #CKD stage 3 #HTN/CAD/CM/CHF -continue coreg, amlodipine, hydralazine, imdur -Continue jariance -resume asa at discretion of ortho team -clinically euvolemic. Recommend PO fluids. No indication for diuetics at this time Thank you for allowing me to participate in this consult. Signing off at this time. Please do not hesitate to call for further questions or for any acute medical issues
--- NOTE | 2024-02-23 16:33 | PHA.MEDREC ---
Addendum entered by Sandar Sharma RPh 02/23/24 16:48: Reviewed by [facility]; clarified isosorbide even though it hasn't been filled since May 2023; patient stated he takes it Original Note: Pharmacy Consult ? Medication Reconciliation Pharmacy has reviewed the medication reconciliation done by nursing. Spoke to patient to confirm med list. Patient states he had to stop Aspirin 81 mg few days prior to surgery. Thursday02-19-24 was when he stopped.
[2024-02-23] MEDS: ceFAZolin Sodium/Dextrose,Iso 2 GM/50 ML PIGGYBACK IV (17:16)
[2024-02-23] MEDS: 0.9 % Sodium Chloride Flush 3 ML SYRINGE IVFLUSH ×2 (17:17→23:54)
[2024-02-23] MEDS: hydrALAZINE HCl 50 MG TABLET 100 MG PO (20:23)
[2024-02-23] MEDS: Finasteride 5 MG TABLET PO (20:23)
[2024-02-23] MEDS: Atorvastatin Calcium 80 MG TABLET PO (20:24)
[2024-02-23] MEDS: oxyCODONE HCl ER 10 MG TAB.ER.12H PO (20:24)
[2024-02-23] MEDS: carvediloL 12.5 MG TABLET 37.5 MG PO (20:24)
[2024-02-23] MEDS: Celecoxib 200 MG CAPSULE PO (20:24)
[2024-02-24 03:00] VITALS: BP 160/72; PULSE 91; RESP 20; TEMP 36.9; O2SAT 96
[2024-02-24] MEDS: Acetaminophen 325 MG TABLET 650 MG PO (04:00)
[2024-02-24 06:03] LABS: MANUAL DIFF FLAG NO
[2024-02-24 06:22] LABS: Anion Gap 11 (12-20); Blood Urea Nitrogen 27 mg/dL (9-16); Calcium 9.2 mg/dL (8.4-10.2); Carbon Dioxide 21 mmol/L (22-29); Chloride 108 mmol/L (96-108); Creatinine Clr Calc Pharmacy 74.3; Estimated Glomerular Filt Rate 53; Glucose Fasting 118 mg/dL (60-99); Potassium 4.1 mmol/L (3.3-5.1); Sodium 136 mmol/L (135-145)
[2024-02-24 06:24] LABS: Basophils Percent Auto 0.3 % (0-2); Eosinophils Percent Auto 0.1 % (0-4); Hematocrit 31.1 % (42.0-52.0); Hemoglobin 10.1 g/dl (14.0-18.0); Imm Gran Abs Auto 0.04 X10*3/uL (0.00-0.03); Imm Gran Pct Auto 0.4 % (0.0-0.4); Lymphocytes Absolute Auto 1.1 X10*3/uL (1.2-4.9); Mean Corpuscular HGB Conc 32.5 g/dl (31.0-36.0); Mean Corpuscular Hemoglobin 29.4 pg (27.0-33.0); Mean Corpuscular Volume 90.7 fL (80.0-98.0); Mean Platelet Volume 9.4 fL (9.4-12.4); Monocytes Absolute Auto 1.4 X10*3/uL (0.1-1.2); Monocytes Percent Auto 12.1 % (2-11); Neutrophils Absolute Auto 8.8 x10*3/uL (2.0-8.3); Neutrophils Percent Auto 77.1 % (45-73); Platelet Count 282 X10*3/uL (160-400); Red Blood Count 3.43 X10*6/uL (4.60-5.80); Red Cell Distribution Width 14.6 % (11.0-16.0); White Blood Count 11.4 X10*3/uL (4.8-10.8)
[2024-02-24 07:00] VITALS: BP 145/68; PULSE 85; RESP 20; TEMP 37; O2SAT 96
[2024-02-24] MEDS: amLODIPine Besylate 10 MG TABLET PO (08:09)
[2024-02-24] MEDS: carvediloL 12.5 MG TABLET 37.5 MG PO (08:09)
[2024-02-24] MEDS: Isosorbide Mononitrate 60 MG TAB.ER.24H PO (08:09)
[2024-02-24] MEDS: Celecoxib 200 MG CAPSULE PO (08:10)
[2024-02-24] MEDS: oxyCODONE HCl ER 10 MG TAB.ER.12H PO (08:10)
[2024-02-24] MEDS: hydrALAZINE HCl 50 MG TABLET 100 MG PO (08:10)
[2024-02-24] MEDS: Atorvastatin Calcium 80 MG TABLET PO (08:10)
[2024-02-24] MEDS: Empagliflozin 10 MG TABLET PO (08:10)
[2024-02-24] MEDS: 0.9 % Sodium Chloride Flush 3 ML SYRINGE IVFLUSH (08:13)
--- NOTE | 2024-02-24 08:54 | MHC.CM.PN ---
CM met with Patient at bedside. 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 DC plan is pending PT Jessica; CM has initiated and will follow for dc planning. PCP is Dr. Mario Motta.Cami will transport to home.
--- NOTE | 2024-02-24 09:45 | MHC.CM.PN ---
PT is recommending outpatient services; CM will follow.
--- NOTE | 2024-02-24 09:52 | P.PNOP_ITS ---
Subjective Subjective Date of Service: 02/24/24 Interval history: POD 1 s/p ORIF right tib plateau fx no overnight events resting in chair-worked with PT, no concerns denies cp, sob, palpitations Physical Exam Vital Signs: Vital Signs: Last Vital Signs Temp 98.6 F 02/24/24 07:00 Pulse 85 02/24/24 07:00 Resp 20 02/24/24 07:00 BP 145/68 H 02/24/24 07:00 Pulse Ox 96 02/24/24 07:00 O2 Del Method Room Air 02/24/24 07:00 O2 Flow Rate 3 02/23/24 15:35 BMI result Body Mass Index 34.5 Const: General: cooperative, healthy appearing and no acute distress Resp: Effort & Inspection: normal respiratory effort and able to speak in complete sentences Cardio: Rate: regular rate Peripheral pulses: Peripheral pulses 2+ throughout GI: Palpation (GI): Soft to palpation Skin: General skin exam: no rashes or lesions noted Extrem: Other: bandage clean dry and intact. [place] intact. No erythema or joint effusion. Calf supple nontender. Neurovascularly intact. Procedures Date of Service Date of Service: 02/24/24 Progress Note: A&P Assessment and plan (1) Tibial plateau fracture, right: Status: Acute Assessment and Plan: * Continue pain mgmnt * Begin Aspirin for dvt ppx * begin PT for rt tibial plat-NWB * Dispo planning-Pending PT eval, pain mgmnt Need for continued inpatient stay: Time Spent With Patient Time: Total time managing care of this patient today ____ minutes. Quality Stroke Does the patient have a stroke diagnosis?: No VTE Prior VTE?: No VTE Risk Level:: Surgical - moderate VTE Device Contraindication: N/A - Device Ordered VTE Drug Contraindication: N/A - Med Ordered
--- NOTE | 2024-02-24 09:59 | P.DS_ITS ---
DS: Providers Provider Date of Service: 02/24/24 Primary care physician: Mario Motta MD Consults: 02/23/24 14:35 Consult to Hospitalist Routine Comment: Consulting Provider: Hospitalist Reason For Exam: h/o CAD DS: Diagnosis Discharge Diagnosis (1) Tibial plateau fracture, right: Status: Acute DS: Summary Hospital Course Hospital Course: The patient underwent a successful ORIF right tibal plateau, was transferred to PACU and then to the floor to recover. During their stay, their vitals were stable, afebrile at 98.6 . Labs were unremarkable, H/H 10.1/31.1 . POD 1 he was started on ASA 325mg tabs for DVT ppx, they also received Physical Therapy services twice a day. Physical therapy should include gait training, NWB ROM to tolerance and quad strength. He is NWB x 12 weeks. Brace to be worn with ambulation Prior to discharge, his dressing was clean dry and intact, new Aquacel dressing applied. The Aquacel dressing should remain intact and dry at all times. Any concerns with the dressing, please contact orthopedic office. No showering. The plan is to be discharged home Time Attestation Discharge Coordination Time (in mins): 30 Quality: Safe Use of Opioids Does Pt have an Active Cancer Diagnosis on the Problem List?: No Quality: Stroke Does the patient have a stroke diagnosis?: No Physical Exam Vital Signs: Vital Signs: Last Vital Signs Temp 98.6 F 02/24/24 07:00 Pulse 85 02/24/24 07:00 Resp 20 02/24/24 07:00 BP 145/68 H 02/24/24 07:00 Pulse Ox 96 02/24/24 07:00 O2 Del Method Room Air 02/24/24 07:00 O2 Flow Rate 3 02/23/24 15:35 BMI result Body Mass Index 34.5 DS: Data Data Completed and Pending Labs on day of discharge: Laboratory Results - last 24 hr 02/24/24 05:37 WBC 11.4 H RBC 3.43 L Hgb 10.1 L Hct 31.1 L MCV 90.7 MCH 29.4 MCHC 32.5 RDW 14.6 Plt Count 282 MPV 9.4 Immature Gran % (Auto) 0.4 Neut % (Auto) 77.1 H Lymph % (Auto) 10.0 L Kleberg % (Auto) 12.1 H Eos % (Auto) 0.1 Baso % (Auto) 0.3 Lymph # (Auto) 1.1 L [place] # (Auto) 1.4 H Eos # (Auto) 0.0 Baso # (Auto) 0.0 Abs Immat Gran (auto) 0.04 H Absolute Neuts (auto) 8.8 H Absolute Nucleated RBC 0.000 Nucleated RBC % (auto) 0.0 Sodium 136 Potassium 4.1 Chloride 108 Carbon Dioxide 21 L Anion Gap 11 L BUN 27 H Creatinine 1.41 H Estim Creat Clear Calc 74.3 Estimated GFR 53 Fasting Glucose 118 H Calcium 9.2 Discharge Plan Discharge Patient Disposition: Home, Self-Care Referrals: Bre Ingram PA-C [Physician Registered Representative] - 2 Weeks (03/03/24 14:30 [facility] Bre Ingram PA-C) Discharge Medications: New acetaminophen 325 mg Tablet 650 mg PO Q6H PRN (Reason: Pain, Mild (Pain Scale 1-3), fever or headache) 30 Days Qty: 240 0RF aspirin 325 mg Tablet 325 mg PO BID 42 Days Qty: 84 0RF celecoxib 200 mg Capsule 200 mg PO BID 30 Days Qty: 60 0RF oxycodone 5 mg Tablet 5 mg PO Q4H PRN (Reason: Pain, Moderate(Pain Scale 4-6)) 7 Days Qty: 42 0RF Rx Instructions: Partial Fill upon patient request. Continued atorvastatin 80 mg tablet 80 mg PO DAILY Qty: 90 3RF nitroglycerin [Nitrostat] 0.4 mg tablet, sublingual 0.4 mg sublingual Q5M PRN (Reason: Chest Pain) 90 Days Qty: 25 0RF Rx Instructions: 1 tab under tongue as needed for chest pain, may repeat in 5 min X2 acetaminophen 325 mg Tablet 650 mg PO Q6H PRN (Reason: Pain, Mild (Pain Scale 1-3)) Qty: 10 0RF multivitamin Tablet 1 tab PO DAILY hydralazine 100 mg tablet 100 mg PO BID 90 Days Qty: 180 3RF carvedilol 25 mg tablet 37.5 mg PO BID 90 Days Qty: 270 3RF isosorbide mononitrate 60 mg tablet extended release 24 hr 60 mg PO DAILY Qty: 90 3RF omega 5-jok-dfv-fish oil [Fish Oil] 1,000 mg (120 mg-180 mg) capsule 1 cap PO DAILY finasteride 5 mg tablet 5 mg PO BEDTIME Jardiance 10 mg tablet 10 mg PO DAILY amlodipine 10 mg tablet 10 mg PO DAILY Qty: 30 5RF Rx Instructions: dose increase Held aspirin 81 mg tablet,delayed release (DR/EC) See Rx Instructions .ROUTE .COMPLEX Qty: 90 1RF Hold Instructions: Resume on 04/06/24. Dose Instruction: TAKE 1 TABLET BY MOUTH DAILY Rx Instructions: TAKE 1 TABLET BY MOUTH DAILY Discontinued oxycodone 5 mg capsule 5 mg PO Q6H PRN (Reason: severe pain (scale score 7-10)) Qty: 12 0RF Rx Instructions: Partial Fill upon patient request. Discharge Orders: Discharge Order (Routine); Ordered 02/24/24 Ordered By: Nura Walsh Diet: Regular diet Activity on Discharge: Use Splints or Immobilizers Activity Restrictions/Additional Instructions: * NWB x12 weeks * NWB ROM as tolerated * Knee immobilizer intact on at all times-may remove with NWB ROM exercises * Dressing changes prn-dry dressings * elevate leg above heart level * ice 3-4 times a day * Continue anticoagulant x 6 weeks * No tub bath or shower-Keep dressing clean, dry and intact * Follow up with orthopedics in 2 weeks Print Language: Upper Sorbian
--- NOTE | 2024-02-24 10:13 | MHC.CM.PN ---
Patient has been medically cleared for dc to home today, self care.
--- NOTE | 2024-03-15 08:12 | P.OP_ITS ---
Operative Note Operative Note Date of Service: 02/23/24 Narrative: Date of Service: 02/23/24 Pre-op diagnosis: Right tibial plateau fracture Post-op diagnosis: same Procedure: Right Tibial ORIF Implants: [place] lateral locking plate and 10 cc Hydroset Surgeon: Benny Dixon MD Anesthesia: GETA and local Was an Director Of Premium Seat Sales used for this Procedure?: Yes Director Of Premium Seat Sales: Nura Walsh Estimated blood loss (mL): 50 Tourniquet time (min): 100 IV fluids (mL): 1,500 Pathology: none sent Condition: stable Disposition: PACU Procedure in detail: Patient was brought to the operating room and placed supine on the surgical table. He was prepped and draped in standard sterile fashion and a time out was called to identify proper site, proper procedure and IV antibiotics per weight were administered. I began by exsanguinating the limb. I then made a curvilinear incision over the ITB extending distally over the joint line and arching anteriorly over Gerdy's tubercle. Full thickness skin flaps were developed and the ITB was incised in line with the skin incision. The capsule was identified and then incised releasing hematogenous fluid. THe coronal ligaments were transected and the lateral meniscus was tagged and retracted proximally. There was a comminuted split-depressed lateral plateau fracture. I elevated the ITB off of Gerdy's tubercle and lateral and distal to this I made a small cortical window and placed a tamp through this. Under both radiographic and direct visualization I tamped up the articular surface until I was satisfied that the articular anatomy was as closely reproduced as possible. There was severe loss of height and comminution. I made small incision medially and placed a large C- clamp over the plateau and reduced the lateral fragment. At the same time I placed 10 ml of Hydroset through the cortical window. Once this was dry a lateral locking plate was selected and then placed. Using standard AO technique my proximal locking screws and distal non-locking cortical screws were placed. Biplanar fluro was used to confirm fracture reduction and hardware alignment. Once I was satisfied with both final fluorscopic images were taken. The tourniquet was then let down and there was no brisk bleeding. The anterior compartment fascia was left open. A layered closure was performed with the meniscus repaired to the capsule laterally and then the ITB and then skin with absorbable subq and the booker. Sterile dressings were applies and a hinged knee brace as well. Patient was extubated and brought to the recovery room in stable condition. There were no known complications.
== END 2024-02-24 11:11 | disposition home or self-care (01) ==
LOC: HO.SSS 13:30 → HO.IMC 14:25
PROVIDERS: Physician Assistant; PCP Internal Medicine; Visit Provider Orthopaedic Surgery
PROC: (CPT 27536; principal; 2024-02-23 11:50)
DX: S82.141A Displaced bicondylar fracture of right tibia, initial encounter for closed fracture (principal); S50.311A Abrasion of right elbow, initial encounter; V29.888A Rider (driver) (passenger) of other motorcycle injured in other specified transport accidents, initial encounter; Y93.55 Activity, bike riding; Y92.414 Local residential or business street as the place of occurrence of the external cause; Y99.8 Other external cause status; M62.831 Muscle spasm of calf; I13.0 Hypertensive heart and chronic kidney disease with heart failure and stage 1 through stage 4 chronic kidney disease, or unspecified chronic kidney disease; I50.22 Chronic systolic (congestive) heart failure; N18.30 Chronic kidney disease, stage 3 unspecified; I25.10 Atherosclerotic heart disease of native coronary artery without angina pectoris; I42.9 Cardiomyopathy, unspecified; Z79.82 Long term (current) use of aspirin; Z79.899 Other long term (current) drug therapy; Z98.890 Other specified postprocedural states
CPT/HCPCS: 27536; 36415; 80048; 85025; 97161; 97165; C1713; J0131; J0690; J1100; J1170; J1885; J2250; J2405; J2704; J2795; J3010; J7120

== ENCOUNTER → 2024-02-23 13:13 | Outpatient (BNV) | payer OTHER, SELFPAY | PROVIDERS: PCP Internal Medicine; Visit Provider Orthopaedic Surgery | DX: S82.141A Displaced bicondylar fracture of right tibia, initial encounter for closed fracture (principal) | CPT/HCPCS: 27235; 99024 ==

== ENCOUNTER → 2024-02-23 13:13 | Outpatient (BNV) | payer OTHER, SELFPAY | PROVIDERS: PCP Internal Medicine; Visit Provider Physician Assistant | DX: S82.141A Displaced bicondylar fracture of right tibia, initial encounter for closed fracture (principal); I12.9 Hypertensive chronic kidney disease with stage 1 through stage 4 chronic kidney disease, or unspecified chronic kidney disease; N18.30 Chronic kidney disease, stage 3 unspecified; I25.10 Atherosclerotic heart disease of native coronary artery without angina pectoris | CPT/HCPCS: 99222 ==

== ENCOUNTER 2024-03-03 13:54 | Outpatient (REF) | payer OTHER, SELFPAY ==
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
== END 2024-03-03 13:55 | disposition home or self-care (01) ==
LOC: HO.HOSX 13:54
PROVIDERS: PCP Internal Medicine; Visit Provider Physician Assistant
DX: M25.561 Pain in right knee (principal); S82.141D Displaced bicondylar fracture of right tibia, subsequent encounter for closed fracture with routine healing
CPT/HCPCS: 73560; 99212

== ENCOUNTER 2024-03-03 14:45 | Outpatient (AMB) | payer OTHER, SELFPAY ==
--- NOTE | 2024-03-03 14:59 | A.OFFVIS_ITS ---
Intake Visit Reasons: PO RT tibial plateau 02/23/24 NE Intake Note: Brandon is a 49 year old male who presents today for a post op appointment s/p RT tibial plateau 02/23/24 NE. Patient reports he is having pain on the lateral top of his foot since his injury and notices some swelling. He states having some pain in his knee. Allergies No Known Allergies Allergy (Verified 02/23/24 07:44) HPI HPI PO RT tibial plateau 02/23/24 NE: Details: 49-year-old male who presents in the office today 9 days status post right knee tibial plateau ORIF, which was performed on 02/23/[address] Dixon.? ? While in the office today, the patient reports he is having pain along the top lateral aspect of the right foot since his injury. He confirmed edema. He also reports having pain in the right knee. ? PFSH Medical History Uncontrolled hypertension CAD (coronary artery disease) Elevated troponin Acute systolic heart failure CHF (congestive heart failure) Acute non-ST elevation myocardial infarction (NSTEMI) HTN (hypertension) Surgical History Hx of removal of cyst S/P cardiac catheterization Social History Household Members: Spouse Household Members Other:: girlfriend Housing: Other Housing Other:: mobile home Are you a primary youth care specialist to a significant other at home: No Do you presently have visiting nurse or other home services: No Patient Tobacco Use Status: Never used Tobacco e-Cigarette/Vaping Use: Never Used Second Hand Smoke Exposure: No Substance Use Type: Marijuana Advance Directives Date on File: 08/27/21 service: No Current occupational status: employed 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 Lisandro are intact. No surrounding erythema or drainage. No signs of infection. Pedal pulse intact. Sensation intact. Assessment & Plan Assessment & Plan (1) Tibial plateau fracture, right: Code(s): S82.141A - Displaced bicondylar fracture of right tibia, initial encounter for closed fracture Category: Medical Plan Mr. Phillips is a 49-year-old male who presents in the office today 9 days status post right knee tibial plateau ORIF, which was performed on 02/23/[address] Dixon.? ? While in the office today, the patient reports he is having pain along the top lateral aspect of the right foot since his injury. He confirmed edema. He also reports having pain in the right knee.? ? [place] were removed and steri-stripes were applied. During today?s encounter we demonstrated gentle ankle pumping exercises to work on at home. A referral for formal physical therapy was made today. He was placed back into the brace. I recommended elevating the right lower extremity as much as possible and is able to apply ice. He supplied the office with FMLA paperwork and will return with handicap plate paperwork for the office to fill out. Follow-up will be in four weeks with Dr. Dixon, or sooner if needed. ? ? X-rays of the right knee which were obtained while in the office today and were reviewed by me, Bre Ingram PA-C, revealed intact orthopedic hardware with routine healing. ? Orders: Orders XR knee RT 2V Today M25.569 - Pain in unspecified knee PT Evaluation and Treatment Today S82.141A - Displaced bicondylar fracture of right tibia, initial encounter for closed fracture Patient Instructions: Scribed by Agnieszka Stoddard medical scientific officer, for Bre Ingram PA-C on 03/03/2024 at 3:33 pm, EST.? Coding Level of Care Code Global (74281) Diagnoses Tibial plateau fracture, right S82.141A
== END 2024-03-03 15:33 | disposition home or self-care (01) ==
PROVIDERS: PCP Internal Medicine; Visit Provider Physician Assistant
DX: S82.141A Displaced bicondylar fracture of right tibia, initial encounter for closed fracture (principal)
CPT/HCPCS: 99024

== ENCOUNTER 2024-03-31 08:53 | Outpatient (REF) | payer OTHER, SELFPAY ==
--- NOTE | ~2024-03-31 | XR_ITS ---
EXAMINATION: XR RIGHT KNEE SERIES CLINICAL INFORMATION: Pain in the right knee. COMPARISON: Multiple prior knee radiographs most recent 03/03/2024. TECHNIQUE: 2 views of the right knee. FINDINGS: Postoperative changes related to orthopedic hardware/plate and screw fixation along the proximal lateral aspect of the proximal tibia crossing the area previously noted tibial plateau fracture. The fracture is redemonstrated with unchanged alignment. The skin booker have been removed. Persistent incongruity with some joint depression of the articular surface of the lateral plateau but unchanged. XR/XR knee RT 2V IMPRESSION: Stable postoperative changes related to open reduction internal fixation of the tibial plateau fracture. Electronically signed by: Ayad Bates MD 04/06/2024 11:31 AM EDT
== END 2024-03-31 08:54 | disposition home or self-care (01) ==
LOC: HO.HOSX 08:53
PROVIDERS: Visit Provider Orthopaedic Surgery
DX: M25.561 Pain in right knee (principal); S82.141D Displaced bicondylar fracture of right tibia, subsequent encounter for closed fracture with routine healing; Z98.890 Other specified postprocedural states
CPT/HCPCS: 73560; 99212

== ENCOUNTER 2024-03-31 09:27 | Outpatient (AMB) | payer OTHER, SELFPAY ==
--- NOTE | 2024-03-31 09:41 | MHC.OFFVIS ---
Vital Signs 03/31/24 09:58 Height 5 ft 9 in Weight 225 lb BMI 33.2 Intake Visit Reasons: PO - RT tibial plateau ORIF 02/23/24 NE Intake Note: Brandon is a 49 year old male who presents today for a post operative appointment s/p Right Tibial Plateau ORIF 02/23/24. XR updated today in office. Patient remains NWB in brace. Patient reports that he is doing well with no concerns. Allergies No Known Allergies Allergy (Verified 02/23/24 07:44) HPI HPI PO - RT tibial plateau ORIF 02/23/24 NE: Details: Brandon is a 49 year old male who presents today for a post operative appointment s/p Right Tibial Plateau ORIF 02/23/24. XR updated today in office. Patient remains NWB in brace. Patient reports that he is doing well with no concerns. [facility] Medical History Uncontrolled hypertension CAD (coronary artery disease) Elevated troponin Acute systolic heart failure CHF (congestive heart failure) Acute non-ST elevation myocardial infarction (NSTEMI) HTN (hypertension) Surgical History Hx of removal of cyst S/P cardiac catheterization Social History Household Members: Spouse Household Members Other:: girlfriend Housing: Other Housing Other:: mobile home Are you a primary critical care technician to a significant other at home: No Do you presently have visiting nurse or other home services: No Patient Tobacco Use Status: Never used Tobacco e-Cigarette/Vaping Use: Never Used Second Hand Smoke Exposure: No Substance Use Type: Marijuana Advance Directives Date on File: 08/27/21 service: No Current occupational status: employed 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 No hardware complications status post ORIF right tibial plateau Assessment & Plan Assessment & Plan (1) Tibial plateau fracture, right: Code(s): S82.141A - Displaced bicondylar fracture of right tibia, initial encounter for closed fracture Category: Medical Plan: Status post right tibial plateau fracture. He may discontinue the brace. It is not necessary to wear. No weight-bearing on the right lower extremity. Follow up in 6 weeks. Coding Level of Care Code Global (31261) Diagnoses Tibial plateau fracture, right S82.141A
[2024-03-31 09:58] VITALS: BMI 33.2
== END 2024-03-31 10:17 | disposition home or self-care (01) ==
PROVIDERS: PCP Internal Medicine; Visit Provider Orthopaedic Surgery
DX: S82.141A Displaced bicondylar fracture of right tibia, initial encounter for closed fracture (principal)
CPT/HCPCS: 99024

== ENCOUNTER 2024-05-02 08:56 | Outpatient (REF) | payer OTHER, SELFPAY ==
[2024-05-02 10:24] LABS: Anion Gap 11 (12-20); Blood Urea Nitrogen 26 mg/dL (9-16); Carbon Dioxide 21 mmol/L (22-29); Chloride 110 mmol/L (96-108); Estimated Glomerular Filt Rate 43; Sodium 138 mmol/L (135-145)
== END 2024-05-02 08:57 | disposition home or self-care (01) ==
LOC: HO.LAB 08:56
PROVIDERS: PCP Internal Medicine; Visit Provider Internal Medicine Nephrology
DX: N18.31 Chronic kidney disease, stage 3a (principal); I10 Essential (primary) hypertension
CPT/HCPCS: 36415; 80051; 82565; 84520

== ENCOUNTER 2024-05-04 15:35 | Outpatient (AMB) | payer OTHER, SELFPAY ==
--- NOTE | 2024-05-04 15:38 | HO.NEPHOV ---
Vital Signs 05/04/24 15:40 Height 5 ft 9 in BP 110/80 Blood Pressure Location Lt brachial Position Sitting Pulse 88 Pulse Source Pulse Oximeter Pulse Oximetry (%) 98 Oxygen Delivery Method Room Air Intake Visit Reasons: 4 mon follow up-Conf Certified Alcohol Drug Counselor Required: No Accompanied by: Spouse Allergies No Known Allergies Allergy (Verified 05/04/24 15:40) HPI Comments Details: Brandon was seen in the office in follow-up of his chronic kidney disease and hypertension. He has a baseline serum creatinine between 1.8 to 1.9. His blood pressure control is at goal now after adjustment of medications. He is trying to be compliant with low-sodium diet. He does not have any chest pain, shortness for, pedal edema, proximal nocturnal dyspnea, orthopnea or urinary symptoms. His weight has been stable. He does not have any headache, visual disturbances or orthostatic symptoms. He avoids nonsteroidal anti-inflammatory medications [facility] Medical History Uncontrolled hypertension CAD (coronary artery disease) Elevated troponin Acute systolic heart failure CHF (congestive heart failure) Acute non-ST elevation myocardial infarction (NSTEMI) HTN (hypertension) Surgical History Hx of removal of cyst S/P cardiac catheterization Social History Household Members: Spouse Household Members Other:: girlfriend Housing: Other Housing Other:: mobile home Are you a primary mall plant caretaker to a significant other at home: No Do you presently have visiting nurse or other home services: No Patient Tobacco Use Status: Never used Tobacco e-Cigarette/Vaping Use: Never Used Second Hand Smoke Exposure: No Substance Use Type: Marijuana Advance Directives Date on File: 08/27/21 service: No Current occupational status: employed 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 Physical Exam Vital Signs: Last Vital Signs Pulse 88 05/04/24 15:40 BP 110/80 05/04/24 15:40 Pulse Ox 98 05/04/24 15:40 Oxygen Delivery Method Room Air 05/04/24 15:40 Const General: comfortable and no acute distress Orientation/consciousness: patient oriented x3 HEENT Head: Yes normocephalic Mouth: Normal oral and palatal mucosa present Eyes EOM: EOMs intact bilaterally Neck Neck: Yes supple Resp Auscultation: clear to auscultation bilaterally Cardio Jugular venous distension: no JVD Rate: regular rate GI Palpation (GI): Soft to palpation Auscultation: normal bowel sounds General: Yes no CVA tenderness Back/Spine/Pelvis Back: no CVA tenderness Skin General skin exam: no rashes or lesions noted Neuro General: patient oriented x3 and moves all extremities Extrem General: Yes no pedal edema Results Reviewed Nephrology Results: Hgb 10.1 g/dl (14.0-18.0) L 02/24/24 WBC 11.4 X10*3/uL (4.8-10.8) H 02/24/24 Plt Count 282 X10*3/uL (160-400) 02/24/24 Sodium 138 mmol/L (135-145) 05/02/24 Potassium 4.0 mmol/L (3.3-5.1) 05/02/24 Chloride 110 mmol/L (96-108) H 05/02/24 Carbon Dioxide 21 mmol/L (22-29) L 05/02/24 BUN 26 mg/dL (9-16) H 05/02/24 Creatinine 1.70 mg/dL (0.5-1.4) H 05/02/24 Calcium 9.2 mg/dL (8.4-10.2) 02/24/24 Assessment & Plan Assessment & Plan (1) CKD (chronic kidney disease) stage 3, GFR 30-59 ml/min: Code(s): N18.30 - Chronic kidney disease, stage 3 unspecified Category: Medical Qualifiers: Chronic kidney disease stage 3 subtype: stage 3a (GFR 45-59) Qualified Code(s): N18.31 - Chronic kidney disease, stage 3a (2) HTN (hypertension): Code(s): I10 - Essential (primary) hypertension Category: Medical Qualifiers: Hypertension type: primary hypertension Qualified Code(s): I10 - Essential (primary) hypertension Plan Mr Phillips answered CKD stage 3 with baseline serum creatinine between 1.8 to 1.9. His CKD is most likely due to vascular disease. He has history of from coronary artery disease and cardiomyopathy. His volume status is optimal. His blood pressure control is well controlled on current medications. He should continue to be on a low-sodium diet. He should avoid nonsteroidal anti-inflammatory medications. He is on Jardiance now. All questions were answered. Follow-up of blood work was ordered and follow-up appointment was given. Orders: Orders Blood Urea Nitrogen 4 Months I10 - Essential (primary) hypertension, N18.31 - Chronic kidney disease, stage 3a Electrolytes 4 Months I10 - Essential (primary) hypertension, N18.31 - Chronic kidney disease, stage 3a Creatinine 4 Months I10 - Essential (primary) hypertension, N18.31 - Chronic kidney disease, stage 3a Calcium 4 Months I10 - Essential (primary) hypertension, N18.31 - Chronic kidney disease, stage 3a Complete Blood Count Auto Diff 4 Months I10 - Essential (primary) hypertension, N18.31 - Chronic kidney disease, stage 3a Parathyroid Hormone Intact 4 Months I10 - Essential (primary) hypertension, N18.31 - Chronic kidney disease, stage 3a Vitamin D 25-OH Total 4 Months I10 - Essential (primary) hypertension, N18.31 - Chronic kidney disease, stage 3a Medications: Discontinued celecoxib Discontinued Reason: Doctor's Order 200 mg PO BID 30 days 60 caps 0RF Coding Level of Care Code Est Pt Level 4 (70341) Diagnoses Stage 3a chronic kidney disease N18.31 Chronic kidney disease stage 3 subtype: stage 3a (GFR 45-59) Primary hypertension I10 Hypertension type: primary hypertension
[2024-05-04 15:40] VITALS: BP 110/80; PULSE 88; O2SAT 98
== END 2024-05-04 15:53 | disposition home or self-care (01) ==
PROVIDERS: PCP Internal Medicine; Visit Provider Internal Medicine Nephrology
DX: I12.9 Hypertensive chronic kidney disease with stage 1 through stage 4 chronic kidney disease, or unspecified chronic kidney disease (principal); N18.31 Chronic kidney disease, stage 3a
CPT/HCPCS: 99214

== ENCOUNTER → 2024-05-04 15:35 | Outpatient (BNVA) | payer OTHER, SELFPAY | PROVIDERS: PCP Internal Medicine; Visit Provider Internal Medicine Nephrology | DX: I12.9 Hypertensive chronic kidney disease with stage 1 through stage 4 chronic kidney disease, or unspecified chronic kidney disease (principal); N18.31 Chronic kidney disease, stage 3a | CPT/HCPCS: 99212 ==

== ENCOUNTER 2024-05-09 10:54 | Outpatient (REF) | payer OTHER, SELFPAY | END 2024-05-09 10:55 | disposition home or self-care (01) | LOC: HO.HOSX 10:54 | PROVIDERS: PCP Internal Medicine; Visit Provider Orthopaedic Surgery | DX: M25.561 Pain in right knee (principal); M25.562 Pain in left knee | CPT/HCPCS: 73560; 73562; 99212 ==

== ENCOUNTER 2024-05-09 10:54 | Outpatient (AMB) | payer OTHER, SELFPAY ==
--- NOTE | 2024-05-09 11:02 | MHC.OFFVIS ---
Vital Signs 05/09/24 11:13 Height 5 ft 9 in Weight 225 lb BMI 33.2 Intake Visit Reasons: PO - RT tibial plateau ORIF 02/23/24 NE Intake Note: Brandon is a 49 year old male who presents today for a post operative visit s/p Right Tibial Plateau ORIF 02/23/24. At his last visit he discontinued use of the brace but was to remain non weight bearing. Patient reports that he is doing very well with no concerns, he continues to work with physical therapy. Allergies No Known Allergies Allergy (Verified 05/09/24 11:16) HPI HPI PO - RT tibial plateau ORIF 02/23/24 NE: Details: Brandon is a 49 year old male who presents today for a post operative visit s/p Right Tibial Plateau ORIF 02/23/24. At his last visit he discontinued use of the brace but was to remain non weight bearing. Patient reports that he is doing very well with no concerns, he continues to work with physical therapy. [facility] Medical History Uncontrolled hypertension CAD (coronary artery disease) Elevated troponin Acute systolic heart failure CHF (congestive heart failure) Acute non-ST elevation myocardial infarction (NSTEMI) HTN (hypertension) Surgical History Hx of removal of cyst S/P cardiac catheterization Social History Household Members: Spouse Household Members Other:: girlfriend Housing: Other Housing Other:: mobile home Are you a primary wound care coordinator to a significant other at home: No Do you presently have visiting nurse or other home services: No Patient Tobacco Use Status: Never used Tobacco e-Cigarette/Vaping Use: Never Used Second Hand Smoke Exposure: No Substance Use Type: Marijuana Advance Directives Date on File: 08/27/21 service: No Current occupational status: employed 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 Results Reviewed Results Reviewed: I personally reviewed relevant radiographs. No hardware complications and no changes in alignment compared to prior status post ORIF right proximal tibia Assessment & Plan Assessment & Plan (1) Tibial plateau fracture, right: Code(s): S82.141A - Displaced bicondylar fracture of right tibia, initial encounter for closed fracture Category: Medical Plan: This is a 49-year-old status post ORIF right tibia. He may progress to weight-bearing as tolerated. I instructed him on how to do this with weaning crutches and how to avoid falling. He will see me back in 3 months' time. He may need a note to return to work but I would make sure that he can stand and walk without need for assistive devices prior to doing that. He may begin driving. Orders: Orders XR knee LT 1V Today M25.569 - Pain in unspecified knee XR knee RT 3V Today M25.561 - Pain in right knee Coding Level of Care Code Global (53718) Diagnoses Tibial plateau fracture, right S82.141A
[2024-05-09 11:13] VITALS: BMI 33.2
== END 2024-05-09 13:48 | disposition home or self-care (01) ==
PROVIDERS: PCP Internal Medicine; Visit Provider Orthopaedic Surgery
DX: S82.141A Displaced bicondylar fracture of right tibia, initial encounter for closed fracture (principal)
CPT/HCPCS: 99024

== ENCOUNTER 2024-06-09 15:01 | Outpatient (AMB) | payer OTHER, SELFPAY ==
[2024-06-09 15:16] VITALS: BP 118/82; PULSE 80; BMI 32.0
--- NOTE | 2024-06-09 15:16 | MHC.OFFVIS ---
Vital Signs 06/09/24 15:16 Height 5 ft 9 in Weight 216 lb 7.903 oz BMI 32.0 BP 118/82 Blood Pressure Location Rt brachial Position Sitting Pulse 80 Pulse Source Pulse Oximeter Intake Visit Reasons: 6m follow up Aviation Warfare Systems Operator Required: No Customer Relations Representative: Customer Relations Representative Present Allergies No Known Allergies Allergy (Verified 06/09/24 15:18) Medication List - Last Reconciled 06/09/24 by Annie Munoz, COST AND SALES RECORD SUPERVISOR-C amlodipine 10 mg PO DAILY aspirin TAKE 1 TABLET BY MOUTH DAILY atorvastatin 80 mg PO DAILY carvedilol 37.5 mg (1.5 x 25 mg) PO BID 90 days empagliflozin (Jardiance) 10 mg PO DAILY finasteride 5 mg PO BEDTIME hydralazine 100 mg PO BID isosorbide mononitrate ER 60 mg PO DAILY multivitamin 1 tab PO DAILY nitroglycerin (Nitrostat) 0.4 mg sublingual Q5M PRN 3 months omega 2-cyb-jbk-fish oil 1,000 (120-180) mg (Fish Oil) 1 cap PO DAILY HPI HPI 6m follow up: Details: Brandon is a 49-year-old male with past medical history of hypertension, alcohol use, chronic kidney disease, heart failure with reduced EF, who was admitted August 2021 with heart failure, EF 25-30%. He was then seen in cardiology follow-up 09/17/2021 and did not present again for follow-up until 12/24/2022. On follow up he did report med noncompliance, only taking meds once daily. His medications were adjusted and need for strict compliance reviewed. He has since followed with Nephrology and now presents for follow-up. Today he reports he has been doing generally well since his last visit in May. He denies any concerning symptoms. No chest discomfort at rest or with activity, no shortness of breath, PND, orthopnea or edema. No palpitations, lightheadedness, presyncope, syncope, falls. Taking meds as directed. is present. [facility] Medical History Uncontrolled hypertension CAD (coronary artery disease) Elevated troponin Acute systolic heart failure CHF (congestive heart failure) Acute non-ST elevation myocardial infarction (NSTEMI) HTN (hypertension) Surgical History Hx of removal of cyst S/P cardiac catheterization Social History Household Members: Spouse Household Members Other:: girlfriend Housing: Other Housing Other:: mobile home Are you a primary resident care aide to a significant other at home: No Do you presently have visiting nurse or other home services: No Patient Tobacco Use Status: Never used Tobacco e-Cigarette/Vaping Use: Never Used Second Hand Smoke Exposure: No Substance Use Type: Marijuana Advance Directives Date on File: 08/27/21 service: No Current occupational status: employed 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 Knee surgery few months ago), Denies muscle cramps, Denies muscle weakness, Denies numbness, Denies radiating pain into limb, Denies stiffness and Denies tingling Neuro Reports abnormal gait (uses one crutch. Knee surgery few months ago), Denies dizziness, Denies numbness and Denies tingling Endo Denies palpitations Physical Exam Vital Signs: Last Vital Signs Pulse 80 06/09/24 15:16 BP 118/82 06/09/24 15:16 BMI result Body Mass Index 32.0 Const General: cooperative, healthy appearing, comfortable and no acute distress Orientation/consciousness: patient oriented x3 Neck Neck: Yes normal visual inspection Resp Effort & Inspection: normal respiratory effort Auscultation: clear to auscultation bilaterally, no crackles, no rales, no rhonchi and no wheezes Cardio Jugular venous distension: no JVD Rate: regular rate Rhythm: regular rhythm Heart sounds: S1 normal heart sound present, S2 normal heart sound present, no murmurs and no rubs Neuro General: patient oriented x3 Extrem General: Yes normal to inspection, No no pedal edema and No calf tenderness Psych Appearance: grossly normal Mental Status: mental status grossly normal Speech and movement: Normal speech and movement present Assessment & Plan Assessment & Plan (1) Cardiomyopathy: Code(s): I42.9 - Cardiomyopathy, unspecified Category: Medical Qualifiers: Cardiomyopathy type: other Qualified Code(s): I42.8 - Other cardiomyopathies Plan: History of uncontrolled hypertension. [facility] admission 08/2021 hypertensive emergency. Noted to have elevated troponins, elevated creatinine, elevated BNP. Echocardiogram showed EF 25-30%, diffuse hypokinesis, wall motion abnormality in the inferior lateral wall. His blood pressure was managed medically with addition of antihypertensives. He was treated for acute systolic heart failure. He was treated for possible NSTEMI with heparin drip and transferred to [facility] for cardiac catheterization showing nonobstructive disease. His cardiomyopathy was felt to be related to uncontrolled hypertension. He did not present for follow up between 09/17/21 - 12/23/22. Echocardiogram done 02/03/2023 showed EF 50-55%, moderate asymmetric septal hypertrophy, mild MR. On follow-up he reported taking meds only once daily. His medicine regimen was adjusted and strict compliance with b.i.d. med taking was reviewed. He has been following with Nephrology as well for his hypertension. Today he reports feeling very well since his last visit in November, with no concerning symptoms. His blood pressure is normal range today. Last limited echocardiogram done 11/17/2023 showed EF 70%, severe septal asymmetric hypertrophy, basal inferior segments hypokinetic. At this time he is on amlodipine 10 mg daily, carvedilol 37.5 mg b.i.d., hydralazine 100 mg b.i.d., isosorbide 60 mg daily, Jardiance 10 mg daily. He reports compliance with these meds. Reviewed the Signs and symptoms of heart failure and the need for ongoing good blood pressure control reviewed with him. Reviewed low-salt diet, activity as tolerated. Cardiology follow-up in 6 months, sooner if needed. (2) Heart failure with reduced ejection fraction: Code(s): I50.20 - Unspecified systolic (congestive) heart failure Category: Medical Plan: On examination today as no clinical signs of decompensated heart failure. EF has improved to normal. Strict med compliance reviewed. Will continue use of carvedilol, hydralazine and isosorbide for neurohormonal modulation. He is not on alison/arbs due to chronic kidney disease (3) CKD (chronic kidney disease): Code(s): N18.9 - Chronic kidney disease, unspecified Category: Medical Qualifiers: Chronic kidney disease stage: unspecified stage Qualified Code(s): N18.9 - Chronic kidney disease, unspecified Plan: To be followed by Nephrology (4) HTN (hypertension): Code(s): I10 - Essential (primary) hypertension Category: Medical Qualifiers: Hypertension type: primary hypertension Qualified Code(s): I10 - Essential (primary) hypertension Plan: As above (5) Acute non-ST elevation myocardial infarction (NSTEMI): Code(s): I21.4 - Non-ST elevation (NSTEMI) myocardial infarction Category: Medical Plan: During spring 2021 hospital admission. Cardiac catheterization with moderate branch vessel CAD. No reports of anginal sounding symptoms. Continue on aspirin and atorvastatin with ideal LDL goal less than 70. (6) S/P cardiac catheterization: Comment: 08/28/2021, left main mild distal disease, LAD 1st diagonal proximal 80% stenosis, LLUVIA 3 flow noted, large caliber LAD with no obstructive plaque left circumflex 2nd OM 65% stenosis, RCA large caliber minimal luminal irregularities, ramus mild diffuse disease. This degree of stenosis does not explain his cardiomyopathy. Code(s): Z98.890 - Other specified postprocedural states Category: Surgical Plan Time spent with chart review, documentation, interview and assessment Orders: Orders Lipid Panel Today I25.10 - Atherosclerotic heart disease of [place] coronary artery without angina pectoris Coding Level of Care Code Est Pt Level 4 (97145) Complex EM visit Add On G2211 Diagnoses Other cardiomyopathy I42.8 Cardiomyopathy type: other Heart failure with reduced ejection fraction I50.20 Chronic kidney disease, unspecified CKD stage N18.9 Chronic kidney disease stage: unspecified stage Primary hypertension I10 Hypertension type: primary hypertension Acute non-ST elevation myocardial infarction (NSTEMI) I21.4 S/P cardiac catheterization Z98.890 Time Spent (min) 30
== END 2024-06-09 16:02 | disposition home or self-care (01) ==
PROVIDERS: PCP Internal Medicine; Visit Provider Nurse Practitioner Family
DX: I42.8 Other cardiomyopathies (principal); I50.20 Unspecified systolic (congestive) heart failure; I12.9 Hypertensive chronic kidney disease with stage 1 through stage 4 chronic kidney disease, or unspecified chronic kidney disease; N18.9 Chronic kidney disease, unspecified; I21.4 Non-ST elevation (NSTEMI) myocardial infarction; Z98.890 Other specified postprocedural states
CPT/HCPCS: 99214; G2211

== ENCOUNTER → 2024-06-09 15:01 | Outpatient (BNVA) | payer OTHER, SELFPAY | PROVIDERS: PCP Internal Medicine; Visit Provider Nurse Practitioner Family | DX: I13.0 Hypertensive heart and chronic kidney disease with heart failure and stage 1 through stage 4 chronic kidney disease, or unspecified chronic kidney disease (principal); I50.21 Acute systolic (congestive) heart failure; I50.20 Unspecified systolic (congestive) heart failure; I25.10 Atherosclerotic heart disease of native coronary artery without angina pectoris; N18.9 Chronic kidney disease, unspecified; I42.9 Cardiomyopathy, unspecified; I21.4 Non-ST elevation (NSTEMI) myocardial infarction; Z98.890 Other specified postprocedural states | CPT/HCPCS: 99212 ==

== ENCOUNTER 2024-08-04 14:22 | Outpatient (AMB) | payer OTHER, SELFPAY ==
--- OUTSIDE RECORDS SUMMARY | 2024-08-04 14:25 | XMS_ITS | Clinical Summary ---
Author Organization [facility] Address [address] [place] [address] Care Team Providers Care Stull Hewer Name Role Phone Mario Motta MD Primary Care Provider [phone] Allergies No known active allergies Medications Medication Sig Dispensed Refills Start Date End Date Status [facility] Aspirin Low Dose 81 MG EC tablet Take 1 tablet (81 mg total) by mouth daily. 0 09/22/2022 Active atorvastatin (LIPITOR) tablet 80 mg Take 1 tablet (80 mg total) by mouth daily. 0 09/20/2022 Active carvedilol (COREG) 25 MG tablet Take 2 tablets (50 mg total) by mouth 2 (two) times a day. 0 09/20/2022 Active isosorbide mononitrate (IMDUR) 30 MG 24 hr tablet Take 3 tablets (90 mg total) by mouth daily. 0 09/20/2022 Active Active Problems No known active problems Family History Medical History Relation Name Comments Cancer Father Stroke Father Stroke Mother Relation Name Status Comments Father Mother Social History Tobacco Use Types Packs/Day Years Used Date Smoking Tobacco: Never Smokeless Tobacco: Former Chew Quit: 2013 Tobacco Cessation:Counseling Given: Not Answered Alcohol Use Standard Drinks/Week Comments Yes 20 (1 standard drink = 0.6 oz pu re alcohol) Sex and Gender Information Value Date Recorded Sex Assigned at Male 11/18/2022 3:43 PM EDT Gender Identity Not on file Sexual Orientation Not on file Job Start Date Occupation Industry Not on file Not on file Not on file Last Filed Vital Signs Vital Sign Reading Time Taken Comments Blood Pressure 141/99 11/26/2022 1:43 PM EDT Pulse 98 11/26/2022 1:43 PM EDT Temperature 36.6 ??C (97.9 ??F) 11/26/2022 1:43 PM ED T Respiratory Rate - - Oxygen Saturation 99% 11/26/2022 1:43 PM EDT Inhaled Oxygen Concentration - - Weight 90.1 kg (198 lb 9.6 oz) 11/26/2022 1:43 P M EDT Height 172.7 cm (5' 8 ) 11/26/2022 1:43 PM EDT Body Mass Index 30.2 11/26/2022 1:43 PM EDT Plan of Treatment Health Maintenance Due Date Last Done Comments Hepatitis B Vaccines (1 of 3 - 3-dose series) 1973 Hepatitis C Screening 1973 COVID-19 Vaccine (#1) 1973 Depression Screening 1985 Preventative Health Evaluation 1991 DTap / Tdap / Td (1 - Tdap) 01/16/1992 Colon Cancer Screening (Colonoscopy) 2018 Shingrix-Zoster Vaccine (1 of 2) 2023 Influenza Vaccine (#1) 2024 Pneumococcal Vaccine Aged Out No long er eligible based on patient's age to complete this topic RSV Ped < 20 months Aged Out No longe r eligible based on patient's age to complete this topic Care Teams Stull Hewer Relationship Specialty Start Date End Date Mario Motta MD [address] [place] [id number] PCP - General Internal Medicine 11/18/22
--- OUTSIDE RECORDS SUMMARY | 2024-08-04 14:25 | XMS_ITS | Clinical Summary ---
Author Organization [facility] Address [address] [place] [address] Phone Care Team Providers Care Office Machine Technician Name Role Phone Mario Motta MD Primary Care Provider [phone] Allergies No known active allergies Medications * This document contains information received from the source organization and may not represent a complete record from that organization. amLODIPine (NORVASC) 5 MG tablet Take 5 mg by mouth 1 (one) time each day Active isosorbide mononitrate (IMDUR) 30 MG 24 hr tablet Take 90 mg by mouth in the morning and 90 mg in the evening and 90 mg before bedtime. 09/13/2021 Active hydrALAZINE 25 MG tablet Take 75 mg by mouth in the morning and 75 mg at noon and 75 mg in the evening. 09/13/2021 Active Aspirin Low Dose 81 MG EC tablet Take 81 mg by mouth 1 (one) time each day 09/21/2021 Active atorvastatin (LIPITOR) 80 MG tablet Take 80 mg by mouth 1 (one) time each day 09/21/2021 Active carvedilol (COREG) 25 MG tablet Take 37.5 mg by mouth in the morning and 37.5 mg in the evening. 09/27/2021 Active folic acid (FOLVITE) 1 MG tablet Take 1 tablet by mouth 1 (one) time each day 01/16/2022 Active thiamine (VITAMIN B-1) 100 MG tablet Take 100 mg by mouth 1 (one) time each day 10/20/2021 Active Active Problems Problem Noted Date Diagnosed Date Abnormal renal function 10/02/2021 Chronic kidney disease stage 3 10/02/2021 Ischemic myocardial dysfunction 10/02/2021 Obese class I 10/02/2021 Stage 3b chronic kidney disease 10/02/2021 Hypertension 10/02/2021 Essential (primary) hypertension 04/09/2021 Resolved Problems Problem Noted Date Diagnosed Date Resolved Date Alcoholism 10/02/2021 10/02/2021 Liver function test above reference range 10/02/2021 10/02/2021 Myocardial infarction 10/02/20212021 Pain in finger 10/02/2021 10/02/2021 Family History Medical History Relation Comments Hypertension Father Stroke Father Diabetes Mother Hypertension Mother Stroke Mother Relation Status Comments Father Alive Mother Alive Social History Tobacco Use Types Packs/Day Years Used Date Smoking Tobacco: Never Smokeless Tobacco: Never Tobacco Cessation:Counseling Given: Not Answered Alcohol Use Standard Drinks/Week Comments Yes 0 (1 standard drink = 0.6 oz pur e alcohol) Sex and Gender Information Value Date Recorded Sex Assigned at Not on file Legal Sex Male 10:18 AM EDT Gender Identity Not on file Sexual Orientation Not on file Last Filed Vital Signs Vital Sign Reading Time Taken Comments Blood Pressure 122/80 01/14/2023 3:53 PM EDT Pulse 98 01/14/2023 3:53 PM EDT Temperature - - Respiratory Rate - - Oxygen Saturation - - Inhaled Oxygen Concentration - - Weight 88.5 kg (195 lb 3.2 oz) 01/14/2023 3:53 P M EDT Height - - Body Mass Index - - Plan of Treatment Health Maintenance Due Date Last Done Comments Pneumococcal Vaccine: Pediat rics (0 to 5 Years) and At-Risk Patients (6 to 64 Years) (1 of 2 - PCV) 1979 Hepatitis B Vaccine (1 of 3 - 19+ 3-dose series) 01/15 Colorectal Cancer Screening: Annual FOBT 2022 Colorectal Cancer Screening: Colonoscopy 2022 Colorectal Cancer Screening: Sigmoidoscopy 2022 Influenza Vaccine (#1) 2024 Insurance [facility] [place] [id number] [facility] [place] [id number] Care Teams Office Machine Technician Relationship Specialty Start Date End Date Mario Motta MD [address] [place] [address] PCP - General Internal Medicine 01/22/22
--- OUTSIDE RECORDS SUMMARY | 2024-08-04 14:25 | XMS_ITS | Data Portability ---
Author Organization [facility] Address [address] [place] [address] Assessment No assessment recorded. Plan of Treatment Reminders Order Date Submit Date Provider Last Modified By Organization Details Last Modified Time Details Appointments None record ed. Lab None record ed. Referral None record ed. Procedures None record ed. Surgeries None record ed. Imaging None record ed. Medication Orders None record ed. Patient TargetsNo targets recorded. Patient InstructionsNo instructions recorded. Reason for Referral None Reported. Procedures Surgical History Date Name Laterality Status Provider Name and Address Organization Details Recorded Time OC-UDS Send Out Template NON DOT completed Erika Rivera [email or web address] 09/30/2023 09:42:45 Imaging Results None recorded. Procedure Notes None recorded. Medical Equipment None Reported. Medications Name Sig Start Date Stop Date Status Note LastModified by Organization Details LastModified Time atorvastatin 80 mg tablet TAKE 1 TABLET (80 MG) BY MOUTH EVERY DAY active Not Available Not Available No t Available carvedilol 25 mg tablet TAKE 1 1/2 TABLETS BY MOUTH TWICE A DAY active Not Available Not Available No t Available aspirin 81 mg tablet,delayed release TAKE 1 TABLET BY MOUTH EVERY DAY active Not Available Not Available No t Available isosorbide mononitrate ER 60 mg tablet,extended release 24 hr TAKE 1 TABLET (60 MG) ORALLY DAILY active Not Available Not Available No t Available hydralazine 100 mg tablet TAKE 1 TABLET BY MOUTH TWICE A DAY FOR 90 DAYS active Not Available Not Available No t Available nitroglycerin 0.4 mg sublingual tablet TAKE 1 TABLE UNDER THE TONGUE EVERY 5 MINUTES NEEDED FOR CHEST PAIN, MAY REPEAT IN 5 MIN X 2 DOSE active Not Available Not Available No t Available hydralazine 50 mg tablet TAKE 1 TABLET (50 MG) ORALLY 2 TIMES A DAY FOR 90 DAYS active Not Available Not Available No t Available finasteride 5 mg tablet TAKE 1 TABLET BY MOUTH EVERY DAY active Not Available Not Available No t Available Vitals None Recorded Social History None recorded. Functional Status None recorded. Mental Status None recorded. Family History Nothing Reported. Medical History No medical history recorded. Past Encounters Encounter ID Performer Location Encounter Start Date Encounter Closed Date Diagnosis/Indication Diagnosis SNOMED-CT Code Diagnosis ICD10 Code Diagnosis Note [id number] [address] [address] 08/05/2021 08:20:21 08/05/2021 09:37:27 [id number] [facility]IL [address] [address] 09/30/2023 09:27:01 09/30/2023 09:43:14 History and physical examination, occupation [id number] Z02.1 Health Concerns Section Related Observation LastModified by Organization Detai ls LastModified Time None Recorded Concern Status LastModified by Organization Details LastModified Time None Recorded Advance Directives Directive None Recorded Payers Encounter Date Sequence Insurance Name Policy Number Policy Conklin Covered Member ID Conklin Member ID Guarantor Name 09/30/2023 OC-ESCREEN [employer] [facility] [id number] Brandon Phillips
--- NOTE | 2024-08-04 14:45 | MHC.OFFVIS ---
Intake Visit Reasons: OV - RT tibial plateau ORIF 02/23/24 [place] Intake Note: Brandon is a 49 year old male who presents today for a post operative visit s/p Right Tibial Plateau ORIF 02/23/24. At his last visit he was instructed to wean off of the crutches and WBAT. Patient presents today fully weight bearing and reports that he is doing well Allergies No Known Allergies Allergy (Verified 06/09/24 15:18) HPI HPI OV - RT tibial plateau ORIF 02/23/24 NE: Details: 49-year-old gentleman who is now almost 6 months status post right tibial plateau ORIF. He is doing well. He has no knee pain and wants to go back to work. He does have ipsilateral foot pain. This is painful when he gets up. [facility] Medical History Uncontrolled hypertension CAD (coronary artery disease) Elevated troponin Acute systolic heart failure CHF (congestive heart failure) Acute non-ST elevation myocardial infarction (NSTEMI) HTN (hypertension) Surgical History Hx of removal of cyst S/P cardiac catheterization Social History Household Members: Spouse Household Members Other:: girlfriend Housing: Other Housing Other:: mobile home Are you a primary home care giver to a significant other at home: No Do you presently have visiting nurse or other home services: No Patient Tobacco Use Status: Never used Tobacco e-Cigarette/Vaping Use: Never Used Second Hand Smoke Exposure: No Substance Use Type: Marijuana Advance Directives Date on File: 08/27/21 service: No Current occupational status: employed 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 He has full range of motion of the knee and can squat. There is no effusion. Does have tenderness over the plantar medial aspect of his plantar fascia. This reproduces his complaint. Assessment & Plan Assessment & Plan (1) Tibial plateau fracture, right: Code(s): S82.141A - Displaced bicondylar fracture of right tibia, initial encounter for closed fracture Category: Medical Plan: Brandon is a 49-year-old with a tibial plateau fracture who is doing remarkably well. Continue PT and activity as tolerated. (2) Plantar fasciitis: Code(s): M72.2 - Plantar fascial fibromatosis Category: Medical Plan: Brandon has developed some plantar fasciitis however. I recommend continuing physical therapy and I wrote him an additional prescription for that. I also recommend stretching exercises and good arch supports and I gave him and night splint. He can follow up in 6 weeks and at that point I anticipate return to work. Orders: Orders PT Evaluation and Treatment Today M72.2 - Plantar fascial fibromatosis, S82.141A - Displaced bicondylar fracture of right tibia, initial encounter for closed fracture Coding Level of Care Code Est Pt Level 3 (53461) Diagnoses Tibial plateau fracture, right S82.141A Plantar fasciitis M72.2
== END 2024-08-04 15:07 | disposition home or self-care (01) ==
PROVIDERS: PCP Internal Medicine; Visit Provider Orthopaedic Surgery
DX: S82.141A Displaced bicondylar fracture of right tibia, initial encounter for closed fracture (principal); M72.2 Plantar fascial fibromatosis
CPT/HCPCS: 99213

== ENCOUNTER → 2024-08-04 14:22 | Outpatient (BNVA) | payer OTHER, SELFPAY | PROVIDERS: PCP Internal Medicine; Visit Provider Orthopaedic Surgery | DX: S82.141D Displaced bicondylar fracture of right tibia, subsequent encounter for closed fracture with routine healing (principal) | CPT/HCPCS: 99212 ==

== ENCOUNTER 2024-08-24 10:20 | Outpatient (REF) | payer OTHER, SELFPAY ==
[2024-08-24 10:31] LABS: MANUAL DIFF FLAG NO
[2024-08-24 11:47] LABS: Basophils Absolute Auto 0.1 X10*3/uL (0.0-0.2); Basophils Percent Auto 0.6 % (0-2); Eosinophils Absolute Auto 0.1 X10*3/uL (0.0-0.4); Eosinophils Percent Auto 1.3 % (0-4); Hematocrit 41.4 % (42.0-52.0); Hemoglobin 13.3 g/dl (14.0-18.0); Imm Gran Abs Auto 0.03 X10*3/uL (0.00-0.03); Imm Gran Pct Auto 0.4 % (0.0-0.4); Lymphocytes Absolute Auto 1.8 X10*3/uL (1.2-4.9); Lymphocytes Percent Auto 22.9 % (20-40); Mean Corpuscular HGB Conc 32.1 g/dl (31.0-36.0); Mean Corpuscular Hemoglobin 28.6 pg (27.0-33.0); Mean Platelet Volume 10.2 fL (9.4-12.4); Monocytes Absolute Auto 0.7 X10*3/uL (0.1-1.2); Monocytes Percent Auto 8.4 % (2-11); Neutrophils Absolute Auto 5.1 x10*3/uL (2.0-8.3); Neutrophils Percent Auto 66.4 % (45-73); Platelet Count 198 X10*3/uL (160-400); Red Blood Count 4.65 X10*6/uL (4.60-5.80); Red Cell Distribution Width 15.2 % (11.0-16.0); White Blood Count 7.7 X10*3/uL (4.8-10.8)
--- OUTSIDE RECORDS SUMMARY | 2024-08-24 12:09 | XMS_ITS | Data Portability ---
Author Organization [facility], [facility] Address [address] [place] [address] Assessment No assessment recorded. Plan of Treatment [...] Out Template NON DOT completed Erika Rivera [facility] 09/30/2023 09:42:45 Imaging Results None recorded. Procedure [...] SNOMED-CT Code Diagnosis ICD10 Code Diagnosis Note [id number] [address] [address] 08/05/2021 08:20:21 08/05/2021 09:37:27 [id number] [facility]ECERRIL [address] [address] 09/30/2023 09:27:01 09/30/2023 09:43:14 History and physical examination, occupation [id number] Z02.1 Health Concerns Section Related Observation LastModified by Organization Detai ls LastModified Time None Recorded Concern Status LastModified by Organization Details LastModified Time None Recorded Advance Directives Directive None Recorded Payers Encounter Date Sequence Insurance Name Policy Number Policy Conklin Covered Member ID Conklin Member ID Guarantor Name 09/30/2023 OC-ESCREEN [employer] [facility] [id number] Brandon Phillips
--- OUTSIDE RECORDS SUMMARY | 2024-08-24 12:10 | XMS_ITS | Clinical Summary ---
Author Organization [facility] Address [address] [place] [address] Phone Care Team Providers Care Appraiser Auditor Name Role Phone Mario Motta MD Primary Care Provider [phone] Allergies No known active allergies Medications * [...] Sigmoidoscopy 2022 Influenza Vaccine (#1) 2024 Insurance [facility] [place] [id number] [facility] [place] [id number] Care Teams Appraiser Auditor Relationship Specialty Start Date End Date Mario Motta MD [address] [place] [address] PCP - General Internal Medicine 01/22/22
--- OUTSIDE RECORDS SUMMARY | 2024-08-24 12:10 | XMS_ITS | Clinical Summary ---
Author Organization [facility] Address [address] [place] [address] Care Team Providers Care News Camera Person Name Role Phone Mario Motta MD Primary Care Provider [phone] Allergies No known active allergies Medications Medication [...] age to complete this topic Care Teams News Camera Person Relationship Specialty Start Date End Date Mario Motta MD [address] [place] [id number] PCP - General Internal Medicine 11/18/22
[2024-08-24 12:39] LABS: Anion Gap 16 (12-20); Blood Urea Nitrogen 33 mg/dL (9-16); Calcium 8.8 mg/dL (8.4-10.2); Carbon Dioxide 17 mmol/L (22-29); Chloride 110 mmol/L (96-108); Estimated Glomerular Filt Rate 39; Parathyroid Hormone Intact 155.5 pg/mL (8.7-77.1); Potassium 3.8 mmol/L (3.3-5.1); Sodium 139 mmol/L (135-145)
[2024-08-24 13:01] LABS: Vitamin D 25-OH Total 23.4 ng/mL (>30)
== END 2024-08-24 10:21 | disposition home or self-care (01) ==
LOC: HO.LAB 10:20
PROVIDERS: PCP Internal Medicine; Visit Provider Internal Medicine Nephrology
DX: N18.31 Chronic kidney disease, stage 3a (principal); I10 Essential (primary) hypertension
CPT/HCPCS: 36415; 80051; 82306; 82310; 82565; 83970; 84520; 85025

== ENCOUNTER 2024-08-31 14:54 | Outpatient (AMB) | payer OTHER, SELFPAY ==
--- NOTE | 2024-08-31 15:03 | HO.NEPHOV ---
Vital Signs 08/31/24 15:04 Height 5 ft 9 in Weight 224 lb 4 oz BMI 33.1 BP 110/80 Blood Pressure Location Rt brachial Position Sitting Pulse 89 Pulse Source Pulse Oximeter Pulse Oximetry (%) 95 Oxygen Delivery Method Room Air Intake Visit Reasons: 4mon follow up w/labs-Conf Costume Mistress Required: No Accompanied by: Spouse Allergies No Known Allergies Allergy (Verified 08/31/24 15:04) HPI Comments Details: Brandon was seen in the office in follow-up of his chronic kidney disease and hypertension. He has a baseline serum creatinine between 1.8 to 1.9. His blood pressure control is at goal now after adjustment of medications. He is trying to be compliant with low-sodium diet. He does not have any chest pain, shortness for, pedal edema, proximal nocturnal dyspnea, orthopnea or urinary symptoms. His weight has gone up. He does not have any headache, visual disturbances or orthostatic symptoms. He avoids nonsteroidal anti-inflammatory medications [facility] Medical History Uncontrolled hypertension CAD (coronary artery disease) Elevated troponin Acute systolic heart failure CHF (congestive heart failure) Acute non-ST elevation myocardial infarction (NSTEMI) HTN (hypertension) Surgical History Hx of removal of cyst S/P cardiac catheterization Social History Household Members: Spouse Household Members Other:: girlfriend Housing: Other Housing Other:: mobile home Are you a primary health care facility administrator to a significant other at home: No Do you presently have visiting nurse or other home services: No Patient Tobacco Use Status: Never used Tobacco e-Cigarette/Vaping Use: Never Used Second Hand Smoke Exposure: No Substance Use Type: Marijuana Advance Directives Date on File: 08/27/21 service: No Current occupational status: employed 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 Review of Systems Const All systems reviewed & are unremarkable except as noted in HPI and below Physical Exam Vital Signs: Last Vital Signs Pulse 89 08/31/24 15:04 BP 110/80 08/31/24 15:04 Pulse Ox 95 08/31/24 15:04 Oxygen Delivery Method Room Air 08/31/24 15:04 BMI result Body Mass Index 33.1 Const General: comfortable and no acute distress Orientation/consciousness: patient oriented x3 HEENT Head: Yes normocephalic Mouth: Normal oral and palatal mucosa present Eyes EOM: EOMs intact bilaterally Neck Neck: Yes supple Resp Auscultation: clear to auscultation bilaterally Cardio Jugular venous distension: no JVD Rate: regular rate GI Palpation (GI): Soft to palpation Auscultation: normal bowel sounds Skin General skin exam: no rashes or lesions noted Neuro General: patient oriented x3 and moves all extremities Extrem General: Yes no pedal edema Results Reviewed Nephrology Results: Hgb 13.3 g/dl (14.0-18.0) L 08/24/24 WBC 7.7 X10*3/uL (4.8-10.8) 08/24/24 Plt Count 198 X10*3/uL (160-400) 08/24/24 Sodium 139 mmol/L (135-145) 08/24/24 Potassium 3.8 mmol/L (3.3-5.1) 08/24/24 Chloride 110 mmol/L (96-108) H 08/24/24 Carbon Dioxide 17 mmol/L (22-29) L 08/24/24 BUN 33 mg/dL (9-16) H 08/24/24 Creatinine 1.82 mg/dL (0.5-1.4) H 08/24/24 Calcium 8.8 mg/dL (8.4-10.2) 08/24/24 PTH Intact 155.5 pg/mL (8.7-77.1) H 08/24/24 Assessment & Plan Assessment & Plan (1) CKD (chronic kidney disease) stage 3, GFR 30-59 ml/min: Code(s): N18.30 - Chronic kidney disease, stage 3 unspecified Category: Medical Qualifiers: Chronic kidney disease stage 3 subtype: stage 3a (GFR 45-59) Qualified Code(s): N18.31 - Chronic kidney disease, stage 3a Plan Mr Phillips answered CKD stage 3 with baseline serum creatinine between 1.8 to 1.9. His CKD is most likely due to vascular disease. He has history of from coronary artery disease and cardiomyopathy. His volume status is optimal. His blood pressure control is well controlled on current medications. He should continue to be on a low-sodium diet. He needs to loose weight. He should avoid nonsteroidal anti-inflammatory medications. He is on Jardiance now. All questions were answered. Follow-up of blood work was ordered and follow-up appointment was given. Orders: Orders Blood Urea Nitrogen 6 Months N18.31 - Chronic kidney disease, stage 3a Electrolytes 6 Months N18.31 - Chronic kidney disease, stage 3a Creatinine 6 Months N18.31 - Chronic kidney disease, stage 3a Coding Level of Care Code Est Pt Level 4 (29052) Diagnoses Stage 3a chronic kidney disease N18.31 Chronic kidney disease stage 3 subtype: stage 3a (GFR 45-59)
[2024-08-31 15:04] VITALS: BP 110/80; PULSE 89; O2SAT 95; BMI 33.1
--- OUTSIDE RECORDS SUMMARY | 2024-08-31 17:31 | XMS_ITS | Clinical Summary ---
Author Organization [facility] Address [address] [place] [address] Care Team Providers Care Mental Retardation Nurse Name Role Phone Mario Motta MD Primary Care Provider [phone] Allergies No known active allergies Medications Medication [...] age to complete this topic Care Teams Mental Retardation Nurse Relationship Specialty Start Date End Date Mario Motta MD [address] [place] [id number] PCP - General Internal Medicine 11/18/22
--- OUTSIDE RECORDS SUMMARY | 2024-08-31 17:31 | XMS_ITS | Clinical Summary ---
Author Organization [facility] Address [address] [place] [address] Phone Care Team Providers Care Plain Clothes Police Officer Name Role Phone Mario Motta MD Primary Care Provider [phone] Allergies No known active allergies Medications * [...] Sigmoidoscopy 2022 Influenza Vaccine (#1) 2024 Insurance [facility] [place] [id number] [facility] [place] [id number] Care Teams Plain Clothes Police Officer Relationship Specialty Start Date End Date Mario Motta MD [address] [place] [address] PCP - General Internal Medicine 01/22/22
--- OUTSIDE RECORDS SUMMARY | 2024-08-31 17:31 | XMS_ITS | Data Portability ---
Author Organization [facility] Address [address] [place] [address] Assessment No assessment recorded. Plan of Treatment [...] Out Template NON DOT completed Erika Rivera [employer] 09/30/2023 09:42:45 Imaging Results None recorded. Procedure [...] SNOMED-CT Code Diagnosis ICD10 Code Diagnosis Note [id number] [address] 08/05/2021 08:20:21 08/05/2021 09:37:27 [id number] RUBEN BECERRIL [address] [address] 09/30/2023 09:27:01 09/30/2023 09:43:14 History and physical examination, occupation [id number] Z02.1 Health Concerns Section Related Observation LastModified by Organization Detai ls LastModified Time None Recorded Concern Status LastModified by Organization Details LastModified Time None Recorded Advance Directives Directive None Recorded Payers Encounter Date Sequence Insurance Name Policy Number Policy Conklin Covered Member ID Conklin Member ID Guarantor Name 09/30/2023 OC-ESCREEN [employer] [facility] [id number] Brandon Phillips
== END 2024-08-31 15:28 | disposition home or self-care (01) ==
LOC: HO.HKA 14:54
PROVIDERS: PCP Internal Medicine; Visit Provider Internal Medicine Nephrology
DX: N18.31 Chronic kidney disease, stage 3a (principal)
CPT/HCPCS: 99214

== ENCOUNTER → 2024-08-31 14:54 | Outpatient (BNVA) | payer OTHER, SELFPAY | PROVIDERS: PCP Internal Medicine; Visit Provider Internal Medicine Nephrology | DX: N18.31 Chronic kidney disease, stage 3a (principal) | CPT/HCPCS: 99212 ==

== ENCOUNTER 2024-09-14 07:56 | Outpatient (RCR) | payer OTHER, SELFPAY ==
--- NOTE | 2024-03-15 13:30 | MHC.PT.EP ---
[facility] [place] Office [place] Office [place] Office [address] Rosa Majano [address] [phone] F: [phone] F: [phone] F: [phone] F: [phone] Physical Therapy Plan of Care Date of Evaluation: 03/15/24 Date of Surgery: 02/23/24 Diagnosis: DISPLACED, CLOSED BICONDYLAR FRACTURE Rt TIBIAL PLATEAU ORIF 02/23/24 Assessment: 49 YO MALE REF TO PT S/P ORIF Rt TIBAIL PLATEAU FX ON 02/23/24-> HE IS IMMOB IN A u.sit KNEE BRACE/ NWB Rt LE W CRUTCHES; HE RESIDES IN A DOUBLE WIDE MOBILE HOME W HIS AND DOG. 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 OBJECTIVE FINDINGS: LIMITED ROM Rt ANKLE AND KNEE, (+) SWELLING IN Rt DISTAL LE, DECR PATELLAR MOB Rt KNEE, AND (+) POST-OP STRENGTH DEFICITS IN Rt LE. FUNCTIONALLY, THE Pt IS UNABLE TO DRIVE , ALTERED GAIT/ BED MOB/TRANSFERS- HE IS OOW WITH THIS INJURY, AND HIS ADL CHARLETTE IS IMPACTED. THE Pt IS A GOOD PT CANDIDATE TO GUIDE HIM IN HIS POST-OP COURSE AND ASSIST HIM IN MEETING HIS ULTIMATE GOAL OF RTW AND REG ADLs. Frequency and Duration: The patient will be seen 2 x WK x 10 WKS Short Term Goals: *DECR Rt DISTAL LE EDEMA INCR ROM Rt KNEE PER PROTOCOL *INITIATE HEP, NWB Rt LE *INCR Rt ANKLE ROM *INCR Rt PATELLAR MOB , ESPEC IN LATERAL TISSUES *Pt DEMON MORE EFFICIENT Rt QUAD ACTIV W PROTOCOL EXER, NWB Rt LE Mcfp Goals: *Pt INDEP HEP AND SELF SX MGMT TECHN *Pt DEMON EFFICIENT GAIT MECH ON LEVEL GROUND AND STAIRS, CLEARED FOR WT BEARING Rt LE BY ORTHOPEDIC DEPT *Rt LE STRENGTH INCR BY AT LEAST 1 GRADE *Pt GRAD RESUME REG ADLs EVIDENT W IMPROVED LEFI (AT EVAL ) Treatment Plan: Modalities to reduce pain, spasms and effusion. Manual therapy to restore motion and function. Therapeutic exercise to improve strength and flexibility. Neuromuscular re-education for posture and balance. Therapeutic activities to return to functional activities of daily living. Electronically signed by: HECTOR KATHLEEN PT Please sign and return to therapist. Thank you for your referral.
--- NOTE | 2024-09-14 09:24 | MHC.PT.DC ---
[facility] [place] Office [place] Office [place] Office [address] Rosa Majano [address] [phone] F: [phone] F: [phone] F: [phone] F: [phone] Physical Therapy Discharge Report Diagnosis: DISPLACED, CLOSED BICONDYLAR FRACTURE Rt TIBIAL PLATEAU ORIF 02/23/24 Date of Surgery: 02/23/24 Date of Evaluation: 03/15/24 Date of Discharge: 09/14/24 Treatments to Date: 30 Cancellations to Date: 5 No Shows to Date: 1 Discharge Status: Achieved Goals Improved Function Independent with HEP Discharge Summary: ED HAS MADE SIGNIF PROGRESS IN PT- HE DENIES PAIN IN Rt PROX TIBIA AND SOME MILD RESIDUAL SORENESS IN MEDIAL Rt FOOT. HE HAS MET HIS PT GOALS AT THIS TIME: SLS Rt x 15 SEC, WFL FUNCTIONAL SQUAT MECVHANICS, RECIPROCAL TECHNIQUE W STAIR NAVIGATION, 0* TO 145* Rt KNEE AROM, AND WFL STRENGTH Rt LE. HE DISPLAYS EFFICIENT MECHANICS W FUNCTIONAL TASKS- WE HAVE SIMUL AND EDUC HIM RE RTW AND JOB-SITE BODY MECHANICS. HIS LEFI SCORE AT D/C IS 62/80 AND AT HIS EVL, IT WAS 9/80. HE HAS MET HIS PT GOALS AND IS READY FOR D/C FROM PT, ANTIC RTW AFTER ORTHO CLEARANCE 09/15/24. Electronically signed by: HECTOR KATHLEEN,PT Please sign and return to therapist. Thank you for your referral.
== END 2024-09-14 09:24 | disposition home or self-care (01) ==
LOC: HO.PT 07:56
PROVIDERS: PCP Internal Medicine; Visit Provider Physician Assistant
DX: S82.141D Displaced bicondylar fracture of right tibia, subsequent encounter for closed fracture with routine healing (principal)
CPT/HCPCS: 97110; 97112; 97140; 97162; 97164; 97530; 97535

== ENCOUNTER 2024-09-15 12:26 | Outpatient (REF) | payer OTHER, SELFPAY ==
--- NOTE | ~2024-09-15 | XR_ITS ---
CLINICAL HISTORY: M25.561 - Pain in right knee 3 view right knee Comparison: None Findings: Bones intact. No dislocations. Surgical overlying right proximal tibia. No significant arthritic change or erosions. No joint effusion. No other radiopaque foreign body. IMPRESSION: 1. No acute findings. This document has been electronically signed by: Hill Dewitt MD on 09/16/2024 09:01:25
== END 2024-09-15 12:27 | disposition home or self-care (01) ==
LOC: HO.HOSX 12:26
PROVIDERS: Visit Provider Orthopaedic Surgery
DX: M25.561 Pain in right knee (principal); S82.141A Displaced bicondylar fracture of right tibia, initial encounter for closed fracture
CPT/HCPCS: 73562; 99212

== ENCOUNTER 2024-09-15 13:41 | Outpatient (AMB) | payer OTHER, SELFPAY ==
[2024-09-15 13:42] VITALS: BMI 33.1
--- NOTE | 2024-09-15 13:42 | A.OFFVIS_ITS ---
Vital Signs 09/15/24 13:42 Height 5 ft 9 in Weight 224 lb BMI 33.1 Intake Visit Reasons: OV - RT tibial plateau ORIF 02/23/24 NE Intake Note: Brandon is a 49 year old male who presents today for a post operative visit s/p Right Tibial Plateau ORIF 02/23/24. At his last visit he presented with Plantar Faciitis and was provided with a Night splint. He was referred for Physical therapy. Patient reports that he is doing well, he reports that he has mild pain but this mostly felt with weather changes. His right drop foot is still present but is getting better, he is working on stretching and is wearing the night splint as directed Allergies No Known Allergies Allergy (Verified 08/31/24 15:04) HPI HPI OV - RT tibial plateau ORIF 02/23/24 NE: Details: Brandon is a 49 year old male who presents today for a post operative visit s/p Right Tibial Plateau ORIF 02/23/24. At his last visit he presented with Plantar Faciitis and was provided with a Night splint. He was referred for Physical therapy. Patient reports that he is doing well, he reports that he has mild pain but this mostly felt with weather changes. His right drop foot is still present but is getting better, he is working on stretching and is wearing the night splint as directed [facility] Medical History Uncontrolled hypertension CAD (coronary artery disease) Elevated troponin Acute systolic heart failure CHF (congestive heart failure) Acute non-ST elevation myocardial infarction (NSTEMI) HTN (hypertension) Surgical History Hx of removal of cyst S/P cardiac catheterization Social History Household Members: Spouse Household Members Other:: girlfriend Housing: Other Housing Other:: mobile home Are you a primary neonatal intensive care nurse to a significant other at home: No Do you presently have visiting nurse or other home services: No Patient Tobacco Use Status: Never used Tobacco e-Cigarette/Vaping Use: Never Used Second Hand Smoke Exposure: No Substance Use Type: Marijuana Advance Directives Date on File: 08/27/21 service: No Current occupational status: employed 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 He is walking comfortably without gait antalgia. There is no tenderness to palpation no effusion. Results Reviewed Results Reviewed: I personally reviewed relevant radiographs. There is a moderate posttraumatic lateral tibial plateau depression with intact hardware and no hardware complications. Assessment & Plan Assessment & Plan (1) Tibial plateau fracture, right: Code(s): S82.141A - Displaced bicondylar fracture of right tibia, initial encounter for closed fracture Category: Medical Plan: Brandon is 49-year-old status post ORIF of his right tibial plateau. 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 As long as he continues to function is well as he is there is no need for further intervention. Additional intervention may require plate removal and arthroplasty. He understands this and will contact me should he begin to have any symptoms. Orders: Orders XR knee RT 3V 09/15/24 M25.561 - Pain in right knee Coding Level of Care Code Est Pt Level 3 (05018) Diagnoses Tibial plateau fracture, right S82.141A
== END 2024-09-15 14:19 | disposition home or self-care (01) ==
LOC: HO.HOS 13:41
PROVIDERS: PCP Internal Medicine; Visit Provider Orthopaedic Surgery
DX: S82.141D Displaced bicondylar fracture of right tibia, subsequent encounter for closed fracture with routine healing (principal)
CPT/HCPCS: 99213

== ENCOUNTER → 2024-09-15 13:43 | Outpatient (BNV) | payer OTHER, SELFPAY | PROVIDERS: Visit Provider Specialist | DX: M25.561 Pain in right knee (principal) | CPT/HCPCS: 73562 ==

== ENCOUNTER 2024-11-10 17:25 | Outpatient (REF) | payer OTHER, SELFPAY | END 2024-11-10 17:26 | disposition home or self-care (01) | LOC: HO.HOSX 17:25 | PROVIDERS: Visit Provider Orthopaedic Surgery | DX: Z13.89 Encounter for screening for other disorder (principal) ==

== ENCOUNTER 2024-11-11 08:25 | Outpatient (REF) | payer OTHER, SELFPAY ==
--- NOTE | ~2024-11-11 | XR_ITS ---
CLINICAL HISTORY: M25.561 - Pain in right knee Exam: AP, lateral, and sunrise views of the right knee. Comparison: September 15, 2024. Findings: Lateral plate and screw device extending from the lateral tibial plateau to the proximal diaphysis of the tibia is unchanged compared to prior study. Minimal depression of the lateral tibial plateau as seen previously. Healed fracture deformity of the fibular head and neck is evident. No acute fractures are identified. No dislocation. Mild tricompartmental osteoarthritis. Comparison AP view of the left knee is unremarkable. Impression: Postoperative changes as above. This document has been electronically signed by: Edmundo Dean MD on 11/12/2024 08:45:13
--- OUTSIDE RECORDS SUMMARY | 2024-11-15 08:44 | XMS_ITS | Clinical Summary ---
Author Organization [facility] Address [address] [place] [address] Phone Care Team Providers Care Relationship Associate Name Role Phone Mario Motta MD Primary Care Provider [phone] Allergies No known active allergies Medications * [...] (Season Ended) [address] [place] [id number] [facility] [place] [id number] [facility] [place] [phone] Care Teams Relationship Associate Relationship Specialty Start Date End Date Mario Motta MD [address] [place] [address] PCP - General Internal Medicine 01/22/22
== END 2024-11-11 08:26 | disposition home or self-care (01) ==
LOC: HO.HOSX 08:25
PROVIDERS: Visit Provider Orthopaedic Surgery
DX: M25.561 Pain in right knee (principal); M21.41 Flat foot [pes planus] (acquired), right foot; S82.141A Displaced bicondylar fracture of right tibia, initial encounter for closed fracture
CPT/HCPCS: 73562; 99212

== ENCOUNTER 2024-11-11 09:44 | Outpatient (AMB) | payer OTHER, SELFPAY ==
--- NOTE | 2024-11-11 09:46 | A.OFFVIS_ITS ---
Vital Signs 11/11/24 09:47 Height 5 ft 9 in Weight 224 lb BMI 33.1 Intake Visit Reasons: OV-RT tibial plateau ORIF 02/23/24 NE Intake Note: Brandon is a 49 year old male who presents today for a follow up visit about 9 months s/p Right Tibial Plateau ORIF 02/23/24. States he has returned to work and is having pain above his knee cap. 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 Patient also mentioned he is having pain in his foot and ankle and is asking for xrays. Allergies No Known Allergies Allergy (Verified 11/11/24 09:47) HPI HPI OV-RT tibial plateau ORIF 02/23/24 NE: Details: Brandon is a 49 year old male who presents today for a follow up visit about 9 months s/p Right Tibial Plateau ORIF 02/23/24. States he has returned to work and is having pain above his knee cap. 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 Patient also mentioned he is having pain in his foot and ankle and is asking for xrays. [facility] Medical History Uncontrolled hypertension CAD (coronary artery disease) Elevated troponin Acute systolic heart failure CHF (congestive heart failure) Acute non-ST elevation myocardial infarction (NSTEMI) HTN (hypertension) Surgical History Hx of removal of cyst S/P cardiac catheterization Social History Household Members: Spouse Household Members Other:: girlfriend Housing: Other Housing Other:: mobile home Are you a primary personal care aide to a significant other at home: No Do you presently have visiting nurse or other home services: No Patient Tobacco Use Status: Never used Tobacco e-Cigarette/Vaping Use: Never Used Second Hand Smoke Exposure: No Substance Use Type: Marijuana Advance Directives Date on File: 08/27/21 service: No Current occupational status: employed 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 Depressed lateral plateau with intact hardware Assessment & Plan Assessment & Plan (1) Tibial plateau fracture, right: Code(s): S82.141A - Displaced bicondylar fracture of right tibia, initial encounter for closed fracture Category: Medical Plan: Depressed lateral plateau with valgus mal-alignment. I recommend removal of hardware and a lateral unloading brace (2) Acquired pes planus of right foot: Code(s): M21.41 - Flat foot [pes planus] (acquired), right foot Category: Medical Plan: I recommend medial column orthotic reinforcement. Orders: Orders XR knee RT 3V 11/11/24 Benny Dixon MD M25.561 - Pain in right knee Medications: New [medial column foot insole] As directed 1 ea 0RF Benny Dixon MD M21.41 - Flat foot [pes planus] (acquired), right foot Resumed aspirin TAKE 1 TABLET BY MOUTH DAILY 90 tabs 1RF Bunny Godoy MD Coding Level of Care Code Est Pt Level 3 (71998) Complex EM visit Add On G2211 Diagnoses Tibial plateau fracture, right S82.141A Acquired pes planus of right foot M21.41
[2024-11-11 09:47] VITALS: BMI 33.1
--- OUTSIDE RECORDS SUMMARY | 2024-11-11 10:00 | XMS_ITS | Clinical Summary ---
Author Organization [facility] Address [address] [place] [address] Phone Care Team Providers Care Milk Truck Driver Name Role Phone Mario Motta MD Primary Care Provider [phone] Allergies No known active allergies Medications * [...] Due Date Last Done Comments Hepatitis B Vaccine (1 of 3 - 19+ 3-dose series) 01/15 Pneumococcal Vaccine: 50+ Years (1 of 2 - PCV) 992 Colorectal Cancer Screening: Annual FOBT 2022 Colorectal Cancer Screening: Colonoscopy 2022 Colorectal Cancer Screening: Sigmoidoscopy 2022 Influenza Vaccine (Season Ended) 2025 [place] [id number] [facility] [place] [id number] [facility] [place] [id number] Care Teams Milk Truck Driver Relationship Specialty Start Date End Date Mario Motta MD [address] [place] [address] PCP - General Internal Medicine 01/22/22
== END 2024-11-11 10:26 | disposition home or self-care (01) ==
LOC: HO.HOS 09:44
PROVIDERS: Visit Provider Orthopaedic Surgery
DX: S82.141A Displaced bicondylar fracture of right tibia, initial encounter for closed fracture (principal); M21.41 Flat foot [pes planus] (acquired), right foot
CPT/HCPCS: 99213; G2211

== ENCOUNTER → 2024-11-11 09:46 | Outpatient (BNV) | payer OTHER, SELFPAY | PROVIDERS: Visit Provider Radiology Diagnostic Radiology | DX: M25.561 Pain in right knee (principal) | CPT/HCPCS: 73562 ==

== ENCOUNTER 2024-12-08 15:12 | Outpatient (AMB) | payer OTHER, SELFPAY ==
--- NOTE | 2024-12-08 15:22 | A.OFFVIS_ITS ---
Vital Signs 12/08/24 15:23 Height 5 ft 9 in Weight 218 lb 4.122 oz BMI 32.2 BP 120/76 Blood Pressure Location Lt brachial Position Sitting Pulse 91 Intake Visit Reasons: 6m follow up Intake Note: 6 month follow-up feeling good Aboriginal Ceremonial Celebrant: Aboriginal Ceremonial Celebrant Present Accompanied by: Spouse Allergies No Known Allergies Allergy (Verified 11/11/24 09:47) Medication List - Last Reconciled 12/08/24 by PROSPER SequeiraC amlodipine 10 mg PO DAILY aspirin TAKE 1 TABLET BY MOUTH DAILY atorvastatin 80 mg PO DAILY carvedilol 37.5 mg (1.5 x 25 mg) PO BID 90 days empagliflozin (Jardiance) 10 mg PO DAILY finasteride 5 mg PO BEDTIME hydralazine 100 mg PO BID isosorbide mononitrate ER 60 mg PO DAILY [medial column foot insole As directed] nitroglycerin (Nitrostat) 0.4 mg sublingual Q5M PRN 3 months omega 5-upl-nzn-fish oil 1,000 (120-180) mg (Fish Oil) 1 cap PO DAILY HPI HPI 6m follow up: Details: Brandon is a 49-year-old male with past medical history of hypertension, alcohol use, chronic kidney disease, heart failure with reduced EF, NSTEMI/ uncontrolled HTN 08/2021, with EF 25-30%, Cardiac cath showing moderate branch vessel disease who was managed medically with normalization of EF. He has had some issues with med compliance. He did have a tibial plateau fracture this past year and unde rwent surgery without any cardiac issues. Today he reports he has been doing well overall since his last visit in May. He does report some fatigue and who was present reports snoring and witnessed apnea. He is taking naps in the daytime. He is still only working part-time while his knee continues to recover. If any chest discomfort at rest or with activity. No shortness of breath, PND, orthopnea or edema. No heart palpitations, lightheadedness, presyncope, syncope. He reports being active during the day but will fall asleep easily when sitting and watching TV. Compliant with meds. is present. [facility] Medical History Uncontrolled hypertension CAD (coronary artery disease) Elevated troponin Acute systolic heart failure CHF (congestive heart failure) Acute non-ST elevation myocardial infarction (NSTEMI) HTN (hypertension) Surgical History Hx of removal of cyst S/P cardiac catheterization Social History Household Members: Spouse Household Members Other:: girlfriend Housing: Other Housing Other:: mobile home Are you a primary career services director to a significant other at home: No Do you presently have visiting nurse or other home services: No Patient Tobacco Use Status: Never used Tobacco e-Cigarette/Vaping Use: Never Used Second Hand Smoke Exposure: No Substance Use Type: Marijuana Advance Directives Date on File: 08/27/21 service: No Current occupational status: employed 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 Review of Systems Const All systems reviewed & are unremarkable except as noted in HPI and below Denies chills, Reports daytime sleepiness, Reports fatigue, Denies fever(s), Denies frequent falls, Denies weakness, Denies weight gain and Denies weight loss ENT Denies dizziness Card Denies chest pain, Denies leg edema, Denies lightheadedness, Denies palpitations, Denies dyspnea, Denies dyspnea on exertion, Denies orthopnea and Denies other (loss of consciousness) Resp Denies cough, Denies dyspnea and Denies dyspnea on exertion GI Denies hematochezia and Denies change in stool character Musc Details: right knee mild discomfort Denies abnormal gait, Denies muscle weakness, Denies numbness, Denies radiating pain into limb and Denies tingling Neuro Denies abnormal gait, Denies dizziness, Denies frequent falls, Denies numbness, Denies tingling and Denies weakness Endo Reports fatigue and Denies palpitations Physical Exam Vital Signs: Last Vital Signs Pulse 91 12/08/24 15:23 BP 120/76 12/08/24 15:23 BMI result Body Mass Index 32.2 Const General: cooperative, healthy appearing, comfortable and no acute distress Orientation/consciousness: patient oriented x3 Neck Neck: Yes normal visual inspection Resp Effort & Inspection: normal respiratory effort Auscultation: clear to auscultation bilaterally, no crackles, no rales, no rhonchi and no wheezes Cardio Jugular venous distension: no JVD Rate: regular rate Rhythm: regular rhythm Heart sounds: S1 normal heart sound present, S2 normal heart sound present, no murmurs and no rubs Neuro General: patient oriented x3 Extrem Other: trace nonpitting edema right lower leg. General: Yes normal to inspection, No no pedal edema and No calf tenderness Psych Appearance: grossly normal Mental Status: mental status grossly normal Speech and movement: Normal speech and movement present Assessment & Plan Assessment & Plan (1) Cardiomyopathy: Code(s): I42.9 - Cardiomyopathy, unspecified Category: Medical Qualifiers: Cardiomyopathy type: other Qualified Code(s): I42.8 - Other cardiomyopathies Plan: Prior finding of cardiomyopathy EF 25-30% 08/2021. With cardiac catheterization showing moderate nonobstructive branch vessel disease. His cardiomyopathy was thought to be related to uncontrolled hypertension. He was managed medically. He has had some issues with compliance but currently reports he has been taking meds as directed. Last echocardiogram done 11/17/2023 showed EF 70%, severe septal asymmetric hypertrophy, basal inferior lateral segment hypokinetic. He does not appear fluid overloaded on exam. Will have him continue on carvedilol, hydralazine, isosorbide and Jardiance. He is not requiring diuretics. The importance of med compliance reviewed with him. Signs and symptoms of heart failure discussed. Cardiology follow-up 1 year, sooner if needed. He follows with PCP and Nephrology for blood pressure as well. (2) CKD (chronic kidney disease): Code(s): N18.9 - Chronic kidney disease, unspecified Category: Medical Qualifiers: Chronic kidney disease stage: unspecified stage Qualified Code(s): N18.9 - Chronic kidney disease, unspecified Plan: Followed by Nephrology. Labs 08/24/2024 shows creatinine 1.82 (3) HTN (hypertension): Code(s): I10 - Essential (primary) hypertension Category: Medical Qualifiers: Hypertension type: primary hypertension Qualified Code(s): I10 - Essential (primary) hypertension Plan: Blood pressure goal less than 130/80. Currently well controlled at 120/76. Continue amlodipine, carvedilol, hydralazine, isosorbide. (4) Acute non-ST elevation myocardial infarction (NSTEMI): Code(s): I21.4 - Non-ST elevation (NSTEMI) myocardial infarction Category: Medical Plan: During spring 2021 hospital admission. Cardiac catheterization with moderate branch vessel CAD. No reports of anginal sounding symptoms. Continue on aspirin and atorvastatin with ideal LDL goal less than 70. (5) S/P cardiac catheterization: Comment: 08/28/2021, left main mild distal disease, LAD 1st diagonal proximal 80% stenosis, LLUVIA 3 flow noted, large caliber LAD with no obstructive plaque left circumflex 2nd OM 65% stenosis, RCA large caliber minimal luminal irregularities, ramus mild diffuse disease. This degree of stenosis does not explain his cardiomyopathy. Code(s): Z98.890 - Other specified postprocedural states Category: Surgical (6) Hypersomnia: Code(s): G47.10 - Hypersomnia, unspecified Category: Medical Plan: Reports of hypersomnia and daytime napping. reports witnessed snoring and apnea. Will order home sleep study. Plan I discussed the importance of continuing hypertension management as the patient's blood pressure is well-controlled. We reviewed the need for regular monitoring of cardiomyopathy and heart failure, focusing on ejection fraction. WeIdiscussed his coronary artery disease and the need for risk factor modifications. I recommended a home sleep study to assess for sleep apnea, given the patient's symptoms. Orders: Orders RT home sleep study Today G47.10 - Hypersomnia, unspecified Patient Instructions: - Continue taking cardiac and hypertension medications as prescribed. - Monitor symptoms and attend regular follow-ups for heart condition. - Complete the home sleep study as scheduled. - Follow with nephrology and PCP - Cardiology follow up in 1 yr or sooner if you have any concerning symptoms. Patient was informed and verbally consented to the use of an ambient scribe for clinic note documentation during this visit. Visit time spent on chart review, interview, assessment, orders, documentation. Coding Level of Care Code Est Pt Level 4 (49942) Complex EM visit Add On G2211 Diagnoses Other cardiomyopathy I42.8 Cardiomyopathy type: other Chronic kidney disease, unspecified CKD stage N18.9 Chronic kidney disease stage: unspecified stage Primary hypertension I10 Hypertension type: primary hypertension Acute non-ST elevation myocardial infarction (NSTEMI) I21.4 S/P cardiac catheterization Z98.890 Hypersomnia G47.10 Time Spent (min) 28
[2024-12-08 15:23] VITALS: BP 120/76; PULSE 91; BMI 32.2
--- OUTSIDE RECORDS SUMMARY | 2024-12-08 16:29 | XMS_ITS | Clinical Summary ---
Author Organization [facility] Address [address] [place] [address] Phone Care Team Providers Care Art Critic Name Role Phone Mario Motta MD Primary Care Provider [phone] Allergies No known active allergies Medications * [...] (Season Ended) [address] [place] [address] [facility] [place] [id number] [facility] [place] [phone] Care Teams Art Critic Relationship Specialty Start Date End Date Mario Motta MD [address] [place] [address] PCP - General Internal Medicine 01/22/22
== END 2024-12-08 16:05 | disposition home or self-care (01) ==
PROVIDERS: Visit Provider Nurse Practitioner Family
DX: I42.8 Other cardiomyopathies (principal); I12.9 Hypertensive chronic kidney disease with stage 1 through stage 4 chronic kidney disease, or unspecified chronic kidney disease; N18.9 Chronic kidney disease, unspecified; I21.4 Non-ST elevation (NSTEMI) myocardial infarction; Z98.890 Other specified postprocedural states; G47.10 Hypersomnia, unspecified
CPT/HCPCS: 99214

== ENCOUNTER → 2024-12-08 15:12 | Outpatient (BNVA) | payer OTHER, SELFPAY | PROVIDERS: Visit Provider Nurse Practitioner Family | DX: I13.0 Hypertensive heart and chronic kidney disease with heart failure and stage 1 through stage 4 chronic kidney disease, or unspecified chronic kidney disease (principal); N18.9 Chronic kidney disease, unspecified; I21.4 Non-ST elevation (NSTEMI) myocardial infarction; I42.8 Other cardiomyopathies; G47.10 Hypersomnia, unspecified; Z98.890 Other specified postprocedural states | CPT/HCPCS: 99212 ==

== ENCOUNTER 2025-01-26 13:22 | Outpatient (AMB) | payer OTHER, SELFPAY ==
[2025-01-26 13:24] VITALS: BMI 32.2
--- NOTE | 2025-01-26 13:24 | MHC.OFFVIS ---
Vital Signs 01/26/25 13:24 Height 5 ft 9 in Weight 218 lb BMI 32.2 Intake Visit Reasons: OV-RT tibial plateau ORIF 02/23/24 NE Intake Note: Brandon is a 49 year old male who presents today for a follow up visit s/p Right Tibial Plateau ORIF 02/23/24.At his last visit we discussed MACY. A Lateral unloading brace was ordered as well as orthotic reinforcement for right flat foot. He has gotten the brace and the insert. Currently is using the knee brace when he experiences discomfort - this brace is helping him. He has been wearing the insert which is helping significantly. No concerns at this time. Allergies No Known Allergies Allergy (Verified 11/11/24 09:47) HPI HPI OV-RT tibial plateau ORIF 02/23/24 NE: Details: Brandon is doing much better today. He has been wearing the foot orthotic for his pes planus and his unloading brace occasionally in his right knee. He wants to go back to work full-time. He feels very good today. [facility] Medical History Uncontrolled hypertension CAD (coronary artery disease) Elevated troponin Acute systolic heart failure CHF (congestive heart failure) Acute non-ST elevation myocardial infarction (NSTEMI) HTN (hypertension) Surgical History Hx of removal of cyst S/P cardiac catheterization Social History Household Members: Spouse Household Members Other:: girlfriend Housing: Other Housing Other:: mobile home Are you a primary career services officer to a significant other at home: No Do you presently have visiting nurse or other home services: No Patient Tobacco Use Status: Never used Tobacco e-Cigarette/Vaping Use: Never Used Second Hand Smoke Exposure: No Substance Use Type: Marijuana Advance Directives Date on File: 08/27/21 service: No Current occupational status: employed 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 Well-healed lateral incision. Full range of motion. Walking comfortably. Assessment & Plan Assessment & Plan (1) Tibial plateau fracture, right: Code(s): S82.141A - Displaced bicondylar fracture of right tibia, initial encounter for closed fracture Category: Medical Plan: Status post tibial plateau fracture doing well with the unloading brace and foot orthotic. May return to work without restrictions. May follow up in 1 year. Coding Level of Care Code Est Pt Level 3 (64213) Diagnoses Tibial plateau fracture, right S82.141A
--- OUTSIDE RECORDS SUMMARY | 2025-01-26 13:24 | XMS_ITS | Clinical Summary ---
Author Organization [facility] Address [address] [place] [address] Care Team Providers Care Roads Superintendent Name Role Phone Mario Motta MD Primary Care Provider [phone] Allergies No known active allergies Medications Medication [...] 98 11/26/2022 1:43 PM EDT Temperature 36.6 C (97.9 F) 11/26/2022 1:43 PM EDT Respiratory Rate - - Oxygen Saturation 99% [...] (1 of 2) 2023 Influenza Vaccine (#1) 2025 Pneumococcal Vaccine Aged Out No long er eligible based on patient's age to complete this topic RSV Ped < 20 months Aged Out No longe r eligible based on patient's age to complete this topic Care Teams Roads Superintendent Relationship Specialty Start Date End Date Mario Motta MD [address] [place] [address] PCP - General Internal Medicine 11/18/22
--- OUTSIDE RECORDS SUMMARY | 2025-01-26 13:24 | XMS_ITS | Clinical Summary ---
Author Organization [facility] Address [address] [place] [address] Phone Care Team Providers Care Housing Case Manager Name Role Phone Mario Motta MD Primary Care Provider [phone] Allergies No known active allergies Medications * [...] Cancer Screening: Sigmoidoscopy 2022 Influenza Vaccine (#1) [address] [place] [id number] [facility] [place] [phone] [facility] [place] [phone] Care Teams Housing Case Manager Relationship Specialty Start Date End Date Mario Motta MD [address] [place] [address] PCP - General Internal Medicine 01/22/22
== END 2025-01-26 14:35 | disposition home or self-care (01) ==
LOC: HO.HOS 13:22
PROVIDERS: Visit Provider Orthopaedic Surgery
DX: S82.141A Displaced bicondylar fracture of right tibia, initial encounter for closed fracture (principal)
CPT/HCPCS: 99213

== ENCOUNTER → 2025-01-26 13:22 | Outpatient (BNVA) | payer OTHER, SELFPAY | PROVIDERS: Visit Provider Orthopaedic Surgery | DX: S82.141A Displaced bicondylar fracture of right tibia, initial encounter for closed fracture (principal) | CPT/HCPCS: 99212 ==

== ENCOUNTER 2025-03-13 14:36 | Outpatient (REF) | payer OTHER, SELFPAY ==
[2025-03-13 15:59] LABS: Anion Gap 11 (12-20); Blood Urea Nitrogen 32 mg/dL (9-16); Carbon Dioxide 23 mmol/L (22-29); Chloride 109 mmol/L (96-108); Estimated Glomerular Filt Rate 40; Potassium 4.0 mmol/L (3.3-5.1); Sodium 139 mmol/L (135-145)
--- OUTSIDE RECORDS SUMMARY | 2025-03-13 17:07 | XMS_ITS | Clinical Summary ---
Demographics Address [address] [place] [address]
== END 2025-03-13 14:37 | disposition home or self-care (01) ==
LOC: HO.LAB 14:36
PROVIDERS: Visit Provider Internal Medicine Nephrology
DX: N18.31 Chronic kidney disease, stage 3a (principal)
CPT/HCPCS: 36415; 80051; 82565; 84520

== ENCOUNTER 2025-03-15 14:45 | Outpatient (AMB) | payer OTHER, SELFPAY ==
--- NOTE | 2025-03-15 15:14 | HO.NEPHOV_ITS ---
Vital Signs 03/15/25 15:19 Height 5 ft 9 in Weight 220 lb 4 oz BMI 32.5 BP 128/80 Blood Pressure Location Lt brachial Position Sitting Pulse 87 Pulse Source Pulse Oximeter Pulse Oximetry (%) 96 Oxygen Delivery Method Room Air Intake Visit Reasons: 6 MO [facility] Manager Vehicle Required: No Accompanied by: Spouse Allergies No Known Allergies Allergy (Verified 03/15/25 15:19) HPI Comments Details: Brandon was seen in the office in follow-up of his chronic kidney disease and hypertension. He has a baseline serum creatinine between 1.8 to 1.9. His blood pressure control is at goal now after adjustment of medications. He is trying to be compliant with low-sodium diet. He does not have any chest pain, shortness for, pedal edema, proximal nocturnal dyspnea, orthopnea or urinary symptoms. His weight has gone up. He does not have any headache, visual disturbances or orthostatic symptoms. He avoids nonsteroidal anti-inflammatory medications [facility] Medical History Uncontrolled hypertension CAD (coronary artery disease) Elevated troponin Acute systolic heart failure CHF (congestive heart failure) Acute non-ST elevation myocardial infarction (NSTEMI) HTN (hypertension) Surgical History Hx of removal of cyst S/P cardiac catheterization Social History Household Members: Spouse Household Members Other:: girlfriend Housing: Other Housing Other:: mobile home Are you a primary director of primary care to a significant other at home: No Do you presently have visiting nurse or other home services: No Patient Tobacco Use Status: Never used Tobacco e-Cigarette/Vaping Use: Never Used Second Hand Smoke Exposure: No Substance Use Type: Marijuana Advance Directives Date on File: 08/27/21 service: No Current occupational status: employed 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 Review of Systems Const All systems reviewed & are unremarkable except as noted in HPI and below Physical Exam Const General: comfortable and no acute distress Orientation/consciousness: patient oriented x3 HEENT Head: Yes normocephalic Mouth: Normal oral and palatal mucosa present Eyes EOM: EOMs intact bilaterally Neck Neck: Yes supple Resp Auscultation: clear to auscultation bilaterally Cardio Jugular venous distension: no JVD Rate: regular rate GI Palpation (GI): Soft to palpation Auscultation: normal bowel sounds General: Yes no CVA tenderness Back/Spine/Pelvis Back: no CVA tenderness Skin General skin exam: no rashes or lesions noted Neuro General: patient oriented x3 and moves all extremities Extrem General: Yes no pedal edema Results Reviewed Nephrology Results: Sodium, (135-145) 139 mmol/L 03/13/25 Potassium, (3.3-5.1) 4.0 mmol/L 03/13/25 Chloride, (96-108) 109 mmol/L H 03/13/25 Carbon Dioxide, (22-29) 23 mmol/L 03/13/25 BUN, (9-16) 32 mg/dL H 03/13/25 Creatinine, (0.5-1.4) 1.81 mg/dL H 03/13/25 Renal US 08/26/21 Assessment & Plan Assessment & Plan (1) HTN (hypertension): Code(s): I10 - Essential (primary) hypertension Category: Medical Qualifiers: Hypertension type: primary hypertension Qualified Code(s): I10 - Essential (primary) hypertension (2) CKD (chronic kidney disease) stage 3, GFR 30-59 ml/min: Code(s): N18.30 - Chronic kidney disease, stage 3 unspecified Category: Medical Qualifiers: Chronic kidney disease stage 3 subtype: stage 3a (GFR 45-59) Qualified Code(s): N18.31 - Chronic kidney disease, stage 3a Plan Mr Phillips answered CKD stage 3 with baseline serum creatinine between 1.8 to 1.9. His CKD is most likely due to vascular disease. He has history of from coronary artery disease and cardiomyopathy. His volume status is optimal. His blood pressure control is well controlled on current medications. He should continue to be on a low-sodium diet. He needs to loose weight. He should avoid nonsteroidal anti-inflammatory medications. He is on Jardiance now. All questions were answered. Follow-up of blood work was ordered and follow-up appointment was given. Orders: Orders Parathyroid Hormone Intact 6 Months I10 - Essential (primary) hypertension, N18.31 - Chronic kidney disease, stage 3a Vitamin D 25-OH Total 6 Months I10 - Essential (primary) hypertension, N18.31 - Chronic kidney disease, stage 3a Creatinine 6 Months I10 - Essential (primary) hypertension, N18.31 - Chronic kidney disease, stage 3a Blood Urea Nitrogen 6 Months I10 - Essential (primary) hypertension, N18.31 - Chronic kidney disease, stage 3a Electrolytes 6 Months I10 - Essential (primary) hypertension, N18.31 - Chronic kidney disease, stage 3a Calcium 6 Months I10 - Essential (primary) hypertension, N18.31 - Chronic kidney disease, stage 3a RT home sleep study Today G47.10 - Hypersomnia, unspecified Protein Creatinine Ratio, Ur 6 Months I10 - Essential (primary) hypertension, N18.31 - Chronic kidney disease, stage 3a Phosphorus 6 Months I10 - Essential (primary) hypertension, N18.31 - Chronic kidney disease, stage 3a Coding Level of Care Code Est Pt Level 4 (68815) Diagnoses Primary hypertension I10 Hypertension type: primary hypertension Stage 3a chronic kidney disease N18.31 Chronic kidney disease stage 3 subtype: stage 3a (GFR 45-59)
[2025-03-15 15:19] VITALS: BP 128/80; PULSE 87; O2SAT 96; BMI 32.5
--- OUTSIDE RECORDS SUMMARY | 2025-03-15 17:20 | XMS_ITS | Clinical Summary ---
Author Organization [facility] Address [address] [place] [address] Phone Care Team Providers Care Naphthol Soaping Machine Operator Name Role Phone Mario Motta MD Primary Care Provider [phone] Allergies No known active allergies Medications * [...] Vaccine (#1) [address] [place] [address] [facility] [place] [phone] [facility] [place] [id number] Care Teams Naphthol Soaping Machine Operator Relationship Specialty Start Date End Date Mario Motta MD [address] [place] [address] PCP - General Internal Medicine 01/22/22
--- OUTSIDE RECORDS SUMMARY | 2025-03-15 17:20 | XMS_ITS | Clinical Summary ---
Author Organization [facility] Address [address] [place] [address] Care Team Providers Care Logistics System Engineer Name Role Phone Mario Motta MD Primary Care Provider [phone] Allergies No known active allergies Medications Medication [...] age to complete this topic Care Teams Logistics System Engineer Relationship Specialty Start Date End Date Mario Motta MD [address] [place] [address] PCP - General Internal Medicine 11/18/22
== END 2025-03-15 15:36 | disposition home or self-care (01) ==
LOC: HO.HKA 14:45
PROVIDERS: PCP Internal Medicine; Visit Provider Internal Medicine Nephrology
DX: I10 Essential (primary) hypertension (principal); N18.31 Chronic kidney disease, stage 3a
CPT/HCPCS: 99214

== ENCOUNTER → 2025-03-15 14:45 | Outpatient (BNVA) | payer OTHER, SELFPAY | PROVIDERS: PCP Internal Medicine; Visit Provider Internal Medicine Nephrology | DX: I10 Essential (primary) hypertension (principal); N18.31 Chronic kidney disease, stage 3a | CPT/HCPCS: 99212 ==

== ENCOUNTER 2025-05-01 14:50 | Outpatient (AMB) | payer OTHER, SELFPAY ==
[2025-05-01 15:30] VITALS: BP 136/80; PULSE 81; O2SAT 97; BMI 33.4
--- NOTE | 2025-05-01 15:30 | MHC.PC.OV ---
Vital Signs 05/01/25 15:30 Height 5 ft 9 in Weight 226 lb BMI 33.4 BP 136/80 Blood Pressure Location Lt brachial Position Sitting Pulse 81 Pulse Source Pulse Oximeter Pulse Oximetry (%) 97 Oxygen Delivery Method Room Air Intake Visit Reasons: Establish Care Allergies No Known Allergies Allergy (Verified 05/01/25 15:30) Medication List - Last Reconciled 05/01/25 by Emma Brito MD amlodipine 10 mg PO DAILY aspirin TAKE 1 TABLET BY MOUTH DAILY atorvastatin 80 mg PO DAILY carvedilol 37.5 mg (1.5 x 25 mg) PO BID 90 days empagliflozin (Jardiance) 10 mg PO DAILY finasteride 5 mg PO BEDTIME hydralazine 100 mg PO BID isosorbide mononitrate ER 60 mg PO DAILY [medial column foot insole As directed] nitroglycerin (Nitrostat) 0.4 mg sublingual Q5M PRN 3 months omega 5-qxi-gvl-fish oil 1,000 (120-180) mg (Fish Oil) 1 cap PO DAILY Tobacco use date assessed: 05/01/25 Dental Screening Dental Screen Date: 05/01/25 Did you have a dental visit in the last 12 months?: No Did you have a dental problem in the last 6 months where you did not have access to dental care?: No Was dental information given to patient?: No HPI HPI Comments History of Present Illness Details Patient is a 50-year-old male with medical history significant for hypertension, chronic kidney disease, and heart failure with reduced ejection fraction (EF) was presenting today to establish care HFrEF: in August 2021, he had an NSTEMI and uncontrolled hypertension, with an EF of 25-30%. Cardiac catheterization at that time showed moderate nonobstructive branch vessel disease, and he was managed medically with normalization of EF. His cardiomyopathy was attributed to uncontrolled hypertension. Last echocardiogram from October 2023 showed normal EF. He is following with jewelry internship, Dr Munoz. CKD: baseline creatinine 1.7-1.8. is following with truck switcher Dr. Godoy Patient reports compliance with his medications. 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 Smokes marijuana daily. Denies history of cigarette smoking. Reports previous history of heavy alcohol use, currently only drinks socially. Family history remarkable for diabetes, stroke, and stomach cancer in the father. Surgical history: tibial plateau fracture surgery, and elbow cyst removal [facility] Medical History Uncontrolled hypertension CAD (coronary artery disease) Elevated troponin Acute systolic heart failure CHF (congestive heart failure) Acute non-ST elevation myocardial infarction (NSTEMI) HTN (hypertension) Surgical History Hx of removal of cyst S/P cardiac catheterization Family History (Updated 05/01/25 @ 15:36 by Delmi Mcallister [facility]) Mother No problems noted. Father Stomach cancer Sister No problems noted. 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 1. Little interest or pleasure in doing things: not at all 2. Feeling down, depressed, or hopeless: not at all 3. Trouble falling or staying asleep, or sleeping too much: not at all 4. Feeling tired or having little energy: not at all 5. Poor appetite or overeating: not at all 6. Feeling bad about yourself - or that you are a failure or have let yourself or your family down: not at all 7. Trouble concentrating on things, such as reading the newspaper or watching television: not at all 8. Moving or speaking so slowly that other people could have noticed. Or the opposite - being so fidgety or restless that you have been moving around a lot more than usual: not at all 9. Thoughts that you would be better off or of hurting yourself in some way: not at all Total score: 0 Depression Screening Interpretation: Negative Depression Screening Done: Yes Source: Developed by Drs. Dane Isabel, Qamar Wiggins and colleagues, with an educational gloria from [email or web address]. Thrive Questionnaire Date Thrive assessed: 05/01/25 I am a: Patient What is your living situation today?: I have a steady place to live Within the past 12 months, did the food you bought not last and you didn't have the money to get more?: Never true Within the past 12 months, did you worry whether your food would run out before you got money to buy more?: Never true Do you have trouble paying for medicines?: No Do you have trouble getting transportation to medical appointments?: No Do you have trouble paying your heating and electricity bill?: No Do you have trouble taking care of your child, family member or friend?: No Do you have trouble with day-to-day activities such as bathing, preparing meals, shopping, managing finances, etc.?: No Are you currently unemployed and looking for a job?: No Are you interested in more education?: No Please select the resources that you would like help with: None Currently or been in a relationship where the following occur: No concerns reported THRIVE Score: 0 ANSELMO-7 AMB Questionnaire ANSELMO-7 Date ANSELMO - 7 assessed: 05/01/25 Feeling nervous, anxious, or on edge: 0 = Not at all Not being able to stop or control worryin = Not at all Worrying too much about different things: 0 = Not at all Trouble relaxin = Not at all Being so restless that it is hard to sit still: 0 = Not at all Becoming easily annoyed or irritable: 0 = Not at all Feeling afraid as if something awful might happen: 0 = Not at all Total ANSELMO-7 score (0-4 normal; 5-9 mild; 10-14 moderate; 15-21 severe): 0 Source: Developed by Drs. Dane Isabel, Qamar Wiggins and colleagues, with an educational gloria from [email or web address]. Physical exam (Primary Care) Vital Signs: Last Vital Signs Pulse 81 05/01/25 15:30 BP 136/80 05/01/25 15:30 Pulse Ox 97 05/01/25 15:30 Oxygen Delivery Method Room Air 05/01/25 15:30 General: Well-appearing, alert, oriented ?3, in no acute distress. Cardiovascular: RRR, S1-S2 appreciated, no murmurs, rubs or gallops. Respiratory: Lungs clear to auscultation bilaterally, no wheezes, rales or rhonchi. Abdomen: Soft, nontender, nondistended. Normoactive bowel sounds. No lower extremity edema BMI result Body Mass Index 33.4 Tobacco/Smoking Status: Tobacco use Status Tobacco use date assessed 05/01/25 05/01/25 15:37 Patient Tobacco Use Status Never used Tobacco 05/01/25 15:37 Tobacco use type Cigarette 05/01/25 15:37 e-Cigarette/Vaping Use Never Used 05/01/25 15:37 PHQ-9: PHQ-9 Score PHQ-9: Total score 0 05/01/25 15:47 Depression Screening Interpretation: Negative Thrive Assessment: Date of Thrive Assessment Date Thrive assessed 05/01/25 05/01/25 15:37 Currently or been in a relationship where the following occur: No concerns reported Coding Level of Care Code New Pt Level 4 (31641) Diagnoses Establishing care with new doctor, encounter for Z76.89 Primary hypertension I10 Hypertension type: primary hypertension Heart failure with reduced ejection fraction I50.20 Stage 3a chronic kidney disease N18.31 Chronic kidney disease stage 3 subtype: stage 3a (GFR 45-59) Vitamin D deficiency E55.9 Assessment & Plan Assessment & Plan (1) Establishing care with new doctor, encounter for: Code(s): Z76.89 - Persons encountering health services in other specified circumstances Plan: Patient presenting to establish care. Medical history and medications reviewed. Has no acute complaints RTC in 6 months for annual physical (2) HTN (hypertension): Code(s): I10 - Essential (primary) hypertension Category: Medical Qualifiers: Hypertension type: primary hypertension Qualified Code(s): I10 - Essential (primary) hypertension Plan: Blood pressure 136/80 today Continue amlodipine 10 mg and hydralazine 100 mg p.o. b.i.d. (3) Heart failure with reduced ejection fraction: Code(s): I50.20 - Unspecified systolic (congestive) heart failure Category: Medical Plan: Patient with history of HFrEF with EF of 25-30% in August 2021 that was attributed to uncontrolled hypertension. It was medically managed with normalization of EF. Last echo in October 2023 revealed normal EF. Medication regimen include Coreg 37.5 mg b.i.d., isosorbide mononitrate 60 mg daily and Jardiance 10 mg Patient following up with jewelry internship, Dr Munoz (4) CKD (chronic kidney disease) stage 3, GFR 30-59 ml/min: Code(s): N18.30 - Chronic kidney disease, stage 3 unspecified Category: Medical Qualifiers: Chronic kidney disease stage 3 subtype: stage 3a (GFR 45-59) Qualified Code(s): N18.31 - Chronic kidney disease, stage 3a Plan: Following with truck switcher, Dr. Godoy (5) Vitamin D deficiency: Code(s): E55.9 - Vitamin D deficiency, unspecified Category: Medical Plan: Patient is not on vitamin-D supplements at this time. Check vitamin-D level. Orders: Orders Complete Blood Count Auto Diff Today N18.31 - Chronic kidney disease, stage 3a Vitamin D 25-OH (D2 and D3) Today R79.89 - Other specified abnormal findings of blood chemistry Lipid Panel with Reflex Today E78.5 - Hyperlipidemia, unspecified Hemoglobin A1c Today Z83.3 - Family history of diabetes mellitus
--- OUTSIDE RECORDS SUMMARY | 2025-05-01 17:05 | XMS_ITS | Data Portability ---
Author Organization [facility] [id number] Address [address] [place] [address] Assessment No assessment recorded. Plan of Treatment [...] Send Out Template NON DOT completed Erika [facility] 09/30/2023 09:42:45 Imaging Results None recorded. Procedure [...] Diagnosis SNOMED-CT Code Diagnosis ICD10 Code Diagnosis IMO Codes Diagnosis Note [id number] [address] [address] [address] 08/05/2021 08:20:21 08/05/2021 09:37:27 [id number] [facility]EN [facility]ECERRIL [address] [address] 09/30/2023 09:27:01 09/30/2023 09:43:14 History and physical examination, occupation [id number] Z02.1 Health Concerns Section Related Observation LastModified by Organization Detai ls LastModified Time None Recorded Concern Status LastModified by Organization Details LastModified Time None Recorded Advance Directives Directive None Recorded Payers Insurance Date Sequence Insurance Name Policy Number Policy Conklin Covered Member ID Conklin Member ID Guarantor Name 09/30/2023 OC-ESCREEN [employer] [facility] [id number] Brandon Phillips
== END 2025-05-01 15:59 | disposition home or self-care (01) ==
PROVIDERS: PCP Student in an Organized Health Care Education/Training Program; Visit Provider Student in an Organized Health Care Education/Training Program
DX: Z76.89 Persons encountering health services in other specified circumstances (principal); I10 Essential (primary) hypertension; I50.20 Unspecified systolic (congestive) heart failure; N18.31 Chronic kidney disease, stage 3a; E55.9 Vitamin D deficiency, unspecified

== ENCOUNTER → 2025-05-01 14:50 | Outpatient (BNVA) | payer OTHER, SELFPAY | PROVIDERS: PCP Internal Medicine; Visit Provider Student in an Organized Health Care Education/Training Program | DX: I13.0 Hypertensive heart and chronic kidney disease with heart failure and stage 1 through stage 4 chronic kidney disease, or unspecified chronic kidney disease (principal); I50.20 Unspecified systolic (congestive) heart failure; N18.31 Chronic kidney disease, stage 3a; E55.9 Vitamin D deficiency, unspecified; Z76.89 Persons encountering health services in other specified circumstances; Z13.31 Encounter for screening for depression; Z13.39 Encounter for screening examination for other mental health and behavioral disorders | CPT/HCPCS: 96127; 99202 ==

== ENCOUNTER 2025-05-22 10:05 | Inpatient (IN) | payer OTHER, SELFPAY ==
[2025-05-22] VITALS (8 sets, daily range): BP systolic 127–167; BP diastolic 82–107; PULSE 71–83; RESP 12–22; TEMP 36.6–37.3; O2SAT 96–98; BMI 32.6
--- NOTE | ~2025-05-22 | US_ITS ---
EXAMINATION: US EXTRACRANIAL CAROTID DUPLEX, BILATERAL CLINICAL INFORMATION: Stroke COMPARISON: None available. TECHNIQUE: Real-time ultrasound and Doppler techniques (integrating B-mode 2-D vascular images, Doppler spectral analysis and color-flow Doppler imaging) were utilized to interrogate the extracranial carotid arteries, the vertebral arteries and proximal subclavian arteries bilaterally. The degree of stenosis is determined by criteria similar to NASCET. FINDINGS: Right Side: 1. There is no gross atherosclerotic plaque seen in the bifurcation/proximal ICA region. 2. The common carotid artery PSV proximally is 96 cm/s and distally 96 cm/s. 3. The proximal internal carotid artery velocities are 46 cm/s systolic and 24 cm/s diastolic. 4. The proximal external carotid artery PSV is 95 cm/s. 5. The vertebral artery shows antegrade flow. 6. The subclavian artery waveforms are normal. ICA/CCA ratio: 0.5. Left Side: 1. There is a small atherosclerotic plaque seen in the bifurcation/proximal ICA region. 2. The common carotid artery PSV proximally is 116 cm/s and distally 48 cm/s. 3. The proximal internal carotid artery velocities are 54 cm/s systolic and 25 cm/s diastolic. 4. The proximal external carotid artery PSV is 84 cm/s. 5. The vertebral artery shows antegrade flow. 6. The subclavian artery waveforms are normal. US/US carotid duplex BI IMPRESSION: 1. RIGHT: No hemodynamically significant stenosis by ultrasound criteria. 2. LEFT: Small plaque without hemodynamically significant stenosis by ultrasound criteria. Electronically signed by: Patric Garcia MD 05/23/2025 06:34 AM EST
--- NOTE | ~2025-05-22 | MR_ITS ---
EXAMINATION: MR BRAIN WITHOUT CONTRAST CLINICAL INFORMATION: Left upper extremity tingling. COMPARISON: Correlated to CT dated May 22, 2025. TECHNIQUE: MRI of the brain was obtained using routine sequences without contrast. FINDINGS: There is a focal, 3 mm hyperintense T2 FLAIR restricted diffusion centered right dorsal mid elder. Bilateral, multifocal and numerous, infratentorial compartment and supratentorial compartment susceptibility signal foci within the brainstem, cerebellum, basal ganglia and white matter of both cerebral hemispheres. No acute intracranial hemorrhage, mass effect, midline shift, hydrocephalus or herniation. Smith-white matter differentiation is normal. Multifocal old lacunar infarcts with ulcerated susceptibility signal in the brainstem. Old lacunar infarcts in the basal ganglia and extracapsular. Flow-void signal within the main cerebral vessels is normal with a dolichoectatic left vertebral vascular artery system. Sellar/suprasellar region is normal. Craniocervical junction demonstrates normal position of the cerebellar tonsils. Polypoid left maxillary sinus disease. MR/MR head/brain wo con IMPRESSION: Acute nonhemorrhagic ischemia/stroke, right dorsal elder. Old microhemorrhages likely related to hypertension and less likely cerebral amyloid angiopathy. Small vessel occlusive disease. Findings communicated to the emergency physician Dr. Patel a tiger connect at 3:02 PM on May 22, 2025. Electronically signed by: Patric Garcia MD 05/22/2025 03:03 PM [facility]
--- NOTE | ~2025-05-22 | CT_ITS ---
EXAMINATION: CT HEAD WITHOUT CONTRAST CLINICAL INFORMATION: Left arm tingling COMPARISON: CT 08/25/2021 TECHNIQUE: Contiguous axial imaging was performed from the skull base to vertex without intravenous administration of contrast. This CT examination was performed using dose optimization techniques as appropriate, variously including the following: *Automated exposure control *Adjustment of mA and/or kV according to patient size (this includes techniques or standardized protocols for targeted exams where dose is matched to indication/reason for exam; i.e. extremities or head) *Use of iterative reconstruction technique FINDINGS: There is no evidence of acute intracranial hemorrhage or edematous large vessel territorial infarction. No abnormal mass effect or midline shift is seen. Smith to white matter differentiation is well preserved. No abnormal extra-axial fluid collections are identified. The ventricles are normal in size. Redemonstrated nonspecific periventricular white matter disease. Redemonstrated unchanged small bilateral basal ganglia infarcts.. No acute calvarial fracture.. Left maxillary sinus mucosal thickening/partial opacification. Remainder of the paranasal sinuses and mastoid air cells are well-aerated. CT/CT head/brain wo IV con IMPRESSION: No CT evidence of acute intracranial hemorrhage or edematous territorial infarction.. Left maxillary sinus disease. Nonspecific periventricular white matter disease somewhat out of proportion for patient's age. Cause of the patient's symptoms has not been determined. Further evaluation with CTA or MRI as clinically indicated. Electronically signed by: Sheng Gilbert MD 05/22/2025 11:07 AM [facility]
--- NOTE | 2025-05-22 10:11 | ECG_ITS ---
Test Reason : CHEST PAIN Blood Pressure : */* mmHG Vent. Rate : 75 BPM Atrial Rate : 75 BPM P-R Int : 160 ms QRS Dur : 92 ms QT Int : 390 ms P-R-T Axes : * -29 148 degrees QTcB Int : 435 ms Sinus rhythm with occasional Premature ventricular complexes Moderate voltage criteria for LVH, may be normal variant ( R in aVL , Neil product ) T wave abnormality, consider lateral ischemia Abnormal ECG When compared with ECG of 11-Feb-2024 20:06, Premature ventricular complexes are now Present Criteria for Septal infarct are no longer Present Referred By: Vero Bolanos Electronically Signed By: MATI GRIJALVA
--- NOTE | 2025-05-22 10:11 | ED.GENADULT ---
HPI - General Adult General Chief complaint: General Medical Stated complaint: L sided pain, hx of heart issues/ high bp Time Seen by Provider: 05/22/25 11:42 Source: patient Mode of arrival: ambulatory Limitations: no limitations History of Present Illness ED Provider: Dr. Cottrell [facility] narrative: This is a 50-year-old male history of hypertension, CAD, CHF presented to ER today for sudden onset of left hand numbness. Patient stated that he does have numbness down his shoulder into his hand. However numbness is more prominent in his left hand. Patient describes this is a numbness. No burning sensation. Patient denies sleeping on anything underneath his left axilla. Denies any neck pain. Denies any headache. 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 No other symptoms. No weakness in his lower extremities. No facial droop. Patient's numbness is persistent and has not improved. Related Data Home Medications ?Medication ?Instructions ?Recorded ?Confirmed finasteride 5 mg tablet 5 mg PO BEDTIME 05/13/23 05/01/25 omega 6-eah-frg-fish oil 1,000 mg 1 cap PO DAILY 05/13/23 05/01/25 (120 mg-180 mg) capsule (Fish Oil) empagliflozin 10 mg tablet 10 mg PO DAILY 12/04/23 05/01/25 (Jardiance) Previous Rx's ?Medication ?Instructions ?Recorded carvedilol 25 mg tablet 37.5 mg (1.5 x 25 mg) PO BID 90 05/29/23 days #270 tabs atorvastatin 80 mg tablet 80 mg PO DAILY #90 tabs 06/04/23 nitroglycerin 0.4 mg sublingual 0.4 mg sublingual Q5M PRN Chest 06/04/23 tablet (Nitrostat) Pain 3 months #25 tabs aspirin 81 mg tablet,delayed See Rx Instructions .Route 01/25/24 release .COMPLEX #90 tabs isosorbide mononitrate 60 mg 60 mg PO DAILY #90 tabs 03/08/24 tablet,extended release 24 hr hydralazine 100 mg tablet 100 mg PO BID #180 tabs 04/25/24 medial column foot insole #1 ea 11/11/24 amlodipine 10 mg tablet 10 mg PO DAILY #90 tabs 01/17/25 Allergies Allergy/AdvReac Type Severity Reaction Status Date / Time No Known Allergies Allergy Verified 05/22/25 10:13 Review of Systems Review of Systems: Pertinent review of systems as mentioned in HPI. All other system otherwise negative. COUNTS INCLUDE 234 BEDS AT THE [facility] Past Medical History COUNTS INCLUDE 234 BEDS AT THE [facility] Narrative: Medical history as mentioned in [facility] Medical History Uncontrolled hypertension CAD (coronary artery disease) Elevated troponin Acute systolic heart failure CHF (congestive heart failure) Acute non-ST elevation myocardial infarction (NSTEMI) HTN (hypertension) Surgical History Hx of removal of cyst S/P cardiac catheterization Family History Family History (Updated 05/01/25 @ 15:36 by Delmi Mcallister [facility]) Mother No problems noted. Father Stomach cancer Sister No problems noted. Social History Social History Household Members: Spouse Household Members Other:: girlfriend Housing: Other Housing Other:: mobile home Are you a primary lead caregiver to a significant other at home: No Do you presently have visiting nurse or other home services: No Alcohol intake: former Patient Tobacco Use Status: Never used Tobacco Tobacco use type: Cigarette Smoked in Last 30 Days: No e-Cigarette/Vaping Use: Never Used Second Hand Smoke Exposure: No Use of substances other than those prescribed or required for medical reasons: Yes Substance Use Type: Marijuana Advance Directives: Yes Advance Directives on File: Yes Advance Directives Date on File: 08/27/21 Do you have a plan to hurt others: No Plan service: No Current occupational status: employed 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 Pulse intact of the left ulnar and radial artery. Unable to reproduce symptoms with the Phalen's maneuver. No weakness identified on exam. No weakness in lower extremities. No facial droop identified. Visual acuity is intact. Neurological: Awake and alert, no facial droop noted Skin: Warm and dry Psychiatric: Appropriate mood and thoughts Vital Signs: Vital Signs - 24 hr 05/22/25 10:12 05/22/25 10:51 05/22/25 11:25 Temperature 98 F 98.1 F Pulse Rate 71 73 74 Respiratory Rate 18 12 20 Blood Pressure 153/100 H 127/93 H 127/88 Pulse Oximetry 98 97 97 Oxygen Delivery Method Room Air Room Air Room Air BMI result Body Mass Index 32.6 NIH Stroke Scale Internal: Initial- Upon Arrival Level of Consciousness: Alert Level of Consciousness Questions: Answers both questions correctly Level of Consciousness Commands: Performs both tasks correctly Best Gaze: Normal Visual: No visual loss Facial Palsy: Normal Motor Arm (Right): No drift Motor Arm (Left): No drift Motor Leg (Right): No drift Motor Leg (Left): No drift Limb Ataxia: Absent Sensory: Mild to moderate sensory loss Best Language: No aphasia Dysarthia: Normal Extinction and Inattention: No abnormality Score: 1 Course Course Course Narrative: This is a rapid medical exam performed by Sierra Bolanos NP: Additional HPI, ROS, PE not included below will be deferred to primary provider. Patient is a 50y/o M pmhx CKD stage 3, HTN, CAD, cardiomyopathy, HFrEF presenting with complaint of left arm numbness and weakness since Thursday. Also reports migraine last week which has since resolved but states had not previously had one for 10 years. He is left handed and is unable to write his own name. NIHSS 0 in triage, no pronator drift, 5/5 strength all extremities. Plan: labs, EKG, CT head Medical Decision Making Medical Decision Making [facility] Narrative: 50-year-old male presented hospital today for evaluation of left hand numbness since Thursday. He does have history of hypertension CAD cardiomyopathy. Patient's CT head is negative. No sign of bleed. Review patient's lab work CBC is unremarkable. Patient does have elevated creatinine 1.84. This is around her baseline creatinine. Patient's troponin is 32.5. We will plan to repeat a troponin. Patient has no chest pain however he does have left arm numbness. EKG did not show any signs of acute changes on review. No sign of STEMI. Given patient's persistent left arm numbness we will obtain a MRI to rule out CVA. He has no other neurological symptoms at this time. Patient is outside the time window for TNK. MRI shows a right dorsal elder CVA. Patient's troponin is negative x2. We will plan to admit the patient for secondary stroke workup at this time. We will plan to load the patient with aspirin for his stroke. Differential Diagnosis Differential Diagnoses: The differential diagnosis associated with the presentation includes CVA, carpal tunnel syndrome, ACS, STEMI Lab Data MDM Lab Attestation statement: I reviewed the patient's lab results. 05/22/25 10:27 05/22/25 10:27 Labs: Lab Results 05/22/25 05/22/25 Range/Units 10:27 13:48 WBC 5.6 (4.8-10.8) X10*3/uL RBC 4.73 (4.60-5.80) X10*6/uL Hgb 13.8 L (14.0-18.0) g/dl Hct 42.7 (42.0-52.0) % MCV 90.3 (80.0-98.0) fL MCH 29.2 (27.0-33.0) pg MCHC 32.3 (31.0-36.0) g/dl RDW 14.7 (11.0-16.0) % Plt Count 175 (160-400) X10*3/uL MPV 9.1 L (9.4-12.4) fL Immature Gran % (Auto) 0.4 (0.0-0.4) % Neut % (Auto) 63.7 (45-73) % Lymph % (Auto) 19.5 L (20-40) % Yates % (Auto) 11.0 (2-11) % Eos % (Auto) 4.3 H (0-4) % Baso % (Auto) 1.1 (0-2) % Lymph # (Auto) 1.1 L (1.2-4.9) X10*3/uL Yates # (Auto) 0.6 (0.1-1.2) X10*3/uL Eos # (Auto) 0.2 (0.0-0.4) X10*3/uL Baso # (Auto) 0.1 (0.0-0.2) X10*3/uL Abs Immat Gran (auto) 0.02 (0.00-0.03) X10*3/uL Absolute Neuts (auto) 3.6 (2.0-8.3) x10*3/uL Absolute Nucleated RBC 0.000 (0.0-0.012) X10*3/uL Nucleated RBC % (auto) 0.0 (0.0-0.2) /100WBC PT 13.5 (11.2-13.5) SEC INR 1.1 (0.9-1.1) Sodium 138 (135-145) mmol/L Potassium 4.1 (3.3-5.1) mmol/L Chloride 111 H (96-108) mmol/L Carbon Dioxide 21 L (22-29) mmol/L Anion Gap 10 L (12-20) BUN 36 H (9-16) mg/dL Creatinine 1.84 H (0.5-1.4) mg/dL Estim Creat Clear Calc 54.7 Estimated GFR 39 Random Glucose 100 (60-115) mg/dL Calcium 9.4 D (8.4-10.2) mg/dL Magnesium 2.0 (1.6-2.6) mg/dL Total Bilirubin 0.9 (0.0-1.0) mg/dL AST 22 (5-37) U/L ALT 18 (0-40) U/L Alkaline Phosphatase 90 (39-117) U/L Troponin I High Sens 32.5 31.1 (<3.5-35.0) ng/L Total Protein 7.5 (6.5-8.0) g/dL Albumin 4.5 (3.5-5.0) g/dL Independent Interpretation I performed an independent interpretation of an: EKG and CT Scan Radiology Impression Discussion of test interpretation with radiology: I have reviewed the radiologist's reading. Chronic Conditions Patient?s care impacted by: Hypertension CAD Critical Care Time Critical Care Time Critical Care Time: Yes Total Critical Care Time: 40 Attestation: Time is exclusive of separately billable procedures. Time includes: direct patient care, patient reassessment, coordination of patient care, interpretation of data (laboratory data, pulse oximetry, arterial blood gases and chest xrays), review of patient's medical records, medical consultation and documentation of patient care. Procedures excluded from critical care time: central intravenous line placement and electrocardiography. Discharge Plan Discharge Clinical Impression: Arm paresthesia, left, Acute CVA (cerebrovascular accident) Patient Disposition: Admitted As Inpatient Print Language: Micronesian
[2025-05-22 10:34] LABS: MANUAL DIFF FLAG NO
[2025-05-22 10:36] LABS: Hematocrit 42.7 % (42.0-52.0); Hemoglobin 13.8 g/dl (14.0-18.0); Imm Gran Abs Auto 0.02 X10*3/uL (0.00-0.03); Imm Gran Pct Auto 0.4 % (0.0-0.4); Lymphocytes Absolute Auto 1.1 X10*3/uL (1.2-4.9); Mean Corpuscular HGB Conc 32.3 g/dl (31.0-36.0); Mean Corpuscular Hemoglobin 29.2 pg (27.0-33.0); Mean Corpuscular Volume 90.3 fL (80.0-98.0); NRBC Abs Auto 0.000 X10*3/uL (0.0-0.012); NRBC Pct Auto 0.0 /100WBC (0.0-0.2); Platelet Count 175 X10*3/uL (160-400); Red Blood Count 4.73 X10*6/uL (4.60-5.80); White Blood Count 5.6 X10*3/uL (4.8-10.8)
[2025-05-22 10:41] LABS: INTERNATIONAL NORM RATIO 1.1 (0.9-1.1); Prothrombin Time 13.5 SEC (11.2-13.5)
--- NOTE | 2025-05-22 10:46 | PC.NURSE ---
Pt roomed and placed on full monitor. VSS CM to left hand good and equal to right but pt c/o continued numbness. color pink pulse pos cap refill <3 sec. NSR on monitor no ectopy.
[2025-05-22 10:56] LABS: Alanine Aminotransferase 18 U/L (0-40); Albumin Level 4.5 g/dL (3.5-5.0); Alkaline Phosphatase 90 U/L (39-117); Anion Gap 10 (12-20); Aspartate Amino Transferase 22 U/L (5-37); Blood Urea Nitrogen 36 mg/dL (9-16); Calcium 9.4 mg/dL (8.4-10.2); Carbon Dioxide 21 mmol/L (22-29); Chloride 111 mmol/L (96-108); Creatinine Clr Calc Pharmacy 54.7; Estimated Glomerular Filt Rate 39; Magnesium 2.0 mg/dL (1.6-2.6); Potassium 4.1 mmol/L (3.3-5.1); Sodium 138 mmol/L (135-145); Total Protein 7.5 g/dL (6.5-8.0)
[2025-05-22 11:07] LABS: Troponin-I High Sensitivity 32.5 ng/L (<3.5-35.0)
--- OUTSIDE RECORDS SUMMARY | 2025-05-22 12:54 | XMS_ITS | Clinical Summary ---
Author Organization [facility] Address [address] [place] [address] Care Team Providers Care Rail Transportation Tabeler Name Role Phone Mario Motta MD Primary Care Provider [phone] Allergies No known active allergies Medications Medication [...] age to complete this topic Care Teams Rail Transportation Tabeler Relationship Specialty Start Date End Date Mario Motta MD [address] [place] [address] PCP - General Internal Medicine 11/18/22
[2025-05-22 14:21] LABS: Troponin-I High Sensitivity 31.1 ng/L (<3.5-35.0)
--- NOTE | 2025-05-22 14:58 | PC.NURSE ---
Pt returned from MRI- A&O X4 No complaints- numbness persists in hand, otherwise NAD.
--- NOTE | 2025-05-22 16:22 | PM.IMHP ---
History of Present Illness Date of Service: 05/22/25 Chief Complaint: Stroke 50-year-old male history of hypertension, CAD, CHF presented to ER today for sudden onset of left hand numbness. Patient stated that he does have numbness down his shoulder into his hand. However, numbness is more prominent in his left hand and still persistent. Patient denies sleeping on anything underneath his left axilla. Denies any neck pain or headache. 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 No new medications or new stresses at home. He is independent. Patient was given full-dose aspirin in the ER. MRI showed acute nonhemorrhagic ischemia/stroke to the right dorsal elder therefore plan will be to admit patient for acute stroke. Review of Systems Review of Systems: Denies any recent fever chills or decrease in appetite respiratory denies any shortness of breath or cough cardiovascular denied chest pain gastrointestinal denies any dysphagia abdominal pain nausea vomiting or diarrhea genitourinary denies any dysuria frequency or hematuria musculoskeletal denies any joint pain or swelling neuropsych see HPI all other systems reviewed are negative [facility] Medical History (Updated 05/22/25 @ 16:23 by Mariel Hector NP) CAD (coronary artery disease) Elevated troponin Acute systolic heart failure CHF (congestive heart failure) Acute non-ST elevation myocardial infarction (NSTEMI) HTN (hypertension) Family History (Updated 05/01/25 @ 15:36 by Delmi Mcallister CMA) Mother No problems noted. Father Stomach cancer Sister No problems noted. Surgical History Hx of removal of cyst S/P cardiac catheterization Social History Household Members: Spouse Household Members Other:: girlfriend Housing: Other Housing Other:: mobile home Are you a primary small animal caretaker to a significant other at home: No Do you presently have visiting nurse or other home services: No Alcohol intake: former Patient Tobacco Use Status: Never used Tobacco Tobacco use type: Cigarette Smoked in Last 30 Days: No e-Cigarette/Vaping Use: Never Used Second Hand Smoke Exposure: No Use of substances other than those prescribed or required for medical reasons: Yes Substance Use Type: Marijuana Advance Directives: Yes Advance Directives on File: Yes Advance Directives Date on File: 08/27/21 Do you have a plan to hurt others: No Plan service: No Current occupational status: employed 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 Cognitive needs: No Hearing needs: No Vision needs: Yes Meds Allergies Allergy/AdvReac Type Severity Reaction Status Date / Time No Known Allergies Allergy Verified 05/22/25 10:13 Active Medications: Current Medications Acetaminophen (Acetaminophen 325 Mg Tablet) 650 mg PO Q6H PRN PRN Reason: Pain, Mild 1-3,fever,headache Calcium Carbonate (Calcium Carbonate 750 Mg Tab.Chew) 750 mg PO Q4H PRN PRN Reason: Heartburn Heparin Sodium (Porcine) (Heparin Sodium,Porcine 5,000 Unit/Ml Vial) 5,000 unit SUBCUT Q12H SELINA Magnesium Hydroxide (Milk Of Magnesia 30 Ml Oral.Susp) 30 ml PO DAILY PRN PRN Reason: Constipation Melatonin (Melatonin 3 Mg Tablet) 6 mg PO BEDTIME PRN PRN Reason: Insomnia Sodium Chloride (0.9 % Sodium Chloride Flush 3 Ml Syringe) 3 ml IVFLUSH QSHIFT SELINA Home Medications ?Medication ?Instructions ?Recorded ?Confirmed ?Last Taken ?Type finasteride 5 mg tablet 5 mg PO BEDTIME 05/13/23 05/22/25 05/21/25 History omega 3-cjb-orl-fish oil 1,000 mg 1 cap PO DAILY 05/13/23 05/22/25 05/22/25 History (120 mg-180 mg) capsule (Fish Oil) empagliflozin 10 mg tablet 10 mg PO DAILY 12/04/23 05/22/25 05/22/25 History (Jardiance) aspirin 81 mg tablet,delayed 81 mg PO DAILY 05/22/25 05/22/25 05/22/25 History release Physical Exam Vital Signs and Narrative: Vital Signs: Last Vital Signs Temp 98.1 F 05/22/25 11: Pulse 74 05/22/25 11:25 Resp 20 05/22/25 11:25 BP 127/88 05/22/25 11:25 Pulse Ox 97 05/22/25 11:25 O2 Del Method Room Air 05/22/25 11:25 BMI result Body Mass Index 32.6 Appearing in no acute distress head is normocephalic atraumatic eyes pupils are PERRLA sclera is anicteric mouth throat mucous membranes are intact and moist neck is supple no lymphadenopathy, no JVD noted lung sounds are clear to auscultation heart regular rate rhythm, clear S1, S2 positive bowel sounds, abdomen is soft, nontender neuro patient is alert x3, mild paresthesia to left hand Results Labs 05/22/25 10:27 05/22/25 10:27 Labs: Laboratory Results - last 24 hr 05/22/25 05/22/25 10:27 13:48 MCV 90.3 MCH 29.2 MCHC 32.3 RDW 14.7 Plt Count 175 MPV 9.1 L Immature Gran % (Auto) 0.4 Neut % (Auto) 63.7 Lymph % (Auto) 19.5 L [place] % (Auto) 11.0 Eos % (Auto) 4.3 H Baso % (Auto) 1.1 Lymph # (Auto) 1.1 L [place] # (Auto) 0.6 Eos # (Auto) 0.2 Baso # (Auto) 0.1 Abs Immat Gran (auto) 0.02 Absolute Neuts (auto) 3.6 Absolute Nucleated RBC 0.000 Nucleated RBC % (auto) 0.0 PT 13.5 INR 1.1 Anion Gap 10 L Estim Creat Clear Calc 54.7 Estimated GFR 39 Random Glucose 100 Calcium 9.4 D Magnesium 2.0 Total Bilirubin 0.9 AST 22 ALT 18 Alkaline Phosphatase 90 Troponin I High Sens 32.5 31.1 Total Protein 7.5 Albumin 4.5 Imaging Radiologist's Impressions: Impressions Head CT 05/22/25 10:37 IMPRESSION: No CT evidence of acute intracranial hemorrhage or edematous territorial infarction.. Left maxillary sinus disease. Nonspecific periventricular white matter disease somewhat out of proportion for patient's age. Cause of the patient's symptoms has not been determined. Further evaluation with CTA or MRI as clinically indicated. Electronically signed by: Sheng Gilbert MD 05/22/2025 11:07 AM [facility] Brain MRI 05/22/25 14:07 IMPRESSION: Acute nonhemorrhagic ischemia/stroke, right dorsal elder. Old microhemorrhages likely related to hypertension and less likely cerebral amyloid angiopathy. Small vessel occlusive disease. Findings communicated to the emergency physician Dr. Patel a scribleer connect at 3:02 PM on May 22, 2025. Electronically signed by: Patric Garcia MD 05/22/2025 03:03 PM EST Assessment and Plan (1) HTN (hypertension): Qualifiers: Hypertension type: primary hypertension Qualified Code(s): I10 - Essential (primary) hypertension Status: Acute Plan 50 year old man admitted with acute stroke Acute Stroke MRI showing acute nonhemorrhagic ischemia/stroke to right dorsal elder small-vessel occlusive disease, cerebral amyloid angiopathy an old microhemorrhages likely secondary to hypertension Neurology consultation Monitor on telemetry Aspirin, statin Echocardiogram, carotid Doppler, PT/OT Check lipid panel Hypertension elevated blood pressure readings continue amlodipine, hydralazine BPH Continue finasteride History of heart failure with preserved ejection fraction hold jardiance for now History of coronary artery disease Continue aspirin, beta-jalil and statin DVT prophylaxis with heparin Full code Quality Stroke Does the patient have a stroke diagnosis?: No VTE Prior VTE?: No VTE Risk Level:: Medical - moderate - high VTE Device Contraindication: Treatment Not Indicated VTE Drug Contraindication: N/A - Med Ordered
--- NOTE | 2025-05-22 16:45 | PC.NURSE ---
assumed care of pt at 1530 report received from quinton JONES
--- NOTE | 2025-05-22 16:56 | PHA.MEDREC ---
Addendum entered by Nguyen Lucero RPh 05/22/25 17:06: REVIEWED BY PHARMACIST Original Note: Pharmacy Consult ? Medication Reconciliation Pharmacy has completed the medication reconciliation. Spoke with pt and he confirmed his medications. Pt still taking isosorbide once daily and confirmed he has an overabundance of that at home.
--- NOTE | 2025-05-22 18:39 | PC.NURSE ---
ADMITTING MD AT BEDSIDE AWARE OF PT BP
[2025-05-23] MEDS: 0.9 % Sodium Chloride Flush 3 ML SYRINGE IVFLUSH (00:06)
[2025-05-23 04:23] VITALS: BP 150/95; PULSE 80; RESP 14; TEMP 37.1; O2SAT 95
[2025-05-23 05:20] LABS: Cholesterol 111 mg/dL (<200); HDL Cholesterol 41 mg/dL (>40); Triglycerides 102 mg/dL (<150)
[2025-05-23 06:16] VITALS: BP 139/92; PULSE 81; RESP 16; TEMP 37.1; O2SAT 95
--- NOTE | 2025-05-23 06:57 | HO.NURTONUR ---
Brandon is a 50M full code who presented to the EDwith sudden onset left hand numbness, patient denies any injury/trauma. patient mri showed acute non hemorrhagic ischemia /stroke to the right dorsal elder. patient states the numbness has resolved. admit for acute stroke neurology consult start aspirin/statin echo mri showed cerebral angiopathy and old microhemorrhages likely secondary to hypertension. patient is awake, alert, oriented x4. ambulatory at baseline, very kind. patient has IV access
[2025-05-23 08:39] VITALS: BP 161/107; PULSE 76; RESP 18; O2SAT 98
[2025-05-23] MEDS: Aspirin Enteric Coated 81 MG TABLET.DR PO (08:47)
--- NOTE | 2025-05-23 08:49 | PC.NURSE ---
Assumed care of patient at 0645. Patient resting in bed. Alert and oriented. Patient reporting weakness in left hand that has been consistent. Manual BP 160/94. Morning medications given. Eating breakfast at this time. Provider at bedside discussing POC.
--- NOTE | 2025-05-23 09:19 | P.DS_ITS ---
DS: Providers Provider Date of Service: 05/23/25 Date of admission: 05/22/25 16:18 Date of discharge: 05/23/25 Primary care physician: Emma Brito MD Consults: 05/22/25 16:20 Consult to Neurology Routine Consulting Provider: [facility] Reason for consultation: stroke DS: Diagnosis Discharge Diagnosis (1) HTN (hypertension): Status: Acute DS: Summary Hospital Course Hospital Course: History and physical as per admitting provider. 50-year-old male history of hypertension, CAD, CHF presented to ER today for sudden onset of left hand numbness. Patient stated that he does have numbness down his shoulder into his hand. However, numbness is more prominent in his left hand and still persistent. Patient denies sleeping on anything underneath his left axilla. Denies any neck pain or headache. 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 No new medications or new stresses at home. He is independent. Patient was given full-dose aspirin in the ER. MRI showed acute nonhemorrhagic ischemia/stroke to the right dorsal elder therefore plan will be to admit patient for acute stroke. Acute Stroke likely secondary to high blood pressure MRI showing acute nonhemorrhagic ischemia/stroke to right dorsal elder small- vessel occlusive disease, cerebral amyloid angiopathy an old microhemorrhages likely secondary to hypertension Neurology consultation> Continued Aspirin, statin Echocardiogram carotid Doppler> no significant stenosis PT/OT> no skilled PT indicated LDL 50, HDL 41, total cholesterol 111, triglycerides 102 Hypertension elevated blood pressure readings continue amlodipine, hydralazine Hydralazine increased to 100 mg 3 times a day rather than twice daily to keep better blood pressure control CKD 3B Baseline BPH Continue finasteride History of heart failure with preserved ejection fraction No acute exacerbation during hospitalization On Jardiance History of coronary artery disease Continue aspirin, beta-jalil and statin Time Attestation Discharge Coordination Time (in mins): 45 Quality: Safe Use of Opioids Does Pt have an Active Cancer Diagnosis on the Problem List?: No Quality: Stroke Does the patient have a stroke diagnosis?: No Physical Exam Exam: Exam: Appearing in no acute distress head is normocephalic atraumatic eyes pupils are PERRLA sclera is anicteric mouth throat mucous membranes are intact and moist neck is supple no lymphadenopathy, no JVD noted lung sounds are clear to auscultation heart regular rate rhythm, clear S1, S2 positive bowel sounds, abdomen is soft, nontender neuro patient is alert x3, no focal deficits Vital Signs: Vital Signs: Last Vital Signs Temp 98.7 F 05/23/25 06:16 Pulse 76 05/23/25 08:39 Resp 18 05/23/25 08:39 BP 161/107 H 05/23/25 08:39 Pulse Ox 98 05/23/25 08:39 O2 Del Method Room Air 05/23/25 08:39 BMI result Body Mass Index 32.6 DS: Data Data Completed and Pending Labs on day of discharge: Laboratory Results - last 24 hr 05/22/25 05/22/25 05/23/25 10:27 13:48 04:17 WBC 5.6 RBC 4.73 Hgb 13.8 L Hct 42.7 MCV 90.3 MCH 29.2 MCHC 32.3 RDW 14.7 Plt Count 175 MPV 9.1 L Immature Gran % (Auto) 0.4 Neut % (Auto) 63.7 Lymph % (Auto) 19.5 L [place] % (Auto) 11.0 Eos % (Auto) 4.3 H Baso % (Auto) 1.1 Lymph # (Auto) 1.1 L [place] # (Auto) 0.6 Eos # (Auto) 0.2 Baso # (Auto) 0.1 Abs Immat Gran (auto) 0.02 Absolute Neuts (auto) 3.6 Absolute Nucleated RBC 0.000 Nucleated RBC % (auto) 0.0 PT 13.5 INR 1.1 Sodium 138 Potassium 4.1 Chloride 111 H Carbon Dioxide 21 L Anion Gap 10 L BUN 36 H Creatinine 1.84 H Estim Creat Clear Calc 54.7 Estimated GFR 39 Random Glucose 100 Calcium 9.4 D Magnesium 2.0 Total Bilirubin 0.9 AST 22 ALT 18 Alkaline Phosphatase 90 Troponin I High Sens 32.5 31.1 Total Protein 7.5 Albumin 4.5 Triglycerides 102 Cholesterol 111 LDL Cholesterol, Calc 50 HDL Cholesterol 41 Discharge Plan Discharge Anticipated Discharge Date/Time: 05/23/25 09:17 Patient Disposition: Home, Self-Care Discharge Diagnosis: Stroke Referrals: Emma Brito MD [Primary Care Provider, Internal Medicine] - 1 Week Discharge Medications: Continued atorvastatin 80 mg tablet 80 mg PO DAILY Qty: 90 3RF nitroglycerin [Nitrostat] 0.4 mg tablet, sublingual 0.4 mg sublingual Q5M PRN (Reason: Chest Pain) 90 Days Qty: 25 0RF Rx Instructions: 1 tab under tongue as needed for chest pain, may repeat in 5 min X2 isosorbide mononitrate 60 mg tablet extended release 24 hr 60 mg PO DAILY Qty: 90 3RF amlodipine 10 mg tablet 10 mg PO DAILY Qty: 90 3RF Rx Instructions: dose increase aspirin 81 mg tablet,delayed release (DR/EC) 81 mg PO DAILY Rx Instructions: TAKE 1 TABLET BY MOUTH DAILY carvedilol 25 mg tablet 37.5 mg PO BID 90 Days Qty: 270 3RF (DME) medial column foot insole right See Rx Instructions .Route .MEDSUPPLY Qty: 1 0RF Rx Instructions: As directed omega 9-lwk-vnp-fish oil [Fish Oil] 1,000 mg (120 mg-180 mg) capsule 1 cap PO DAILY finasteride 5 mg tablet 5 mg PO BEDTIME Jardiance 10 mg tablet 10 mg PO DAILY Changed hydralazine 100 mg tablet 100 mg PO TID Qty: 180 3RF Discharge Orders: Discharge Order (Routine); Ordered 05/23/25 Ordered By: Mariel Hector Diet: Advance to usual diet Activity on Discharge: As tolerated Stand Alone Forms: Patient Portal Discharge page Print Language: Ivorian Care Plan Goals: Hydralazine was increased to 100 mg 3 times daily Continue aspirin and statin Health Concerns: Stroke Plan of Treatment: Follow up with the primary care provider as needed Take all medications as prescribed Assessment: See discharge summary
--- NOTE | 2025-05-23 09:51 | P.CNNE_ITS ---
History of Present Illness Data of Consult Service Date: 05/23/25 Primary Care Provider: Emma Brito MD [facility] Reason for consult: left upper extremity numbness This is a 50-year-old left-handed male with a history of hypertension, CAD, CHF presented to ER for sudden onset of left hand numbness. Patient stated that he has numbness down his left shoulder into his hand. However, numbness is more prominent in his left hand and still persistent. Patient denies sleeping on anything underneath his left axilla. Denies any neck pain or headache. 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 No new medications or new stresses at home. He is independent. Patient was given full-dose aspirin in the ER. MRI showed a tiny acute nonhemorrhagic ischemia/stroke to the right dorsal elder, and some old lacunar strokes in the brainstem and white matter and mild microvascular disease. Carotid doppler did not show any significant stenosis. At this point he has some residual tingling in his left hand but is otherwise back to his baseline. [facility] Past Medical History Medical History CAD (coronary artery disease) Elevated troponin Acute systolic heart failure CHF (congestive heart failure) Acute non-ST elevation myocardial infarction (NSTEMI) HTN (hypertension) Family History Family History (Updated 05/01/25 @ 15:36 by Delmi Mcallister CMA) Mother No problems noted. Father Stomach cancer Sister No problems noted. Surgical History Surgical History Hx of removal of cyst S/P cardiac catheterization Social History Social History Household Members: Spouse Household Members Other:: girlfriend Housing: Other Housing Other:: mobile home Are you a primary career technical counselor to a significant other at home: No Do you presently have visiting nurse or other home services: No Alcohol intake: former Patient Tobacco Use Status: Never used Tobacco Tobacco use type: Cigarette e-Cigarette/Vaping Use: Never Used Second Hand Smoke Exposure: No Substance Use Type: Marijuana Advance Directives Date on File: 08/27/21 service: No Current occupational status: employed 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 Cognitive needs: No Hearing needs: No Vision needs: Yes Meds Allergies Allergy/AdvReac Type Severity Reaction Status Date / Time No Known Allergies Allergy Verified 05/22/25 10:13 Active Medications: Current Medications Acetaminophen (Acetaminophen 325 Mg Tablet) 650 mg PO Q6H PRN PRN Reason: Pain, Mild 1-3,fever,headache Amlodipine Besylate (Amlodipine Besylate 10 Mg Tablet) 10 mg PO DAILY [facility]; Protocol Last Admin: 05/23/25 08:46 Dose: 10 mg Aspirin (Aspirin Enteric Coated 81 Mg Tablet.) 81 mg PO DAILY [facility] Last Admin: 05/23/25 08:47 Dose: 81 mg Atorvastatin Calcium (Atorvastatin Calcium 80 Mg Tablet) 80 mg PO DAILY [facility] Last Admin: 05/23/25 08:47 Dose: 80 mg Calcium Carbonate (Calcium Carbonate 750 Mg Tab.Chew) 750 mg PO Q4H PRN PRN Reason: Heartburn Carvedilol (Carvedilol 12.5 Mg Tablet) 37.5 mg PO BID [facility]; Protocol Last Admin: 05/23/25 08:47 Dose: 37.5 mg Finasteride (Finasteride 5 Mg Tablet) 5 mg PO BEDTIME [facility] Last Admin: 05/22/25 22:02 Dose: 5 mg Heparin Sodium (Porcine) (Heparin Sodium,Porcine 5,000 Unit/Ml Vial) 5,000 unit SUBCUT Q12H [facility] Last Admin: 05/23/25 06:25 Dose: 5,000 unit Hydralazine HCl (Hydralazine Hcl 50 Mg Tablet) 100 mg PO BID [facility]; Protocol Last Admin: 05/23/25 08:46 Dose: 100 mg Isosorbide Mononitrate (Isosorbide Mononitrate 60 Mg Tab.Er.24h) 60 mg PO DAILY [facility]; Protocol Last Admin: 05/23/25 08:46 Dose: 60 mg Magnesium Hydroxide (Milk Of Magnesia 30 Ml Oral.Susp) 30 ml PO DAILY PRN PRN Reason: Constipation Melatonin (Melatonin 3 Mg Tablet) 6 mg PO BEDTIME PRN PRN Reason: Insomnia Sodium Chloride (0.9 % Sodium Chloride Flush 3 Ml Syringe) 3 ml IVFLUSH QSHIFT [facility] Last Admin: 05/23/25 07:27 Dose: Not Given Home Medications ?Medication ?Instructions ?Recorded ?Confirmed ?Last Taken ?Type finasteride 5 mg tablet 5 mg PO BEDTIME 05/13/2307/1605/21/25 History omega 1-ebn-lcs-fish oil 1,000 mg 1 cap PO DAILY 05/1305/22/25 05/22/25 History (120 mg-180 mg) capsule (Fish Oil) empagliflozin 10 mg tablet 10 mg PO DAILY 12/04/2307/1605/22/25 History (Jardiance) aspirin 81 mg tablet,delayed 81 mg PO DAILY 05/22/25 1 07/23/24 05/22/25 History release Physical Exam 2 Vital Signs: Vital Signs: Last Vital Signs Temp 98.7 F 05/23/25 06:16 Pulse 76 05/23/25 08:39 Resp 18 05/23/25 08:39 BP 161/107 H 05/23/25 08:39 Pulse Ox 98 05/23/25 08:39 O2 Del Method Room Air 05/23/25 08:39 BMI result Body Mass Index 32.6 Neuro: Other: He is alert and oriented with normal intellectual functions. His speech and language functions are intact. Cranial nerves 2-12 are normal. There is no drift of the upper extremities. Muscle tone and strength are normal in all 4 extremities. Deep tendon reflexes are 2+ plantar responses are flexor. There is some subjective alteration and touch over the left palm and dorsum of the hand which she describes as a tingling sensation. There is no sensory deficit otherwise. Results Labs 05/22/25 10:27 05/22/25 10:27 Labs: Short CBC 05/22/25 Range/Units 10:27 WBC 5.6 (4.8-10.8) X10*3/uL Hgb 13.8 L (14.0-18.0) g/dl Hct 42.7 (42.0-52.0) % Plt Count 175 (160-400) X10*3/uL BMP 05/22/25 10:27 Sodium 138 Potassium 4.1 Chloride 111 H Carbon Dioxide 21 L BUN 36 H Creatinine 1.84 H Calcium 9.4 D Liver Function 05/22/25 Range/Units 10:27 Total Bilirubin 0.9 (0.0-1.0) mg/dL AST 22 (5-37) U/L ALT 18 (0-40) U/L Alkaline Phosphatase 90 (39-117) U/L Albumin 4.5 (3.5-5.0) g/dL Assessment and Plan (1) Acute CVA (cerebrovascular accident): Status: Acute He has a tiny acute ischemic infarct in the dorsal tactile portion of the right elder related to small-vessel disease. He also has additional small lacunar infarcts that are old within the brainstem and white matter of both hemispheres along with microvascular disease related to hypertension. Carotid ultrasound is unremarkable. Recommendations: Aspirin 81 mg a day, atorvastatin 80 mg. Blood pressure control , <130/80 as target numbers. I expect his sensory symptoms should resolve within the next week or so. (2) HTN (hypertension): Qualifiers: Hypertension type: primary hypertension Qualified Code(s): I10 - Essential (primary) hypertension Status: Acute Procedures Date of Service Date of Service: 05/23/25
--- NOTE | 2025-05-23 12:17 | MHC.CM.PN ---
PATIENT IS DC PRIOR TO CASE MANAGEMENT MEETING FOR ASSESSMENT. PER REVIEW OF DC ORDER, NO SERVICES INDICATED.
[2025-05-23 12:21] VITALS: BP 127/86; PULSE 79; RESP 18; TEMP 36.9; O2SAT 97
== END 2025-05-23 12:41 | disposition home or self-care (01) | DRG 45 ==
LOC: HO.ED 16:01 → HO.EDOVER 17:25
PROVIDERS: Registered Nurse Emergency; Admitting Provider Nurse Practitioner Acute Care; Emergency Provider Student in an Organized Health Care Education/Training Program; PCP Student in an Organized Health Care Education/Training Program; Visit Provider Nurse Practitioner Acute Care
DX: I63.9 Cerebral infarction, unspecified (principal); E85.4 Organ-limited amyloidosis; I13.0 Hypertensive heart and chronic kidney disease with heart failure and stage 1 through stage 4 chronic kidney disease, or unspecified chronic kidney disease; I50.32 Chronic diastolic (congestive) heart failure; R20.0 Anesthesia of skin; N18.32 Chronic kidney disease, stage 3b; I25.10 Atherosclerotic heart disease of native coronary artery without angina pectoris; R29.700 NIHSS score 0; N40.0 Benign prostatic hyperplasia without lower urinary tract symptoms; I68.0 Cerebral amyloid angiopathy; Z79.82 Long term (current) use of aspirin; Z79.899 Other long term (current) drug therapy
CPT/HCPCS: 36415; 70450; 70551; 80053; 80061; 83735; 84484; 85025; 85610; 93005; 93880; 97161; 97165; 99285; J1644

== ENCOUNTER → 2025-05-22 10:11 | Outpatient (BNV) | payer OTHER, SELFPAY | PROVIDERS: Emergency Provider Student in an Organized Health Care Education/Training Program; PCP Student in an Organized Health Care Education/Training Program; Visit Provider Internal Medicine | DX: I49.3 Ventricular premature depolarization (principal) | CPT/HCPCS: 93010 ==

== ENCOUNTER → 2025-05-22 10:15 | Outpatient (BNV) | payer OTHER, SELFPAY | PROVIDERS: Emergency Provider Student in an Organized Health Care Education/Training Program; PCP Student in an Organized Health Care Education/Training Program; Visit Provider Radiology Diagnostic Ultrasound | DX: I63.9 Cerebral infarction, unspecified (principal); I25.10 Atherosclerotic heart disease of native coronary artery without angina pectoris | CPT/HCPCS: 70450; 70551; 93880 ==

== ENCOUNTER → 2025-05-22 16:18 | Outpatient (BNV) | payer OTHER, SELFPAY | PROVIDERS: Admitting Provider Nurse Practitioner Acute Care; Emergency Provider Student in an Organized Health Care Education/Training Program; PCP Student in an Organized Health Care Education/Training Program; Visit Provider Psychiatry & Neurology Neurology | DX: I63.9 Cerebral infarction, unspecified (principal); I10 Essential (primary) hypertension | CPT/HCPCS: 99222 ==

== ENCOUNTER → 2025-05-22 16:18 | Outpatient (BNV) | payer OTHER, SELFPAY | PROVIDERS: Admitting Provider Nurse Practitioner Acute Care; Emergency Provider Student in an Organized Health Care Education/Training Program; PCP Student in an Organized Health Care Education/Training Program; Visit Provider Nurse Practitioner Acute Care | DX: I63.89 Other cerebral infarction (principal); G46.3 Brain stem stroke syndrome; I10 Essential (primary) hypertension | CPT/HCPCS: 99239 ==

== ENCOUNTER 2025-05-26 09:38 | Outpatient (AMB) | payer OTHER, SELFPAY ==
--- NOTE | 2025-05-26 09:43 | HO.NEPHOV ---
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 He has a baseline serum creatinine between 1.8 to 1.9. His blood pressure control is at goal now after adjustment of medications. He is trying to be compliant with low-sodium diet. He does not have any chest pain, shortness for, pedal edema, proximal nocturnal dyspnea, orthopnea or urinary symptoms. His weight has gone up. He does not have any headache, visual disturbances or orthostatic symptoms. He avoids nonsteroidal anti-inflammatory medications. He recently had a CVA. His MRI showed Acute nonhemorrhagic ischemia/stroke in right dorsal elder. Old microhemorrhages likely related to hypertension and less likely cerebral amyloid angiopathy. Also small vessel occlusive disease. [facility] Medical History CAD (coronary artery disease) Elevated troponin Acute systolic heart failure CHF (congestive heart failure) Acute non-ST elevation myocardial infarction (NSTEMI) HTN (hypertension) Surgical History Hx of removal of cyst S/P cardiac catheterization Family History (Updated 05/01/25 @ 15:36 by Delmi Mcallister CMA) Mother No problems noted. Father Stomach cancer Sister No problems noted. 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 Cognitive needs: No Hearing needs: No Vision needs: Yes Review of Systems Const All systems reviewed & are unremarkable except as noted in HPI and below Physical Exam Const General: comfortable and no acute distress Orientation/consciousness: patient oriented x3 HEENT Head: Yes normocephalic Mouth: Normal oral and palatal mucosa present Eyes EOM: EOMs intact bilaterally Neck Neck: Yes supple Resp Auscultation: clear to auscultation bilaterally Cardio Jugular venous distension: no JVD Rate: regular rate GI Palpation (GI): Soft to palpation Auscultation: normal bowel sounds General: Yes no CVA tenderness Back/Spine/Pelvis Back: no CVA tenderness Skin General skin exam: no rashes or lesions noted Neuro General: patient oriented x3 and moves all extremities Extrem General: Yes no pedal edema Results Reviewed Nephrology Results: Hgb, (14.0-18.0) 13.8 g/dl L 05/22/25 WBC, (4.8-10.8) 5.6 X10*3/uL 05/22/25 Plt Count, (160-400) 175 X10*3/uL 05/22/25 Sodium, (135-145) 138 mmol/L 05/22/25 Potassium, (3.3-5.1) 4.1 mmol/L 05/22/25 Chloride, (96-108) 111 mmol/L H 05/22/25 Carbon Dioxide, (22-29) 21 mmol/L L 05/22/25 BUN, (9-16) 36 mg/dL H 05/22/25 Creatinine, (0.5-1.4) 1.84 mg/dL H 05/22/25 Calcium, (8.4-10.2) 9.4 mg/dL Δ 05/22/25 Renal US 08/26/21 Assessment & Plan Assessment & Plan (1) CKD (chronic kidney disease) stage 3, GFR 30-59 ml/min: Code(s): N18.30 - Chronic kidney disease, stage 3 unspecified Category: Medical Qualifiers: Chronic kidney disease stage 3 subtype: stage 3a (GFR 45-59) Qualified Code(s): N18.31 - Chronic kidney disease, stage 3a (2) HTN (hypertension): Code(s): I10 - Essential (primary) hypertension Category: Medical Qualifiers: Hypertension type: primary hypertension Qualified Code(s): I10 - Essential (primary) hypertension Plan Mr Phillips has CKD stage 3 with baseline serum creatinine between 1.8 to 1.9. His CKD is most likely due to vascular disease. He has history of from coronary artery disease and cardiomyopathy. His volume status is optimal. His blood pressure control is well controlled on current medications. He should continue to be on a low-sodium diet. He needs to loose weight. He should avoid nonsteroidal anti-inflammatory medications. He is on Jardiance now. ? Needs more anticoagulation. All questions were answered. Follow-up of blood work was ordered and follow-up appointment was given. Orders: Orders Protein Creatinine Ratio, Ur 3 Months I10 - Essential (primary) hypertension, N18.31 - Chronic kidney disease, stage 3a Blood Urea Nitrogen 3 Months I10 - Essential (primary) hypertension, N18.31 - Chronic kidney disease, stage 3a Creatinine 3 Months I10 - Essential (primary) hypertension, N18.31 - Chronic kidney disease, stage 3a Electrolytes 3 Months I10 - Essential (primary) hypertension, N18.31 - Chronic kidney disease, stage 3a Coding Level of Care Code Est Pt Level 4 (23206) Diagnoses Stage 3a chronic kidney disease N18.31 Chronic kidney disease stage 3 subtype: stage 3a (GFR 45-59) Primary hypertension I10 Hypertension type: primary hypertension
[2025-05-26 09:45] VITALS: BP 112/80; PULSE 76; O2SAT 96; BMI 32.9
== END 2025-05-26 10:02 | disposition home or self-care (01) ==
LOC: HO.HKA 09:39
PROVIDERS: PCP Student in an Organized Health Care Education/Training Program; Visit Provider Internal Medicine Nephrology
DX: N18.31 Chronic kidney disease, stage 3a (principal); I10 Essential (primary) hypertension
CPT/HCPCS: 99214

== ENCOUNTER → 2025-05-26 09:38 | Outpatient (BNVA) | payer OTHER, SELFPAY | PROVIDERS: PCP Student in an Organized Health Care Education/Training Program; Visit Provider Internal Medicine Nephrology | DX: I12.9 Hypertensive chronic kidney disease with stage 1 through stage 4 chronic kidney disease, or unspecified chronic kidney disease (principal); N18.31 Chronic kidney disease, stage 3a; Z09 Encounter for follow-up examination after completed treatment for conditions other than malignant neoplasm | CPT/HCPCS: 99212 ==

== ENCOUNTER 2025-05-26 13:48 | Outpatient (AMB) | payer OTHER, SELFPAY ==
--- NOTE | 2025-05-26 14:05 | MHC.PC.OV ---
Vital Signs 05/26/25 14:08 Height 5 ft 9 in Weight 225 lb 2 oz BMI 33.2 BP 126/78 Blood Pressure Location Lt brachial Position Sitting Pulse 79 Pulse Source Pulse Oximeter Temp 97.1 F Temp Source Temporal Artery Scan Pulse Oximetry (%) 97 Oxygen Delivery Method Room Air Intake Visit Reasons: ed f/u [facility] 05/22 stroke? Intake Note: Patient is here to follow-up after a visit the emergency department at [facility] on 05/22/25. Exercise Science Instructor Required: No Director Of Rehabilitation: Not Required per policy Accompanied by: Spouse Allergies No Known Allergies Allergy (Verified 05/26/25 14:07) Medication List - Last Reconciled 05/26/25 by Emma Brito MD amlodipine 10 mg PO DAILY aspirin 81 mg PO DAILY atorvastatin 80 mg PO DAILY carvedilol 37.5 mg (1.5 x 25 mg) PO BID 90 days empagliflozin (Jardiance) 10 mg PO DAILY finasteride 5 mg PO BEDTIME hydralazine 100 mg PO TID isosorbide mononitrate ER 60 mg PO DAILY [medial column foot insole As directed] nitroglycerin (Nitrostat) 0.4 mg sublingual Q5M PRN 3 months omega 9-gyw-ulk-fish oil 1,000 (120-180) mg (Fish Oil) 1 cap PO DAILY Tobacco use date assessed: 05/26/25 Dental Screening Dental Screen Date: 05/01/25 HPI HPI Comments History of Present Illness Details Patient is a [age] male presenting for hospital discharge follow-up. Patient had presented to [facility] ED on 05/22/2025 with complaints of left hand numbness, found to have acute nonhemorrhagic ischemic stroke to the right dorsal elder on MRI, as well as small-vessel occlusive disease and old microhemorrhages is likely secondary to hypertension. brain imaging negative for intracranial bleeding. Carotid Doppler did not show significant stenosis. Neurology was consulted who recommended to continue on aspirin 81 mg and atorvastatin 80 mg with tight control of blood pressure with goal less than 130/80. Hydralazine dose was increased to 100 mg t.i.d. from b.i.d. Today, patient reports feeling well. Has no acute complaints. Still feels intermittent numbness in his left arm. Compliant with his medications, but does not monitor blood pressure at home. [facility] Medical History CAD (coronary artery disease) Elevated troponin Acute systolic heart failure CHF (congestive heart failure) Acute non-ST elevation myocardial infarction (NSTEMI) HTN (hypertension) Surgical History Hx of removal of cyst S/P cardiac catheterization Family History Mother No problems noted. Father Stomach cancer Sister No problems noted. Social History (Updated 05/26/25 @ 14:12 by CHEL Salas) Household Members: Spouse Household Members Other:: girlfriend Housing: Other Housing Other:: mobile home Are you a primary career center director to a significant other at home: No Do you presently have visiting nurse or other home services: No Alcohol intake: former Patient Tobacco Use Status: Never used Tobacco Tobacco use type: Cigarette e-Cigarette/Vaping Use: Never Used Second Hand Smoke Exposure: No Substance Use Type: Marijuana Substance Use Frequency: Daily Advance Directives Date on File: 08/27/21 service: No Current occupational status: employed 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 Cognitive needs: No Hearing needs: No Vision needs: Yes Questionnaire Thrive Questionnaire Date Thrive assessed: 04/07/25 I am a: Patient What is your living situation today?: I have a steady place to live Within the past 12 months, did the food you bought not last and you didn't have the money to get more?: Never true Within the past 12 months, did you worry whether your food would run out before you got money to buy more?: Never true Do you have trouble paying for medicines?: No Do you have trouble getting transportation to medical appointments?: No Do you have trouble paying your heating and electricity bill?: No Do you have trouble taking care of your child, family member or friend?: No Do you have trouble with day-to-day activities such as bathing, preparing meals, shopping, managing finances, etc.?: No Are you currently unemployed and looking for a job?: No Are you interested in more education?: No Please select the resources that you would like help with: None Currently or been in a relationship where the following occur: No concerns reported THRIVE Score: 0 ANSELMO-7 AMB Questionnaire ANSELMO-7 Date ANSELMO - 7 assessed: 05/01/25 Source: Developed by Drs. Dane Isabel, Elida Blanc, Qamar River and colleagues, with an educational gloria from [employer]. Physical exam (Primary Care) Vital Signs: Last Vital Signs Temp 97.1 F 05/26/25 14:08 Pulse 79 05/26/25 14:08 BP 126/78 05/26/25 14:08 Pulse Ox 97 05/26/25 14:08 Oxygen Delivery Method Room Air 05/26/25 14:08 General: Well-appearing, alert, oriented ?3, in no acute distress. Cardiovascular: RRR, S1-S2 appreciated, no murmurs, rubs or gallops. Respiratory: Lungs clear to auscultation bilaterally, no wheezes, rales or rhonchi. Abdomen: Soft, nontender, nondistended. Normoactive bowel sounds. Neurologic: Alert and oriented X3, cranial nerves II?XII grossly intact, sensation and strength intact in bilateral lower and upper extremities. BMI result Body Mass Index 33.2 Tobacco/Smoking Status: Tobacco use Status Tobacco use date assessed 05/26/25 05/26/25 14:13 Patient Tobacco Use Status Never used Tobacco 05/26/25 14:13 Tobacco use type Cigarette 05/26/25 14:13 e-Cigarette/Vaping Use Never Used 05/26/25 14:13 Thrive Assessment: Date of Thrive Assessment Date Thrive assessed 04/07/25 05/26/25 14:13 Currently or been in a relationship where the following occur: No concerns reported Coding Level of Care Code Est Pt Level 4 (83079) Diagnoses Hospital discharge follow-up Z09 Acute CVA (cerebrovascular accident) I63.9 Primary hypertension I10 Hypertension type: primary hypertension Assessment & Plan Assessment & Plan (1) Hospital discharge follow-up: Code(s): Z09 - Encounter for follow-up examination after completed treatment for conditions other than malignant neoplasm Category: Medical Plan: Patient had presented to [facility] ED on 05/22/2025 with complaints of left hand numbness, found to have acute nonhemorrhagic ischemic stroke to the right dorsal elder on MRI, as well as small-vessel occlusive disease and old microhemorrhages is likely secondary to hypertension. brain imaging negative for intracranial bleeding. Carotid Doppler did not show significant stenosis. Neurology was consulted who recommended to continue on aspirin 81 mg and atorvastatin 80 mg with tight control of blood pressure with goal less than 130/80. Hydralazine dose was increased to 100 mg t.i.d. from b.i.d. (2) Acute CVA (cerebrovascular accident): Code(s): I63.9 - Cerebral infarction, unspecified Category: Medical Plan: Patient with recent acute CVA on 05/22 as above. Will start Plavix 75 mg daily for 21 days. Continue on aspirin 81 mg, and atorvastatin 80 mg. Blood pressure is within normal limit. Patient advised to monitor blood pressure at home and keep a log. Referral to Neurology provided for follow-up. (3) HTN (hypertension): Code(s): I10 - Essential (primary) hypertension Category: Medical Qualifiers: Hypertension type: primary hypertension Qualified Code(s): I10 - Essential (primary) hypertension Plan: continue on amlodipine 10 mg, hydralazine 100 mg t.i.d. ( increased upon discharge during recent hospitalization for stroke), isosorbide mononitrate 60 mg daily Orders: Referrals Neurology Referral I63.9 - Cerebral infarction, unspecified Medications: New clopidogrel 75 mg PO DAILY 21 tabs 0RF acute stroke
[2025-05-26 14:08] VITALS: BP 126/78; PULSE 79; TEMP 36.2; O2SAT 97; BMI 33.2
--- OUTSIDE RECORDS SUMMARY | 2025-05-26 18:02 | XMS_ITS | Data Portability ---
Author Organization [facility], [id number] Address [address] [place] [address] Assessment No assessment recorded. Plan of Treatment [...] ICD10 Code Diagnosis IMO Codes Diagnosis Note [id number] [address] [address] [address] 08/05/2021 08:20:21 08/05/2021 09:37:27 [id number] [facility]IL [address] [address] 09/30/2023 09:27:01 09/30/2023 09:43:14 History and physical examination, occupation [id number] Z02.1 Health Concerns Section Related Observation LastModified by Organization Detai ls LastModified Time None Recorded Concern Status LastModified by Organization Details LastModified Time None Recorded Advance Directives Directive None Recorded Payers Insurance Date Sequence Insurance Name Policy Number Policy Conklin Covered Member ID Conklin Member ID Guarantor Name 09/30/2023 OC-ESCREEN [employer] [facility] [id number] Brandon Phillips
--- OUTSIDE RECORDS SUMMARY | 2025-05-26 18:02 | XMS_ITS | Clinical Summary ---
Author Organization [facility] Prior to 11/19/[address] [place] [id number] Care Team Providers Care Farm Management Supervisor Name Role Phone Mario Motta MD Primary Care Provider [phone] Allergies No known active allergies Medications Medication [...] age to complete this topic Care Teams Farm Management Supervisor Relationship Specialty Start Date End Date Mario Motta MD [address] [place] [address] [place] [address] PCP - General Internal Medicine 11/18/22
--- OUTSIDE RECORDS SUMMARY | 2025-05-26 18:02 | XMS_ITS | Clinical Summary ---
Author Organization [facility] Address [address] [address] [place] [address] Phone Care Team Providers Care Plunger Scoop Operator Name Role Phone Mario Motta MD Primary Care Provider [phone] Allergies No known active allergies Medications * [...] Vaccine (#1) 2025 [place] [id number] [facility] [place] [id number] [facility] [place] [id number] Care Teams Plunger Scoop Operator Relationship Specialty Start Date End Date Mario Motta MD [address] [place] [address] PCP - General Internal Medicine 01/22/22
== END 2025-05-26 14:43 | disposition home or self-care (01) ==
LOC: HO.HMCH 13:48
PROVIDERS: PCP Student in an Organized Health Care Education/Training Program; Visit Provider Student in an Organized Health Care Education/Training Program
DX: Z09 Encounter for follow-up examination after completed treatment for conditions other than malignant neoplasm (principal); I63.9 Cerebral infarction, unspecified; I10 Essential (primary) hypertension

== ENCOUNTER 2025-06-12 10:52 | Outpatient (AMB) | payer OTHER, SELFPAY ==
--- NOTE | 2025-06-12 11:31 | A.OFFPC_ITS ---
Vital Signs 06/12/25 11:32 Height 5 ft 9 in Weight 220 lb BMI 32.5 BP 122/82 Blood Pressure Location Lt brachial Position Sitting Respiration 18 Pulse 75 Pulse Source Pulse Oximeter Temp 98.2 F Temp Source Temporal Artery Scan Pulse Oximetry (%) 96 Intake Visit Reasons: Need advise on stroke secondary effects [employer]oples[employer] Business Analyst Required: No Accompanied by: girlfriend Allergies No Known Allergies Allergy (Verified 06/12/25 11:31) Medication List - Last Reconciled 06/12/25 by Emma Brito MD amlodipine 10 mg PO DAILY aspirin 81 mg PO DAILY atorvastatin 80 mg PO DAILY carvedilol 37.5 mg (1.5 x 25 mg) PO BID 90 days clopidogrel 75 mg PO DAILY empagliflozin (Jardiance) 10 mg PO DAILY finasteride 5 mg PO BEDTIME hydralazine 100 mg PO TID isosorbide mononitrate ER 60 mg PO DAILY [medial column foot insole As directed] nitroglycerin (Nitrostat) 0.4 mg sublingual Q5M PRN 3 months omega 5-qsp-pfd-fish oil 1,000 (120-180) mg (Fish Oil) 1 cap PO DAILY Tobacco use date assessed: 05/26/25 Dental Screening Dental Screen Date: 05/01/25 HPI HPI Comments History of Present Illness Details Patient is a 50-year-old male with hypertension, CKD stage 3A (baseline creatinine of 1.8-1.9), history of NSTEMI (08/2021), HFrEF (normalized EF), acute ischemic stroke of the right dorsal elder (05/2025) who presents for follow up. Patient was last seen on 05/26/2025 for hospital discharge follow up after he sustained an acute nonhemorrhagic ischemic stroke to the right dorsal elder on 05/22/2025 after he presented to emergency department with numbness in his left arm. He was started on clopidogrel during that time for 3 weeks' course, to continue on aspirin and atorvastatin rest of medications as prescribed. He was also referred to Neurology. Today, patient reporting developing of new symptoms including a feeling of unsteadiness in his left arm while driving. He also reports difficulty concentrating and brain fog, especially when learning new tasks at his job. 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 He also reports numbness in his left hand which is constant since his stroke. Patient reports history of similar symptoms in both hands of numbness and tingling since his 20s, which he attributed to carpal tunnel syndrome, though it was never formally diagnosed per patient. Previously, the numbness with intermittent with resolve with shaking his hands out but the current numbness in his left hand has been constant since the stroke. No arm numbness, weakness, dysphagia or lower extremity weakness. Reports compliance with all medications. [facility] Medical History (Updated 06/12/25 @ 15:40 by Emma Brito MD) Acute CVA (cerebrovascular accident) CAD (coronary artery disease) Elevated troponin Acute systolic heart failure CHF (congestive heart failure) Acute non-ST elevation myocardial infarction (NSTEMI) HTN (hypertension) Surgical History Hx of removal of cyst S/P cardiac catheterization Family History Mother No problems noted. Father Stomach cancer Sister No problems noted. 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 Cognitive needs: No Hearing needs: No Vision needs: Yes Questionnaire Thrive Questionnaire Date Thrive assessed: 04/07/25 I am a: Patient What is your living situation today?: I have a steady place to live Within the past 12 months, did the food you bought not last and you didn't have the money to get more?: Never true Within the past 12 months, did you worry whether your food would run out before you got money to buy more?: Never true Do you have trouble paying for medicines?: No Do you have trouble getting transportation to medical appointments?: No Do you have trouble paying your heating and electricity bill?: No Do you have trouble taking care of your child, family member or friend?: No Do you have trouble with day-to-day activities such as bathing, preparing meals, shopping, managing finances, etc.?: No Are you currently unemployed and looking for a job?: No Are you interested in more education?: No Currently or been in a relationship where the following occur: No concerns reported THRIVE Score: 0 ANSELMO-7 AMB Questionnaire ANSELMO-7 Date ANSELMO - 7 assessed: 05/01/25 Source: Developed by Drs. Dane Isabel, Elida Blanc, Qamar River and colleagues, with an educational gloria from [employer]. Physical exam (Primary Care) Vital Signs: Last Vital Signs Temp 98.2 F 06/12/25 11:32 Pulse 75 06/12/25 11:32 Resp 18 06/12/25 11:32 BP 122/82 06/12/25 11:32 Pulse Ox 96 06/12/25 11:32 General: Well-appearing, alert, oriented ?3, in no acute distress. Neurologic: Alert and oriented X3, cranial nerves II?XII grossly intact, sensation and strength intact in bilateral lower and upper extremities. Psychiatry: Normal mood and affect. Appropriate behavior, good eye contact. Coordination intact: No dysdiadochokinesia or dysmetria. Tinel sign is positive in bilateral hands BMI result Body Mass Index 32.5 Tobacco/Smoking Status: Tobacco use Status Tobacco use date assessed 05/26/25 06/12/25 11:38 Patient Tobacco Use Status Never used Tobacco 06/12/25 11:38 Tobacco use type Cigarette 06/12/25 11:38 e-Cigarette/Vaping Use Never Used 06/12/25 11:38 Thrive Assessment: Date of Thrive Assessment Date Thrive assessed 04/07/25 06/12/25 11:38 Currently or been in a relationship where the following occur: No concerns reported Coding Level of Care Code Est Pt Level 4 (46009) Diagnoses Numbness of left hand R20.0 Vitamin D deficiency E55.9 Ischemic stroke I63.9 Assessment & Plan Assessment & Plan (1) Numbness of left hand: Code(s): R20.0 - Anesthesia of skin Category: Medical (2) Vitamin D deficiency: Code(s): E55.9 - Vitamin D deficiency, unspecified Category: Medical (3) Ischemic stroke: Code(s): I63.9 - Cerebral infarction, unspecified Plan Patient is status post acute nonhemorrhagic ischemic stroke to right dorsal elder on 05/22/2025, presenting with complaints of constant left hand numbness since then, and difficulties with fine motor skills in his left hand, affecting his ability to write and 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 Patient reports history of intermittent numbness and tingling in his bilateral hands since his 20s that would resolve with shaking his hands out. Today, vital signs within normal limits, Strength and sensation intact in bilateral arms and hands. Coordination intact, no dysdiadochokinesia or dysmetria noted. Tinel sign positive in bilateral hands. Symptoms could be secondary to carpal tunnel syndrome versus recent stroke. Plan Referral to occupational therapy given complaints of difficulties with fine motor skills of left hand Referral to hand surgery for further management of carpal tunnel syndrome Patient will follow up with Neurology on 06/28/2025. Continue on Plavix until completion of 21 days course, continue on aspirin indefinitely. Continue with rest of medications as prescribed. Counseled on lifestyle modifications including low-salt DASH diet, Mediterranean diet, engaging in moderate intensity exercise and breaking up sedentary periods Work note provided Orders: Orders OT Evaluation and Treatment Today I63.9 - Cerebral infarction, unspecified Hemoglobin A1c Today Z13.1 - Encounter for screening for diabetes mellitus Vitamin D 25-OH (D2 and D3) Today E55.9 - Vitamin D deficiency, unspecified Referrals Hand Surgery Referral G56.00 - Carpal tunnel syndrome, unspecified upper limb
[2025-06-12 11:32] VITALS: BP 122/82; PULSE 75; RESP 18; TEMP 36.8; O2SAT 96; BMI 32.5
--- OUTSIDE RECORDS SUMMARY | 2025-06-12 13:35 | XMS_ITS | Clinical Summary ---
Author Organization [facility] Prior to 11/19/[address] [place] [id number] Care Team Providers Care Gas Welder Apprentice Name Role Phone Mario Motta MD Primary Care Provider [phone] Allergies No known active allergies Medications Medication [...] age to complete this topic Care Teams Gas Welder Apprentice Relationship Specialty Start Date End Date Mario Motta MD [address] [place] [address] [place] [address] PCP - General Internal Medicine 11/18/22
--- OUTSIDE RECORDS SUMMARY | 2025-06-12 13:35 | XMS_ITS | Clinical Summary ---
Author Organization [facility] Address [address] [place] [address] [place] [address] Phone Care Team Providers Care Staff Home Therapy Rn Name Role Phone Mario Motta MD Primary Care Provider [phone] Allergies No known active allergies Medications * [...] Vaccine (#1) [address] [place] [address] [facility] [place] [id number] [facility] [place] [id number] Care Teams Staff Home Therapy Rn Relationship Specialty Start Date End Date Mario Motta MD [address] [place] [address] PCP - General Internal Medicine 01/22/22
--- OUTSIDE RECORDS SUMMARY | 2025-06-12 13:35 | XMS_ITS | Clinical Summary ---
Author Organization [facility] Address [address] [place] [id number] Care Team Providers Care Legal Project Manager Name Role Phone Unavailable Primary Care Provider Unavailabl e Medications amLODIPine (NORVASC) 5 MG tablet 5 MG PO DAILY Active aspirin 81 MG chewable tablet 81 MG PO DAILY Active atorvaSTATin (LIPITOR) 80 MG tablet 80 MG PO QHS Active carvediloL (COREG) 25 MG tablet 37.5 MG PO BID Active folic acid (FOLVITE) 1 MG tablet 1 MG PO DAILY Active hydrALAZINE (APRESOLINE) 25 MG tablet 75 MG PO BID Active isosorbide mononitrate ER (IMDUR) 30 MG 24 hr tablet 90 MG PO QAM Active multivitamin per tablet 1 TAB PO DAILY Active nitroglycerin (NITROSTAT) 0.4 MG SL tablet 0.4 MG SL .Q5 MIN X3 DOSES PRN CHEST PAIN Active thiamine (Vitamin B1) 100 MG tablet 100 MG PO DAILY Active Social History Tobacco Use Types Packs/Day Years Used Date Smoking Tobacco: Never Assessed Sex and Gender Information Value Date Recorded Sex Assigned at Not on file Legal Sex Male 4:26 PM EDT Gender Identity Not on file Sexual Orientation Not on file Last Filed Vital Signs Vital Sign Reading Time Taken Comments Blood Pressure - - Pulse - - Temperature - - Respiratory Rate - - Oxygen Saturation - - Inhaled Oxygen Concentration - - Weight 90.7 kg (200 lb) 05/19/2022 9:39 AM EST Weight Measurement Method: Bedscale Height 177.8 cm (5' 10 ) 05/19/2022 9:3 9 AM EST Body Mass Index 28.7 05/19/2022 9:39 AM EST Plan of Treatment Health Maintenance Due Date Last Done Comments Blood Pressure 1973 Lipid Panel 1973 PSA 1973 Prostate Cancer Screening 1973 SDM 1973 Depression Screening 1985 Hepatitis C Screening 1991 DTaP,Tdap,and Td Vaccines (1 - Tdap) 01/16/1992 CT Colonography 2018 Colonoscopy 2018 Colorectal Cancer Screening 2018 FIT 2018 FOBT 2018 Multitarget Stool DNA (Cologuard) 2018 Sigmoidoscopy 2018 Pneumococcal Vaccine: 50+ Ye ars (1 of 1 - PCV) 2023 Zoster Vaccine (1 of 2) 2023 COVID-19 Vaccine (1 - 2024-2 6 season) 2025 Influenza Vaccine (#1) 2025 Meningococcal B Vaccines Aged Out No longer eligible based on patient's age to complete this topic Meningococcal Vaccines Aged Out No lo nger eligible based on patient's age to complete this topic
== END 2025-06-12 12:12 | disposition home or self-care (01) ==
LOC: HO.HMCH 10:53
PROVIDERS: PCP Student in an Organized Health Care Education/Training Program; Visit Provider Student in an Organized Health Care Education/Training Program
DX: R20.0 Anesthesia of skin (principal); E55.9 Vitamin D deficiency, unspecified; I63.9 Cerebral infarction, unspecified

== ENCOUNTER → 2025-06-12 10:52 | Outpatient (BNVA) | payer OTHER, SELFPAY | PROVIDERS: PCP Student in an Organized Health Care Education/Training Program; Visit Provider Student in an Organized Health Care Education/Training Program | DX: R20.0 Anesthesia of skin (principal); E55.9 Vitamin D deficiency, unspecified; Z86.73 Personal history of transient ischemic attack (TIA), and cerebral infarction without residual deficits; Z79.82 Long term (current) use of aspirin; Z79.899 Other long term (current) drug therapy | CPT/HCPCS: 99212 ==